=== PATIENT | female | born 1960 | race Caucasian/White ===

== ENCOUNTER → 2020-07-30 11:18 | Outpatient (CLI) | payer OTHER, SELFPAY ==
[2020-07-30 11:51] LABS: Add Manual Diff / Slide Review NO; Basophils Absolute Auto 0 /uL (0-100); Basophils Percent Auto 0.6 % (0-2); Eosinophils Absolute Auto 200 /uL (0-450); Eosinophils Percent Auto 2.7 % (2-4); Hematocrit 43.9 % (36-46); Hemoglobin 14.9 g/dL (12.0-16.0); Lymphocytes Absolute Auto 2000 /uL (1100-4500); Lymphocytes Percent Auto 32.3 % (25-40); Mean Corpuscular HGB Conc 34.1 % (30-36); Mean Corpuscular Hemoglobin 30.9 PG (26-34); Mean Corpuscular Volume 90.8 fL (80-100); Monocytes Absolute Auto 500 /uL (0-900); Monocytes Percent Auto 7.6 % (3-14); Neutrophils Absolute Auto 3600 /uL (1500-7000); Neutrophils Percent Auto 56.8 % (50-75); Platelet Count 201 X10^3/uL (150-400); Red Blood Cell Count 4.83 X10^6/uL (4.0-5.2); Red Cell Distribution Width 12.6 % (11.6-14.8); White Blood Cell Count 6.3 X10^3/uL (4.5-11.0)
[2020-07-30 12:04] LABS: Alanine Aminotransferase 28 IU/L (<35); Albumin 4.3 g/dL (3.5-5.0); Albumin Globulin Ratio 1.3 (1.0-2.8); Alkaline Phosphatase 72 U/L (38-126); Aspartate Aminotransferase 32 IU/L (14-36); BUN Creatinine Ratio 28.4 (6-22); Bilirubin Total 0.3 mg/dL (0.2-1.3); Blood Urea Nitrogen 19 mg/dL (7-17); Calcium 10.3 mg/dL (8.4-10.2); Carbon Dioxide 35 mmol/L (22-32); Chloride 104 mmol/L (98-107); Cholesterol 222 mg/dL (140-199); Estimated Glomerular Filt Rate > 60.0 mL/min (>60); Globulin 3.2 g/dL (1.7-4.1); Glucose 71 mg/dL (80-110); HDL Cholesterol 67 mg/dL (40-60); HEMOLYSIS < 15 (0-50); LDL Cholesterol Calculated 129 mg/dL (<100); Potassium 4.3 mmol/L (3.4-5.1); Sodium 142 mmol/L (137-145); Total Protein 7.5 g/dL (6.3-8.2); Triglycerides 129 mg/dL (35-150); Uric Acid 3.6 mg/dL (2.5-6.2)
== END ==
PROVIDERS: PCP Registered Nurse; Referring Provider Registered Nurse; Visit Provider Registered Nurse
DX: L90.0 Lichen sclerosus et atrophicus (principal); Z13.220 Encounter for screening for lipoid disorders; Z13.6 Encounter for screening for cardiovascular disorders; Z87.39 Personal history of other diseases of the musculoskeletal system and connective tissue
CPT/HCPCS: 36415; 80053; 80061; 84550; 85025

== ENCOUNTER → 2020-08-10 10:41 | Outpatient (CLI) | payer OTHER, SELFPAY ==
--- NOTE | 2020-08-10 10:42 | DI.RAD.S_ITS ---
PROCEDURE: XR RIBS LT MIN 3V W CXR1V INDICATIONS: left rib pain; hx of fractures TECHNIQUE: To views of the left ribs were acquired, along with a single view chest. COMPARISON: None. FINDINGS: Surgical changes and devices: None. Bones and chest wall: No acute fractures or dislocations. Old fracture/deformity of the left 7th, 8th and 9th ribs. No suspicious bony lesions. Overlying soft tissues appear unremarkable. Lungs and pleura: There is a 1.1 cm nodular density in the left lower lung zone. No pleural effusions or pneumothorax. Mediastinum: Mediastinal contours appear normal. Heart size is normal. IMPRESSION: 1. Old left 7th, 8th and 9th rib fractures. No acute fracture identified. 2. A 1.1 cm nodular density in the left lower lung zone. Chest CT is suggested for follow-up. Dictated by: Alice Cason M.D. on 08/10/2020 at 12:57 Approved by: Alice Cason M.D. on 08/10/2020 at 12:59
== END ==
LOC: LAB 10:41 → RAD 10:41
PROVIDERS: PCP Registered Nurse; Referring Provider Registered Nurse; Visit Provider Registered Nurse
DX: R07.81 Pleurodynia (principal); R91.1 Solitary pulmonary nodule
CPT/HCPCS: 71101

== ENCOUNTER → 2020-08-19 11:46 | Outpatient (CLI) | payer OTHER, SELFPAY ==
--- NOTE | 2020-08-19 11:49 | DI.CT.S_ITS ---
PROCEDURE: CT CHEST WO CON INDICATIONS: 1.1 cm nodular density in the left lower lung TECHNIQUE: Noncontrast 5 mm thick sections acquired from the pulmonary apices to the posterior costophrenic angles. 1 mm lung window, 5 mm thick coronal and sagittal and 7 mm axial MIP reformats were then acquired. For radiation dose reduction, the following was used: automated exposure control, adjustment of mA and/or kV according to patient size. COMPARISON: [facility], CR, XR RIBS LT MIN 3V W CXR1V, 08/10/2020, 10:48. FINDINGS: Image quality: Excellent. Lungs and pleura: No acute air space opacities. Minimal lung parenchymal and contiguous pleural scarring is seen at each apex. Note is also made of a small amount of chronic appearing alveolar stranding at the medial border of the far anterior lingular segment left upper lobe. This produces the vague radiodensity of recent plain film concern dated 08/10/20. A lung mass in that area is not present. No pleural effusions or pneumothorax. Central and peripheral airways are patent and normal in caliber. Mediastinum: Heart size is normal. No pericardial effusion. No mediastinal adenopathy by size criteria. Thoracic aorta and central pulmonary arteries are normal in size. Esophagus is normal in caliber. No hiatal hernia. Bones and chest wall: No suspicious bony lesions. No vertebral body compression fractures. No axillary or supraclavicular adenopathy by size criteria. Thyroid gland is not well seen by this noncontrast technique. . Abdomen: Visualized upper abdominal solid organs and bowel loops appear normal in the absence of contrast. IMPRESSION: Minimal bilateral apical lung and adjacent pleural scarring, requiring no follow-up. Minimal focal scarring at the medial border of the far anterior lingular segment left upper lobe producing the area of vague increased radiodensity superimposed on the left ventricular apex on recent chest plain film 08/11/19. This is a benign finding, no lung mass is present in this area, and no follow-up is recommended. Dictated by: Phuc Birmingham M.D. on 08/19/2020 at 12:19 Approved by: Phuc Birmingham M.D. on 08/19/2020 at 12:23
== END ==
PROVIDERS: PCP Registered Nurse; Referring Provider Registered Nurse; Visit Provider Registered Nurse
DX: R93.89 Abnormal findings on diagnostic imaging of other specified body structures (principal)
CPT/HCPCS: 71250

== ENCOUNTER → 2020-11-01 11:33 | Outpatient (CLI) | payer OTHER, SELFPAY ==
[2020-11-01 12:54] LABS: COVID19 -Nasal RAPID Negative (Negative)
== END ==
PROVIDERS: PCP Registered Nurse; Visit Provider Physician Assistant
DX: Z01.812 Encounter for preprocedural laboratory examination (principal); Z20.822 Contact with and (suspected) exposure to COVID-19
CPT/HCPCS: 87635

== ENCOUNTER 2020-11-02 09:15 | Outpatient (CLI) | payer OTHER, SELFPAY ==
[2020-11-02] VITALS (10 sets, daily range): BP systolic 77–136; BP diastolic 49–80; PULSE 62–78; RESP 12–20; TEMP 36.2; O2SAT 94–100
--- NOTE | 2020-11-02 09:19 | DI.RAD.S_ITS ---
PROCEDURE: PAIN C/T TRANFORAMINAL INJECT INDICATIONS: SPONDYLOSIS COMPARISON: None. FINDINGS: Fluoroscopic spot filming was performed to verify placement of spinal needles overlying the midthoracic spine level(s), as labeled on the films. Appropriate location(s) of the needle tip(s) was confirmed by injection of iodinated contrast. IMPRESSION: Needle placement as above. Dictated by: Belkis Luna M.D. on 11/02/2020 at 11:59 Approved by: Belkis Luna M.D. on 11/02/2020 at 12:00
[2020-11-02] MEDS: MIDAZOLAM 5 MG/5 ML VIAL IV (10:06)
[2020-11-02] MEDS: IOPAMIDOL 15 ML VIAL 3 ML INJ (10:06)
[2020-11-02] MEDS: fentaNYL 100 MCG/2 ML INJ 50 MCG IV (10:06)
[2020-11-02] MEDS: DEXAMETHASONE 10 MG/ML VIAL 30 MG INJ (10:09)
[2020-11-02] MEDS: BUPIVACAINE 0.25% (PF) VIAL 2 ML INJ (10:09)
--- NOTE | 2020-11-02 10:21 | P.PCN_ITS ---
Date/Time/Diagnoses Date of procedure: 11/02/20 Time of procedure: 10:21 Pre-procedure diagnosis: 1. FORAMINAL STENOSIS WITH THORACIC SYMPTOMS Post-procedure diagnosis: same Procedure Notes Procedure: 1. FLUOROSCOPICALLY GUIDED CONTRAST CONTROLLED TRANSFORAMINAL EPIDURAL STEROID INJECTION - LEFT T8/9 TFESI Indications: Minoo is referred by CHELLY Lopez for treatment of Foraminal Stenosis with left thoracic Symptoms Physician: Tenzin Abdalla Total Fluoroscopy time (seconds): 15 Total sedation minutes: 12 Complications: none Procedure in detail & Post-procedure care: FINDINGS Foraminal Nerve Root Compression secondary to disc disease and facet hypertrophy DESCRIPTION OF PROCEDURE Following review of allergy and review of potential side effects and complications, including, but not necessarily limited to, infection, allergic reaction, local tissue breakdown, stroke, temporary or permanent nerve injury, paralysis, and possible , the patient indicated that the patient understood and agreed to proceed. An informed consent document was signed by the patient, witnessed by a nurse, and placed in the patient's chart. Additionally, other treatment options including medications, modalities, and physical therapy were reviewed with the patient. After review of previous anaesthesic history and IV conscious sedation the patient was deemed safe to proceed with today?s procedure with IV conscious sedation as ASA class II designation. Safety time-out was performed to confirm patient ID, procedure to be performed and site of procedure. IV sedation was accomplished with a combination of 2mg of Versed and 50mcg of Fentanyl was administered by the RN after DO order, titrated to patient comfort during the course of the procedure while the patient remained responsive to all verbal commands In the prone position following sterile prep and drape of the lumbar region, the left T8-9 posterior neuroforamen was identified fluoroscopically. The skin was anesthetized via a 25-gauge 1.5-inch needle with 1% lidocaine solution. At this point, a 25-gauge 3.5-inch spinal needle was atraumatically introduced and advanced under fluoroscopic guidance through the posterior left T8-9 neuroforamen to approximately the anterior aspect of the canal. Depth was confirmed on lateral view. Following negative aspiration, injection of approximately 1.5cc of Isovue 200 under live fluoroscopy in the AP view confirmed excellent flow along the nerve root, into the epidural space without vascular or intrathecal uptake observed Radiological data, including multiple fluoroscopic views reveal the needle placement in the left T8/9 posterior neuroforamen. Subsequent views show flow of contrast material flowing superiorly and inferiorly along the nerve root confirming epidural flow. Subsequently, a test dose of 1.5cc of 1% lidocaine solution was administered and patient was observed for signs or symptoms of complications, including abdominal pain, shortness of breath, bilateral upper or lower extremity weakness, nausea and vomiting, prior to steroid injection. At this point, a total of 3cc or 30mg of dexamethasone was injected without incident. The procedure tolerated the procedure well without signs or symptoms of complications prior to transfer to the recovery area continued monitoring without incident. The patient was then transferred to the recovery area where they were observed for an appropriate time after the injection. The patient reported a VAS score of 7 prior to the procedure and a post- procedure VAS of 0. POST OP INSTRUCTIONS The patient was provided a Pain Log to continue to record their response to the target-specific procedure prior to follow-up visit with their referring physician. Additionally, specific post-injection care instructions and a contact number to our office were provided if concerns arise regarding possible complications associated with the procedure are suspected.
== END 2020-11-02 11:00 | disposition home or self-care (01) ==
LOC: RAD 09:18
PROVIDERS: PCP Registered Nurse; Referring Provider Physical Medicine & Rehabilitation; Visit Provider Physical Medicine & Rehabilitation
DX: M48.04 Spinal stenosis, thoracic region (principal); M51.14 Intervertebral disc disorders with radiculopathy, thoracic region
CPT/HCPCS: 64479; 99152; J1100; J2250; J3010

== ENCOUNTER → 2021-05-24 12:46 | Outpatient (CLI) | payer OTHER, SELFPAY ==
[2021-05-24 14:29] LABS: COVID19 -Nasal RAPID Negative (Negative)
== END ==
PROVIDERS: PCP Registered Nurse; Visit Provider Physical Medicine & Rehabilitation
DX: Z20.822 Contact with and (suspected) exposure to COVID-19 (principal)
CPT/HCPCS: 87635; C9803

== ENCOUNTER 2021-05-26 08:23 | Outpatient (CLI) | payer OTHER, SELFPAY ==
[2021-05-26] VITALS (9 sets, daily range): BP systolic 110–134; BP diastolic 63–86; PULSE 76–84; RESP 12–20; TEMP 35.9; O2SAT 96–100
--- NOTE | 2021-05-26 08:26 | DI.RAD.S_ITS ---
PROCEDURE: PAIN C/T TRANFORAMINAL INJECT INDICATIONS: spondylosis COMPARISON: [facility], , PAIN C/T TRANFORAMINAL INJECT, 11/02/2020, 10:10. FINDINGS: Fluoroscopic spot filming was performed to verify placement of spinal needles at the left T8-T9 level(s), as labeled on the films. Appropriate location(s) of the needle tip(s) was confirmed by injection of iodinated contrast. IMPRESSION: Intraprocedural examination within normal limits. Dictated by: Isaiah Patel M.D. on 05/26/2021 at 10:53 Approved by: Isaiah Patel M.D. on 05/26/2021 at 10:54
[2021-05-26] MEDS: fentaNYL 100 MCG/2 ML INJ 50 MCG IV (09:51)
[2021-05-26] MEDS: MIDAZOLAM 5 MG/5 ML VIAL IV (09:51)
[2021-05-26] MEDS: IOPAMIDOL 15 ML VIAL 3 ML INJ (09:57)
[2021-05-26] MEDS: BUPIVACAINE 0.25% (PF) VIAL 2 ML INJ (09:58)
[2021-05-26] MEDS: DEXAMETHASONE 10 MG/ML VIAL 30 MG INJ (09:58)
--- NOTE | 2021-05-26 10:11 | P.PCN_ITS ---
Date/Time/Diagnoses Date of procedure: 05/26/21 Time of procedure: 10:11 Pre-procedure diagnosis: 1. FORAMINAL STENOSIS WITH LE SYMPTOMS This procedure is found to meet the Governor's proclamation 20-24.2 regarding non urgent procedures. This patient meets multiple criteria for the procedure including continuing or worsening of significant or severe pain, combined with further deterioration of the patient's condition or overall health as well as delay in treatment would be expected to result in less positive ultimate medical outcome. Therefore the decision to perform the procedure in an outpatient hospital setting is found to be in accordance with guidelines of the proclamation. Post-procedure diagnosis: same Procedure Notes Procedure: 1. FLUOROSCOPICALLY GUIDED CONTRAST CONTROLLED TRANSFORAMINAL EPIDURAL STEROID INJECTION - LEFT T8/9 TFESI Indications: Minoo is referred by CHELLY Lozada for treatment of Foraminal Stenosis with Left thoracic Symptoms Physician: Tenzin Abdalla Total Fluoroscopy time (seconds): 14 Total sedation minutes: 16 Complications: none Procedure in detail & Post-procedure care: FINDINGS Foraminal Nerve Root Compression secondary to disc disease and facet hypertrophy DESCRIPTION OF PROCEDURE Following review of allergy and review of potential side effects and complications, including, but not necessarily limited to, infection, allergic reaction, local tissue breakdown, stroke, temporary or permanent nerve injury, paralysis, and possible , the patient indicated that the patient understood and agreed to proceed. An informed consent document was signed by the patient, witnessed by a nurse, and placed in the patient's chart. Additionally, other treatment options including medications, modalities, and physical therapy were r eviewed with the patient. After review of previous anaesthesic history and IV conscious sedation the patient was deemed safe to proceed with today?s procedure with IV conscious sedation as ASA class II designation. Safety time-out was performed to confirm patient ID, procedure to be performed and site of procedure. IV sedation was accomplished with a combination of 2mg of Versed and 50mcg of Fentanyl was administered by the RN after DO order, titrated to patient comfort during the course of the procedure while the patient remained responsive to all verbal commands In the prone position following sterile prep and drape of the lumbar region, the left T8-9 posterior neuroforamen was identified fluoroscopically. The skin was anesthetized via a 25-gauge 1.5-inch needle with 1% lidocaine solution. At this point, a 25-gauge 3.5-inch spinal needle was atraumatically introduced and advanced under fluoroscopic guidance through the posterior left T8-9 neuroforamen to approximately the anterior aspect of the canal. Depth was confirmed on lateral view. Following negative aspiration, injection of approximately 1.5cc of Isovue 200 under live fluoroscopy in the AP view confirmed excellent flow along the nerve root, into the epidural space without vascular or intrathecal uptake observed Radiological data, including multiple fluoroscopic views reveal the needle placement in the left T8/9 posterior neuroforamen. Subsequent views show flow of contrast material flowing superiorly and inferiorly along the nerve root confirming epidural flow. Subsequently, a test dose of 1.5cc of 1% lidocaine solution was administered and patient was observed for signs or symptoms of complications, including abdominal pain, shortness of breath, bilateral upper or lower extremity weakness, nausea and vomiting, prior to steroid injection. At this point, a total of 3cc or 30mg of dexamethasone was injected without incident. The procedure tolerated the procedure well without signs or symptoms of complications prior to transfer to the recovery area continued monitoring without incident. The patient was then transferred to the recovery area where they were observed for an appropriate time after the injection. The patient reported a VAS score of 7 prior to the procedure and a post- procedure VAS of 0. POST OP INSTRUCTIONS The patient was provided a Pain Log to continue to record their response to the target-specific procedure prior to follow-up visit with their referring physician. Additionally, specific post-injection care instructions and a contact number to our office were provided if concerns arise regarding possible complications associated with the procedure are suspected.
== END 2021-05-26 10:38 | disposition home or self-care (01) ==
PROVIDERS: PCP Registered Nurse; Referring Provider Physical Medicine & Rehabilitation; Visit Provider Physical Medicine & Rehabilitation
DX: M48.04 Spinal stenosis, thoracic region (principal); M51.14 Intervertebral disc disorders with radiculopathy, thoracic region
CPT/HCPCS: 64479; 99152; J0702; J1100; J2250; J3010

== ENCOUNTER → 2021-05-31 11:01 | Outpatient (CLI) | payer OTHER, SELFPAY ==
[2021-05-31 13:06] LABS: Alanine Aminotransferase 21 IU/L (<35); Albumin 3.8 g/dL (3.5-5.0); Albumin Globulin Ratio 1.3 (1.0-2.8); Alkaline Phosphatase 54 U/L (38-126); Aspartate Aminotransferase 25 IU/L (14-36); BUN Creatinine Ratio 20.5 (6-22); Bilirubin Total 0.7 mg/dL (0.2-1.3); Blood Urea Nitrogen 16 mg/dL (7-17); Calcium 8.8 mg/dL (8.4-10.2); Carbon Dioxide 33 mmol/L (22-32); Chloride 104 mmol/L (98-107); Cholesterol 197 mg/dL (140-199); Estimated Glomerular Filt Rate > 60.0 mL/min (>60); Glucose 100 mg/dL (80-110); HDL Cholesterol 69 mg/dL (40-60); HEMOLYSIS < 15 (0-50); LDL Cholesterol Calculated 100 mg/dL (<100); Potassium 4.1 mmol/L (3.4-5.1); Sodium 139 mmol/L (137-145); Total Protein 6.8 g/dL (6.3-8.2); Triglycerides 138 mg/dL (35-150)
[2021-05-31 13:36] LABS: TSH w/ Reflex to FT4 1.38 uIU/mL (0.47-4.68)
== END ==
PROVIDERS: PCP Registered Nurse; Referring Provider Registered Nurse; Visit Provider Registered Nurse
DX: E78.5 Hyperlipidemia, unspecified (principal); F41.8 Other specified anxiety disorders
CPT/HCPCS: 36415; 80053; 80061; 84443

== ENCOUNTER → 2021-09-15 08:18 | Outpatient (CLI) | payer OTHER, SELFPAY ==
--- NOTE | 2021-09-15 08:21 | DI.MRI.S_ITS ---
PROCEDURE: MR CERVICAL SPINE WO CON INDICATIONS: RIGHT C6 RADICULOPATHY TECHNIQUE: Noncontrast sagittal T1 spin echo and T2 fast spin echo, sagittal STIR, foraminal oblique sagittal T2 fast spin echo, and axial gradient echo or T2 fast spin echo through the cervical spine. COMPARISON: [facility], CR, XR CERVICAL SPINE WITH OBLIQUES, 11/09/2020, 16:23. FINDINGS: Image quality: Excellent. Alignment and Curvature: There is normal bony alignment. Bone Marrow: Mild Modic type 2 reactive endplate changes noted adjacent to the C7-T1 disc. Spinal Cord: Visualized spinal cord has normal size and signal. No cerebellar tonsillar herniation. Paraspinous Soft Tissues: No paravertebral masses. Prevertebral soft tissues are normal in thickness. C2-C3: Loss of disc signal. Mild left facet hypertrophy. No central stenosis. Mild left neural foraminal narrowing. No neural compression. C3-C4: Loss of disc signal and slight loss of disc height. Mild, diffuse disc bulge. Mild right and moderate left facet hypertrophy. Mild left uncovertebral joint hypertrophy. Mild narrowing of the central canal. Moderate left neural foraminal narrowing. No neural compression. C4-C5: Loss of disc signal and slight loss of disc height. Mild, diffuse disc bulge. Mild right moderate left facet hypertrophy. Mild left uncovertebral joint hypertrophy. Mild narrowing of the central canal. Mild right and moderate to severe left neural foraminal narrowing with slight compression of the exiting left C5 nerve root.. C5-C6: Loss of disc signal and height. Moderate, diffuse disc bulge. Mild bilateral facet hypertrophy. Moderate bilateral uncovertebral joint hypertrophy. Severe narrowing of the central canal with mild compression of the cervical spinal cord. Severe bilateral neural foraminal narrowing with compression of the exiting bilateral C6 nerve roots. C6-C7: Loss of disc signal and slight loss of disc height. Mild, diffuse disc bulge. Mild bilateral facet hypertrophy. Moderate narrowing of the central canal. No neural foraminal narrowing. No neural compression. C7-T1: Loss of disc signal and height. Moderate, diffuse disc bulge. Mild bilateral facet hypertrophy. Moderate narrowing of the central canal. Mild bilateral neural foraminal narrowing. No neural compression IMPRESSION: 1. Multilevel degenerative disc disease. 2. Multilevel facet and uncovertebral arthropathy. 3. Severe C5-C6 central canal narrowing with compression of the cervical spinal cord. 4. Severe bilateral C5-C6 neural foraminal narrowing with compression of the exiting bilateral C6 nerve roots. Moderate to severe left C4-C5 neural foraminal narrowing with slight compression of the exiting left C5 nerve root. Dictated by: Mildred Zepeda MD, PhD on 09/15/2021 at 10:27 Approved by: Mildred Zepeda MD, PhD on 09/15/2021 at 11:08
--- NOTE | 2021-09-15 08:21 | DI.MG.S_ITS ---
BILATERAL DIGITAL SCREENING MAMMOGRAM 3D/2D WITH CAD: 09/15/2021 CLINICAL: Routine screening. Family history of breast cancer. Comparison is made to exams dated: 04/02/2020 mammogram and 10/10/2018 mammogram - outside facility. There are scattered fibroglandular elements in both breasts. Current study was also evaluated with a Computer Aided Detection (CAD) system. No significant masses, calcifications, or other findings are seen in either breast. There has been no significant interval change. IMPRESSION: NEGATIVE There is no mammographic evidence of malignancy. A 1 year screening mammogram is recommended. This exam was interpreted at Station ID: [id number]. NOTE: For mammograms, a report in lay terms will be sent to the patient. Approximately 15% of breast malignancies will not be visualized mammographically. In the management of a palpable breast mass, a negative mammogram must not discourage biopsy of a clinically suspicious lesion. Electronically Signed By: Buddy valente/foreign:09/15/2021 10:55:08 letter sent: Normal Exam ACR BI-RADS Category 1: Negative [id number]
== END ==
PROVIDERS: PCP Family Medicine; Referring Provider Physical Medicine & Rehabilitation; Visit Provider Physical Medicine & Rehabilitation
DX: Z12.31 Encounter for screening mammogram for malignant neoplasm of breast (principal); Z80.3 Family history of malignant neoplasm of breast; M47.22 Other spondylosis with radiculopathy, cervical region; M50.11 Cervical disc disorder with radiculopathy, high cervical region; M48.02 Spinal stenosis, cervical region
CPT/HCPCS: 72141; 77063; 77067

== ENCOUNTER → 2021-10-03 10:23 | Outpatient (CLI) | payer OTHER, SELFPAY ==
[2021-10-03 12:35] LABS: COVID19 -Nasal RAPID Negative (Negative)
== END ==
PROVIDERS: PCP Family Medicine; Visit Provider Physical Medicine & Rehabilitation
DX: Z20.822 Contact with and (suspected) exposure to COVID-19 (principal)
CPT/HCPCS: 87635; C9803

== ENCOUNTER 2021-10-04 08:28 | Outpatient (CLI) | payer OTHER, SELFPAY ==
[2021-10-04] VITALS (10 sets, daily range): BP systolic 108–146; BP diastolic 68–85; PULSE 69–80; RESP 14–21; TEMP 36.4; O2SAT 96–100
--- NOTE | 2021-10-04 08:30 | DI.RAD.S_ITS ---
PROCEDURE: PAIN C/T INTERLAMINAR INJECT INDICATIONS: STENOSIS COMPARISON: [facility], MR, MR CERVICAL SPINE WO CON, 09/15/2021, 8:43. FINDINGS: Fluoroscopic spot filming was performed to verify placement of a spinal needle at the C6-C7 level, as labeled on the films. Appropriate location of the needle tip was confirmed by injection of iodinated contrast. IMPRESSION: No significant intraprocedural abnormality. Dictated by: Isaiah Patel M.D. on 10/04/2021 at 9:04 Approved by: Isaiah Patel M.D. on 10/04/2021 at 9:05
[2021-10-04] MEDS: MIDAZOLAM 2 MG/2 ML VIAL ×2 (09:17→09:24)
[2021-10-04] MEDS: BUPIVACAINE 0.25% (PF) VIAL 2 ML INJ (09:22)
[2021-10-04] MEDS: DEXAMETHASONE 10 MG/ML VIAL 30 MG INJ (09:22)
[2021-10-04] MEDS: IOPAMIDOL 15 ML VIAL 3 ML INJ (09:22)
--- NOTE | 2021-10-04 09:36 | P.PCN_ITS ---
Date/Time/Diagnoses Date of procedure: 10/04/21 Time of procedure: 09:36 Pre-procedure diagnosis: 1. CERVICAL STENOSIS, 2. CERVICAL HNP WITH UPPER EXTREMITY RADICULAR FEATURES Post-procedure diagnosis: same Procedure Notes Procedure: 1. FLUORSCOPICALLY GUIDED CONTRAST CONTROLLED INTERLAMINAR EPIDURAL STEROID INJECTION - C6/7 TL SAM Indications: Minoo is referred by Dr. Cisneros for treatment of Cervical HNP with Upper Extremity Paresthesias. Physician: Tenzin Abdalla Total Fluoroscopy time (seconds): 31 Total sedation minutes: 15 Complications: none Procedure in detail & Post-procedure care: FINDINGS Cervical Stenosis due to disc deterioration and nerve root irritation and nerve root irritation DESCRIPTION OF PROCEDURE Fluoroscopically guided, contrast-controlled C6/7 translaminar epidural steroid injection with conscious sedation. Following review of allergy and review of potential side effects and complications, including, but not necessarily limited to, infection, allergic reaction, local tissue breakdown, temporary as well as permanent nerve injury, stroke, paralysis, and possible , the patient indicated that patient understood and agreed to proceed. An informed consent document was signed by the patient, witnessed by a nurse, and placed in the patient's chart. Additionally, other treatment options including modalities, medications, and physical therapy were reviewed with the patient. After review of previous anaesthesic history and IV conscious sedation the patient was deemed safe to proceed with today?s procedure with IV conscious sedation as ASA class II designation. Safety time-out was performed to confirm patient ID, procedure to be performed and site of procedure. IV sedation was accomplished with a combination of 4mg of Versed administered by the RN after DO order, titrated to patient comfort during the course of the procedure while the patient remained responsive to all verbal commands. In the prone position, following sterile prep and drape of the cervical region, the C6/7 translaminar space was identified fluoroscopically. The skin was anesthetized via a 25-gauge 1.5-inch needle with 1% lidocaine solution. At this point, a 25-gauge, 2.5-inch short bevel spinal needle was atraumatically introduced and advanced under fluoroscopic guidance into epidural space at the C6/7 translaminar space. Depth was confirmed on lateral view. Radiological data, including multiple fluoroscopic views of the cervical spine, reveal a spinal needle at the C6/7 translaminar space. Lateral views then show placement of the needle in the epidural space. Subsequent views show contrast material flowing superiorly and inferiorly in the epidural space. DSA fluoroscopy with live contrast injection, once again, confirmed no vascular or intrathecal uptake. At this point, using loss of resistance technique with saline and air, the epidural space was entered. Following negative aspiration, injection of approximately 1.5 cc of Isovue-200 with live fluoroscopy in the AP view confirmed epidural flow in the epidural space without vascular or intrathecal uptake observed. Subsequently, a test dose of 1 cc of 1% lidocaine solution was injected and patient was observed for two minutes without signs or symptoms of complications, including abdominal pain, shortness of breath, bilateral upper or lower extremity weakness, nausea and vomiting, prior to steroid injection. At this point, 3cc or 30mg of dexamethasone was then injected without incident. The patient tolerated the procedure well without signs or symptoms of compl ications prior to being transferred to the recovery area for further monitoring, The patient was then transferred to the recovery area where they were observed for an appropriate period of time after the injection. The patient reported a VAS score of 6 prior to the procedure and a post-procedure VAS of 0. POST OP INSTRUCTIONS The patient was provided a Pain Log to continue to record their response to the target-specific procedure prior to follow-up visit with the referring provider. Additionally, specific post-injection care instructions and a contact number to our office were provided if concerns arise regarding possible complications associated with the procedure are suspected.
== END 2021-10-04 10:00 | disposition home or self-care (01) ==
LOC: RAD 08:29
PROVIDERS: PCP Family Medicine; Referring Provider Physical Medicine & Rehabilitation; Visit Provider Physical Medicine & Rehabilitation
DX: M48.02 Spinal stenosis, cervical region (principal); M50.123 Cervical disc disorder at C6-C7 level with radiculopathy
CPT/HCPCS: 62321; 99152; J1100; J2250

== ENCOUNTER → 2022-01-06 16:02 | Outpatient (CLI) | payer OTHER, SELFPAY ==
--- NOTE | 2022-01-06 16:02 | DI.RAD.S_ITS ---
PROCEDURE: XR ABDOMEN 1V INDICATIONS: assess stool burden, abd cramp and presumed overflow diarrhe TECHNIQUE: One view of the abdomen acquired. COMPARISON: None. FINDINGS: Surgical changes and devices: Epigastric surgical clips associated gastric suture line. Bowel: Moderate fecal debris present in the colon. No obstruction Soft tissues: No suspicious abdominal calcifications. Visualized solid organ contours appear normal in size. Bones: No suspicious bony lesions. IMPRESSION: Moderate fecal debris in the colon, no obstruction. Approved by: Harvey Moeller M.D. on 01/06/2022 at 17:47
== END ==
PROVIDERS: PCP Pediatrics; Referring Provider Pediatrics; Visit Provider Pediatrics
DX: K52.9 Noninfective gastroenteritis and colitis, unspecified (principal)
CPT/HCPCS: 36415; 74018; 80053; 85025; 85651; 86140

== ENCOUNTER → 2022-01-06 16:14 | Outpatient (CLI) | payer OTHER, SELFPAY ==
[2022-01-06 17:36] LABS: Add Manual Diff / Slide Review NO; Basophils Absolute Auto 0 /uL (0-100); Basophils Percent Auto 0.5 % (0-2); Eosinophils Absolute Auto 100 /uL (0-450); Eosinophils Percent Auto 2.8 % (2-4); Hematocrit 40.9 % (36-46); Hemoglobin 14.1 g/dL (12.0-16.0); Lymphocytes Absolute Auto 1000 /uL (1100-4500); Lymphocytes Percent Auto 20.1 % (25-40); Mean Corpuscular HGB Conc 34.5 % (30-36); Mean Corpuscular Hemoglobin 31.9 PG (26-34); Mean Corpuscular Volume 92.4 fL (80-100); Monocytes Absolute Auto 400 /uL (0-900); Monocytes Percent Auto 7.5 % (3-14); Neutrophils Absolute Auto 3300 /uL (1500-7000); Neutrophils Percent Auto 69.1 % (50-75); Platelet Count 160 X10^3/uL (150-400); Red Blood Cell Count 4.42 X10^6/uL (4.0-5.2); Red Cell Distribution Width 13.2 % (11.6-14.8); White Blood Cell Count 4.8 X10^3/uL (4.5-11.0)
[2022-01-06 17:57] LABS: Alanine Aminotransferase 40 IU/L (<35); Albumin 4.2 g/dL (3.5-5.0); Albumin Globulin Ratio 1.2 (1.0-2.8); Alkaline Phosphatase 71 U/L (38-126); Aspartate Aminotransferase 53 IU/L (14-36); BUN Creatinine Ratio 22.9 (6-22); Bilirubin Total 0.5 mg/dL (0.2-1.3); Blood Urea Nitrogen 16 mg/dL (7-17); C-Reactive Protein Quant < 0.5 mg/dL (<1.0); Calcium 9.3 mg/dL (8.4-10.2); Carbon Dioxide 31 mmol/L (22-32); Chloride 104 mmol/L (98-107); Estimated Glomerular Filt Rate > 60 mL/min (>60); Globulin 3.5 g/dL (1.7-4.1); Glucose 90 mg/dL (80-110); HEMOLYSIS < 15 (0-50); Potassium 4.2 mmol/L (3.4-5.1); Sodium 140 mmol/L (137-145); Total Protein 7.7 g/dL (6.3-8.2)
[2022-01-06 18:38] LABS: Erythrocyte Sedimentation Rate 8 MM/HR (0-20)
== END ==
PROVIDERS: PCP Pediatrics; Referring Provider Pediatrics; Visit Provider Pediatrics
DX: K52.9 Noninfective gastroenteritis and colitis, unspecified (principal)
CPT/HCPCS: 36415; 80053; 85025; 85651; 86140

== ENCOUNTER → 2022-01-12 16:32 | Outpatient (CLI) | payer OTHER, SELFPAY ==
[2022-01-12 20:09] LABS: Occult Blood 1 Negative (Negative); Occult Blood 2 Negative (Negative); Occult Blood 3 Negative (Negative)
== END ==
PROVIDERS: PCP Pediatrics; Referring Provider Pediatrics; Visit Provider Pediatrics
DX: K52.9 Noninfective gastroenteritis and colitis, unspecified (principal)
CPT/HCPCS: 82270; 87205

== ENCOUNTER → 2022-01-17 15:37 | Outpatient (CLI) | payer OTHER, SELFPAY ==
--- NOTE | 2022-01-17 15:39 | DI.RAD.S_ITS ---
PROCEDURE: XR WRIST LT MIN 3V INDICATIONS: Foosh TECHNIQUE: 4 views of the wrist were acquired. COMPARISON: [facility], CR, XR HAND LT MIN 3V, 01/17/2022, 15:43. [facility], CR, XR ELBOW LT MIN 3V, 01/17/2022, 15:43. [facility], CR, XR FOREARM LT 2V, 01/17/2022, 15:43. FINDINGS: Bones: No fractures or dislocations. No suspicious bony lesions. Degenerative changes are seen throughout, which are most prominent involving the 1st carpometacarpal joint. Milder degenerative changes are seen elsewhere. Scaphoid view: No navicular fractures are seen. Soft tissues: No suspicious soft tissue calcifications. IMPRESSION: No displaced fractures are seen. If there is snuffbox tenderness (or other clinical suspicion for a fracture not seen on these images) then a repeat examination would be recommended in 10 to 14 days, following splinting. Dictated by: Isaiah Patel M.D. on 01/17/2022 at 15:09 Approved by: Isaiah Patel M.D. on 01/17/2022 at 15:10
--- NOTE | 2022-01-17 15:39 | DI.RAD.S_ITS ---
PROCEDURE: XR ELBOW LT MIN 3V INDICATIONS: Foosh TECHNIQUE: 3 views of the elbow were acquired. COMPARISON: [facility], CR, XR HAND LT MIN 3V, 01/17/2022, 15:43. [facility], CR, XR WRIST LT MIN 3V, 01/17/2022, 15:43. [facility], CR, XR FOREARM LT 2V, 01/17/2022, 15:43. FINDINGS: Bones: No fractures or dislocations. No suspicious bony lesions. Soft tissues: No elbow joint effusion. No suspicious soft tissue calcifications. IMPRESSION: No significant plain film abnormality is seen. Dictated by: Isaiah Patel M.D. on 01/17/2022 at 15:07 Approved by: Isaiah Patel M.D. on 01/17/2022 at 15:07
--- NOTE | 2022-01-17 15:39 | DI.RAD.S_ITS ---
PROCEDURE: XR HAND LT MIN 3V INDICATIONS: Foosh TECHNIQUE: 3 views of the hand(s) acquired. COMPARISON: [facility], CR, XR WRIST LT MIN 3V, 01/17/2022, 15:43. [facility], CR, XR ELBOW LT MIN 3V, 01/17/2022, 15:43. [facility], CR, XR FOREARM LT 2V, 01/17/2022, 15:43. FINDINGS: Bones: No fractures or dislocations. Carpal bones are normally aligned. No suspicious bony lesions. Degenerative changes are seen throughout, which are most prominent involving the 1st carpometacarpal joint. Milder degenerative changes are seen elsewhere. Soft tissues: No suspicious soft tissue calcifications. IMPRESSION: No displaced fractures are identified on this plain film study. Dictated by: Isaiah Patel M.D. on 01/17/2022 at 15:08 Approved by: Isaiah Patel M.D. on 01/17/2022 at 15:09
--- NOTE | 2022-01-17 15:39 | DI.RAD.S_ITS ---
PROCEDURE: XR FOREARM LT 2V INDICATIONS: Foosh TECHNIQUE: 2 views of the forearm were acquired. COMPARISON: [facility], CR, XR WRIST LT MIN 3V, 01/17/2022, 15:43. [facility], CR, XR ELBOW LT MIN 3V, 01/17/2022, 15:43. [facility], CR, XR HAND LT MIN 3V, 01/17/2022, 15:43. FINDINGS: Bones: No fractures or dislocations. No suspicious bony lesions. There are degenerative changes seen, which are worst involving the radial aspect of the carpus. Soft tissues: No suspicious soft tissue calcifications or masses. IMPRESSION: Negative for displaced fracture. Dictated by: Isaiah Patel M.D. on 01/17/2022 at 15:08 Approved by: Isaiah Patel M.D. on 01/17/2022 at 15:08
== END ==
PROVIDERS: PCP Pediatrics; Referring Provider Student in an Organized Health Care Education/Training Program; Visit Provider Student in an Organized Health Care Education/Training Program
DX: M25.532 Pain in left wrist (principal); W19.XXXA Unspecified fall, initial encounter
CPT/HCPCS: 73080; 73090; 73110; 73130

== ENCOUNTER → 2022-06-14 13:42 | Outpatient (CLI) | payer OTHER, SELFPAY ==
[2022-06-14 14:32] LABS: Add Manual Diff / Slide Review NO; Basophils Absolute Auto 0 /uL (0-100); Basophils Percent Auto 0.9 % (0-2); Eosinophils Absolute Auto 200 /uL (0-450); Eosinophils Percent Auto 3.3 % (2-4); Hematocrit 41.6 % (36-46); Hemoglobin 14.2 g/dL (12.0-16.0); Lymphocytes Absolute Auto 1300 /uL (1100-4500); Lymphocytes Percent Auto 24.3 % (25-40); Mean Corpuscular HGB Conc 34.1 % (30-36); Mean Corpuscular Hemoglobin 31.1 PG (26-34); Mean Corpuscular Volume 91.1 fL (80-100); Monocytes Absolute Auto 600 /uL (0-900); Monocytes Percent Auto 11.2 % (3-14); Neutrophils Absolute Auto 3200 /uL (1500-7000); Neutrophils Percent Auto 60.3 % (50-75); Platelet Count 157 X10^3/uL (150-400); Red Blood Cell Count 4.57 X10^6/uL (4.0-5.2); Red Cell Distribution Width 14.2 % (11.6-14.8); White Blood Cell Count 5.3 X10^3/uL (4.5-11.0)
[2022-06-14 14:54] LABS: Erythrocyte Sedimentation Rate 8 MM/HR (0-20)
[2022-06-14 14:55] LABS: Alanine Aminotransferase 17 IU/L (<35); Albumin 4.1 g/dL (3.5-5.0); Albumin Globulin Ratio 1.2 (1.0-2.8); Alkaline Phosphatase 67 U/L (38-126); Aspartate Aminotransferase 23 IU/L (14-36); BUN Creatinine Ratio 16.2 (6-22); Bilirubin Total 0.6 mg/dL (0.2-1.3); Blood Urea Nitrogen 11 mg/dL (7-17); C-Reactive Protein Quant < 0.5 mg/dL (<1.0); Calcium 8.8 mg/dL (8.4-10.2); Carbon Dioxide 26 mmol/L (22-32); Chloride 107 mmol/L (98-107); Estimated Glomerular Filt Rate > 60 mL/min (>60); Globulin 3.5 g/dL (1.7-4.1); Glucose 95 mg/dL (80-110); HEMOLYSIS < 15 (0-50); Potassium 3.6 mmol/L (3.4-5.1); Sodium 138 mmol/L (137-145); Total Protein 7.6 g/dL (6.3-8.2)
== END ==
PROVIDERS: PCP Family Medicine; Referring Provider Specialist/Technologist Athletic Trainer; Visit Provider Specialist/Technologist Athletic Trainer
DX: M45.9 Ankylosing spondylitis of unspecified sites in spine (principal); M35.00 Sjogren syndrome, unspecified; Z51.81 Encounter for therapeutic drug level monitoring; D84.9 Immunodeficiency, unspecified
CPT/HCPCS: 36415; 80053; 85025; 85651; 86140

== ENCOUNTER 2022-07-04 08:17 | Outpatient (CLI) | payer OTHER, SELFPAY ==
[2022-07-04] VITALS (8 sets, daily range): BP systolic 110–141; BP diastolic 70–92; PULSE 82–89; RESP 13–22; TEMP 36.1; O2SAT 96–100
--- NOTE | 2022-07-04 | DI.RAD.S_ITS ---
PROCEDURE: PAIN C/T TRANFORAMINAL INJECT INDICATIONS: Radiculopathy, thoracic region COMPARISON: None. FINDINGS: Fluoroscopic spot filming was performed to verify placement of spinal needles at the T 9-T10 level(s), as labeled on the films. Appropriate location(s) of the needle tip(s) was confirmed by injection of iodinated contrast. IMPRESSION: Fluoroscopy for pain management. Dictated by: Alice Cason M.D. on 07/04/2022 at 11:50 Approved by: Alice Cason M.D. on 07/04/2022 at 11:50
[2022-07-04] MEDS: MIDAZOLAM 2 MG/2 ML VIAL 1 MG IV (09:04)
[2022-07-04] MEDS: DEXAMETHASONE 10 MG/ML VIAL 30 MG INJ (09:08)
[2022-07-04] MEDS: IOPAMIDOL 15 ML VIAL 3 ML INJ (09:09)
[2022-07-04] MEDS: BUPIVACAINE 0.25% (PF) VIAL 2 ML INJ (09:09)
--- NOTE | 2022-07-04 09:22 | P.PCN_ITS ---
Date/Time/Diagnoses Date of procedure: 07/04/22 Time of procedure: 09:23 Pre-procedure diagnosis: 1. FORAMINAL STENOSIS WITH LE SYMPTOMS Post-procedure diagnosis: same Procedure Notes Procedure: 1. FLUOROSCOPICALLY GUIDED CONTRAST CONTROLLED TRANSFORAMINAL EPIDURAL STEROID INJECTION - LEFT T8/9 TFESI Indications: Autumnis referred by Dr. López for treatment of Foraminal Stenosis with Left thoracic Symptoms Physician: Tenzin Abdalla Total Fluoroscopy time (seconds): 23 Total sedation minutes: 16 Complications: none Procedure in detail & Post-procedure care: FINDINGS Foraminal Nerve Root Compression secondary to disc disease and facet hypertrophy DESCRIPTION OF PROCEDURE Following review of allergy and review of potential side effects and complications, including, but not necessarily limited to, infection, allergic reaction, local tissue breakdown, stroke, temporary or permanent nerve injury, paralysis, and possible , the patient indicated that the patient understood and agreed to proceed. An informed consent document was signed by the patient, witnessed by a nurse, and placed in the patient's chart. Additionally, other treatment options including medications, modalities, and physical therapy were reviewed with the patient. After review of previous anaesthesic history and IV conscious sedation the patient was deemed safe to proceed with today?s procedure with IV conscious sedation as ASA class II designation. Safety time-out was performed to confirm patient ID, procedure to be performed and site of procedure. IV sedation was accomplished with a combination of 1mg of Versed was administered by the RN after DO order, titrated to patient comfort during the course of the procedure while the patient remained responsive to all verbal commands In the prone position following sterile prep and drape of the lumbar region, the left T8-9 posterior neuroforamen was identified fluoroscopically. The skin was anesthetized via a 25-gauge 1.5-inch needle with 1% lidocaine solution. At this point, a 25-gauge 3.5-inch spinal needle was atraumatically introduced and advanced under fluoroscopic guidance through the posterior left T8-9 neuroforamen to approximately the anterior aspect of the canal. Depth was confirmed on lateral view. Following negative aspiration, injection of approximately 1.5cc of Isovue 200 under live fluoroscopy in the AP view con firmed excellent flow along the nerve root, into the epidural space without vascular or intrathecal uptake observed Radiological data, including multiple fluoroscopic views reveal the needle placement in the left T8/9 posterior neuroforamen. Subsequent views show flow of contrast material flowing superiorly and inferiorly along the nerve root confirming epidural flow. Subsequently, a test dose of 1.5cc of 1% lidocaine solution was administered and patient was observed for signs or symptoms of complications, including abdominal pain, shortness of breath, bilateral upper or lower extremity weakness, nausea and vomiting, prior to steroid injection. At this point, a total of 3cc or 30mg of dexamethasone was injected without incident. The procedure tolerated the procedure well without signs or symptoms of complications prior to transfer to the recovery area continued monitoring without incident. The patient was then transferred to the recovery area where they were observed for an appropriate time after the injection. The patient reported a VAS score of 7 prior to the procedure and a post- procedure VAS of 0. POST OP INSTRUCTIONS The patient was provided a Pain Log to continue to record their response to the target-specific procedure prior to follow-up visit with their referring physician. Additionally, specific post-injection care instructions and a contact number to our office were provided if concerns arise regarding possible complications associated with the procedure are suspected.
== END 2022-07-04 09:40 | disposition home or self-care (01) ==
PROVIDERS: PCP Family Medicine; Referring Provider Physical Medicine & Rehabilitation; Visit Provider Physical Medicine & Rehabilitation
DX: M48.04 Spinal stenosis, thoracic region (principal); M51.14 Intervertebral disc disorders with radiculopathy, thoracic region
CPT/HCPCS: 64479; 99152; J1100; J2250; J3490

== ENCOUNTER 2022-10-27 15:01 | Emergency (ER) | payer OTHER, SELFPAY ==
[2022-10-27] VITALS (8 sets, daily range): BP systolic 118–195; BP diastolic 65–94; PULSE 73–86; RESP 16; TEMP 36.4; O2SAT 97–100; BMI 29.0
[2022-10-27] MEDS: ONDANSETRON 4 MG ODT SL (15:10)
--- NOTE | 2022-10-27 15:59 | PC.NURSE ---
pt states she started feeling nauseated on sunday and started vomiting on and has not been able to keep anything down since then. she called her PCP and was told to try ice chips and saltines, pt tolerated ice chips okay but threw up saltines. pt has also had some stomach cramping with small bouts of diarrhea. she did test positive with an at home test today for covid. is worried since pt has RA and is on methotrexate and yashira. last year when she had covid she developed pneumonia even with two rounds of paxlovid.
--- NOTE | 2022-10-27 17:51 | ED_ITS ---
HPI - Nausea/Vomiting/Diarrhea General Chief complaint: Nausea/Vomiting/Diarrhea Stated complaint: N/V/stuffy Time Seen by Provider: 10/27/22 17:15 Source: patient Mode of arrival: Ambulatory History of Present Illness HPI Narrative: Patient 62-year-old female history rheumatoid arthritis on Humira methotrexate presenting today with a positive COVID test 2 days ago. She reports she has been nauseous with some vomiting unable to keep anything down. She was previously given ODT Zofran but still is not feeling quite right. He denied any cough or shortness of breath. No significant abdominal pain. She is having a severe headache and sinus pain. She reports that she had COVID last year twice the 2nd time she got a COVID pneumonia Related Data Home Medications Medication Instructions Recorded Confirmed hydroxychloroquine 200 mg tablet 200 mg PO BID 07/26/20 09/13/22 lifitegrast 5 % eye drops in a 1 drp EYE-BOTH BID 07/26/20 09/13/22 dropperette folic acid 1 mg tablet 1 mg PO DAILY 12/20/20 09/13/22 insulin syringe-needle U-100 1 mL #10 ea 08/29/21 09/13/22 30 gauge x 1/2 (BD Insulin Syringe Ultra-Fine) leflunomide 20 mg tablet 20 mg PO DAILY 08/29/21 09/13/22 methotrexate sodium 25 mg/mL 25 mg IM QWEEK 08/29/21 09/13/22 injection solution naloxone 4 mg/actuation nasal spray intranasal 08/29/21 09/13/22 spray (Narcan) adalimumab 40 mg/0.4 mL 40 mg SUBCUT Q2W 06/19/22 09/13/22 subcutaneous pen kit (Humira(CF) Pen) nifedipine 10 mg capsule 10 mg PO BID PRN 09/13/22 09/13/22 Previous Rx's Medication Instructions Recorded conjugated estrogens 0.625 mg 0.625 mg PO DAILY Hormone 03/01/22 tablet (Premarin) replacement #90 tabs cyclobenzaprine 10 mg tablet 10 mg PO BEDTIME #30 tabs 03/29/22 clobetasol 0.05 % topical ointment 1 applic topical .twice weekly 05/19/22 Itching from lichen sclerosis #30 grams hyoscyamine sulfate 0.125 mg 0.125 mg PO DAILY PRN 05/31/22 sublingual tablet (Levsin/SL) cramping/diarrhea possibly related to IBS #60 tabs lidocaine 5 % topical patch 1 patch topical DAILY #30 ea 06/19/22 gabapentin 300 mg capsule See Rx Instructions .Route 07/24/22 .COMPLEX #810 caps meclizine 25 mg tablet 25 mg PO BID PRN vertigo #20 tabs 08/30/22 duloxetine 60 mg capsule,delayed 60 mg PO DAILY anxiety with 09/13/22 release depression #90 caps tramadol 50 mg tablet 50 mg PO BID PRN pain #180 tabs 09/13/22 meloxicam 15 mg tablet 15 mg PO DAILY #30 tabs 09/27/22 ondansetron 4 mg disintegrating 4 mg PO Q8H PRN nausea and 10/27/22 tablet vomiting #10 tabs Allergies Allergy/AdvReac Type Severity Reaction Status Date / Time No Known Drug Allergies Allergy Verified 10/27/22 15:03 Review of Systems Review of Systems ROS Unobtainable: All systems reviewed & are unremarkable except as noted in HPI and below Patient History Medical History Abnormal Pap smear of cervix (~2003) Acute bacterial sinusitis Cervical radiculopathy at C6 Chicken pox Chronic back pain Chronic diarrhea Conjunctivitis Fibroids Hemorrhoid Impingement syndrome of right shoulder Measles Mumps Osteoporosis Rheumatoid arthritis Thoracic radiculopathy due to trauma Surgical History S/P hysterectomy Family History Father Hypertension History of heart disease Lung disease Mother Diabetes mellitus Brother Hypertension Diverticulitis Sister Colon cancer Hyperlipidemia Hypertension COPD (chronic obstructive pulmonary disease) Social History Smoking Status: Never smoker alcohol intake: current substance use type: does not use Smoking Status: Never smoker alcohol intake frequency: a few times a week Substance Use Type: does not use Exam Initial Vital Signs Initial Vital Signs: Vital Signs Temperature 97.6 F 10/27/22 15:04 Pulse Rate 82 10/27/22 15:04 Respiratory Rate 16 10/27/22 15:04 Blood Pressure 195/89 H 10/27/22 15:04 Pulse Oximetry 99 10/27/22 15:04 Oxygen Delivery Method Room Air 10/27/22 15:04 GENERAL: Alert 62-year-old appears to not feel well HEENT: Head atraumatic,EOMI, pupils reactive, face symmetric, moist mucous membranes CARDIOVASCULAR: Regular rate and rhythm without murmurs, rubs or gallops. RESPIRATORY: Breath sounds equal bilaterally, no wheezes rales or rhonchi. ABDOMEN: Soft, nontender. Normoactive bowel sounds all 4 quadrants. No gua rding or rebound. EXTREMITIES: Normal range of motion, no clubbing or edema. Neurovascularly intact NEUROLOGICAL: Alert and oriented x4.Normal gait and speech. SKIN: Warm, dry, no laceration, no petechiae, no rashes or lesions. Course Orders Ordered: ED Orders 10/27/22 18:10 CBC Auto Diff [Complete Blood Count AUTO DIFF] Stat CMP [Comprehensive Metabolic Panel] Stat Sodium Chloride (Normal Saline 0.9%) 1,000 mls @ 1,000 mls/hr IV BOLUS ONE Stop: 10/27/22 18:57 Last Admin: 10/27/22 18:20 Dose: 1,000 mls/hr Documented By: PAGE Ondansetron HCl (Ondansetron 4 Mg Odt) 4 mg SL NOW PRN PRN Reason: Nausea And Vomiting Last Admin: 10/27/22 15:10 Dose: 4 mg Documented By: QUAN Ondansetron HCl (Ondansetron 4 Mg/2 Ml Inj) 4 mg IV NOW PRN PRN Reason: Nausea And Vomiting Discontinued Medications Ketorolac Tromethamine (Ketorolac 30 Mg/Ml Vial) 15 mg IV NOW ONE Stop: 10/27/22 17:59 Last Admin: 10/27/22 18:21 Dose: 15 mg Documented By: NR Ondansetron HCl (Ondansetron 4 Mg/2 Ml Inj) 4 mg IV NOW ONE Stop: 10/27/22 17:59 Last Admin: 10/27/22 18:21 Dose: 4 mg Documented By: NR Vital Signs Vital signs: Vital Signs - 8 hr 10/27/22 15:04 10/27/22 15:50 10/27/22 15:50 Temperature 97.6 F Pulse Rate 82 73 Respiratory Rate 16 Blood Pressure 195/89 H 152/89 H Pulse Oximetry 99 98 Oxygen Delivery Method Room Air 10/27/22 16:00 10/27/22 16:01 10/27/22 16:01 Temperature Pulse Rate 75 76 Respiratory Rate Blood Pressure 152/83 H Pulse Oximetry 99 99 Oxygen Delivery Method 10/27/22 16:30 10/27/22 16:30 10/27/22 17:00 Temperature Pulse Rate 82 Respiratory Rate Blood Pressure 153/88 H 156/88 H Pulse Oximetry 97 Oxygen Delivery Method 10/27/22 17:00 10/27/22 17:30 10/27/22 17:30 Temperature Pulse Rate 86 78 Respiratory Rate Blood Pressure 118/65 Pulse Oximetry 97 98 Oxygen Delivery Method 10/27/22 18:00 10/27/22 18:00 Temperature Pulse Rate 81 Respiratory Rate Blood Pressure 163/94 H Pulse Oximetry 100 Oxygen Delivery Method MDM - Nausea/Vomiting/Diarrhea Lab Data 10/27/22 18:10 10/27/22 18:10 Labs: Lab Results 10/27/22 10/27/22 Range/Units 18:10 18:10 WBC 5.2 (4.5-11.0) X10^3/uL RBC 4.63 (4.0-5.2) X10^6/uL Hgb 14.7 (12.0-16.0) g/dL Hct 41.8 (36-46) % MCV 90.3 (80-100) fL MCH 31.7 (26-34) PG MCHC 35.1 (30-36) % RDW 13.6 (11.6-14.8) % Plt Count 163 (150-400) X10^3/uL Neut % (Auto) 63.2 (50-75) % Lymph % (Auto) 28.4 (25-40) % [place] % (Auto) 5.9 (3-14) % Eos % (Auto) 1.6 L (2-4) % Baso % (Auto) 0.9 (0-2) % Neut # (Auto) 3300 (1133-1456) /uL Lymph # (Auto) 1500 (2527-3293) /uL [place] # (Auto) 300 (0-900) /uL Eos # (Auto) 100 (0-450) /uL Baso # (Auto) 0 (0-100) /uL Sodium 137 (137-145) mmol/L Potassium 3.8 (3.4-5.1) mmol/L Chloride 101 (98-107) mmol/L Carbon Dioxide 27 (22-32) mmol/L BUN 19 H (7-17) mg/dL Creatinine 0.75 (0.52-1.04) mg/dL Estimated GFR > 60 (>60) mL/min BUN/Creatinine Ratio 25.3 H (6-22) Glucose 89 (80-110) mg/dL Calcium 9.3 (8.4-10.2) mg/dL Total Bilirubin 1.2 (0.2-1.3) mg/dL AST 29 (14-36) IU/L ALT 29 (<35) IU/L Alkaline Phosphatase 70 (38-126) U/L Total Protein 8.2 (6.3-8.2) g/dL Albumin 4.4 (3.5-5.0) g/dL Globulin 3.8 (1.7-4.1) g/dL Albumin/Globulin Ratio 1.2 (1.0-2.8) MDM Narrative Medical decision making narrative: Patient is 59-year-old female history rheumatoid arthritis on immunosuppressant medication. She is feeling nauseous not able to keep fluids down. Vitals are actually stable. Blood work is overall reassuring without electrolyte abnormality ARCHIE leukocytosis. She is given IV fluids Toradol and Zofran. Overall feeling much better. At this time supportive treatment only. Discharge Plan Departure Patient Disposition: Home Clinical Impression: COVID-19 Instructions: DI for Vomiting -- Adult Activity Restrictions/Additional Instructions: *You have been diagnosed with COVID-19 *What to do: Increase fluid intake Pedialyte or Gatorade like product. Unfortunately no care for COVID. Supportive care only *Continue to take medications as directed Zofran 4 mg every 8 hours if needed for nausea vomiting --> [facility] [place] Tylenol 1000 mg every 6 hours if needed for [id number] pain or fever Motrin 600 mg every 6 hours if needed for [id number] pain or fever *Follow up with your primary care provider in 2-3 days or call [phone] *Return to ER if you should have persistent vomiting not tolerating fluids increased shortness of breath or any new, worsening or concerning symptoms Prescriptions: New ondansetron 4 mg tablet,disintegrating 4 mg PO Q8H PRN (Reason: nausea and vomiting) Qty: 10 0RF No Action Premarin 0.625 mg tablet 0.625 mg PO DAILY Qty: 90 3RF cyclobenzaprine 10 mg tablet 10 mg PO BEDTIME Qty: 30 4RF hyoscyamine sulfate [Levsin/SL] 0.125 mg tablet, sublingual 0.125 mg PO DAILY PRN (Reason: cramping/diarrhea possibly related to IBS) Qty: 60 0RF gabapentin 300 mg capsule See Rx Instructions .ROUTE .COMPLEX Qty: 810 0RF Dose Instruction: TAKE 1 TO 3 CAPSULES BY MOUTH THREE TIMES DAILY Rx Instructions: TAKE 1 TO 3 CAPSULES BY MOUTH THREE TIMES DAILY meclizine 25 mg tablet 25 mg PO BID PRN (Reason: vertigo) Qty: 20 0RF tramadol 50 mg tablet 50 mg PO BID PRN (Reason: pain) Qty: 180 0RF duloxetine 60 mg capsule,delayed release(DR/EC) 60 mg PO DAILY Qty: 90 3RF hydroxychloroquine 200 mg tablet 200 mg PO BID Xiidra 5 % dropperette 1 drp EYE-BOTH BID clobetasol 0.05 % ointment 1 applic topical .twice weekly Qty: 30 4RF leflunomide 20 mg tablet 20 mg PO DAILY methotrexate sodium 25 mg/mL solution 25 mg IM QWEEK (DME) insulin syringe-needle U-100 [BD Insulin Syringe Ultra-Fine] 1 mL 30 gauge x 1/2 syringe See Rx Instructions .ROUTE .MEDSUPPLY Qty: 10 Rx Instructions: As directed naloxone [Narcan] 4 mg/actuation spray,non-aerosol intranasal nifedipine 10 mg capsule 10 mg PO BID PRN meloxicam 15 mg tablet 15 mg PO DAILY Qty: 30 2RF folic acid 1 mg tablet 1 mg PO DAILY Humira(CF) Pen 40 mg/0.4 mL pen injector kit 40 mg SUBCUT Q2W lidocaine 5 % adhesive patch,medicated 1 patch topical DAILY Qty: 30 1RF Rx Instructions: leave on most painful area for 12 hrs Referrals: Oma López DO [Primary Care Provider] - Stand Alone Forms: Patient Portal/API
[2022-10-27 18:20] LABS: Add Manual Diff / Slide Review NO; Basophils Absolute Auto 0 /uL (0-100); Basophils Percent Auto 0.9 % (0-2); Eosinophils Absolute Auto 100 /uL (0-450); Eosinophils Percent Auto 1.6 % (2-4); Hematocrit 41.8 % (36-46); Hemoglobin 14.7 g/dL (12.0-16.0); Lymphocytes Absolute Auto 1500 /uL (1100-4500); Lymphocytes Percent Auto 28.4 % (25-40); Mean Corpuscular HGB Conc 35.1 % (30-36); Mean Corpuscular Hemoglobin 31.7 PG (26-34); Mean Corpuscular Volume 90.3 fL (80-100); Monocytes Absolute Auto 300 /uL (0-900); Monocytes Percent Auto 5.9 % (3-14); Neutrophils Absolute Auto 3300 /uL (1500-7000); Neutrophils Percent Auto 63.2 % (50-75); Platelet Count 163 X10^3/uL (150-400); Red Blood Cell Count 4.63 X10^6/uL (4.0-5.2); Red Cell Distribution Width 13.6 % (11.6-14.8); White Blood Cell Count 5.2 X10^3/uL (4.5-11.0)
[2022-10-27] MEDS: SODIUM CHLORIDE 0.9% 1,000 ML 1000 ML IV (18:20)
[2022-10-27] MEDS: ONDANSETRON 4 MG/2 ML INJ IV (18:21)
[2022-10-27] MEDS: KETOROLAC 30 MG/ML VIAL 15 MG IV (18:21)
[2022-10-27 18:29] LABS: Alanine Aminotransferase 29 IU/L (<35); Albumin 4.4 g/dL (3.5-5.0); Albumin Globulin Ratio 1.2 (1.0-2.8); Alkaline Phosphatase 70 U/L (38-126); Aspartate Aminotransferase 29 IU/L (14-36); BUN Creatinine Ratio 25.3 (6-22); Bilirubin Total 1.2 mg/dL (0.2-1.3); Blood Urea Nitrogen 19 mg/dL (7-17); Calcium 9.3 mg/dL (8.4-10.2); Carbon Dioxide 27 mmol/L (22-32); Chloride 101 mmol/L (98-107); Estimated Glomerular Filt Rate > 60 mL/min (>60); Globulin 3.8 g/dL (1.7-4.1); Glucose 89 mg/dL (80-110); HEMOLYSIS < 15 (0-50); Potassium 3.8 mmol/L (3.4-5.1); Sodium 137 mmol/L (137-145); Total Protein 8.2 g/dL (6.3-8.2)
[2022-10-27] MEDS: ONDANSETRON 4 MG ODT PREPACK 1 BOTTLE MISC (19:07)
== END 2022-10-27 19:09 | disposition home or self-care (01) ==
PROVIDERS: Emergency Provider Emergency Medicine; PCP Family Medicine
DX: U07.1 COVID-19 (principal); R11.2 Nausea with vomiting, unspecified
CPT/HCPCS: 36415; 80053; 85025; 96361; 96374; 96375; 99284; J1885; J2405

== ENCOUNTER → 2022-11-13 09:58 | Outpatient (CLI) | payer OTHER, SELFPAY ==
[2022-11-13 10:54] LABS: Add Manual Diff / Slide Review NO; Basophils Absolute Auto 0 /uL (0-100); Basophils Percent Auto 1.1 % (0-2); Eosinophils Absolute Auto 200 /uL (0-450); Eosinophils Percent Auto 4.7 % (2-4); Hematocrit 36.3 % (36-46); Hemoglobin 12.8 g/dL (12.0-16.0); Lymphocytes Absolute Auto 900 /uL (1100-4500); Lymphocytes Percent Auto 23.9 % (25-40); Mean Corpuscular HGB Conc 35.2 % (30-36); Mean Corpuscular Hemoglobin 31.9 PG (26-34); Mean Corpuscular Volume 90.6 fL (80-100); Monocytes Absolute Auto 400 /uL (0-900); Monocytes Percent Auto 9.6 % (3-14); Neutrophils Absolute Auto 2300 /uL (1500-7000); Neutrophils Percent Auto 60.7 % (50-75); Platelet Count 181 X10^3/uL (150-400); Red Cell Distribution Width 13.7 % (11.6-14.8); White Blood Cell Count 3.8 X10^3/uL (4.5-11.0)
[2022-11-13 11:10] LABS: Alanine Aminotransferase 21 IU/L (<35); Albumin Globulin Ratio 1.3 (1.0-2.8); Alkaline Phosphatase 53 U/L (38-126); Aspartate Aminotransferase 22 IU/L (14-36); BUN Creatinine Ratio 17.1 (6-22); Bilirubin Total 0.5 mg/dL (0.2-1.3); Blood Urea Nitrogen 13 mg/dL (7-17); C-Reactive Protein Quant 0.8 mg/dL (<1.0); Calcium 9.2 mg/dL (8.4-10.2); Carbon Dioxide 30 mmol/L (22-32); Chloride 102 mmol/L (98-107); Estimated Glomerular Filt Rate > 60 mL/min (>60); Globulin 3.2 g/dL (1.7-4.1); Glucose 94 mg/dL (80-110); HEMOLYSIS < 15 (0-50); Potassium 3.3 mmol/L (3.4-5.1); Sodium 139 mmol/L (137-145); Total Protein 7.2 g/dL (6.3-8.2)
[2022-11-13 11:22] LABS: Erythrocyte Sedimentation Rate 20 MM/HR (0-20)
== END ==
PROVIDERS: PCP Family Medicine; Referring Provider Specialist/Technologist Athletic Trainer; Visit Provider Specialist/Technologist Athletic Trainer
DX: M47.819 Spondylosis without myelopathy or radiculopathy, site unspecified (principal)
CPT/HCPCS: 36415; 80053; 85025; 85651; 86140

== ENCOUNTER → 2022-11-21 11:04 | Outpatient (CLI) | payer OTHER, SELFPAY ==
--- NOTE | 2022-11-21 11:05 | DI.MG.S_ITS ---
BILATERAL DIGITAL SCREENING MAMMOGRAM 3D/2D WITH CAD: 11/21/2022 CLINICAL: Routine screening. Family history of breast cancer. Comparison is made to exams dated: 09/15/2021 mammogram, 09/15/2021 mammogram - [facility], and 04/02/2020 mammogram - outside facility. There are scattered areas of fibroglandular density in both breasts (category b / 25%-50% glandular tissue). Current study was also evaluated with a Computer Aided Detection (CAD) system. There are benign vascular calcifications in the right breast. No significant masses, calcifications, or other findings are seen in either breast. There has been no significant interval change. IMPRESSION: BENIGN There is no mammographic evidence of malignancy. A 1 year screening mammogram is recommended. Based on the Tyrer Cuzick model (a risk assessment model) the patient's lifetime risk is 5.6% and her 10 year risk is 2.5%. According to the ACR, ACS, and NCCN guidelines, an annual breast MRI exam along with mammogram is recommended if the patient's lifetime risk is 20% or greater. This exam was interpreted at Station ID: [id number]. NOTE: For mammograms, a report in lay terms will be sent to the patient. Approximately 15% of breast malignancies will not be visualized mammographically. In the management of a palpable breast mass, a negative mammogram must not discourage biopsy of a clinically suspicious lesion. Electronically Signed By: Jared lawrence/foreign:11/21/2022 16:43:59 letter sent: Normal Exam ACR BI-RADS Category 2: Benign Finding(s) 3342F
== END ==
PROVIDERS: PCP Family Medicine; Referring Provider Family Medicine; Visit Provider Family Medicine
DX: Z12.31 Encounter for screening mammogram for malignant neoplasm of breast (principal); Z80.3 Family history of malignant neoplasm of breast
CPT/HCPCS: 77063; 77067

== ENCOUNTER → 2023-03-07 10:25 | Outpatient (CLI) | payer OTHER, SELFPAY ==
--- NOTE | 2023-03-07 10:28 | DI.RAD.S_ITS ---
PROCEDURE: XR LUMBAR SPINE 2-3V INDICATIONS: Left low back pain with radiculopathy TECHNIQUE: 3 views of the lumbar spine were acquired. COMPARISON: None. FINDINGS: Bones: 5 [id number] vertebrae are present. Minimal anterolisthesis of L4 on L5. There is multilevel facet arthropathy, worse at L4-5 and L5-S1. Mild multilevel disc height loss with degenerative endplate changes and spurring is present. Severe disc height loss at L5-S1. No vertebral body compression fractures. No suspicious bony lesions. Soft tissues: Overlying bowel gas pattern is normal. No suspicious soft tissue calcifications. Surgical clips projecting over the upper abdomen. IMPRESSION: Degenerative changes of the lumbar spine, most pronounced at L5-S1. Dictated by: Reynold Shaw M.D. on 03/07/2023 at 13:28 Approved by: Reynold Shaw M.D. on 03/07/2023 at 13:31
[2023-03-07 12:07] LABS: Add Manual Diff / Slide Review NO; Basophils Absolute Auto 0 /uL (0-100); Basophils Percent Auto 0.6 % (0-2); Eosinophils Absolute Auto 200 /uL (0-450); Eosinophils Percent Auto 3.6 % (2-4); Hematocrit 41.9 % (36-46); Hemoglobin 14.5 g/dL (12.0-16.0); Lymphocytes Absolute Auto 1200 /uL (1100-4500); Lymphocytes Percent Auto 28.1 % (25-40); Mean Corpuscular HGB Conc 34.6 % (30-36); Mean Corpuscular Hemoglobin 30.8 PG (26-34); Monocytes Absolute Auto 400 /uL (0-900); Monocytes Percent Auto 8.9 % (3-14); Neutrophils Absolute Auto 2500 /uL (1500-7000); Neutrophils Percent Auto 58.8 % (50-75); Platelet Count 183 X10^3/uL (150-400); Red Blood Cell Count 4.71 X10^6/uL (4.0-5.2); White Blood Cell Count 4.2 X10^3/uL (4.5-11.0)
[2023-03-07 12:09] LABS: Cholesterol 248 mg/dL (140-199); HDL Cholesterol 79 mg/dL (40-60); LDL Cholesterol Calculated 145 mg/dL (<100); Triglycerides 118 mg/dL (35-150)
[2023-03-07 12:13] LABS: Alanine Aminotransferase 19 IU/L (<35); Albumin 4.1 g/dL (3.5-5.0); Albumin Globulin Ratio 1.3 (1.0-2.8); Alkaline Phosphatase 60 U/L (38-126); Aspartate Aminotransferase 21 IU/L (14-36); BUN Creatinine Ratio 20.7 (6-22); Bilirubin Total 0.7 mg/dL (0.2-1.3); Blood Urea Nitrogen 17 mg/dL (7-17); C-Reactive Protein Quant 1.7 mg/dL (<1.0); Calcium 9.4 mg/dL (8.4-10.2); Carbon Dioxide 24 mmol/L (22-32); Chloride 106 mmol/L (98-107); Estimated Glomerular Filt Rate > 60 mL/min (>60); Globulin 3.1 g/dL (1.7-4.1); Glucose 100 mg/dL (80-110); HEMOLYSIS < 15 (0-50); Sodium 140 mmol/L (137-145); Total Protein 7.2 g/dL (6.3-8.2)
[2023-03-07 12:16] LABS: Erythrocyte Sedimentation Rate 15 MM/HR (0-20)
[2023-03-08 18:36] LABS: DNA (DS) Antibody <1 IU/mL (0-9)
[2023-03-13 22:07] LABS: ANA Screen, IFA Negative (.)
== END ==
PROVIDERS: PCP Family Medicine; Referring Provider Specialist/Technologist Athletic Trainer; Visit Provider Specialist/Technologist Athletic Trainer
DX: M47.817 Spondylosis without myelopathy or radiculopathy, lumbosacral region (principal); M47.816 Spondylosis without myelopathy or radiculopathy, lumbar region; M54.50 Low back pain, unspecified; M45.9 Ankylosing spondylitis of unspecified sites in spine; R21 Rash and other nonspecific skin eruption; M06.9 Rheumatoid arthritis, unspecified; E78.5 Hyperlipidemia, unspecified; D84.9 Immunodeficiency, unspecified; M79.606 Pain in leg, unspecified
CPT/HCPCS: 36415; 72100; 80053; 80061; 83516; 85025; 85651; 86038; 86140; 86225; 86235

== ENCOUNTER → 2023-03-13 12:47 | Outpatient (CLI) | payer OTHER, SELFPAY ==
--- NOTE | 2023-03-13 12:48 | DI.MRI.S_ITS ---
PROCEDURE: MR LUMBAR SPINE WO CON INDICATIONS: Low back pain radiating down leg TECHNIQUE: Noncontrast sagittal T1 spin echo and T2 fast echo, sagittal STIR, and T2 fast spin echo through the lumbar spine. In cases with scoliosis, additional coronal T2 fast spin echo may be performed. COMPARISON: Located Within [facility], CR, XR LUMBAR SPINE 2-3V, 03/07/2023, 10:29. FINDINGS: Image quality: Excellent. Alignment and Curvature: 5 lumbar type vertebral bodies are present by plain film. 3 mm of retrolisthesis of L1 on L2. 4 mm of retrolisthesis of L5 on S1. Bone Marrow: Marrow is of normal overall signal. No acute vertebral body compression fractures. Moderate reactive signal within the endplates adjacent to the L5-S1 intervertebral disc. Mild reactive signal within the remaining lumbar and lower thoracic endplates. Spinal Cord: Conus medullaris terminates at the upper L1 level. Visualized cord demonstrates normal signal and size. Paraspinous Soft Tissues: No paravertebral masses. T12-L1: Mild disc height loss and desiccation. No significant canal nor foraminal stenosis. L1-L2: Mild disc height loss and desiccation. Mild diffuse disc bulge. Mild canal stenosis. No foraminal stenosis. L2-L3: Mild disc desiccation and diffuse disc bulge. Mild bilateral facet hypertrophy. No significant canal nor foraminal stenosis. L3-L4: Mild disc desiccation and diffuse disc bulge. Mild facet and ligamentum flavum hypertrophy. Mild epidural lipomatosis. Mild canal stenosis. Mild bilateral foraminal stenosis. L4-L5: Mild disc desiccation and diffuse disc bulge. Moderate facet and ligamentum flavum hypertrophy. Mild epidural lipomatosis. Mild canal stenosis. Moderate bilateral foraminal stenosis. L5-S1: Moderate disc height loss and desiccation. Mild diffuse disc bulge. Mild bilateral facet hypertrophy. Mild canal stenosis. Moderate bilateral foraminal stenosis. Mild posterior deviation of the left S1 nerve root within the lateral recess. IMPRESSION: 1. Multilevel degenerative disc and facet disease, as well as ligamentum flavum hypertrophy and epidural lipomatosis. 2. Mild multilevel canal stenosis. 3. Multilevel foraminal stenoses, worst at L4-L5 and L5-S1 where there are moderate foraminal stenoses. 4. Mild posterior deviation of the left S1 nerve root within the lateral recess at L5-S1. Recommend correlation with clinical symptoms to ascertain relevance of this finding. Dictated by: Philippe Cm M.D. on 03/13/2023 at 14:30 Approved by: Philippe Cm M.D. on 03/13/2023 at 14:33
== END ==
PROVIDERS: PCP Family Medicine; Referring Provider Family Medicine; Visit Provider Family Medicine
DX: M47.816 Spondylosis without myelopathy or radiculopathy, lumbar region (principal); M47.817 Spondylosis without myelopathy or radiculopathy, lumbosacral region; M51.36 Other intervertebral disc degeneration, lumbar region; M51.37 Other intervertebral disc degeneration, lumbosacral region; M48.061 Spinal stenosis, lumbar region without neurogenic claudication; M48.07 Spinal stenosis, lumbosacral region; M54.50 Low back pain, unspecified; M79.606 Pain in leg, unspecified; G89.29 Other chronic pain
CPT/HCPCS: 72148

== ENCOUNTER 2023-04-08 18:32 | Observation (INO) | payer OTHER, SELFPAY ==
[2023-04-08] VITALS (22 sets, daily range): BP systolic 125–196; BP diastolic 67–100; PULSE 74–103; RESP 13–22; TEMP 35.8–35.9; O2SAT 91–100; BMI 31.3
--- NOTE | 2023-04-08 18:42 | DI.RAD.S_ITS ---
PROCEDURE: XR CHEST 1V INDICATIONS: chest pain TECHNIQUE: One view of the chest was acquired. COMPARISON: None. FINDINGS: Surgical changes and devices: Upper abdominal surgical clips.. Lungs and pleura: Lungs are clear. No pleural effusions or pneumothorax. Mediastinum: Mediastinal contours appear normal. Heart size is normal. Bones and chest wall: No suspicious bony lesions. Overlying soft tissues appear unremarkable. IMPRESSION: No acute cardiopulmonary abnormality is seen. Dictated by: Reynold Shaw M.D. on 04/08/2023 at 19:15 Approved by: Reynold Shaw M.D. on 04/08/2023 at 19:16
[2023-04-08] MEDS: ONDANSETRON 4 MG/2 ML INJ IV (18:48)
[2023-04-08 18:50] LABS: Add Manual Diff / Slide Review NO; Basophils Absolute Auto 100 /uL (0-100); Basophils Percent Auto 0.9 % (0-2); Eosinophils Absolute Auto 100 /uL (0-450); Eosinophils Percent Auto 2.1 % (2-4); Hematocrit 42.5 % (36-46); Hemoglobin 14.8 g/dL (12.0-16.0); Lymphocytes Absolute Auto 1400 /uL (1100-4500); Lymphocytes Percent Auto 20.8 % (25-40); Mean Corpuscular HGB Conc 34.8 % (30-36); Mean Corpuscular Hemoglobin 31.5 PG (26-34); Mean Corpuscular Volume 90.7 fL (80-100); Monocytes Absolute Auto 400 /uL (0-900); Monocytes Percent Auto 6.3 % (3-14); Neutrophils Absolute Auto 4800 /uL (1500-7000); Neutrophils Percent Auto 69.9 % (50-75); Platelet Count 202 X10^3/uL (150-400); Red Blood Cell Count 4.69 X10^6/uL (4.0-5.2); Red Cell Distribution Width 14.2 % (11.6-14.8); White Blood Cell Count 6.9 X10^3/uL (4.5-11.0)
--- NOTE | 2023-04-08 18:50 | PC.NURSE ---
1845: Aspirin pulled by other RN and given to patient. Patient immediately throws up. Provider made aware.
[2023-04-08] MEDS: ASPIRIN 81 MG CHEW TAB 324 MG PO (18:52)
[2023-04-08 18:53] LABS: Prothrombin Time 11.9 SECONDS (9.4-12.5)
[2023-04-08 18:56] LABS: PTT Partial Thromboplastin Tim 30 SECONDS (25.1-36.5)
[2023-04-08 19:02] LABS: Alanine Aminotransferase 15 IU/L (<35); Albumin 4.5 g/dL (3.5-5.0); Albumin Globulin Ratio 1.2 (1.0-2.8); Alkaline Phosphatase 57 U/L (38-126); Aspartate Aminotransferase 23 IU/L (14-36); BUN Creatinine Ratio 12.2 (6-22); Bilirubin Total 0.7 mg/dL (0.2-1.3); Blood Urea Nitrogen 9 mg/dL (7-17); Carbon Dioxide 28 mmol/L (22-32); Chloride 104 mmol/L (98-107); Creatine Kinase 39 U/L (30-135); Estimated Glomerular Filt Rate > 60 mL/min (>60); Globulin 3.7 g/dL (1.7-4.1); Glucose 108 mg/dL (80-110); HEMOLYSIS < 15 (0-50); Lipase 75 U/L (23-300); Magnesium 1.9 mg/dL (1.6-2.3); Potassium 3.4 mmol/L (3.4-5.1); Sodium 138 mmol/L (137-145); Total Protein 8.2 g/dL (6.3-8.2)
[2023-04-08 19:13] LABS: Troponin I < 0.012 ng/mL (0.01-0.034)
--- NOTE | 2023-04-08 19:23 | ED.CHESTPAIN ---
HPI - Chest Pain General Chief Complaint: Chest Pain Stated Complaint: N/Chest pain Time Seen by Provider: 04/08/23 19:18 Source: patient Mode of arrival: Ambulatory Limitations: no limitations History of Present Illness HPI narrative: 62-year-old female complaining of substernal chest pressure for approximately 2 hours. It is associated with shortness of breath and diaphoresis. She is not had similar symptoms in the past. She was up walking shopping for groceries when it began. She does not note any increase with exertion. She is not had nausea or vomiting she is not had fevers she is not had leg swelling. She reports that both parents had coronary artery disease. She has a history of elevated cholesterol. She is not a smoker no history of hypertension. She does have rheumatoid arthritis is on multiple medications for this. She is not had fevers or cough. Related Data Home Medications Medication Instructions Recorded Confirmed hydroxychloroquine 200 mg tablet 200 mg PO BID 07/26/20 04/09/23 lifitegrast 5 % eye drops in a 1 drp EYE-BOTH BID 07/26/20 04/09/23 dropperette folic acid 1 mg tablet 5 mg PO DAILY 12/20/20 04/09/23 insulin syringe-needle U-100 1 mL #10 ea 08/29/21 04/09/23 30 gauge x 1/2 (BD Insulin Syringe Ultra-Fine) leflunomide 20 mg tablet 20 mg PO DAILY 08/29/21 04/09/23 methotrexate sodium 25 mg/mL 60 mg IM QWEEK 08/29/21 04/09/23 injection solution adalimumab 40 mg/0.4 mL 40 mg SUBCUT Q2W 06/19/22 04/08/23 subcutaneous pen kit (Humira(CF) Pen) nifedipine 10 mg capsule 10 mg PO BID PRN Reynauds 09/13/22 04/09/23 cyclobenzaprine 10 mg tablet 10 mg PO BEDTIME Pain 04/08/23 04/08/23 gabapentin 300 mg capsule See Rx Instructions .Route 04/09/23 04/09/23 .COMPLEX PRN Pain, Moderate Previous Rx's Medication Instructions Recorded clobetasol 0.05 % topical ointment 1 applic topical .twice weekly 05/19/22 Itching from lichen sclerosis #30 grams lidocaine 5 % topical patch 1 patch topical DAILY #30 ea 06/19/22 duloxetine 60 mg capsule,delayed 60 mg PO DAILY anxiety with 09/13/22 release depression #90 caps tramadol 50 mg tablet 50 mg PO BEDTIME PRN pain #60 tabs 03/12/23 estradiol 0.05 mg/24 hr semiweekly 1 patch transdermal 2XW #8 ea 03/28/23 transdermal patch Allergies Allergy/AdvReac Type Severity Reaction Status Date / Time No Known Drug Allergies Allergy Verified 02/28/23 14:38 Patient History Medical History (Updated 04/08/23 @ 22:35 by Gilberto Freeman MD) COVID-19 (~09/2022) Conjunctivitis Acute bacterial sinusitis Chronic diarrhea Impingement syndrome of right shoulder Cervical radiculopathy at C6 Thoracic radiculopathy due to trauma Rheumatoid arthritis Osteoporosis Mumps Measles Chicken pox Fibroids Abnormal Pap smear of cervix (~2003) Hemorrhoid Chronic back pain Surgical History S/P hysterectomy Family History Father Hypertension History of heart disease Lung disease Mother Diabetes mellitus Brother Hypertension Diverticulitis Sister Colon cancer Hyperlipidemia Hypertension COPD (chronic obstructive pulmonary disease) Social History household members: spouse Smoking Status: Never smoker alcohol intake: current substance use type: does not use Smoking Status: Never smoker alcohol intake frequency: a few times a week Substance Use Type: does not use Exam Initial Vital Signs Initial Vital Signs: Vital Signs Blood Pressure 185/100 H 04/08/23 18:37 Const General: No acute distress HENMT Head: normocephalic and atraumatic Neck Neck: supple and No JVD Resp Effort & Inspection: normal respiratory effort and able to speak in complete sentences Auscultation: clear to auscultation bilaterally Cardio Rate: regular rate Rhythm: regular rhythm Heart Sounds: S1 normal, S2 normal and no murmurs GI Palpation: soft and No tender Skin General: no rashes or lesions noted Neuro General: patient awake and patient oriented x3 Extrem General: normal to inspection Scores HEART Score Heart Score history: Highly Suspicious Heart Score EKG: Normal Heart Score Age: 45-64 years old Heart Score risk factors: 1-2 risk factors Heart Score troponin: < or = to normal limit Heart Score Total: 4 Course Course Decision to Admit Date: 04/09/23 Decision to Admit time: 00:30 Orders Ordered: ED Orders 04/08/23 18:38 Complete Blood Count AUTO DIFF Stat Comprehensive Metabolic Panel Stat D Dimer Stat Lipase Stat Magnesium Stat PTT Partial Thromboplastin Kwadwo Stat Prothrombin Time INR Stat Troponin & CK Cardiac Panel Stat 04/08/23 18:42 XR chest 1V Stat EKG-12 Lead Stat 04/08/23 20:04 Trop I [Troponin I] Stat 04/08/23 21:16 EKG-12 Lead Stat 04/08/23 22:36 Education, smoking cessation ONGOING 04/08/23 22:45 Basic Metabolic Panel DAILY Complete Blood Count AUTO DIFF DAILY 04/09/23 05:00 EKG-12 Lead DAILY Acetaminophen (Acetaminophen 325 Mg Tablet) 650 mg PO Q6H PRN PRN Reason: Fever/Mild Pain (1-3) Hydrocodone Bitart/Acetaminophen (Hydrocodone/Acet 5/325 Tablet) 1 tab PO Q4H PRN PRN Reason: Pain, Moderate (4-6) Calcium Carbonate (Calcium Carbonate 500 Mg Tab) 1,000 mg PO Q4HR PRN PRN Reason: Dyspepsia Last Admin: 04/09/23 00:31 Dose: 1,000 mg Documented By: Ketorolac Tromethamine (Ketorolac 30 Mg/Ml Vial) 30 mg IV Q6H PRN PRN Reason: Pain, Moderate (4-6) Stop: 04/13/23 22:42 Magnesium Hydroxide (Magnesium Hydroxide 30 Ml Udc) 30 ml PO DAILY PRN PRN Reason: Constipation Morphine Sulfate (Morphine 4 Mg/Ml Inj) 2 mg IV Q2HR PRN PRN Reason: Chest Pain Naloxone HCl (Naloxone 0.4 Mg/Ml Vial) 0.2 mg IV Q2MIN PRN PRN Reason: Opiate Reversal Nitroglycerin (Nitroglycerin 0.4 Mg Sl Tab) 0.4 mg SL [id number] PRN PRN Reason: Chest Pain Ondansetron HCl (Ondansetron 4 Mg/2 Ml Inj) 4 mg IV Q6HR PRN PRN Reason: Nausea And Vomiting Last Admin: 04/09/23 00:31 Dose: 4 mg Documented By: Prochlorperazine (Prochlorperazine 10 Mg/2 Ml Vial) 5 mg IV Q6HR PRN PRN Reason: Nausea Sennosides (Sennosides 8.6 Mg Tablet) 17.2 mg PO BEDTIME CONOR Discontinued Medications Aspirin (Aspirin 81 Mg Chew Tab) 324 mg PO NOW ONE Stop: 04/08/23 18:43 Last Admin: 04/08/23 18:52 Dose: 324 mg Documented By: MITCH Nitroglycerin (Nitroglycerin 0.4 Mg Sl Tab) 0.4 mg SL [id number] PRN PRN Reason: Chest Pain Last Admin: 04/08/23 20:01 Dose: 0.4 mg Documented By: Admin: 04/08/23 19:55 Dose: 0.4 mg Documented By: Admin: 04/08/23 19:50 Dose: 0.4 mg Documented By: BRYAN Nitroglycerin (Nitroglycerin Oint 1 Inch/Gm Oint...G.) 0.5 inch TOP NOW ONE Stop: 04/08/23 22:36 Last Admin: 04/08/23 22:49 Dose: 0.5 inch Documented By: MITCH Ondansetron HCl (Ondansetron 4 Mg/2 Ml Inj) 4 mg IV NOW ONE Stop: 04/08/23 18:46 Last Admin: 04/08/23 18:48 Dose: 4 mg Documented By: MITCH Ondansetron HCl (Ondansetron 4 Mg/2 Ml Inj) 4 mg IV Q8HR PRN PRN Reason: Nausea And Vomiting Reevaluation(s) Reevaluation #1: Chest pain resolved after nitroglycerin Consultations Consultation #1: D/W hospitalist, Dr Nath, accepts Vital Signs Vital signs: Vital Signs - 8 hr 04/08/23 19:30 04/08/23 19:30 04/08/23 19:55 Pulse Rate 86 Respiratory Rate 21 Blood Pressure 176/86 H 136/73 Pulse Oximetry 97 Oxygen Delivery Method 04/08/23 19:57 04/08/23 19:57 04/08/23 19:58 Pulse Rate 93 H Respiratory Rate 19 Blood Pressure 139/73 139/73 Pulse Oximetry 93 Oxygen Delivery Method 04/08/23 20:00 04/08/23 20:00 04/08/23 20:01 Pulse Rate 95 H 94 H Respiratory Rate 13 Blood Pressure 132/72 127/77 Pulse Oximetry 94 Oxygen Delivery Method 04/08/23 20:02 04/08/23 20:02 04/08/23 20:08 Pulse Rate 94 H 92 H Respiratory Rate 19 Blood Pressure 127/67 134/69 Pulse Oximetry 91 Oxygen Delivery Method 04/08/23 20:08 04/08/23 20:08 04/08/23 20:30 Pulse Rate 92 H Respiratory Rate 13 Blood Pressure 134/69 125/75 Pulse Oximetry 95 Oxygen Delivery Method Room Air 04/08/23 20:30 04/08/23 21:00 04/08/23 21:01 Pulse Rate 84 78 79 Respiratory Rate 13 21 22 Blood Pressure Pulse Oximetry 95 99 99 Oxygen Delivery Method Room Air 04/08/23 21:01 04/08/23 21:30 04/08/23 21:30 Pulse Rate 79 Respiratory Rate 16 Blood Pressure 196/90 H 169/85 H Pulse Oximetry 100 Oxygen Delivery Method Room Air 04/08/23 22:00 04/08/23 22:00 04/08/23 22:37 Pulse Rate 74 75 Respiratory Rate 13 Blood Pressure 152/74 H Pulse Oximetry 96 99 Oxygen Delivery Method Room Air 04/08/23 22:38 04/08/23 22:38 Pulse Rate 75 Respiratory Rate 18 Blood Pressure 168/91 H Pulse Oximetry 99 Oxygen Delivery Method MDM - Chest Pain Medical Records Data Medical records narrative: Medical records reviewed, no previous cardiac testing Lab Data Lab results narrative: CBC with diff N/C normal x2, D-dimer is normal 04/09/23 02:20 04/09/23 02:20 Labs: Lab Results 04/08/23 04/08/23 Range/Units 18:38 20:04 WBC 6.9 (4.5-11.0) X10^3/uL RBC 4.69 (4.0-5.2) X10^6/uL Hgb 14.8 (12.0-16.0) g/dL Hct 42.5 (36-46) % MCV 90.7 (80-100) fL MCH 31.5 (26-34) PG MCHC 34.8 (30-36) % RDW 14.2 (11.6-14.8) % Plt Count 202 (150-400) X10^3/uL Neut % (Auto) 69.9 (50-75) % Lymph % (Auto) 20.8 L (25-40) % [place] % (Auto) 6.3 (3-14) % Eos % (Auto) 2.1 (2-4) % Baso % (Auto) 0.9 (0-2) % Neut # (Auto) 4800 (5299-7074) /uL Lymph # (Auto) 1400 (2649-4461) /uL [place] # (Auto) 400 (0-900) /uL Eos # (Auto) 100 (0-450) /uL Baso # (Auto) 100 (0-100) /uL PT 11.9 (9.4-12.5) SECONDS INR 1.0 (0.9-1.3) APTT 30 (25.1-36.5) SECONDS D-Dimer 267 (<500) ng/ml Sodium 138 (137-145) mmol/L Potassium 3.4 (3.4-5.1) mmol/L Chloride 104 (98-107) mmol/L Carbon Dioxide 28 (22-32) mmol/L BUN 9 (7-17) mg/dL Creatinine 0.74 (0.52-1.04) mg/dL Estimated GFR > 60 (>60) mL/min BUN/Creatinine Ratio 12.2 (6-22) Glucose 108 (80-110) mg/dL Calcium 10.0 (8.4-10.2) mg/dL Magnesium 1.9 (1.6-2.3) mg/dL Total Bilirubin 0.7 (0.2-1.3) mg/dL AST 23 (14-36) IU/L ALT 15 (<35) IU/L Alkaline Phosphatase 57 (38-126) U/L Total Creatine Kinase 39 (30-135) U/L Troponin I < 0.012 < 0.012 (0.01-0.034) ng/mL Total Protein 8.2 (6.3-8.2) g/dL Albumin 4.5 (3.5-5.0) g/dL Globulin 3.7 (1.7-4.1) g/dL Albumin/Globulin Ratio 1.2 (1.0-2.8) Lipase 75 (23-300) U/L Imaging Data Chest x-ray: My Impression: No acute disease Radiologist's Impression: No acute cardiopulmonary abnormality is seen. ECG Data Interpretation: Normal sinus rhythm at 83 noisy baseline, no acute ST segment changes Treatment and disposition Shared decision making:: Discussed recommendations for admission and further testing for possible cardiac cause of her chest pain, the patient is agreeable MDM Narrative Medical decision making narrative: 62-year-old female with risk factors of elevated cholesterol and family history presenting with acute chest pain described as pressure and nitrate responsive. Does not have EKG changes and troponins are normal x2. She received aspirin in the emergency department. Differential diagnosis includes pulmonary embolism musculoskeletal pain and aortic pathology. Chest x-ray does not suggest aortic pathology nor does she have pain that is typical of this. Pulmonary embolism was considered, she is not tachycardic or hypoxic I think it is less likely and D-dimer is normal. Heart score is 4, she was admitted to the hospitalist service further evaluation. Discharge Plan Departure Patient Disposition: Admitted As Inpatient Clinical Impression: Chest pain Qualifiers: Chest pain type: unspecified Qualified Code(s): R07.9 - Chest pain, unspecified Admit Date/Time: 04/08/23 22:38 Admit Provider: River Nath
[2023-04-08] MEDS: NITROGLYCERIN 0.4 MG SL TAB SL ×3 (19:50→20:01)
[2023-04-08 20:03] LABS: D Dimer 267 ng/ml (<500)
[2023-04-08 20:41] LABS: Troponin I < 0.012 ng/mL (0.01-0.034)
--- NOTE | 2023-04-08 21:22 | PC.NURSE ---
Pt reporting an increase in chest pain to 4/10 and a metallic taste in mouth. New orders for an EKG. RT called and at bedside for EKG.
--- NOTE | 2023-04-08 22:31 | PC.NURSE ---
Assisted patient up to bathroom. Pt reports lightheadedness upon standing. Wheelchair and assist provided.
[2023-04-08] MEDS: NITROGLYCERIN OINT 1 INCH/GM OINT...G. 0.5 INCH TOP (22:49)
--- NOTE | 2023-04-08 23:43 | DI.NM.S_ITS ---
PROCEDURE: NM DONTAE PERF SPECT R&S PHARM Rest and pharmacological stress myocardial perfusion SPECT with gated imaging and ejection fraction RADIOPHARMACEUTICAL: 10.4 mCi Tc-99m tetrafosmin IV at rest and 26.6 mCi Tc-99m tetrafosmin IV at peak effect of pharmacological stress. [id number] was performed. INDICATIONS: Chest pain TECHNIQUE: Radiopharmaceutical was injected at peak stress test, and also at rest. SPECT images were obtained. SPECT myocardial perfusion images were displayed in short axis, horizontal long axis, and vertical long axis views. Gated images were reviewed using Talkbits software. COMPARISON: None. CARDIAC STRESS: A pharmacologic stress test was performed under the supervision of an attending staff, using an infusion of regadenoson 0.4 mg IV. Hemodynamic data: There is normal blood pressure and heart rate response to pharmacologic stress. Symptoms: The patient denied anginal chest pain. EKG: No diagnostic changes of ischemia; no ectopy. FINDINGS: Raw data: There is good myocardial uptake of radiotracer. No significant motion artifacts. [id number] ratio is 0.29 (normal is less than 0.38 for tetrafosmin tracer). Left ventricle function: Gated images demonstrate normal left ventricular wall thickening. No segmental wall motion abnormalities. No transient ischemic dilation; TID and LVEF calculation are inaccurate due to small heart size. Grossly the left ventricle stress ejection fraction is hyperdynamic. Myocardial perfusion: There is normal distribution of activity in the right and left ventricular myocardium. No fixed or reversible perfusion defects. IMPRESSION: Low risk study. No evidence of pharmacologic induced ischemia or scar. Small LV cavity size with hyperdynamic function. Dictated by: Wendy Carrillo D.O. on 04/09/2023 at 16:23 Approved by: Wendy Carrillo D.O. on 04/09/2023 at 16:27
--- NOTE | 2023-04-08 23:45 | P.HP_ITS ---
History of Present Illness History of Present Illness Date Patient Seen: 04/08/23 Time Patient Seen: 23:45 Chief complaint: N/Chest pain Narrative: The pt was grocery shopping when she developed a sudden onset of substernal chest pain which she describes as pressure, radiating to the back, rated a 6 out of 1-10. She did experience nausea and 2 episodes of vomiting but no diaphoresis fevers, or chills. [place] states that both of her parents had HI's prior to age 55, she recently had her lipids checks, does not smoke, no stress in life. Her PMHx is significant for RA, gastric sleeve procedure which she has not had problems with before. [facility] Medical History (Updated 04/08/23 @ 22:35 by Gilebrto Freeman MD) COVID-19 (~09/2022) Conjunctivitis Acute bacterial sinusitis Chronic diarrhea Impingement syndrome of right shoulder Cervical radiculopathy at C6 Thoracic radiculopathy due to trauma Rheumatoid arthritis Osteoporosis Mumps Measles Chicken pox Fibroids Abnormal Pap smear of cervix (~2003) Hemorrhoid Chronic back pain Surgical History S/P hysterectomy Family History Father Hypertension History of heart disease Lung disease Mother Diabetes mellitus Brother Hypertension Diverticulitis Sister Colon cancer Hyperlipidemia Hypertension COPD (chronic obstructive pulmonary disease) Social History Smoking Status: Never smoker alcohol intake: current substance use type: does not use Meds Home Medications and Allergies Home Medications Medication Instructions Recorded Confirmed Type hydroxychloroquine 200 mg tablet 200 mg PO BID 07/26/20 02/12/23 History lifitegrast 5 % eye drops in a 1 drp EYE-BOTH BID 07/26/20 02/12/23 History dropperette folic acid 1 mg tablet 1 mg PO DAILY 12/20/20 02/12/23 History insulin syringe-needle U-100 1 mL #10 ea 08/29/21 02/12/23 History 30 gauge x 1/2 (BD Insulin Syringe Ultra-Fine) leflunomide 20 mg tablet 20 mg PO DAILY 08/29/21 02/12/23 History methotrexate sodium 25 mg/mL 25 mg IM QWEEK 08/29/21 02/12/23 History injection solution naloxone 4 mg/actuation nasal spray intranasal 08/29/21 02/12/23 History spray (Narcan) clobetasol 0.05 % topical ointment 1 applic topical .twice weekly 05/19/22 02/12/23 Rx Itching from lichen sclerosis #30 grams hyoscyamine sulfate 0.125 mg 0.125 mg PO DAILY PRN 05/31/22 02/12/23 Rx sublingual tablet (Levsin/SL) cramping/diarrhea possibly related to IBS #60 tabs adalimumab 40 mg/0.4 mL 40 mg SUBCUT Q2W 06/19/22 02/12/23 History subcutaneous pen kit (Humira(CF) Pen) lidocaine 5 % topical patch 1 patch topical DAILY #30 ea 06/19/22 02/12/23 Rx meclizine 25 mg tablet 25 mg PO BID PRN vertigo #20 tabs 08/30/22 02/12/23 Rx duloxetine 60 mg capsule,delayed 60 mg PO DAILY anxiety with 09/13/22 02/12/23 Rx release depression #90 caps nifedipine 10 mg capsule 10 mg PO BID PRN 09/13/22 02/12/23 History meloxicam 15 mg tablet 15 mg PO DAILY #30 tabs 09/27/22 02/12/23 Rx ondansetron 4 mg disintegrating 4 mg PO Q8H PRN nausea and 10/27/22 02/12/23 Rx tablet vomiting #10 tabs lidocaine 5 % topical patch 1 patch topical DAILY #15 ea 02/12/23 02/12/23 Rx gabapentin 300 mg capsule See Rx Instructions .Route 02/13/23 Rx .COMPLEX #810 caps tramadol 50 mg tablet 50 mg PO BEDTIME PRN pain #60 tabs 03/12/23 Rx cyclobenzaprine 10 mg tablet 10 mg PO BEDTIME #30 tabs 03/15/23 Rx estradiol 0.05 mg/24 hr semiweekly 1 patch transdermal 2XW #8 ea 03/28/23 03/28/23 Rx transdermal patch Allergies Allergy/AdvReac Type Severity Reaction Status Date / Time No Known Drug Allergies Allergy Verified 02/28/23 14:38 Exam Vital Signs (past 8 hours): - 04/08/23 18:37 04/08/23 18:40 04/08/23 19:00 Temperature 96.4 F L Pulse Rate 103 H 86 Respiratory Rate 22 22 Blood Pressure 185/100 H 185/100 H Pulse Oximetry 100 100 Oxygen Delivery Method Room Air Oxygen Flow Rate 04/08/23 19:00 04/08/23 19:30 04/08/23 19:30 Temperature Pulse Rate 86 Respiratory Rate 21 Blood Pressure 161/81 H 176/86 H Pulse Oximetry 97 Oxygen Delivery Method Oxygen Flow Rate 04/08/23 19:55 04/08/23 19:57 04/08/23 19:57 Temperature Pulse Rate 93 H Respiratory Rate 19 Blood Pressure 136/73 139/73 Pulse Oximetry 93 Oxygen Delivery Method Oxygen Flow Rate 04/08/23 19:58 04/08/23 20:00 04/08/23 20:00 Temperature Pulse Rate 95 H Respiratory Rate 13 Blood Pressure 139/73 132/72 Pulse Oximetry 94 Oxygen Delivery Method Oxygen Flow Rate 04/08/23 20:01 04/08/23 20:02 04/08/23 20:02 Temperature Pulse Rate 94 H 94 H Respiratory Rate 19 Blood Pressure 127/77 127/67 Pulse Oximetry 91 Oxygen Delivery Method Oxygen Flow Rate 04/08/23 20:08 04/08/23 20:08 04/08/23 20:08 Temperature Pulse Rate 92 H 92 H Respiratory Rate 13 Blood Pressure 134/69 134/69 Pulse Oximetry 95 Oxygen Delivery Method Room Air Oxygen Flow Rate 04/08/23 20:30 04/08/23 20:30 04/08/23 21:00 Temperature Pulse Rate 84 78 Respiratory Rate 13 21 Blood Pressure 125/75 Pulse Oximetry 95 99 Oxygen Delivery Method Oxygen Flow Rate 04/08/23 21:01 04/08/23 21:01 04/08/23 21:30 Temperature Pulse Rate 79 79 Respiratory Rate 22 16 Blood Pressure 196/90 H Pulse Oximetry 99 100 Oxygen Delivery Method Room Air Room Air Oxygen Flow Rate 04/08/23 21:30 04/08/23 22:00 04/08/23 22:00 Temperature Pulse Rate 74 Respiratory Rate 13 Blood Pressure 169/85 H 152/74 H Pulse Oximetry 96 Oxygen Delivery Method Room Air Oxygen Flow Rate 04/08/23 22:37 04/08/23 22:38 04/08/23 22:38 Temperature Pulse Rate 75 75 Respiratory Rate 18 Blood Pressure 168/91 H Pulse Oximetry 99 99 Oxygen Delivery Method Oxygen Flow Rate 04/08/23 22:49 04/08/23 23:00 04/08/23 23:00 Temperature Pulse Rate 74 75 Respiratory Rate Blood Pressure 168/91 H 156/83 H Pulse Oximetry 97 Oxygen Delivery Method Room Air Oxygen Flow Rate 04/08/23 23:37 Temperature 96.6 F L Pulse Rate 75 Respiratory Rate 18 Blood Pressure 153/94 H Pulse Oximetry 99 Oxygen Delivery Method Oxygen Flow Rate 0 Oxygen Delivery Method Room Air Oxygen Flow Rate 0 Const General: cooperative, healthy appearing and comfortable Resp Effort & Inspection: normal respiratory effort Auscultation: clear to auscultation bilaterally Cardio Rate: regular rate Rhythm: regular rhythm GI Inspection: normal to inspection Palpation: soft Extrem General: no clubbing, cyanosis or edema Objective Labs 04/08/23 18:38 04/08/23 18:38 Labs: Laboratory Results - last 24 hr 04/08/23 04/08/23 18:38 20:04 WBC 6.9 RBC 4.69 Hgb 14.8 Hct 42.5 MCV 90.7 MCH 31.5 MCHC 34.8 RDW 14.2 Plt Count 202 Neut % (Auto) 69.9 Lymph % (Auto) 20.8 L [place] % (Auto) 6.3 Eos % (Auto) 2.1 Baso % (Auto) 0.9 Neut # (Auto) 4800 Lymph # (Auto) 1400 [place] # (Auto) 400 Eos # (Auto) 100 Baso # (Auto) 100 PT 11.9 INR 1.0 APTT 30 D-Dimer 267 Sodium 138 Potassium 3.4 Chloride 104 Carbon Dioxide 28 BUN 9 Creatinine 0.74 Estimated GFR > 60 BUN/Creatinine Ratio 12.2 Glucose 108 Calcium 10.0 Magnesium 1.9 Total Bilirubin 0.7 AST 23 ALT 15 Alkaline Phosphatase 57 Total Creatine Kinase 39 Troponin I < 0.012 < 0.012 Total Protein 8.2 Albumin 4.5 Globulin 3.7 Albumin/Globulin Ratio 1.2 Lipase 75 Assessment & Plan Assessment and plan (1) Chest pain: Qualifiers: Chest pain type: unspecified Qualified Code(s): R07.9 - Chest pain, unspecified Status: Acute (2) S/P gastric surgery: Status: Acute (3) Hyperlipidemia: Qualifiers: Hyperlipidemia type: unspecified Qualified Code(s): E78.5 - Hyperlipidemia, unspecified Status: Chronic (4) Anxiety with depression: Status: Chronic Plan Will admit the pt on telemetry, serial troponin have been negative, monitoring closely, stress test ordered for the morning, labs reviewed and are normal. Discussed with the ER provider and agree with admission, SL NTG ordered for CP as well as pepcid, TUMS prn, toradol and morphine prn, Checking lipids in am.
[2023-04-09] MEDS: CALCIUM CARBONATE 500 MG TAB 1000 MG PO (00:31)
[2023-04-09] MEDS: ONDANSETRON 4 MG/2 ML INJ IV ×2 (00:31→13:35)
[2023-04-09 02:36] LABS: Add Manual Diff / Slide Review YES; Hematocrit 40.1 % (36-46); Hemoglobin 13.7 g/dL (12.0-16.0); Mean Corpuscular HGB Conc 34.3 % (30-36); Mean Corpuscular Volume 90.4 fL (80-100); Platelet Count 175 X10^3/uL (150-400); Red Blood Cell Count 4.43 X10^6/uL (4.0-5.2); Red Cell Distribution Width 14.2 % (11.6-14.8); White Blood Cell Count 6.3 X10^3/uL (4.5-11.0)
[2023-04-09 02:52] LABS: BUN Creatinine Ratio 16.7 (6-22); Blood Urea Nitrogen 10 mg/dL (7-17); Calcium 10.1 mg/dL (8.4-10.2); Carbon Dioxide 27 mmol/L (22-32); Chloride 107 mmol/L (98-107); Estimated Glomerular Filt Rate > 60 mL/min (>60); Glucose 118 mg/dL (80-110); HEMOLYSIS 15 (0-50); Potassium 3.7 mmol/L (3.4-5.1); Sodium 137 mmol/L (137-145)
[2023-04-09 03:03] LABS: Neutrophils Absolute Manual 3528 /uL (3000-5900); RBC Morphology Normal Morphology; Total Cells Counted 100
[2023-04-09 03:04] LABS: Troponin I < 0.012 ng/mL (0.01-0.034)
[2023-04-09] MEDS: ACETAMINOPHEN 325 MG TABLET 650 MG PO ×2 (04:00→12:45)
[2023-04-09 04:30] VITALS: BP 156/92; PULSE 79; RESP 18; TEMP 36.4; O2SAT 95
--- NOTE | 2023-04-09 06:20 | PC.NURSE ---
Patient denies any CP or SOB, reports mild dizziness. Tylenol given for c/o headache, patient fell asleep after med. Zofran IV given x 1 for c/o nausea, no emesis. Tele SR. Patient has been NPO for stress test.
--- NOTE | 2023-04-09 07:30 | DI.ECHO.S_ITS ---
[place] [facility]---------+ [facility] +---------+ : : [address] : : : : [id number] : : : : Phone: [phone]+ Echocardiogram Report + + :Name: EVARISTO CISNEROS Study Date: 04/09/2023 Height: 58 in : :[facility] ReadingLocation: Weight: 150 lb : : Gender: Female BSA: 1.6 m2 : :: 1960 Age: 62 yrs BP: 156/92 mmHg: :Reason For Study: CHEST PAIN : :Ordering Physician: MARIKA, : :DANIEL Matthews Performed By: Charline Mckenna : :Referring: DANIEL HAIRSTON : + + Interpretation Summary The ejection fraction is estimated to be 60-65%. There is no significant valvular heart disease. Procedure: A two-dimensional transthoracic echocardiogram with color flow and Doppler was performed. The study quality was technically adequate. There is no prior echocardiogram noted for this patient. The patient was in sinus rhythm with heart rates between 78-86 bpm during the exam. Left Ventricle: The left ventricle is normal in size. Proximal septal thickening is noted. The ejection fraction is estimated to be 60-65%. Left ventricular wall motion is normal. Right Ventricle: The right ventricle is normal in size and function. Atria: The left atrial size is normal. Right atrial size is normal. There is no Doppler evidence for an interatrial shunt. Mitral Valve: The mitral valve is normal in structure and function. There is trace mitral regurgitation. Aortic Valve: The aortic valve is trileaflet. The aortic valve opens well. There is no aortic valve stenosis. There is trace aortic regurgitation. Tricuspid Valve: The tricuspid valve is normal in structure and function. There is trace tricuspid regurgitation. Pulmonic Valve: The pulmonic valve is not well visualized. There is no pulmonic valvular regurgitation. Great Vessels: The aortic root is normal size. The ascending aorta could not be visualized. The IVC is of normal diameter and collapses greater than 50% with a sniff. This suggests a low right atrial pressure of 3 mm Hg. Pericardium/ Pleura There is no pericardial effusion. There is no pleural effusion. MMode/2D Measurements & Calculations LVIDd: 4.3 cm LVOT diam: 2.1 cm LVIDs: 2.8 cm Ao root diam: 2.5 cm FS: 35.7 % Ao Arch Diam (Prox Trans): 2.0 cm IVSd: 0.97 cm LVPWd: 0.70 cm LV thurston. diameter/BSA (cm/m^2): 2.7 LV sys. diameter/BSA (cm/m^2): 1.7 LA A2 area: 12.3 cm2 RA long axis: 4.2 cm LA A4 area: 8.7 cm2 RA area: 10.2 cm2 LA length (vol): 3.9 cm RA vol: 21.2 ml LA vol: 23.5 ml RA : 13.2 ml/m2 LA vol index: 14.6 ml/m2 IVC diam: 0.88 cm RVD1 (basal): 2.7 cm RVD2 (mid): 2.3 cm TAPSE: 1.8 cm Doppler Measurements & Calculations Ao V2 max: 133.8 cm/sec LVOT Max Dustin: 106.6 cm/sec Ao V2 mean: 102.8 cm/sec LV V1 max P.5 mmHg Ao max P.2 mmHg LV V1 VTI: 21.6 cm Ao mean P.5 mmHg JAMIE(I,D): 2.6 cm2 Ao V2 VTI: 28.5 cm JAMIE(V,D): 2.7 cm2 sev ratio: 0.76 JAMIE indexed to BSA (cm^2/m^2): 1.6 MV E max dustin: 60.8 cm/sec PA V2 max: 107.5 cm/sec MV A max dustin: 88.7 cm/sec PA V2 mean: 78.0 cm/sec MV E/A: 0.68 PA mean P.7 mmHg Med Peak E' Dustin: 5.0 cm/sec PA pr(Accel): 36.6 mmHg E/E' med: 12.2 Lat Peak E' Dustin: 6.9 cm/sec E/E' lat: 8.8 E/e' average: 10.5 MV dec time: 0.18 sec SV(LVOT): 73.8 ml Reading Physician:12:23 PM
[2023-04-09 08:00] VITALS: BP 148/94; PULSE 80; RESP 18; TEMP 35.9; O2SAT 97
[2023-04-09 12:00] VITALS: BP 156/96; PULSE 86; RESP 18; TEMP 36; O2SAT 97
--- NOTE | 2023-04-09 13:42 | PC.NURSE ---
Patient complained of nausea, given zofran. She also had a headache after echo and stress test. Given tylenol and helpful. Patient is resting now.
--- NOTE | 2023-04-09 15:13 | CM.DANOTE ---
Initial DCP Assessment Note Pt is a 62 yo female, resident of [place], admitted for chest pain r/o. According to Dr Vergara, patient is likely to discharge today pending echo and stress test. PCP: Oma López Payer: Cj Parks Reviewed chart, met w/patient and her spouse at bedside, introduced self and role. Patient suffering from a headache so kept visit brief. Patient lives w/spouse, independent in all aspects. Patient denies hx of HH and SNF, denies needs from this [employer]. No barriers identified at this time to patient's safe discharge home w/family to assist; close outpatient f/u recommended. CM team will plan to follow closely in case any DC needs or concerns arise. MUKUND Orellana Discharge Planning/Care Management Discharge Assessment Start: 04/09/23 15:09 Freq: Status: Active Protocol: Document 04/09/23 15:09 SANTO (Rec: 04/09/23 15:13 SANTO [id number]) Discharge Planning Assessment Assigned Sleeping Car Conductor MUKUND Painting DPOA/Assigned Designee Name Preston Omid, spouse Contact Information [phone] Advance Directives? No History Provided By Patient,Significant Other, Medical Record Prior Living Arrangements House Household Members spouse Type of transporation used prior to Drives own vehicle admit Independent with ADL's Yes Is patient alert and oriented? Yes Barriers to Discharge No Discharge Plan Home Transportation Arrangement spouse Referrals Initiated None needed
[2023-04-09 16:00] VITALS: BP 150/98; PULSE 85; RESP 18; TEMP 36.5; O2SAT 98
[2023-04-09] MEDS: GABAPENTIN 300 MG CAPSULE 600 MG PO (16:17)
[2023-04-09] MEDS: DULOXETINE 30 MG CAPSULE 60 MG PO (16:17)
--- NOTE | 2023-04-09 17:00 | PM.DS.1 ---
History of Present Illness History of Present Illness Date Patient Seen: 04/08/23 Time Patient Seen: 23:45 Chief complaint: N/Chest pain Narrative: The pt was grocery shopping when she developed a sudden onset of substernal chest pain which she describes as pressure, radiating to the back, rated a 6 out of 1-10. She did experience nausea and 2 episodes of vomiting but no diaphoresis fevers, or chills. Minoo states that both of her parents had MA's prior to age 55, she recently had her lipids checks, does not smoke, no stress in life. Her PMHx is significant for RA, gastric sleeve procedure which she has not had problems with before. Discharge Providers Provider Date of admission: 04/08/23 22:38 Discharge Date: 04/09/23 Primary care physician: Oma López DO Discharge provider: Josef Vergara DO Summary Hospital Course Discharge Diagnosis: (1) Chest pain: Qualifiers: Chest pain type: unspecified Qualified Code(s): R07.9 - Chest pain, unspecified Status: Acute (2) S/P gastric surgery: Status: Acute (3) Hyperlipidemia: Qualifiers: Hyperlipidemia type: unspecified Qualified Code(s): E78.5 - Hyperlipidemia, unspecified Status: Chronic (4) Anxiety with depression: Status: Chronic Hospital Course: Admitted for substernal chest pain. Echo, trops, EKG and NM stress test were all reassuring. Echo had EF 60-65%. Based on patient's history, she noted 30 years ago she had substernal CP and was diagnosed with esophageal spasms. She said she has been taking TUMS alot more lately too. Her pain is likely due to this. Recommended prilosec OTC PRN for this in the future. Exam Vital Signs (past 8 hours): - 04/09/23 11:00 04/09/23 12:00 Temperature 96.8 F L Pulse Rate 86 Respiratory Rate 18 Blood Pressure 156/96 H Pulse Oximetry 97 Oxygen Delivery Method Room Air Oxygen Flow Rate 0 Oxygen Delivery Method Room Air Oxygen Flow Rate 0 Const General: cooperative, healthy appearing and comfortable Resp Effort & Inspection: normal respiratory effort Auscultation: clear to auscultation bilaterally Cardio Rate: regular rate Rhythm: regular rhythm GI Inspection: normal to inspection Palpation: soft Extrem General: no clubbing, cyanosis or edema Objective Labs 12/11/23 02:20 04/09/23 02:20 Labs: Laboratory Results - last 24 hr 04/08/23 04/08/23 04/09/23 18:38 20:04 02:20 WBC 6.9 6.3 RBC 4.69 4.43 Hgb 14.8 13.7 Hct 42.5 40.1 MCV 90.7 90.4 MCH 31.5 31.0 MCHC 34.8 34.3 RDW 14.2 14.2 Plt Count 202 175 Neut % (Auto) 69.9 Not Reportable Lymph % (Auto) 20.8 L Not Reportable Elmore % (Auto) 6.3 Not Reportable Eos % (Auto) 2.1 Not Reportable Baso % (Auto) 0.9 Not Reportable Neut # (Auto) 4800 Lymph # (Auto) 1400 Not Reportable Elmore # (Auto) 400 Not Reportable Eos # (Auto) 100 Baso # (Auto) 100 Not Reportable Total Counted 100 Seg Neutrophils % 56.0 Lymphocytes % (Manual) 37.0 Monocytes % (Manual) 4.0 Eosinophils % (Manual) 3.0 Neutrophils # (Manual) 3528 RBC Morphology Normal morphology PT 11.9 INR 1.0 APTT 30 D-Dimer 267 Sodium 138 137 Potassium 3.4 3.7 Chloride 104 107 Carbon Dioxide 28 27 BUN 9 10 Creatinine 0.74 0.60 Estimated GFR > 60 > 60 BUN/Creatinine Ratio 12.2 16.7 Glucose 108 118 H Calcium 10.0 10.1 Magnesium 1.9 Total Bilirubin 0.7 AST 23 ALT 15 Alkaline Phosphatase 57 Total Creatine Kinase 39 Troponin I < 0.012 < 0.012 < 0.012 Total Protein 8.2 Albumin 4.5 Globulin 3.7 Albumin/Globulin Ratio 1.2 Lipase 75 [facility] Medical History (Updated 04/08/23 @ 22:35 by Gilberto Freeman MD) COVID-19 (~09/2022) Conjunctivitis Acute bacterial sinusitis Chronic diarrhea Impingement syndrome of right shoulder Cervical radiculopathy at C6 Thoracic radiculopathy due to trauma Rheumatoid arthritis Osteoporosis Mumps Measles Chicken pox Fibroids Abnormal Pap smear of cervix (~2003) Hemorrhoid Chronic back pain Surgical History S/P hysterectomy Family History Father Hypertension History of heart disease Lung disease Mother Diabetes mellitus Brother Hypertension Diverticulitis Sister Colon cancer Hyperlipidemia Hypertension COPD (chronic obstructive pulmonary disease) Social History household members: spouse Smoking Status: Never smoker alcohol intake: current substance use type: does not use Discharge Plan Discharge Plan Patient Disposition: Home Provider Discharge Comment: You were admitted for chest pain. All of your heart workup was reassuring. Based on your history, you likely had an esophageal spasm. Take prilosec for this in the future. Discharge orders & Medications Prescriptions: Continued tramadol 50 mg tablet 50 mg PO BEDTIME PRN (Reason: pain) Qty: 60 2RF duloxetine 60 mg capsule,delayed release(DR/EC) 60 mg PO DAILY Qty: 90 3RF estradiol 0.05 mg/24 hr patch semiweekly 1 patch transdermal 2XW Qty: 8 2RF Patient Comments: patient took patch off this am, due for next patch 04/15/2023 Rx Instructions: apply 1 patch for 3 days alternating with 1 patch for 4 days each week for 3 wks per 4-wk cycle hydroxychloroquine 200 mg tablet 200 mg PO BID lifitegrast 5 % dropperette 1 drp EYE-BOTH BID clobetasol 0.05 % ointment 1 applic topical .twice weekly Qty: 30 4RF cyclobenzaprine 10 mg tablet 10 mg PO BEDTIME gabapentin 300 mg capsule See Rx Instructions .ROUTE .COMPLEX PRN (Reason: Pain, Moderate) Rx Instructions: TAKE 1 TO 3 CAPSULES BY MOUTH THREE TIMES DAILY leflunomide 20 mg tablet 20 mg PO DAILY methotrexate sodium 25 mg/mL solution 60 mg IM QWEEK Rx Instructions: Every Sunday (DME) insulin syringe-needle U-100 [BD Insulin Syringe Ultra-Fine] 1 mL 30 gauge x 1/2 syringe See Rx Instructions .ROUTE .MEDSUPPLY Qty: 10 Rx Instructions: As directed nifedipine 10 mg capsule 10 mg PO BID PRN (Reason: Reynauds) folic acid 1 mg tablet 5 mg PO DAILY Humira(CF) Pen 40 mg/0.4 mL pen injector kit 40 mg SUBCUT Q2W lidocaine 5 % adhesive patch,medicated 1 patch topical DAILY Qty: 30 1RF Rx Instructions: leave on most painful area for 12 hrs Follow up/Referrals: Oma López DO [Primary Care Provider] - 2 Weeks Visit Report/Discharge Packet Stand Alone Forms: Patient Portal/API, Stroke Signs & Symptoms Discharge Data Primary Care Provider: Oma López Attending Provider: River Nath Admit Date/Time: 04/08/23 22:38
== END 2023-04-09 18:07 | disposition home or self-care (01) ==
LOC: ED 22:35 → AC 22:39
PROVIDERS: Admitting Provider Internal Medicine; Emergency Provider Emergency Medicine; PCP Family Medicine; Referring Provider Emergency Medicine; Visit Provider Internal Medicine
DX: R07.9 Chest pain, unspecified (principal); R06.02 Shortness of breath; R61 Generalized hyperhidrosis; Z98.84 Bariatric surgery status; E78.5 Hyperlipidemia, unspecified; F41.9 Anxiety disorder, unspecified; F32.A Depression, unspecified
CPT/HCPCS: 36415; 71045; 78452; 80048; 80053; 82550; 83690; 83735; 84484; 85007; 85025; 85379; 85610; 85730; 93005; 93010; 93017; 93306; 96374; 96376; 99284; G0378; A9502; J2405; J2785

== ENCOUNTER 2023-06-19 09:04 | Outpatient (CLI) | payer OTHER, SELFPAY ==
[2023-04-08 23:55] VITALS: BMI 31.3
[2023-06-19] VITALS (8 sets, daily range): BP systolic 123–138; BP diastolic 69–79; PULSE 65–84; RESP 14–21; TEMP 36.2; O2SAT 95–100
--- NOTE | 2023-06-19 10:15 | DI.RAD.S_ITS ---
PROCEDURE: PAIN L/S TRANSFORAMINAL INJECT INDICATIONS: SPONDYLOSIS COMPARISON: None. FINDINGS: 3 images. Fluoroscopic spot filming was performed to verify placement of spinal needles at the right L4/L5 level(s), as labeled on the films. Appropriate location(s) of the needle tip(s) was confirmed by injection of iodinated contrast. IMPRESSION: Intra of guidance provided. Dictated by: Jared Mcclelland M.D. on 06/19/2023 at 13:48 Approved by: Jared Mcclelland M.D. on 06/19/2023 at 13:48
[2023-06-19] MEDS: MIDAZOLAM 2 MG/2 ML VIAL 1 MG IV (10:35)
[2023-06-19] MEDS: BETAMETHASONE 30 MG/5 ML MDV 6 MG INJ (10:40)
[2023-06-19] MEDS: DEXAMETHASONE 10 MG/ML VIAL INJ (10:41)
[2023-06-19] MEDS: BUPIVACAINE 0.25% (PF) VIAL 2 ML INJ (10:41)
[2023-06-19] MEDS: iopamidoL 15 ML VIAL 3 ML INJ (10:41)
--- NOTE | 2023-06-19 10:53 | P.PCN_ITS ---
Date/Time/Diagnoses Date of procedure: 06/19/23 Time of procedure: 10:53 Pre-procedure diagnosis: 1. FORAMINAL STENOSIS WITH LE SYMPTOMS Post-procedure diagnosis: same Procedure Notes Procedure: 1. FLUOROSCOPICALLY GUIDED CONTRAST CONTROLLED TRANSFORAMINAL EPIDURAL STEROID INJECTION - RIGHT L4/5 TFESI Indications: Minoo is referred by Dr. López for treatment of Foraminal Stenosis with Right LE Symptoms Physician: Tenzin Abdalla Total Fluoroscopy time (seconds): 13 Total sedation minutes: 14 Complications: none Procedure in detail & Post-procedure care: FINDINGS Foraminal Nerve Root Compression secondary to disc disease and facet hypertrophy DESCRIPTION OF PROCEDURE Following review of allergy and review of potential side effects and complications, including, but not necessarily limited to, infection, allergic reaction, local tissue breakdown, stroke, temporary or permanent nerve injury, paralysis, and possible , the patient indicated that the patient understood and agreed to proceed. An informed consent document was signed by the patient, witnessed by a nurse, and placed in the patient's chart. Additionally, other treatment options including medications, modalities, and physical therapy were reviewed with the patient. After review of previous anaesthesic history and IV conscious sedation the patient was deemed safe to proceed with today?s procedure with IV conscious sedation as ASA class II designation. Safety time-out was performed to confirm patient ID, procedure to be performed and site of procedure. IV sedation was accomplished with a combination of 1mg of Versed was administered by the RN after DO order, titrated to patient comfort during the course of the procedure while the patient remained responsive to all verbal commands In the prone position following sterile prep and drape of the lumbar region, the right L4/5 posterior neuroforamen was identified fluoroscopically. The skin was anesthetized via a 25-gauge 1.5-inch needle with 1% lidocaine solution. At this point, a 25-gauge 3.5-inch spinal needle was atraumatically introduced and advanced under fluoroscopic guidance through the posterior right L4/5 neuroforamen to approximately the anterior aspect of the canal. Depth was confirmed on lateral view. Following negative aspiration, injection of approximately 1.5cc of Isovue 200 under live fluoroscopy in the AP view co nfirmed excellent flow along the nerve root, into the epidural space without vascular or intrathecal uptake observed Radiological data, including multiple fluoroscopic views of the lumbosacral spin e, reveal a spinal needle at the right L4/5 posterior neuroforamen. Subsequent views show flow of contrast material flowing superiorly and inferiorly along the nerve root confirming epidural flow. Subsequently, a test dose of 1.5 cc of 1% lidocaine solution was administered and patient was observed for two minutes for signs or symptoms of complications, including abdominal pain, shortness of breath, bilateral upper or lower extremity weakness, nausea and vomiting, prior to steroid injection. At this point, a total of 2cc or 10mg of dexamethasone and 6mg of betamethasone was injected without incident. The procedure tolerated the procedure well without signs or symptoms of complications prior to transfer to the recovery area continued monitoring without incident. The patient was then transferred to the recovery area where they were observed for an appropriate time after the injection. The patient reported a VAS score of 7 prior to the procedure and a post- procedure VAS of 0. POST OP INSTRUCTIONS The patient was provided a Pain Log to continue to record their response to the target-specific procedure prior to follow-up visit with their referring physician. Additionally, specific post-injection care instructions and a contact number to our office were provided if concerns arise regarding possible complications associated with the procedure are suspected.
== END 2023-06-19 11:09 | disposition home or self-care (01) ==
LOC: RAD 09:05
PROVIDERS: Family Provider Family Medicine; PCP Family Medicine; Referring Provider Physical Medicine & Rehabilitation; Visit Provider Physical Medicine & Rehabilitation
DX: M48.061 Spinal stenosis, lumbar region without neurogenic claudication (principal); M51.16 Intervertebral disc disorders with radiculopathy, lumbar region; M47.26 Other spondylosis with radiculopathy, lumbar region
CPT/HCPCS: 64483; 99152; J0702; J1100; J2250; J3490

== ENCOUNTER 2023-08-07 09:13 | Outpatient (CLI) | payer OTHER, SELFPAY ==
[2023-04-08 23:55] VITALS: BMI 31.3
[2023-08-07] VITALS (8 sets, daily range): BP systolic 109–134; BP diastolic 62–87; PULSE 69–76; RESP 12–20; TEMP 35.7; O2SAT 97–100
--- NOTE | 2023-08-07 09:45 | DI.RAD.S_ITS ---
PROCEDURE: PAIN C/T TRANFORAMINAL INJECT INDICATIONS: RADICULOPATHY COMPARISON: [facility], , PAIN C/T TRANFORAMINAL INJECT, 07/04/2022, 10:07. FINDINGS: Fluoroscopic spot filming was performed to verify placement of spinal needles at the left T8-9 level(s), as labeled on the films. Appropriate location(s) of the needle tip(s) was confirmed by injection of iodinated contrast. IMPRESSION: Fluoroscopically guided left T8-9 steroid injection. Dictated by: Camryn Hernandez M.D. on 08/07/2023 at 12:56 Approved by: Camryn Hernandez M.D. on 08/07/2023 at 12:57
[2023-08-07] MEDS: MIDAZOLAM 2 MG/2 ML VIAL IV (10:22)
[2023-08-07] MEDS: DEXAMETHASONE 10 MG/ML VIAL 20 MG INJ (10:26)
[2023-08-07] MEDS: iopamidoL 15 ML VIAL 3 ML INJ (10:26)
[2023-08-07] MEDS: BUPIVACAINE 0.25% (PF) VIAL 2 ML INJ (10:26)
--- NOTE | 2023-08-07 10:38 | P.PCN_ITS ---
Date/Time/Diagnoses Date of procedure: 08/07/23 Time of procedure: 10:38 Pre-procedure diagnosis: 1. FORAMINAL STENOSIS WITH THORACIC RADICULAR SYMPTOMS Post-procedure diagnosis: same Procedure Notes Procedure: 1. FLUOROSCOPICALLY GUIDED CONTRAST CONTROLLED TRANSFORAMINAL EPIDURAL STEROID INJECTION - LEFT T8/9 TFESI Indications: Minoo is referred by Dr. López for treatment of Foraminal Stenosis with Right thoracic Symptoms Physician: Tenzin Abdalla Total Fluoroscopy time (seconds): 15 Total sedation minutes: 13 Complications: none Procedure in detail & Post-procedure care: FINDINGS Foraminal Nerve Root Compression secondary to disc disease and facet hypertrophy DESCRIPTION OF PROCEDURE Following review of allergy and review of potential side effects and complications, including, but not necessarily limited to, infection, allergic reaction, local tissue breakdown, stroke, temporary or permanent nerve injury, paralysis, and possible , the patient indicated that the patient understood and agreed to proceed. An informed consent document was signed by the patient, witnessed by a nurse, and placed in the patient's chart. Additionally, other treatment options including medications, modalities, and physical therapy were reviewed with the patient. After review of previous anaesthesic history and IV conscious sedation the patient was deemed safe to proceed with today?s procedure with IV conscious sedation as ASA class II designation. Safety time-out was performed to confirm patient ID, procedure to be performed and site of procedure. IV sedation was accomplished with a combination of 2mg of Versed was administered by the RN after DO order, titrated to patient comfort during the course of the procedure while the patient remained responsive to all verbal commands In the prone position following sterile prep and drape of the lumbar region, the left T8-9 posterior neuroforamen was identified fluoroscopically. The skin was anesthetized via a 25-gauge 1.5-inch needle with 1% lidocaine solution. At this point, a 25-gauge 3.5-inch spinal needle was atraumatically introduced and advanced under fluoroscopic guidance through the posterior left T8-9 neur oforamen to approximately the anterior aspect of the canal. Depth was confirmed on lateral view. Following negative aspiration, injection of approximately 1.5cc of Isovue 200 under live fluoroscopy in the AP view confirmed excellent flow along the nerve root, into the epidural space without vascular or intrathecal uptake observed Radiological data, including multiple fluoroscopic views reveal the needle placement in the left T8/9 posterior neuroforamen. Subsequent views show flow of contrast material flowing superiorly and inferiorly along the nerve root confirming epidural flow. Subsequently, a test dose of 1.5cc of 1% lidocaine solution was administered and patient was observed for signs or symptoms of complications, including abdominal pain, shortness of breath, bilateral upper or lower extremity weakness, nausea and vomiting, prior to steroid injection. At this point, a total of 2cc or 20mg of dexamethasone was injected without incident. The procedure tolerated the procedure well without signs or symptoms of complications prior to transfer to the recovery area continued monitoring without incident. The patient was then transferred to the recovery area where they were observed for an appropriate time after the injection. The patient reported a VAS score of 7 prior to the procedure and a post- procedure VAS of 1. POST OP INSTRUCTIONS The patient was provided a Pain Log to continue to record their response to the target-specific procedure prior to follow-up visit with their referring physician. Additionally, specific post-injection care instructions and a contact number to our office were provided if concerns arise regarding possible complications associated with the procedure are suspected.
== END 2023-08-07 10:55 | disposition home or self-care (01) ==
LOC: RAD 09:13
PROVIDERS: Family Provider Family Medicine; PCP Family Medicine; Referring Provider Physical Medicine & Rehabilitation; Visit Provider Physical Medicine & Rehabilitation
DX: M48.04 Spinal stenosis, thoracic region (principal); M51.14 Intervertebral disc disorders with radiculopathy, thoracic region; M47.24 Other spondylosis with radiculopathy, thoracic region
CPT/HCPCS: 64479; 99152; J1100; J2250; J3490

== ENCOUNTER → 2023-09-10 13:25 | Outpatient (CLI) | payer OTHER, SELFPAY ==
[2023-04-08 23:55] VITALS: BMI 31.3
[2023-09-10 14:32] LABS: Add Manual Diff / Slide Review NO; Basophils Absolute Auto 100 /uL (0-100); Basophils Percent Auto 0.8 % (0-2); Eosinophils Absolute Auto 100 /uL (0-450); Eosinophils Percent Auto 2.3 % (2-4); Hematocrit 41.1 % (36-46); Hemoglobin 14.1 g/dL (12.0-16.0); Lymphocytes Absolute Auto 1800 /uL (1100-4500); Lymphocytes Percent Auto 27.8 % (25-40); Mean Corpuscular HGB Conc 34.2 % (30-36); Mean Corpuscular Volume 90.5 fL (80-100); Monocytes Absolute Auto 600 /uL (0-900); Monocytes Percent Auto 9.8 % (3-14); Neutrophils Absolute Auto 3900 /uL (1500-7000); Neutrophils Percent Auto 59.3 % (50-75); Platelet Count 182 X10^3/uL (150-400); Red Blood Cell Count 4.54 X10^6/uL (4.0-5.2); White Blood Cell Count 6.5 X10^3/uL (4.5-11.0)
[2023-09-10 14:58] LABS: Erythrocyte Sedimentation Rate 9 MM/HR (0-20)
[2023-09-10 15:01] LABS: Alanine Aminotransferase 13 IU/L (<35); Albumin 4.3 g/dL (3.5-5.0); Albumin Globulin Ratio 1.5 (1.0-2.8); Alkaline Phosphatase 51 U/L (38-126); Aspartate Aminotransferase 21 IU/L (14-36); BUN Creatinine Ratio 12.2 (6-22); Bilirubin Total 0.5 mg/dL (0.2-1.3); Blood Urea Nitrogen 9 mg/dL (7-17); C-Reactive Protein Quant < 0.5 mg/dL (<1.0); Calcium 8.9 mg/dL (8.4-10.2); Carbon Dioxide 27 mmol/L (22-32); Chloride 108 mmol/L (98-107); Estimated Glomerular Filt Rate > 60 mL/min (>60); Globulin 2.9 g/dL (1.7-4.1); Glucose 91 mg/dL (80-110); HEMOLYSIS < 15 (0-50); Sodium 140 mmol/L (137-145); Total Protein 7.2 g/dL (6.3-8.2)
== END ==
PROVIDERS: Family Provider Family Medicine; PCP Family Medicine; Referring Provider Specialist/Technologist Athletic Trainer; Visit Provider Specialist/Technologist Athletic Trainer
DX: M47.819 Spondylosis without myelopathy or radiculopathy, site unspecified (principal); M45.9 Ankylosing spondylitis of unspecified sites in spine
CPT/HCPCS: 36415; 80053; 85025; 85651; 86140

== ENCOUNTER 2023-09-12 13:45 | Outpatient (RCR) | payer OTHER, SELFPAY ==
[2023-04-08 23:55] VITALS: BMI 31.3
--- NOTE | 2023-05-22 12:58 | PT.OIE ---
Current Diagnoses Lumbago with sciatica, right side (05/22/23) Low back pain, unspecified (05/22/23) Dorsalgia, unspecified (05/22/23) Pain in leg, unspecified (05/22/23) Past Medical History (Last Reviewed 05/09/23 @ 13:07 by Tenzin Abdalla DO) Abnormal Pap smear of cervix (~2003) Acute bacterial sinusitis Cervical radiculopathy at C6 Chicken pox Chronic back pain Chronic diarrhea Conjunctivitis COVID-19 (~09/2022) Fibroids Hemorrhoid Herniated nucleus pulposus, lumbar Impingement syndrome of right shoulder Measles Mumps Osteoporosis Rheumatoid arthritis Thoracic radiculopathy due to trauma Past Surgical History (Last Reviewed 05/09/23 @ 13:07 by Tenzin Abdalla DO) S/P hysterectomy Visit Care Team Role Provider Type Oma López DO Attending Provider Physician Family Provider Primary Care Provider Referring Provider Specialty: Medical Address: [address] [place] [address], [address], [place], [facility] Email: [email or web address] Physical Therapy Initial Evaluation PT-OP-A Visit Information Start: 05/21/23 08:20 Freq: Status: Active Protocol: Document 05/22/23 09:47 MB (Rec: 05/22/23 10:05 MB [id number]) Out-Patient Physical Therapy Visit Information Visit Information Visit Type Initial Evaluation Visit Note 05/09 before progress note Visit Start Time 09:47 Visit Stop Time 10:30 Total Visit Minutes 42 Visit Number 1 Number of BACK END DEVELOPER Visits 0 Evaluation Information Evaluation Date 05/22/23 PT-OP-B Current Condition Start: 05/21/23 08:20 Freq: Status: Active Protocol: Document 05/22/23 09:47 MB (Rec: 05/22/23 10:05 MB [id number]) Current Condition History of Current Condition Onset Date Back injury 1993, intermittent since then Current Complaints Back pain and right leg pain occ History of Current Condition In 1993, pt bent over and injured her back picking up her new born son and she had a herniated disc. In January of 2023, she bent down to berry picker her suitcase and picked it up and she had excruciating right anterior right leg pain. The right leg pain is better and it gets flared up when she picks up a laundry basket. Pt had PT in 1993 for her back . Heat and muscle realaxors help. PMH: appendectomy, right knee scope, 3 c-sections, 3 left shoulder sxs, scar revision after abdominal surgeries, hysterectomy, breast reduction Pt had PT for vertigo in [facility] recently and the PT showed her how to pull on her legs and it helps a lot. Lying on her stomach and pushing up on her forearms helps. Pt is not sleeping very well. She is usually sleeping on her side without a pillow and it wakes her up at night. Pt has not been able to hike since January and she likes to do that. She has a bad habit of bending over. Her right leg feels weak. Prior Treatments and Tests Lumbar MRI 03/13: IMPRESSION: 1. Multilevel degenerative disc and facet disease, as well as ligamentum flavum hypertrophy and epidural lipomatosis. 2. Mild multilevel canal stenosis. 3. Multilevel foraminal stenoses, worst at L4-L5 and L5-S1 where there are moderate foraminal stenoses. 4. Mild posterior deviation of the left S1 nerve root within the lateral recess at L5-S1. Recommend correlation with clinical symptoms to ascertain relevance of this finding. Treatment Goals Patient/Caregiver Goals To decreased back and leg pain . She would like to get back to her normal routine including hiking. PT-OP-C Subjective Start: 05/21/23 08:20 Freq: Status: Active Protocol: Document 05/22/23 09:47 MB (Rec: 05/22/23 10:05 MB [id number]) OP-PT Subjective Patient Comments Patient Comments See above. PT-OP-J Posture/Palpation/Skin Start: 05/21/23 08:20 Freq: Status: Active Protocol: Document 05/22/23 09:47 MB (Rec: 05/22/23 12:58 MB [id number]) Posture Evaluation Comments Posture Comments Standing posture: increased body mass, left shoulder is higher than the right, left iliac crest is higher than the right, decreased thoracic kyphosis and increased lumbar lordosis, Dowager's hump, left thoracic convexity. Pt prefers extension. PT-OP-K Range of Motion Start: 05/21/23 08:20 Freq: Status: Active Protocol: Document 05/22/23 09:47 MB (Rec: 05/22/23 12:58 MB [id number]) Lumbar Spine Range of Motion Lumbar Spine Active Comments Forward flexion with fingers 10 from the floor, B SB with fingers to knee joint line, trace extension in standing Hip Goniometric Range of Motion Hip ROM Limitations Comments PROM B SLR to 75 deg and no change in symptoms PT-OP-M Strength Start: 05/21/23 08:20 Freq: Status: Active Protocol: Document 05/22/23 09:47 MB (Rec: 05/22/23 12:58 MB [id number]) Hip Strength Hip Manual Muscle Testing Left Flexion (L2) 4 Good Extension (S1) 4 Good Abduction 3+ Fair+ Right Flexion (L2) 3+ Fair+ Extension (S1) 3+ Fair+ Abduction 3+ Fair+ Knee Strength Knee Manual Muscle Testing Left Flexion (S2) 4+ Good+ Extension (L3) 4+ Good+ Right Flexion (S2) 4 Good Extension (L3) 4 Good Ankle/Foot Strength Ankle and Foot Manual Muscle Testing Left Dorsiflexion (L4) 5 Normal Right Dorsiflexion (L4) 4 Good Toe Strength Toe Manual Muscle Testing Left Great Toe Extension 5 Normal Right Great Toe Extension 3+ Fair+ PT-OP-Q Treatments Start: 05/21/23 08:20 Freq: Status: Active Protocol: Document 05/22/23 09:47 MB (Rec: 05/22/23 12:58 MB [id number]) Therapeutic Exercises Supine Exercises Pelvic realignment exercises Equipment Used Towel roll Reps/Minutes 5 reps, 3 sec hold Comments Feet together ball squeeze, knee to opp ankle isometric, thigh press Self-Care/Home Management Treatment Education Patient Education Body Mechanics,Home Exercise Program,Joint Protection,Pain Management,Posture Other Education Ed pt in benefits of log rolling, pillow support between legs for side lying sleeping, use of ice and heat, stop bending over but rather squat with UE support to berry picker objects off the ground PT-OP-T Assessment and Plan Start: 05/21/23 08:20 Freq: Status: Active Protocol: Document 05/22/23 09:47 MB (Rec: 05/22/23 12:58 MB [id number]) Physical Therapy Assessment Rehab Potential Rehabilitation Potential Fair Evaluation Complexity Number of Personal Factors/Comorbidities 1-2 Number of Body Systems Impaired 1-2 Clinical Presentation at Evaluation Evolving Impairments Impairments Activity Tolerance,Balance, Functional Activities, Functional Mobility,Pain, Posture,ROM,Soft Tissue Mobility,Strength Goals 4 Impairment Evidence of imbalance Tumbling Machine Operator Goal (LTG) Pt will perform WNLs on a standardized balance test to decrease fall risk. LTG Duration 8 weeks 3 Impairment Lack of HEP Tumbling Machine Operator Goal (LTG) Pt will perform progressive HEP with I including pelvic realignment, flexibility, postural, core and LE strengthening and balance exercises to improve pain and function. LTG Duration 8 weeks 2 Impairment Oswestry reflects 46% impairment Tumbling Machine Operator Goal (LTG) Pt will present with Oswestry score reflecting no more than 25% impairment to improve pain and function. LTG Duration 8 weeks 1 Impairment RLE weakness Penitentiary Goal (LTG) Pt will present with improved right hip flexion, abduction, extension and knee flexion and extension strength and great toe extension to at least 4/5 to improve functional strength with gait. LTG Duration 8 weeks Assessment Summary Assessment Pt is a 62 y/o female presenting with long history of back pain with exacerbation in January when performing flexion and lifting. Pt reports she is bad about bending over even though she knows she shouldn't do it. Pt presents with postural changes , decreased spinal movement and right LE weakness. Pt will benefit from PT to improve posture, pelvic alignment, flexibility, strength and balance. Barriers include repetitive flexion and body habitus. Pt reports underlying vestibular issues as well and so will work on balance as appropriate during this PT course. Physical Therapy Plan Frequency and Duration Frequency of Treatment 2x/Week Duration of treatment (weeks) 8 Plan of Care Start Date 05/22/23 Plan of Care End Date 07/23/23 Therapeutic Interventions Therapeutic Interventions Balance Training,Canalithic Repositioning,Gait Training, Home Exercise Program,Joint Mobilizations,Manual Therapy, Neuromuscular Re-education, Patient/Caregiver Education, Self-Care/Home Management,Soft Tissue Mobilization,Taping, Therapeutic Activities, Therapeutic Exercises, Vestibular Rehabilitation Modalities Cold Pack/Ice Massage,Electric Stimulation,Hot Packs, Ultrasound Next Visit Focus/Plan Next Note Type Treatment Note Next Visit Plan Review pelvic realignment exercises, manual work Consider ed in diaphragm breathing and gentle supine glute, hip rotator and hamstring stretches Progress hook lying abdominal drawing in and gentle core progression and strengthening in hook lying in future treatments Consider FGA and then balance exercise
--- NOTE | 2023-05-22 13:00 | PT.OPPOC ---
Physical, Occupational & Speech Therapy At [facility] Current Diagnoses Lumbago with sciatica, right side (05/22/23) Low back pain, unspecified (05/22/23) Dorsalgia, unspecified (05/22/23) Pain in leg, unspecified (05/22/23) Visit Care Team Role Provider Type Oma López, Attending Provider Physician Family Provider Primary Care Provider Referring Provider Specialty: Medical Address: [address] [place] [address], [address], [place], [address] Email: [email or web address] Plan Of Care PT-OP-T Assessment and Plan Start: 05/21/23 08:20 Freq: Status: Active Protocol: Document 05/22/23 09:47 MB (Rec: 05/22/23 12:58 MB [id number]) Physical Therapy Assessment Rehab Potential Rehabilitation Potential Fair Evaluation Complexity Number of Personal Factors/Comorbidities 1-2 Number of Body Systems Impaired 1-2 Clinical Presentation at Evaluation Evolving Impairments Impairments Activity Tolerance,Balance, Functional Activities, Functional Mobility,Pain, Posture,ROM,Soft Tissue Mobility,Strength Goals 4 Impairment Evidence of imbalance Shoe Laster Goal (LTG) Pt will perform WNLs on a standardized balance test to decrease fall risk. LTG Duration 8 weeks 3 Impairment Lack of HEP Shoe Laster Goal (LTG) Pt will perform progressive HEP with I including pelvic realignment, flexibility, postural, core and LE strengthening and balance exercises to improve pain and function. LTG Duration 8 weeks 2 Impairment Oswestry reflects 46% impairment Retirement Goal (LTG) Pt will present with Oswestry score reflecting no more than 25% impairment to improve pain and function. LTG Duration 8 weeks 1 Impairment RLE weakness Shoe Laster Goal (LTG) Pt will present with improved right hip flexion, abduction, extension and knee flexion and extension strength and great toe extension to at least 4/5 to improve functional strength with gait. LTG Duration 8 weeks Assessment Summary Assessment Pt is a 62 y/o female presenting with long history of back pain with exacerbation in January when performing flexion and lifting. Pt reports she is bad about bending over even though she knows she shouldn't do it. Pt presents with postural changes , decreased spinal movement and right LE weakness. Pt will benefit from PT to improve posture, pelvic alignment, flexibility, strength and balance. Barriers include repetitive flexion and body habitus. Pt reports underlying vestibular issues as well and so will work on balance as appropriate during this PT course. Physical Therapy Plan Frequency and Duration Frequency of Treatment 2x/Week Duration of treatment (weeks) 8 Plan of Care Start Date 05/22/23 Plan of Care End Date 07/23/23 Therapeutic Interventions Therapeutic Interventions Balance Training,Canalithic Repositioning,Gait Training, Home Exercise Program,Joint Mobilizations,Manual Therapy, Neuromuscular Re-education, Patient/Caregiver Education, Self-Care/Home Management,Soft Tissue Mobilization,Taping, Therapeutic Activities, Therapeutic Exercises, Vestibular Rehabilitation Modalities Cold Pack/Ice Massage,Electric Stimulation,Hot Packs, Ultrasound Next Visit Focus/Plan Next Note Type Treatment Note Next Visit Plan Review pelvic realignment exercises, manual work Consider ed in diaphragm breathing and gentle supine glute, hip rotator and hamstring stretches Progress hook lying abdominal drawing in and gentle core progression and strengthening in hook lying in future treatments Consider FGA and then balance exercise Plan of Care Dates Plan of Care Start Date 05/22/23 Plan of Care End Date 07/23/23 Electronically Signed by: Gabbi Ronquillo, PT 05/22/23 1300 If you are in agreement with this Plan of Care, please return a signed and dated copy. I have reviewed this Plan of Care and certify that the skilled therapy services above are required to meet the patient?s needs. Physician Signature Date Printed Name and Credentials Clinical Instructor Signature Printed Name and Credentials
--- NOTE | 2023-05-25 08:40 | PT-OP ANOTE ---
Pt cancelled appt, sick.
--- NOTE | 2023-05-30 15:07 | PT.OTN ---
Current Diagnoses Lumbago with sciatica, right side (05/30/23) Low back pain, unspecified (05/30/23) Dorsalgia, unspecified (05/30/23) Pain in leg, unspecified (05/30/23) Physical Therapy Treatment Note PT-OP-A Visit Information Start: 05/21/23 08:20 Freq: Status: Active Protocol: Document 05/30/23 13:46 SW (Rec: 05/30/23 15:07 SW [id number]) Out-Patient Physical Therapy Visit Information Visit Information Visit Type Treatment Note Visit Note 06/09 before progress note Visit Start Time 13:48 Visit Stop Time 14:26 Visit Number 2 Number of LADLE LINER Visits 1 PT-OP-B Current Condition Start: 05/21/23 08:20 Freq: Status: Active Protocol: Document 05/22/23 09:47 MB (Rec: 05/22/23 10:05 MB [id number]) Current Condition History of Current Condition Onset Date Back injury 1993, intermittent since then Current Complaints Back pain and right leg pain occ History of Current Condition In 1993, pt bent over and injured her back picking up her new born son and she had a herniated disc. 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 The right leg pain is better and it gets flared up when she picks up a laundry basket. Pt had PT in 1993 for her back . Heat and muscle realaxors help. PMH: appendectomy, right knee scope, 3 c-sections, 3 left shoulder sxs, scar revision after abdominal surgeries, hysterectomy, breast reduction Pt had PT for vertigo in [facility] recently and the PT showed her how to pull on her legs and it helps a lot. Lying on her stomach and pushing up on her forearms helps. Pt is not sleeping very well. She is usually sleeping on her side without a pillow and it wakes her up at night. Pt has not been able to hike since January and she likes to do that. She has a bad habit of bending over. Her right leg feels weak. Prior Treatments and Tests Lumbar MRI 03/13: IMPRESSION: 1. Multilevel degenerative disc and facet disease, as well as ligamentum flavum hypertrophy and epidural lipomatosis. 2. Mild multilevel canal stenosis. 3. Multilevel foraminal stenoses, worst at L4-L5 and L5-S1 where there are moderate foraminal stenoses. 4. Mild posterior deviation of the left S1 nerve root within the lateral recess at L5-S1. Recommend correlation with clinical symptoms to ascertain relevance of this finding. Treatment Goals Patient/Caregiver Goals To decreased back and leg pain . She would like to get back to her normal routine including hiking. PT-OP-C Subjective Start: 05/21/23 08:20 Freq: Status: Active Protocol: Document 05/30/23 13:46 SW (Rec: 05/30/23 15:07 SW [id number]) OP-PT Subjective Patient Comments Patient Comments Pt reports had to cancel d/t illness. Pt feels tired and weak today from being sick. 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 Pt has been sick and plans to try sleep positioning soon. PT-OP-J Posture/Palpation/Skin Start: 05/21/23 08:20 Freq: Status: Active Protocol: Document 05/22/23 09:47 MB (Rec: 05/22/23 12:58 MB [id number]) Posture Evaluation Comments Posture Comments Standing posture: increased body mass, left shoulder is higher than the right, left iliac crest is higher than the right, decreased thoracic kyphosis and increased lumbar lordosis, Dowager's hump, left thoracic convexity. Pt prefers extension. PT-OP-K Range of Motion Start: 05/21/23 08:20 Freq: Status: Active Protocol: Document 05/22/23 09:47 MB (Rec: 05/22/23 12:58 MB [id number]) Lumbar Spine Range of Motion Lumbar Spine Active Comments Forward flexion with fingers 10 from the floor, B SB with fingers to knee joint line, trace extension in standing Hip Goniometric Range of Motion Hip ROM Limitations Comments PROM B SLR to 75 deg and no change in symptoms PT-OP-M Strength Start: 05/21/23 08:20 Freq: Status: Active Protocol: Document 05/22/23 09:47 MB (Rec: 05/22/23 12:58 MB [id number]) Hip Strength Hip Manual Muscle Testing Left Flexion (L2) 4 Good Extension (S1) 4 Good Abduction 3+ Fair+ Right Flexion (L2) 3+ Fair+ Extension (S1) 3+ Fair+ Abduction 3+ Fair+ Knee Strength Knee Manual Muscle Testing Left Flexion (S2) 4+ Good+ Extension (L3) 4+ Good+ Right Flexion (S2) 4 Good Extension (L3) 4 Good Ankle/Foot Strength Ankle and Foot Manual Muscle Testing Left Dorsiflexion (L4) 5 Normal Right Dorsiflexion (L4) 4 Good Toe Strength Toe Manual Muscle Testing Left Great Toe Extension 5 Normal Right Great Toe Extension 3+ Fair+ PT-OP-Q Treatments Start: 05/21/23 08:20 Freq: Status: Active Protocol: Document 05/30/23 13:46 (Rec: 05/30/23 15:07 [id number]) Therapeutic Exercises Supine Exercises HS stretch Supine Exercise Name HS stretch Side bilateral Reps/Minutes 2x30 TA Supine Exercise Name TA activation w/PPT Reps/Minutes 2x15 Comments good feedback Figure 4 Stretch Supine Exercise Name trialed, pt getting zinging coming into position Comments dsct'd this session LTR Supine Exercise Name feet hip width apart to emphasize hip rotation Comments educated pt on not pushing into pain or peripheralization of symptoms SKTC Supine Exercise Name SKTC Side bilateral Resistance AROM Reps/Minutes 10x3 hold Pelvic realignment exercises Equipment Used Towel roll Reps/Minutes 5 reps, 3 sec hold Comments Feet together ball squeeze, knee to opp ankle isometric, thigh press Manual Therapy Treatment Soft Tissue Mobilization R Glute Body Location R glute Mobilization Type Sustained Pressure,Trigger Point Release,Other Intensity/Depth Moderate Body Position Sidelying Comments pillow between pt knees, palpable trigger points, educated pt on self applied STM w/tennis ball, educated pt on diaphragmatic breathing to help relieve tension and relax tissues Self-Care/Home Management Treatment Education Patient Education Home Exercise Program,Pain Management Other Education Educated the patient on progressions in therapy. PT-OP-T Assessment and Plan Start: 05/21/23 08:20 Freq: Status: Active Protocol: Document 05/30/23 13:46 (Rec: 05/30/23 15:07 [id number]) Physical Therapy Assessment Goals 4 Impairment Evidence of imbalance Snf Goal (LTG) Pt will perform WNLs on a standardized balance test to decrease fall risk. LTG Duration 8 weeks 3 Impairment Lack of HEP Snf Goal (LTG) Pt will perform progressive HEP with I including pelvic realignment, flexibility, postural, core and LE strengthening and balance exercises to improve pain and function. LTG Duration 8 weeks 2 Impairment Oswestry reflects 46% impairment Snf Goal (LTG) Pt will present with Oswestry score reflecting no more than 25% impairment to improve pain and function. LTG Duration 8 weeks 1 Impairment RLE weakness Tack Welder Goal (LTG) Pt will present with improved right hip flexion, abduction, extension and knee flexion and extension strength and great toe extension to at least 4/5 to improve functional strength with gait. LTG Duration 8 weeks Assessment Summary Assessment Initiated STM this session, palpable trigger points in glute near sacrum, decreased post trigger point release. Educated patient in self application of STM to help with trigger point release. Educated pt on diaphragmatic breathing, to assist with tissue relaxation during stretches and STM. Initiated gentle stretching. Pt reported symptoms peripheralizing with R hip internal rotation, dsct 'd. Educated patient on peripheralization vs centralization of symptoms, and monitoring not pushing into increased pain. Pt reported relief in posterior pelvic tilt in supine during TA activation. Physical Therapy Plan Frequency and Duration Frequency of Treatment 2x/Week Duration of treatment (weeks) 8 Plan of Care Start Date 05/22/23 Plan of Care End Date 07/23/23 Therapeutic Interventions Therapeutic Interventions Balance Training,Canalithic Repositioning,Gait Training, Home Exercise Program,Joint Mobilizations,Manual Therapy, Neuromuscular Re-education, Patient/Caregiver Education, Self-Care/Home Management,Soft Tissue Mobilization,Taping, Therapeutic Activities, Therapeutic Exercises, Vestibular Rehabilitation Modalities Cold Pack/Ice Massage,Electric Stimulation,Hot Packs, Ultrasound Next Visit Focus/Plan Next Note Type Treatment Note Next Visit Plan Review pelvic realignment exercises, manual work Consider ed in diaphragm breathing and gentle supine glute, hip rotator and hamstring stretches Progress hook lying abdominal drawing in and gentle core progression and strengthening in hook lying in future treatments Consider FGA and then balance exercise
--- NOTE | 2023-06-04 13:54 | PT.OTN ---
Current Diagnoses Lumbago with sciatica, right side (06/04/23) Low back pain, unspecified (06/04/23) Dorsalgia, unspecified (06/04/23) Pain in leg, unspecified (06/04/23) Physical Therapy Treatment Note PT-OP-A Visit Information Start: 05/21/23 08:20 Freq: Status: Active Protocol: Document 06/04/23 13:04 SP (Rec: 06/04/23 13:50 SP [id number]) Out-Patient Physical Therapy Visit Information Visit Information Visit Type Treatment Note Visit Note 07/07 before progress note Visit Start Time 13:04 Visit Stop Time 13:54 Visit Number 3 Number of PHOTOSTAT OPERATOR HELPER Visits 2 Evaluation Information Evaluation Date 05/22/23 PT-OP-B Current Condition Start: 05/21/23 08:20 Freq: Status: Active Protocol: Document 05/22/23 09:47 MB (Rec: 05/22/23 10:05 MB [id number]) Current Condition History of Current Condition Onset Date Back injury 1993, intermittent since then Current Complaints Back pain and right leg pain occ History of Current Condition In 1993, pt bent over and injured her back picking up her new born son and she had a herniated disc. 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 The right leg pain is better and it gets flared up when she picks up a laundry basket. Pt had PT in 1993 for her back . Heat and muscle realaxors help. PMH: appendectomy, right knee scope, 3 c-sections, 3 left shoulder sxs, scar revision after abdominal surgeries, hysterectomy, breast reduction Pt had PT for vertigo in [facility] recently and the PT showed her how to pull on her legs and it helps a lot. Lying on her stomach and pushing up on her forearms helps. Pt is not sleeping very well. She is usually sleeping on her side without a pillow and it wakes her up at night. Pt has not been able to hike since January and she likes to do that. She has a bad habit of bending over. Her right leg feels weak. Prior Treatments and Tests Lumbar MRI 03/13: IMPRESSION: 1. Multilevel degenerative disc and facet disease, as well as ligamentum flavum hypertrophy and epidural lipomatosis. 2. Mild multilevel canal stenosis. 3. Multilevel foraminal stenoses, worst at L4-L5 and L5-S1 where there are moderate foraminal stenoses. 4. Mild posterior deviation of the left S1 nerve root within the lateral recess at L5-S1. Recommend correlation with clinical symptoms to ascertain relevance of this finding. Treatment Goals Patient/Caregiver Goals To decreased back and leg pain . She would like to get back to her normal routine including hiking. PT-OP-C Subjective Start: 05/21/23 08:20 Freq: Status: Active Protocol: Document 06/04/23 13:04 SP (Rec: 06/04/23 13:50 SP [id number]) OP-PT Subjective Patient Comments Patient Comments Pt did well with stretches last tx. There was 1 ex caused tingling R leg, want to review. PT-OP-J Posture/Palpation/Skin Start: 05/21/23 08:20 Freq: Status: Active Protocol: Document 05/22/23 09:47 MB (Rec: 05/22/23 12:58 MB [id number]) Posture Evaluation Comments Posture Comments Standing posture: increased body mass, left shoulder is higher than the right, left iliac crest is higher than the right, decreased thoracic kyphosis and increased lumbar lordosis, Dowager's hump, left thoracic convexity. Pt prefers extension. PT-OP-K Range of Motion Start: 05/21/23 08:20 Freq: Status: Active Protocol: Document 05/22/23 09:47 MB (Rec: 05/22/23 12:58 MB [id number]) Lumbar Spine Range of Motion Lumbar Spine Active Comments Forward flexion with fingers 10 from the floor, B SB with fingers to knee joint line, trace extension in standing Hip Goniometric Range of Motion Hip ROM Limitations Comments PROM B SLR to 75 deg and no change in symptoms PT-OP-M Strength Start: 05/21/23 08:20 Freq: Status: Active Protocol: Document 05/22/23 09:47 MB (Rec: 05/22/23 12:58 MB [id number]) Hip Strength Hip Manual Muscle Testing Left Flexion (L2) 4 Good Extension (S1) 4 Good Abduction 3+ Fair+ Right Flexion (L2) 3+ Fair+ Extension (S1) 3+ Fair+ Abduction 3+ Fair+ Knee Strength Knee Manual Muscle Testing Left Flexion (S2) 4+ Good+ Extension (L3) 4+ Good+ Right Flexion (S2) 4 Good Extension (L3) 4 Good Ankle/Foot Strength Ankle and Foot Manual Muscle Testing Left Dorsiflexion (L4) 5 Normal Right Dorsiflexion (L4) 4 Good Toe Strength Toe Manual Muscle Testing Left Great Toe Extension 5 Normal Right Great Toe Extension 3+ Fair+ PT-OP-Q Treatments Start: 05/21/23 08:20 Freq: Status: Active Protocol: Document 06/04/23 13:04 SP (Rec: 06/04/23 13:50 SP [id number]) Therapeutic Exercises Supine Exercises HS stretch Supine Exercise Name HS stretch- HEP reviewed Side bilateral Equipment Used grasp behind thigh Reps/Minutes 2x30 Comments good feedback painfree HS stretch TA Supine Exercise Name TA: 1. activation 2. KFO 3. june single leg Side bilateral Resistance progressed HEP- alternate Reps/Minutes 1. 5SH x10 2. x10 alternate sides 3. x5 reps each Comments good feedback no pelvic tilting over effort Figure 4 Stretch Supine Exercise Name reviewed HEP Resistance R foot better inner L thigh ( pain R hip over knee), L ankle over R knee Reps/Minutes 2 reps 10 SH Comments good feedback anterolateral hip stretch pnfree LTR Supine Exercise Name feet hip width apart to emphasize hip rotation Side bilateral Resistance cued slow painfree range- HEP reviewed Reps/Minutes 10 SH x3 reps Comments reports tight stretch R QL, lessened as reps progressed SKTC Supine Exercise Name SKTC Side bilateral Resistance AROM Reps/Minutes 10x3 hold Comments reports doesn't really feel anything, doesn't do much Pelvic realignment exercises Supine Exercise Name 1. adduction isometric 2. pelvic lift 2. 90/90 leg ext isometric Resistance HEP reviewed Equipment Used small ball Reps/Minutes 5 reps, 3 sec hold Comments cued gentle pressure and ROM, lift knee toward opp ft not adduction- impr Sitting Exercises STS Sitting Exercise Name trial end tx Reps/Minutes 5 reps tap table Other Exercises self STMs Other Exercise Name racquetball on wall: glut med & piriformis Side right Comments good response, repeated gentle not over pressure Manual Therapy Treatment Soft Tissue Mobilization R Glute Body Location R glute & piriformis Mobilization Type Sustained Pressure,Trigger Point Release,Other Intensity/Depth Moderate Body Position Sidelying Comments pillow between pt knees, gentle sustained pressure with diaphragmatic breathing to help relieve tension and relax tissues, trialed MWM clamshell with adjustment in pressure good response. Ed and demo for self application ball on wall for carryover home if beneficial with repeated gentle not over pressure PT-OP-R Modalities Start: 06/04/23 13:48 Freq: Status: Active Protocol: Document 06/04/23 13:04 SP (Rec: 06/05/23 16:25 SP [id number]) Hot Pack/Cold Pack Treatment CP Location R thigh Patient Position Hooklying Patient Tolerance Good Comments reported felt alot better, less full feeling. MHP Location back Patient Position Hooklying Patient Tolerance Good Comments good response, less tension in LS/glut PT-OP-T Assessment and Plan Start: 05/21/23 08:20 Freq: Status: Active Protocol: Document 06/04/23 13:04 SP (Rec: 06/04/23 13:50 SP [id number]) Physical Therapy Assessment Goals 4 Impairment Evidence of imbalance Alf Goal (LTG) Pt will perform WNLs on a standardized balance test to decrease fall risk. LTG Duration 8 weeks 3 Impairment Lack of HEP Alf Goal (LTG) Pt will perform progressive HEP with I including pelvic realignment, flexibility, postural, core and LE strengthening and balance exercises to improve pain and function. LTG Duration 8 weeks 2 Impairment Oswestry reflects 46% impairment Rn Homecare Goal (LTG) Pt will present with Oswestry score reflecting no more than 25% impairment to improve pain and function. LTG Duration 8 weeks 1 Impairment RLE weakness Rn Homecare Goal (LTG) Pt will present with improved right hip flexion, abduction, extension and knee flexion and extension strength and great toe extension to at least 4/5 to improve functional strength with gait. LTG Duration 8 weeks Assessment Summary Assessment Pt responded well to modification of Fig 4 on R LE foot at inner thigh vs over L knee no pain and felt more muscle releasing stretch. Good response to progression in core gentle KFO and single leg march lift/lower for LS stabilization painfree. Pt good response to gentle pelvic realignment HEP, cued for more inferior knee driven pelvic unweight from table vs crossing knee over opp thigh with improved performance mantain pelvis neutral. Pt reports end tx today and last tx has a full feeling in R quad and unsure why. Was welcoming to suggestion of MHP to LB back lay on, CP R thigh for decrease swelling/ fullness feeling while providing calming response to MARINE OILER with good response reported before left today. Physical Therapy Plan Frequency and Duration Frequency of Treatment 2x/Week Duration of treatment (weeks) 8 Plan of Care Start Date 05/22/23 Plan of Care End Date 07/23/23 Therapeutic Interventions Therapeutic Interventions Balance Training,Canalithic Repositioning,Gait Training, Home Exercise Program,Joint Mobilizations,Manual Therapy, Neuromuscular Re-education, Patient/Caregiver Education, Self-Care/Home Management,Soft Tissue Mobilization,Taping, Therapeutic Activities, Therapeutic Exercises, Vestibular Rehabilitation Modalities Cold Pack/Ice Massage,Electric Stimulation,Hot Packs, Ultrasound Next Visit Focus/Plan Next Note Type Treatment Note Next Visit Plan Review pelvic realignment exercises, recheck stretches, more midline vs hip rot tolerance for R thigh fullness response end 2 tx. POC: manual work Consider ed in diaphragm breathing and gentle supine glute, hip rotator and hamstring stretches Progress hook lying abdominal drawing in and gentle core progression and strengthening in hook lying in future treatments Consider FGA and then balance exercise
--- NOTE | 2023-06-08 13:52 | PT.OTN ---
Current Diagnoses Lumbago with sciatica, right side (06/08/23) Low back pain, unspecified (06/08/23) Dorsalgia, unspecified (06/08/23) Pain in leg, unspecified (06/08/23) Physical Therapy Treatment Note PT-OP-A Visit Information Start: 05/21/23 08:20 Freq: Status: Active Protocol: Document 06/08/23 13:06 SP (Rec: 06/08/23 13:57 SP [id number]) Out-Patient Physical Therapy Visit Information Visit Information Visit Type Treatment Note Visit Note 08/07 before progress note Visit Start Time 13:06 Visit Stop Time 13:52 Visit Number 4 Number of HEDDLER TIER Visits 3 Evaluation Information Evaluation Date 05/22/23 PT-OP-B Current Condition Start: 05/21/23 08:20 Freq: Status: Active Protocol: Document 05/22/23 09:47 MB (Rec: 05/22/23 10:05 MB [id number]) Current Condition History of Current Condition Onset Date Back injury 1993, intermittent since then Current Complaints Back pain and right leg pain occ History of Current Condition In 1993, pt bent over and injured her back picking up her new born son and she had a herniated disc. In January of 2023, she bent down to product picker her suitcase and picked it up and she had excruciating right anterior right leg pain. The right leg pain is better and it gets flared up when she picks up a laundry basket. Pt had PT in 1993 for her back . Heat and muscle realaxors help. PMH: appendectomy, right knee scope, 3 c-sections, 3 left shoulder sxs, scar revision after abdominal surgeries, hysterectomy, breast reduction Pt had PT for vertigo in [facility] recently and the PT showed her how to pull on her legs and it helps a lot. Lying on her stomach and pushing up on her forearms helps. Pt is not sleeping very well. She is usually sleeping on her side without a pillow and it wakes her up at night. Pt has not been able to hike since January and she likes to do that. She has a bad habit of bending over. Her right leg feels weak. Prior Treatments and Tests Lumbar MRI 03/13: IMPRESSION: 1. Multilevel degenerative disc and facet disease, as well as ligamentum flavum hypertrophy and epidural lipomatosis. 2. Mild multilevel canal stenosis. 3. Multilevel foraminal stenoses, worst at L4-L5 and L5-S1 where there are moderate foraminal stenoses. 4. Mild posterior deviation of the left S1 nerve root within the lateral recess at L5-S1. Recommend correlation with clinical symptoms to ascertain relevance of this finding. Treatment Goals Patient/Caregiver Goals To decreased back and leg pain . She would like to get back to her normal routine including hiking. PT-OP-C Subjective Start: 05/21/23 08:20 Freq: Status: Active Protocol: Document 06/08/23 13:06 SP (Rec: 06/08/23 13:57 SP [id number]) OP-PT Subjective Patient Comments Patient Comments Pt reports walked from [place] [address] to [address] [place] [address] for less aggressive incline, did feel about 5/10 in LB by time got home. She reports her R leg felt pretty weak and tiring as distance progressed which then made her back started to hurt. She stated the cold pack on her R thigh felt pretty good after last tx. PT-OP-J Posture/Palpation/Skin Start: 05/21/23 08:20 Freq: Status: Active Protocol: Document 05/22/23 09:47 MB (Rec: 05/22/23 12:58 MB [id number]) Posture Evaluation Comments Posture Comments Standing posture: increased body mass, left shoulder is higher than the right, left iliac crest is higher than the right, decreased thoracic kyphosis and increased lumbar lordosis, Dowager's hump, left thoracic convexity. Pt prefers extension. PT-OP-K Range of Motion Start: 05/21/23 08:20 Freq: Status: Active Protocol: Document 05/22/23 09:47 MB (Rec: 05/22/23 12:58 MB [id number]) Lumbar Spine Range of Motion Lumbar Spine Active Comments Forward flexion with fingers 10 from the floor, B SB with fingers to knee joint line, trace extension in standing Hip Goniometric Range of Motion Hip ROM Limitations Comments PROM B SLR to 75 deg and no change in symptoms PT-OP-M Strength Start: 05/21/23 08:20 Freq: Status: Active Protocol: Document 05/22/23 09:47 MB (Rec: 05/22/23 12:58 MB [id number]) Hip Strength Hip Manual Muscle Testing Left Flexion (L2) 4 Good Extension (S1) 4 Good Abduction 3+ Fair+ Right Flexion (L2) 3+ Fair+ Extension (S1) 3+ Fair+ Abduction 3+ Fair+ Knee Strength Knee Manual Muscle Testing Left Flexion (S2) 4+ Good+ Extension (L3) 4+ Good+ Right Flexion (S2) 4 Good Extension (L3) 4 Good Ankle/Foot Strength Ankle and Foot Manual Muscle Testing Left Dorsiflexion (L4) 5 Normal Right Dorsiflexion (L4) 4 Good Toe Strength Toe Manual Muscle Testing Left Great Toe Extension 5 Normal Right Great Toe Extension 3+ Fair+ PT-OP-Q Treatments Start: 05/21/23 08:20 Freq: Status: Active Protocol: Document 06/08/23 13:06 SP (Rec: 06/08/23 13:57 SP [id number]) Cardio Equipment Recumbent Elliptical ([employer]) Duration (Minutes) 4 Resistance 3 Seat Position closest, see 1 Other BLEs mostly and light contact arm handles, 45-50 RPMs Therapeutic Exercises Supine Exercises HS stretch Supine Exercise Name HS stretch- HEP reviewed Side bilateral Equipment Used grasp behind thigh Reps/Minutes 2 reps 20 sec Comments good feedback painfree HS stretch TA Supine Exercise Name TA: 1. activation 2. KFO 3. june single leg Side bilateral Resistance progressed HEP- alternate Reps/Minutes 1. 5SH x10 2. x10 alternate sides 3. x5 reps each Comments good feedback feels fine, improved level pelvis Figure 4 Stretch Supine Exercise Name reviewed HEP Resistance R foot better inner L thigh ( pain R hip over knee), L ankle over R knee Reps/Minutes 2 reps 20 sec Comments good hip stretch bilaterally, pnfree LTR Supine Exercise Name feet hip width apart to emphasize hip rotation Side bilateral Resistance cued slow painfree range- HEP reviewed Reps/Minutes 5 breath hold x5 reps endfeel range Comments with reps able go further L and equal Bilaterally Pelvic realignment exercises Supine Exercise Name 1. adduction isometric 2. pelvic lift 2. 90/90 leg ext isometric Resistance HEP reviewed Equipment Used small ball Reps/Minutes 5 reps, 3 sec hold Comments cued gentle pressure and ROM, lift knee toward opp ft not adduction- impr Prone Exercises quad stretch Prone Exercise Name reviewed self stretch Side bilateral Comments reports R sore stretch, L just good stretch Sidelying Exercises hip abd Sidelying Exercise Name trialed in PT, good response tiring Comments R>L weakness Sitting Exercises STS Sitting Exercise Name trial post bike Resistance hands front Reps/Minutes 2x 10 reps mesh chair Comments good tiring effort, she noticed last 2 reps /set, wt shift L 2* RLE weaknes Manual Therapy Treatment Soft Tissue Mobilization R quad Comments rolling pin, self manual PT-OP-R Modalities Start: 06/04/23 13:48 Freq: Status: Active Protocol: Document 06/08/23 13:06 SP (Rec: 06/08/23 13:57 SP [id number]) Hot Pack/Cold Pack Treatment CP Location R thigh Patient Position Hooklying Patient Tolerance Good Comments reported felt alot better, less full feeling. MHP Location back Patient Position Hooklying Patient Tolerance Good Comments good response, less tension in LS/glut PT-OP-T Assessment and Plan Start: 05/21/23 08:20 Freq: Status: Active Protocol: Document 06/08/23 13:06 SP (Rec: 06/08/23 13:57 SP [id number]) Physical Therapy Assessment Goals 4 Impairment Evidence of imbalance Group Home Goal (LTG) Pt will perform WNLs on a standardized balance test to decrease fall risk. LTG Duration 8 weeks 3 Impairment Lack of HEP Hydro Excavation Operator Goal (LTG) Pt will perform progressive HEP with I including pelvic realignment, flexibility, postural, core and LE strengthening and balance exercises to improve pain and function. LTG Duration 8 weeks 2 Impairment Oswestry reflects 46% impairment Hydro Excavation Operator Goal (LTG) Pt will present with Oswestry score reflecting no more than 25% impairment to improve pain and function. LTG Duration 8 weeks 1 Impairment RLE weakness Hydro Excavation Operator Goal (LTG) Pt will present with improved right hip flexion, abduction, extension and knee flexion and extension strength and great toe extension to at least 4/5 to improve functional strength with gait. LTG Duration 8 weeks Assessment Summary Assessment Pt responds well to ther ex beginning of tx, and no adverse affects to stretching and review gentle core KFO and TA single leg marching this tx, provided hand outs for assist home form set up. Trialed sidelying abd for progressing core and LE strengthening to support balance and gait. Pt report just lateral leg muscle tiring , painfree. Pt's reports R quad soreness reviewed prone quad stretch and CP end tx with good continue response and will continue home. Physical Therapy Plan Frequency and Duration Frequency of Treatment 2x/Week Duration of treatment (weeks) 8 Plan of Care Start Date 05/22/23 Plan of Care End Date 07/23/23 Therapeutic Interventions Therapeutic Interventions Balance Training,Canalithic Repositioning,Gait Training, Home Exercise Program,Joint Mobilizations,Manual Therapy, Neuromuscular Re-education, Patient/Caregiver Education, Self-Care/Home Management,Soft Tissue Mobilization,Taping, Therapeutic Activities, Therapeutic Exercises, Vestibular Rehabilitation Modalities Cold Pack/Ice Massage,Electric Stimulation,Hot Packs, Ultrasound Next Visit Focus/Plan Next Note Type Treatment Note Next Visit Plan Review HEP including stretches , and added hip abd, with CP modality for R thigh soreness response. POC: manual work Consider ed in diaphragm breathing. Progress hook lying abdominal drawing in and gentle core progression and strengthening in hook lying in future treatments Consider FGA and then balance exercise
--- NOTE | 2023-06-11 17:27 | PT.OTN ---
Current Diagnoses Lumbago with sciatica, right side (06/11/23) Low back pain, unspecified (06/11/23) Dorsalgia, unspecified (06/11/23) Pain in leg, unspecified (06/11/23) Physical Therapy Treatment Note PT-OP-A Visit Information Start: 05/21/23 08:20 Freq: Status: Active Protocol: Document 06/11/23 14:41 NBM (Rec: 06/11/23 15:28 NBM [id number]) Out-Patient Physical Therapy Visit Information Visit Information Visit Type Treatment Note Visit Note 09/06 before progress note Visit Start Time 14:35 Visit Stop Time 15:18 Visit Number 5 Number of PLANT PRODUCTION MANAGER Visits 4 PT-OP-B Current Condition Start: 05/21/23 08:20 Freq: Status: Active Protocol: Document 05/22/23 09:47 MB (Rec: 05/22/23 10:05 MB [id number]) Current Condition History of Current Condition Onset Date Back injury 1993, intermittent since then Current Complaints Back pain and right leg pain occ History of Current Condition In 1993, pt bent over and injured her back picking up her new born son and she had a herniated disc. In January of 2023, she bent down to picker her suitcase and picked it up and she had excruciating right anterior right leg pain. The right leg pain is better and it gets flared up when she picks up a laundry basket. Pt had PT in 1993 for her back . Heat and muscle realaxors help. PMH: appendectomy, right knee scope, 3 c-sections, 3 left shoulder sxs, scar revision after abdominal surgeries, hysterectomy, breast reduction Pt had PT for vertigo in [facility] recently and the PT showed her how to pull on her legs and it helps a lot. Lying on her stomach and pushing up on her forearms helps. Pt is not sleeping very well. She is usually sleeping on her side without a pillow and it wakes her up at night. Pt has not been able to hike since January and she likes to do that. She has a bad habit of bending over. Her right leg feels weak. Prior Treatments and Tests Lumbar MRI 03/13: IMPRESSION: 1. Multilevel degenerative disc and facet disease, as well as ligamentum flavum hypertrophy and epidural lipomatosis. 2. Mild multilevel canal stenosis. 3. Multilevel foraminal stenoses, worst at L4-L5 and L5-S1 where there are moderate foraminal stenoses. 4. Mild posterior deviation of the left S1 nerve root within the lateral recess at L5-S1. Recommend correlation with clinical symptoms to ascertain relevance of this finding. Treatment Goals Patient/Caregiver Goals To decreased back and leg pain . She would like to get back to her normal routine including hiking. PT-OP-C Subjective Start: 05/21/23 08:20 Freq: Status: Active Protocol: Document 06/11/23 14:41 NBM (Rec: 06/11/23 15:28 NBM [id number]) OP-PT Subjective Patient Comments Patient Comments Pt reports she walked to [place] and then to PT - her back started to hurt on R low side and is now 5-6/10. PT-OP-J Posture/Palpation/Skin Start: 05/21/23 08:20 Freq: Status: Active Protocol: Document 05/22/23 09:47 MB (Rec: 05/22/23 12:58 MB [id number]) Posture Evaluation Comments Posture Comments Standing posture: increased body mass, left shoulder is higher than the right, left iliac crest is higher than the right, decreased thoracic kyphosis and increased lumbar lordosis, Dowager's hump, left thoracic convexity. Pt prefers extension. PT-OP-K Range of Motion Start: 05/21/23 08:20 Freq: Status: Active Protocol: Document 05/22/23 09:47 MB (Rec: 05/22/23 12:58 MB [id number]) Lumbar Spine Range of Motion Lumbar Spine Active Comments Forward flexion with fingers 10 from the floor, B SB with fingers to knee joint line, trace extension in standing Hip Goniometric Range of Motion Hip ROM Limitations Comments PROM B SLR to 75 deg and no change in symptoms PT-OP-M Strength Start: 05/21/23 08:20 Freq: Status: Active Protocol: Document 05/22/23 09:47 MB (Rec: 05/22/23 12:58 MB [id number]) Hip Strength Hip Manual Muscle Testing Left Flexion (L2) 4 Good Extension (S1) 4 Good Abduction 3+ Fair+ Right Flexion (L2) 3+ Fair+ Extension (S1) 3+ Fair+ Abduction 3+ Fair+ Knee Strength Knee Manual Muscle Testing Left Flexion (S2) 4+ Good+ Extension (L3) 4+ Good+ Right Flexion (S2) 4 Good Extension (L3) 4 Good Ankle/Foot Strength Ankle and Foot Manual Muscle Testing Left Dorsiflexion (L4) 5 Normal Right Dorsiflexion (L4) 4 Good Toe Strength Toe Manual Muscle Testing Left Great Toe Extension 5 Normal Right Great Toe Extension 3+ Fair+ PT-OP-Q Treatments Start: 05/21/23 08:20 Freq: Status: Active Protocol: Document 06/11/23 14:41 NBM (Rec: 06/11/23 15:28 [facility] [id number]) Therapeutic Exercises Sidelying Exercises hip abd Sidelying Exercise Name HEP review Side bilateral Reps/Minutes x5 ea Comments R>L weakness; vc for TrA and slower pacing for improved eccentric control Manual Therapy Treatment Soft Tissue Mobilization R hip Body Location R TFL, ITB Mobilization Type Cross-Friction,Instrument Assisted,Strumming Body Position Sidelying Comments superficial in TFL, moderate in ITB rolling pin lumbar Body Location R QL Mobilization Type Rolling,Sustained Pressure, Other Body Position Sidelying Comments pillow supports between LEs. Superficial to moderate intensity/depth Manual stretch to R QL 30s x3 (pt notes decompression feeling R quad Mobilization Type Instrument Assisted,Rolling Intensity/Depth Moderate Body Position Hooklying Comments rolling pin R Glute Body Location R glute & piriformis Mobilization Type Sustained Pressure,Trigger Point Release,Other Intensity/Depth Moderate Body Position Sidelying Comments pillow between pt knees, gentle sustained pressure with diaphragmatic breathing to help relieve tension and relax tissues, trialed MWM clamshell with adjustment in pressure good response. Ed and demo for self application ball on wall for carryover home if beneficial with repeated gentle not over pressure Self-Care/Home Management Treatment Education Patient Education Home Exercise Program,Pain Management Other Education -Backpack wearing both shoulders instead of just L. -Reviewed log roll method. -Edu pt re: support under side when sidelying for improved spinal alignment and decreased stress through right low back and hip. -I/s pt in self-STM w/ rolling pin to quds, ITB, TFL, Hamstrings, and calf in sitting. Added to HEP: kitchen sink stretch - HO given w/ notes for self-care education from this visit. PT-OP-R Modalities Start: 06/04/23 13:48 Freq: Status: Active Protocol: Document 06/11/23 14:41 NB (Rec: 06/11/23 17:08 [facility] [id number]) Hot Pack/Cold Pack Treatment CP Location R thigh Patient Position Hooklying Patient Tolerance Good MHP Location back Patient Position Hooklying Patient Tolerance Good PT-OP-T Assessment and Plan Start: 05/21/23 08:20 Freq: Status: Active Protocol: Document 06/11/23 14:41 NB (Rec: 06/11/23 15:28 [facility] [id number]) Physical Therapy Assessment Goals 4 Impairment Evidence of imbalance Dryland Farmer Goal (LTG) Pt will perform WNLs on a standardized balance test to decrease fall risk. LTG Duration 8 weeks 3 Impairment Lack of HEP Snf Goal (LTG) Pt will perform progressive HEP with I including pelvic realignment, flexibility, postural, core and LE strengthening and balance exercises to improve pain and function. LTG Duration 8 weeks 2 Impairment Oswestry reflects 46% impairment Dryland Farmer Goal (LTG) Pt will present with Oswestry score reflecting no more than 25% impairment to improve pain and function. LTG Duration 8 weeks 1 Impairment RLE weakness Dryland Farmer Goal (LTG) Pt will present with improved right hip flexion, abduction, extension and knee flexion and extension strength and great toe extension to at least 4/5 to improve functional strength with gait. LTG Duration 8 weeks Assessment Summary Assessment Treatment focus on manual therapy and education. [place] presents with R-sided low back pain after increased walking prior to PT, pain reported 5-6 /10 and 6/10 w/ each step. Pt requires cues for occasional core activation and breathwork throughout treatment. End of session pain decreases 2-3 levels to 3/10 and no increase in pain with each step. Added to HEP: Kitchen sink stretch - HO given. Noted on handout are reminders for education provided today re: rolling pin for self-STM, using log roll method consistenly for in/out of bed, support under side with sidesleeping, and proper backpack wear for even distribution and to avoid wearing on L shoulder only. Palpable decrease in tension with soft tissue mobilization to L UT and R piriformis. Physical Therapy Plan Frequency and Duration Frequency of Treatment 2x/Week Duration of treatment (weeks) 8 Plan of Care Start Date 05/22/23 Plan of Care End Date 07/23/23 Therapeutic Interventions Therapeutic Interventions Balance Training,Canalithic Repositioning,Gait Training, Home Exercise Program,Joint Mobilizations,Manual Therapy, Neuromuscular Re-education, Patient/Caregiver Education, Self-Care/Home Management,Soft Tissue Mobilization,Taping, Therapeutic Activities, Therapeutic Exercises, Vestibular Rehabilitation Modalities Cold Pack/Ice Massage,Electric Stimulation,Hot Packs, Ultrasound Next Visit Focus/Plan Next Note Type Treatment Note Next Visit Plan Review HEP including stretches , and added hip abd, with CP modality for R thigh soreness response. POC: manual work Consider ed in diaphragm breathing. Progress hook lying abdominal drawing in and gentle core progression and strengthening in hook lying in future treatments Consider FGA and then balance exercise
--- NOTE | 2023-06-19 08:58 | PT.OTN ---
Current Diagnoses Lumbago with sciatica, right side (06/19/23) Low back pain, unspecified (06/19/23) Dorsalgia, unspecified (06/19/23) Pain in leg, unspecified (06/19/23) Physical Therapy Treatment Note PT-OP-A Visit Information Start: 05/21/23 08:20 Freq: Status: Active Protocol: Document 06/19/23 08:16 MB (Rec: 06/19/23 08:56 MB [id number]) Out-Patient Physical Therapy Visit Information Visit Information Visit Type Treatment Note Visit Note 11/06 before progress note Visit Start Time 08:16 Visit Stop Time 08:56 Visit Number 6 Number of CROSSING GATEMAN Visits 0 PT-OP-B Current Condition Start: 05/21/23 08:20 Freq: Status: Active Protocol: Document 05/22/23 09:47 MB (Rec: 05/22/23 10:05 MB [id number]) Current Condition History of Current Condition Onset Date Back injury 1993, intermittent since then Current Complaints Back pain and right leg pain occ History of Current Condition In 1993, pt bent over and injured her back picking up her new born son and she had a herniated disc. In January of 2023, she bent down to poultry picker her suitcase and picked it up and she had excruciating right anterior right leg pain. The right leg pain is better and it gets flared up when she picks up a laundry basket. Pt had PT in 1993 for her back . Heat and muscle realaxors help. PMH: appendectomy, right knee scope, 3 c-sections, 3 left shoulder sxs, scar revision after abdominal surgeries, hysterectomy, breast reduction Pt had PT for vertigo in [facility] recently and the PT showed her how to pull on her legs and it helps a lot. Lying on her stomach and pushing up on her forearms helps. Pt is not sleeping very well. She is usually sleeping on her side without a pillow and it wakes her up at night. Pt has not been able to hike since January and she likes to do that. She has a bad habit of bending over. Her right leg feels weak. Prior Treatments and Tests Lumbar MRI 03/13: IMPRESSION: 1. Multilevel degenerative disc and facet disease, as well as ligamentum flavum hypertrophy and epidural lipomatosis. 2. Mild multilevel canal stenosis. 3. Multilevel foraminal stenoses, worst at L4-L5 and L5-S1 where there are moderate foraminal stenoses. 4. Mild posterior deviation of the left S1 nerve root within the lateral recess at L5-S1. Recommend correlation with clinical symptoms to ascertain relevance of this finding. Treatment Goals Patient/Caregiver Goals To decreased back and leg pain . She would like to get back to her normal routine including hiking. PT-OP-C Subjective Start: 05/21/23 08:20 Freq: Status: Active Protocol: Document 06/19/23 08:16 MB (Rec: 06/19/23 08:56 MB [id number]) OP-PT Subjective Patient Comments Patient Comments Pt states that the stretches are going well. She has been working with a personal property assessor since she is hurt. She walked to the clinic today. She is having shots by Dr. Abdalla around right ribs where she had broken ribs after PT today. PT-OP-J Posture/Palpation/Skin Start: 05/21/23 08:20 Freq: Status: Active Protocol: Document 05/22/23 09:47 MB (Rec: 05/22/23 12:58 MB [id number]) Posture Evaluation Comments Posture Comments Standing posture: increased body mass, left shoulder is higher than the right, left iliac crest is higher than the right, decreased thoracic kyphosis and increased lumbar lordosis, Dowager's hump, left thoracic convexity. Pt prefers extension. PT-OP-K Range of Motion Start: 05/21/23 08:20 Freq: Status: Active Protocol: Document 05/22/23 09:47 MB (Rec: 05/22/23 12:58 MB [id number]) Lumbar Spine Range of Motion Lumbar Spine Active Comments Forward flexion with fingers 10 from the floor, B SB with fingers to knee joint line, trace extension in standing Hip Goniometric Range of Motion Hip ROM Limitations Comments PROM B SLR to 75 deg and no change in symptoms PT-OP-M Strength Start: 05/21/23 08:20 Freq: Status: Active Protocol: Document 05/22/23 09:47 MB (Rec: 05/22/23 12:58 MB [id number]) Hip Strength Hip Manual Muscle Testing Left Flexion (L2) 4 Good Extension (S1) 4 Good Abduction 3+ Fair+ Right Flexion (L2) 3+ Fair+ Extension (S1) 3+ Fair+ Abduction 3+ Fair+ Knee Strength Knee Manual Muscle Testing Left Flexion (S2) 4+ Good+ Extension (L3) 4+ Good+ Right Flexion (S2) 4 Good Extension (L3) 4 Good Ankle/Foot Strength Ankle and Foot Manual Muscle Testing Left Dorsiflexion (L4) 5 Normal Right Dorsiflexion (L4) 4 Good Toe Strength Toe Manual Muscle Testing Left Great Toe Extension 5 Normal Right Great Toe Extension 3+ Fair+ PT-OP-Q Treatments Start: 05/21/23 08:20 Freq: Status: Active Protocol: Document 06/19/23 08:16 MB (Rec: 06/19/23 08:56 MB [id number]) Therapeutic Exercises Supine Exercises HS stretch Supine Exercise Name Reviewed HEP Side bilateral Equipment Used Towel behind thigh Reps/Minutes 2 reps, 20 sec Comments Pt reports better range TA Supine Exercise Name Reviewed HEP Reps/Minutes 5 reps each side with pelvic tilt and tummy tight Comments Activation, knee fall out and june Figure 4 Stretch Supine Exercise Name Reviewed HEP Side bilateral Reps/Minutes 2 reps 20 sec Comments One leg straight and opposite heel on thigh that is straight LTR Supine Exercise Name Reviewed HEP, feet wide apart Side bilateral Comments 5 reps each side and pt tends to move in far range Pelvic realignment exercises Side bilateral Equipment Used Blue ball for 1st ex, towel roll for third ex Reps/Minutes 5 reps, 3 sec hold all in order Comments Feet together ball squeeze iso , knee opp ankle iso, thigh press down iso Sidelying Exercises hip abd Sidelying Exercise Name HEP review, AROM clam for abd and then IR Comments 5 reps of each on each side, pt c/o back pain Standing Exercises Calf stretches Standing Exercise Name Pt demos was she is taught from previous treatments Comments Several seconds each heel and pt is performing on step at home Cat/cow stretch Standing Exercise Name Reviewed per pt demo of what pt was taught earlier Equipment Used Ballet bar in gym Comments Pt demonstrates what she learns from other treatments Neuro Re-Education Treatment Other Activities Diaphragmatic breathing with nasal breathing Comments Instructed pt in diaphragm breathing with nasal breathing to help with warming the air, engaging the diaphragm to gently move the ribs, use nitric oxide and CO2 exchange to engage parasympathetic nervous system PT-OP-R Modalities Start: 06/04/23 13:48 Freq: Status: Active Protocol: Document 06/11/23 14:41 NBM (Rec: 06/11/23 17:08 NBM [id number]) Hot Pack/Cold Pack Treatment CP Location R thigh Patient Position Hooklying Patient Tolerance Good MHP Location back Patient Position Hooklying Patient Tolerance Good PT-OP-T Assessment and Plan Start: 05/21/23 08:20 Freq: Status: Active Protocol: Document 06/19/23 08:16 MB (Rec: 06/19/23 08:56 MB [id number]) Physical Therapy Assessment Goals 4 Impairment Evidence of imbalance Bible Worker Goal (LTG) Pt will perform WNLs on a standardized balance test to decrease fall risk. LTG Duration 8 weeks 3 Impairment Lack of HEP Assisted Goal (LTG) Pt will perform progressive HEP with I including pelvic realignment, flexibility, postural, core and LE strengthening and balance exercises to improve pain and function. 06/19/23: HEP includes pelvic realignment exercises, hamstring stretch, knee rocking with feet hip width apart, gentle abdominal strengthening exercises, diaphragm breathing LTG Duration 8 weeks 2 Impairment Oswestry reflects 46% impairment Assisted Goal (LTG) Pt will present with Oswestry score reflecting no more than 25% impairment to improve pain and function. LTG Duration 8 weeks 1 Impairment RLE weakness Bible Worker Goal (LTG) Pt will present with improved right hip flexion, abduction, extension and knee flexion and extension strength and great toe extension to at least 4/5 to improve functional strength with gait. LTG Duration 8 weeks Assessment Summary Assessment Discontinued side lying abd and IR d/t poor form, back twisting and pain. Will teach hip abduction with core work in hook lying in the future. Instructed pt in diaphragm breathing today to engage parasympathetic nervous system . Physical Therapy Plan Frequency and Duration Frequency of Treatment 2x/Week Duration of treatment (weeks) 8 Plan of Care Start Date 05/22/23 Plan of Care End Date 07/23/23 Therapeutic Interventions Therapeutic Interventions Balance Training,Canalithic Repositioning,Gait Training, Home Exercise Program,Joint Mobilizations,Manual Therapy, Neuromuscular Re-education, Patient/Caregiver Education, Self-Care/Home Management,Soft Tissue Mobilization,Taping, Therapeutic Activities, Therapeutic Exercises, Vestibular Rehabilitation Modalities Cold Pack/Ice Massage,Electric Stimulation,Hot Packs, Ultrasound Next Visit Focus/Plan Next Note Type Treatment Note Next Visit Plan Progress gentle abdominal strengthening exercises to include bridge and hip abduction (clam) if able in Hooklying and not side lying. Consider open book for rib stretch if pt tolerates. Consider FGA and then balance exercise Con't manual work
--- NOTE | 2023-06-22 14:34 | PT.OTN ---
Current Diagnoses Lumbago with sciatica, right side (06/22/23) Low back pain, unspecified (06/22/23) Dorsalgia, unspecified (06/22/23) Pain in leg, unspecified (06/22/23) Physical Therapy Treatment Note PT-OP-A Visit Information Start: 05/21/23 08:20 Freq: Status: Active Protocol: Document 06/22/23 13:53 SP (Rec: 06/22/23 14:34 SP [id number]) Out-Patient Physical Therapy Visit Information Visit Information Visit Type Treatment Note Visit Note 11/06 before progress note Visit Start Time 13:53 Visit Stop Time 14:34 Visit Number 7 Number of GASKET NOTCHER Visits 1 Evaluation Information Evaluation Date 05/22/23 PT-OP-B Current Condition Start: 05/21/23 08:20 Freq: Status: Active Protocol: Document 05/22/23 09:47 MB (Rec: 05/22/23 10:05 MB [id number]) Current Condition History of Current Condition Onset Date Back injury 1993, intermittent since then Current Complaints Back pain and right leg pain occ History of Current Condition In 1993, pt bent over and injured her back picking up her new born son and she had a herniated disc. In January of 2023, she bent down to leaf size picker her suitcase and picked it up and she had excruciating right anterior right leg pain. The right leg pain is better and it gets flared up when she picks up a laundry basket. Pt had PT in 1993 for her back . Heat and muscle realaxors help. PMH: appendectomy, right knee scope, 3 c-sections, 3 left shoulder sxs, scar revision after abdominal surgeries, hysterectomy, breast reduction Pt had PT for vertigo in [facility] recently and the PT showed her how to pull on her legs and it helps a lot. Lying on her stomach and pushing up on her forearms helps. Pt is not sleeping very well. She is usually sleeping on her side without a pillow and it wakes her up at night. Pt has not been able to hike since January and she likes to do that. She has a bad habit of bending over. Her right leg feels weak. Prior Treatments and Tests Lumbar MRI 03/13: IMPRESSION: 1. Multilevel degenerative disc and facet disease, as well as ligamentum flavum hypertrophy and epidural lipomatosis. 2. Mild multilevel canal stenosis. 3. Multilevel foraminal stenoses, worst at L4-L5 and L5-S1 where there are moderate foraminal stenoses. 4. Mild posterior deviation of the left S1 nerve root within the lateral recess at L5-S1. Recommend correlation with clinical symptoms to ascertain relevance of this finding. Treatment Goals Patient/Caregiver Goals To decreased back and leg pain . She would like to get back to her normal routine including hiking. PT-OP-C Subjective Start: 05/21/23 08:20 Freq: Status: Active Protocol: Document 06/22/23 13:53 SP (Rec: 06/22/23 14:34 SP [id number]) OP-PT Subjective Patient Comments Patient Comments Pt reports hasn't done any exercises since last tx. She reports got a headache, flare up flushed and groggy and taking diasapan. Today was 1st day out of bed after. No LBP. PT-OP-J Posture/Palpation/Skin Start: 05/21/23 08:20 Freq: Status: Active Protocol: Document 05/22/23 09:47 MB (Rec: 05/22/23 12:58 MB [id number]) Posture Evaluation Comments Posture Comments Standing posture: increased body mass, left shoulder is higher than the right, left iliac crest is higher than the right, decreased thoracic kyphosis and increased lumbar lordosis, Dowager's hump, left thoracic convexity. Pt prefers extension. PT-OP-K Range of Motion Start: 05/21/23 08:20 Freq: Status: Active Protocol: Document 05/22/23 09:47 MB (Rec: 05/22/23 12:58 MB [id number]) Lumbar Spine Range of Motion Lumbar Spine Active Comments Forward flexion with fingers 10 from the floor, B SB with fingers to knee joint line, trace extension in standing Hip Goniometric Range of Motion Hip ROM Limitations Comments PROM B SLR to 75 deg and no change in symptoms PT-OP-M Strength Start: 05/21/23 08:20 Freq: Status: Active Protocol: Document 05/22/23 09:47 MB (Rec: 05/22/23 12:58 MB [id number]) Hip Strength Hip Manual Muscle Testing Left Flexion (L2) 4 Good Extension (S1) 4 Good Abduction 3+ Fair+ Right Flexion (L2) 3+ Fair+ Extension (S1) 3+ Fair+ Abduction 3+ Fair+ Knee Strength Knee Manual Muscle Testing Left Flexion (S2) 4+ Good+ Extension (L3) 4+ Good+ Right Flexion (S2) 4 Good Extension (L3) 4 Good Ankle/Foot Strength Ankle and Foot Manual Muscle Testing Left Dorsiflexion (L4) 5 Normal Right Dorsiflexion (L4) 4 Good Toe Strength Toe Manual Muscle Testing Left Great Toe Extension 5 Normal Right Great Toe Extension 3+ Fair+ PT-OP-Q Treatments Start: 05/21/23 08:20 Freq: Status: Active Protocol: Document 06/22/23 13:53 SP (Rec: 06/22/23 14:34 SP [id number]) Therapeutic Exercises Supine Exercises bridge Supine Exercise Name added to HEP Side bilateral Resistance AROM Reps/Minutes 5x2 Comments cued neutral pelvis, TA draw in, gentle/slow with low range lift- pnfree clamshell Supine Exercise Name added to HEP: single leg abd Side bilateral Resistance alternate AROM Reps/Minutes x10 Comments cued level pelvis, slow motion - good painfree HS stretch Supine Exercise Name Reviewed HEP Side bilateral Equipment Used grasp behind thigh Reps/Minutes 2 reps, 20 sec Comments Pt reports better range and just TA Supine Exercise Name Reviewed HEP Reps/Minutes 5 reps each side with pelvic tilt and tummy tight Comments Activation, knee fall out and mini june Figure 4 Stretch Supine Exercise Name Reviewed HEP Side bilateral Equipment Used RLE able to put ankle on L thigh today (used to put inner thigh) Reps/Minutes 2 reps 20 sec Comments One leg straight and opposite heel on thigh that is straight LTR Supine Exercise Name Reviewed HEP, feet wide apart Side bilateral Comments 5 reps each side and pt tends to move in far range Pelvic realignment exercises Side bilateral Equipment Used green small ball between B knees, feet together Reps/Minutes 5 reps, 3 sec hold all in order Comments Feet together ball squeeze iso , knee opp ankle iso, thigh press down iso Sitting Exercises STS Sitting Exercise Name end tx post cat camel- for coming to standing Resistance hands on thigh glide Reps/Minutes 5 reps mesh chair Comments good tiring effort, she noticed last 2 reps /set, wt shift L 2* RLE weaknes Standing Exercises Cat/cow stretch Standing Exercise Name reviewed Equipment Used Ballet bar in gym Reps/Minutes 5 reps x2 Comments tactil and mod cues for proper form, no UT recruitment Manual Therapy Treatment Soft Tissue Mobilization R hip Body Location R piriforms, ITB Mobilization Type Myofascial Release Intensity/Depth Superficial Body Position L Sidelying Comments superficial over Pirif, ITB and caudal direction PT-OP-R Modalities Start: 06/04/23 13:48 Freq: Status: Active Protocol: Document 06/22/23 13:53 SP (Rec: 06/22/23 14:34 SP [id number]) Hot Pack/Cold Pack Treatment MHP Location back Patient Position Hooklying Patient Tolerance Good Comments reports R glut and lateral thigh tension post ex. More mobility post MHP PT-OP-T Assessment and Plan Start: 05/21/23 08:20 Freq: Status: Active Protocol: Document 06/22/23 13:53 SP (Rec: 06/22/23 14:34 SP [id number]) Physical Therapy Assessment Goals 4 Impairment Evidence of imbalance Senior Care Goal (LTG) Pt will perform WNLs on a standardized balance test to decrease fall risk. LTG Duration 8 weeks 3 Impairment Lack of HEP Company Doctor Goal (LTG) Pt will perform progressive HEP with I including pelvic realignment, flexibility, postural, core and LE strengthening and balance exercises to improve pain and function. 06/19/23: HEP includes pelvic realignment exercises, hamstring stretch, knee rocking with feet hip width apart, gentle abdominal strengthening exercises, diaphragm breathing LTG Duration 8 weeks 2 Impairment Oswestry reflects 46% impairment Company Doctor Goal (LTG) Pt will present with Oswestry score reflecting no more than 25% impairment to improve pain and function. LTG Duration 8 weeks 1 Impairment RLE weakness Senior Care Goal (LTG) Pt will present with improved right hip flexion, abduction, extension and knee flexion and extension strength and great toe extension to at least 4/5 to improve functional strength with gait. LTG Duration 8 weeks Assessment Summary Assessment Pt painfree motion during HEP review. R glut soreness and tension end tx post STS low reps, educational review TA back alignment wt shift UE light support on thighs for mobililty support at this time but progress no UE support when tolerated/ready. She responded well to light manual and MHP end tx. GOod response to added bridge and hooklying clamshell with TA engagement painfree which reported helps repositioning on table. Physical Therapy Plan Frequency and Duration Frequency of Treatment 2x/Week Duration of treatment (weeks) 8 Plan of Care Start Date 05/22/23 Plan of Care End Date 07/23/23 Therapeutic Interventions Therapeutic Interventions Balance Training,Canalithic Repositioning,Gait Training, Home Exercise Program,Joint Mobilizations,Manual Therapy, Neuromuscular Re-education, Patient/Caregiver Education, Self-Care/Home Management,Soft Tissue Mobilization,Taping, Therapeutic Activities, Therapeutic Exercises, Vestibular Rehabilitation Modalities Cold Pack/Ice Massage,Electric Stimulation,Hot Packs, Ultrasound Next Visit Focus/Plan Next Note Type Treatment Note Next Visit Plan Ask response to added bridge/ clamshell for Progress gentle abdominal strengthening exercises. NExt tx: Consider open book for rib stretch if pt tolerates. Future appt: Consider FGA and then balance exercise Con't manual work
--- NOTE | 2023-06-26 09:39 | PT.OTN ---
Current Diagnoses Lumbago with sciatica, right side (06/26/23) Low back pain, unspecified (06/26/23) Dorsalgia, unspecified (06/26/23) Pain in leg, unspecified (06/26/23) Physical Therapy Treatment Note PT-OP-A Visit Information Start: 05/21/23 08:20 Freq: Status: Active Protocol: Document 06/26/23 08:13 MB (Rec: 06/26/23 08:55 MB [id number]) Out-Patient Physical Therapy Visit Information Visit Information Visit Type Progress Note Visit Note Visit Start Time 08:13 Visit Stop Time 08:53 Visit Number 8 Number of MANAGER SHAREPOINT Visits 0 PT-OP-B Current Condition Start: 05/21/23 08:20 Freq: Status: Active Protocol: Document 05/22/23 09:47 MB (Rec: 05/22/23 10:05 MB [id number]) Current Condition History of Current Condition Onset Date Back injury 1993, intermittent since then Current Complaints Back pain and right leg pain occ History of Current Condition In 1993, pt bent over and injured her back picking up her new born son and she had a herniated disc. 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 The right leg pain is better and it gets flared up when she picks up a laundry basket. Pt had PT in 1993 for her back . Heat and muscle realaxors help. PMH: appendectomy, right knee scope, 3 c-sections, 3 left shoulder sxs, scar revision after abdominal surgeries, hysterectomy, breast reduction Pt had PT for vertigo in [facility] recently and the PT showed her how to pull on her legs and it helps a lot. Lying on her stomach and pushing up on her forearms helps. Pt is not sleeping very well. She is usually sleeping on her side without a pillow and it wakes her up at night. Pt has not been able to hike since January and she likes to do that. She has a bad habit of bending over. Her right leg feels weak. Prior Treatments and Tests Lumbar MRI 03/13: IMPRESSION: 1. Multilevel degenerative disc and facet disease, as well as ligamentum flavum hypertrophy and epidural lipomatosis. 2. Mild multilevel canal stenosis. 3. Multilevel foraminal stenoses, worst at L4-L5 and L5-S1 where there are moderate foraminal stenoses. 4. Mild posterior deviation of the left S1 nerve root within the lateral recess at L5-S1. Recommend correlation with clinical symptoms to ascertain relevance of this finding. Treatment Goals Patient/Caregiver Goals To decreased back and leg pain . She would like to get back to her normal routine including hiking. PT-OP-C Subjective Start: 05/21/23 08:20 Freq: Status: Active Protocol: Document 06/26/23 08:13 MB (Rec: 06/26/23 08:55 MB [id number]) OP-PT Subjective Patient Comments Patient Comments Pt got her shots in her spine and that is really making the difference. She might have overdone it house cleaning. She went for a walk and did not have typical pain at the end of the walk. PT-OP-J Posture/Palpation/Skin Start: 05/21/23 08:20 Freq: Status: Active Protocol: Document 05/22/23 09:47 MB (Rec: 05/22/23 12:58 MB [id number]) Posture Evaluation Comments Posture Comments Standing posture: increased body mass, left shoulder is higher than the right, left iliac crest is higher than the right, decreased thoracic kyphosis and increased lumbar lordosis, Dowager's hump, left thoracic convexity. Pt prefers extension. PT-OP-K Range of Motion Start: 05/21/23 08:20 Freq: Status: Active Protocol: Document 05/22/23 09:47 MB (Rec: 05/22/23 12:58 MB [id number]) Lumbar Spine Range of Motion Lumbar Spine Active Comments Forward flexion with fingers 10 from the floor, B SB with fingers to knee joint line, trace extension in standing Hip Goniometric Range of Motion Hip ROM Limitations Comments PROM B SLR to 75 deg and no change in symptoms PT-OP-M Strength Start: 05/21/23 08:20 Freq: Status: Active Protocol: Document 05/22/23 09:47 MB (Rec: 05/22/23 12:58 MB [id number]) Hip Strength Hip Manual Muscle Testing Left Flexion (L2) 4 Good Extension (S1) 4 Good Abduction 3+ Fair+ Right Flexion (L2) 3+ Fair+ Extension (S1) 3+ Fair+ Abduction 3+ Fair+ Knee Strength Knee Manual Muscle Testing Left Flexion (S2) 4+ Good+ Extension (L3) 4+ Good+ Right Flexion (S2) 4 Good Extension (L3) 4 Good Ankle/Foot Strength Ankle and Foot Manual Muscle Testing Left Dorsiflexion (L4) 5 Normal Right Dorsiflexion (L4) 4 Good Toe Strength Toe Manual Muscle Testing Left Great Toe Extension 5 Normal Right Great Toe Extension 3+ Fair+ PT-OP-Q Treatments Start: 05/21/23 08:20 Freq: Status: Active Protocol: Document 06/26/23 08:13 MB (Rec: 06/26/23 08:55 MB [id number]) Therapeutic Exercises Supine Exercises HS stretch Comments Performed B today, several sec hold Figure 4 Stretch Comments Performed on right leg today Pelvic realignment exercises Side bilateral Equipment Used Blue ball for 1st ex Reps/Minutes 5 reps, 3 sec hold all in order Comments Feet together ball squeeze iso , knee opp ankle iso, thigh press down iso Other Exercises Reviewed all HEP during progress note Comments Pt verbalizes and demos each exercise Manual Therapy Treatment Other Other Manual Treatments Pt supine with head and legs supported: Positional release B thoracic spine/ribs, STM B quads, vastus lateralis, hip rotators and hip flexors with more tension in right hip flexor Neuro Re-Education Treatment Balance Activities FGA Comments Score is 18/30 and see comments under goals PT-OP-R Modalities Start: 06/04/23 13:48 Freq: Status: Active Protocol: Document 06/22/23 13:53 SP (Rec: 06/22/23 14:34 SP [id number]) Hot Pack/Cold Pack Treatment MHP Location back Patient Position Hooklying Patient Tolerance Good Comments reports R glut and lateral thigh tension post ex. More mobility post MHP PT-OP-T Assessment and Plan Start: 05/21/23 08:20 Freq: Status: Active Protocol: Document 06/26/23 08:13 MB (Rec: 06/26/23 08:55 MB [id number]) Physical Therapy Assessment Goals 4 Impairment Evidence of imbalance Half-Way Goal (LTG) Pt will perform WNLs on a standardized balance test to decrease fall risk. 06/26/23: FGA score is 18/30, indicating increased risk for falling. Pt has limited cervical motion with head turns with gait LTG Duration 8 weeks 3 Impairment Lack of HEP Tooth Cutter Pinion Goal (LTG) Pt will perform progressive HEP with I including pelvic realignment, flexibility, postural, core and LE strengthening and balance exercises to improve pain and function. 06/26/23: HEP includes pelvic realignment exercises, hamstring stretch, figure 4 stretch, knee rocking with feet hip width apart, gentle abdominal strengthening exercises, diaphragm breathing , low back stretch/cat/cow against the wall LTG Duration 8 weeks 2 Impairment Oswestry reflects 46% impairment Tooth Cutter Pinion Goal (LTG) Pt will present with Oswestry score reflecting no more than 25% impairment to improve pain and function. 06/26/23: Oswestry score reflects 14% impairment LTG Duration Met 1 Impairment RLE weakness Half-Way Goal (LTG) Pt will present with improved right hip flexion, abduction, extension and knee flexion and extension strength and great toe extension to at least 4/5 to improve functional strength with gait. 06/26/23: Right hip flexion 4-/ 5, right hip abduction and extension 4/5, knee flexion and extension 4-/5. LLE is about 4+/5 in all these movements LTG Duration 8 weeks Assessment Summary Assessment Pt states that the low back shots have really been the most helpful for her pain. She is performing progressive HEP including flexibility and gentle core strengthening. She will benefit from ongoing PT to improve strength, posture and balance. Her balance is pretty poor with FGA testing today and she reports a history of falling and vertigo . Balance is part of her goals and this will be a part of future PT treatments. She has cervical changes that likely contribute to imbalance. Con't manual work and right hip is tightest today. Physical Therapy Plan Frequency and Duration Frequency of Treatment 1-2x/Week Duration of treatment (weeks) 8 Plan of Care Start Date 06/26/23 Plan of Care End Date 08/28/23 Therapeutic Interventions Therapeutic Interventions Balance Training,Canalithic Repositioning,Gait Training, Home Exercise Program,Joint Mobilizations,Manual Therapy, Neuromuscular Re-education, Patient/Caregiver Education, Self-Care/Home Management,Soft Tissue Mobilization,Taping, Therapeutic Activities, Therapeutic Exercises, Vestibular Rehabilitation Modalities Cold Pack/Ice Massage,Electric Stimulation,Hot Packs, Ultrasound Next Visit Focus/Plan Next Note Type Treatment Note Next Visit Plan Consider open book for rib stretch if pt tolerates. Future appt: balance exercises and leg strengthenging exercises in standing, ongoing manual work
--- NOTE | 2023-06-26 09:39 | PT.OPPOC ---
Physical, Occupational & Speech Therapy At [facility] Current Diagnoses Lumbago with sciatica, right side (06/26/23) Low back pain, unspecified (06/26/23) Dorsalgia, unspecified (06/26/23) Pain in leg, unspecified (06/26/23) Visit Care Team Role Provider Type Oma López DO Attending Provider Physician Family Provider Primary Care Provider Referring Provider Specialty: Medical Address: [address] [place] [address], [address], [place], [address] Email: [email or web address] Plan Of Care PT-OP-T Assessment and Plan Start: 05/21/23 08:20 Freq: Status: Active Protocol: Document 06/26/23 08:13 MB (Rec: 06/26/23 08:55 MB [id number]) Physical Therapy Assessment Goals 4 Impairment Evidence of imbalance Snf Goal (LTG) Pt will perform WNLs on a standardized balance test to decrease fall risk. 06/26/23: FGA score is 18/30, indicating increased risk for falling. Pt has limited cervical motion with head turns with gait LTG Duration 8 weeks 3 Impairment Lack of HEP Service Observer Chief Goal (LTG) Pt will perform progressive HEP with I including pelvic realignment, flexibility, postural, core and LE strengthening and balance exercises to improve pain and function. 06/26/23: HEP includes pelvic realignment exercises, hamstring stretch, figure 4 stretch, knee rocking with feet hip width apart, gentle abdominal strengthening exercises, diaphragm breathing , low back stretch/cat/cow against the wall LTG Duration 8 weeks 2 Impairment Oswestry reflects 46% impairment Snf Goal (LTG) Pt will present with Oswestry score reflecting no more than 25% impairment to improve pain and function. 06/26/23: Oswestry score reflects 14% impairment LTG Duration Met 1 Impairment RLE weakness Service Observer Chief Goal (LTG) Pt will present with improved right hip flexion, abduction, extension and knee flexion and extension strength and great toe extension to at least 4/5 to improve functional strength with gait. 06/26/23: Right hip flexion 4-/ 5, right hip abduction and extension 4/5, knee flexion and extension 4-/5. LLE is about 4+/5 in all these movements LTG Duration 8 weeks Assessment Summary Assessment Pt states that the low back shots have really been the most helpful for her pain. She is performing progressive HEP including flexibility and gentle core strengthening. She will benefit from ongoing PT to improve strength, posture and balance. Her balance is pretty poor with FGA testing today and she reports a history of falling and vertigo . Balance is part of her goals and this will be a part of future PT treatments. She has cervical changes that likely contribute to imbalance. Con't manual work and right hip is tightest today. Physical Therapy Plan Frequency and Duration Frequency of Treatment 1-2x/Week Duration of treatment (weeks) 8 Plan of Care Start Date 06/26/23 Plan of Care End Date 08/28/23 Therapeutic Interventions Therapeutic Interventions Balance Training,Canalithic Repositioning,Gait Training, Home Exercise Program,Joint Mobilizations,Manual Therapy, Neuromuscular Re-education, Patient/Caregiver Education, Self-Care/Home Management,Soft Tissue Mobilization,Taping, Therapeutic Activities, Therapeutic Exercises, Vestibular Rehabilitation Modalities Cold Pack/Ice Massage,Electric Stimulation,Hot Packs, Ultrasound Next Visit Focus/Plan Next Note Type Treatment Note Next Visit Plan Consider open book for rib stretch if pt tolerates. Future appt: balance exercises and leg strengthenging exercises in standing, ongoing manual work Plan of Care Dates Plan of Care Start Date 06/26/23 Plan of Care End Date 08/28/23 Electronically Signed by: Gabbi Ronquillo, PT 06/26/23 0939 If you are in agreement with this Plan of Care, please return a signed and dated copy. I have reviewed this Plan of Care and certify that the skilled therapy services above are required to meet the patient?s needs. Physician Signature Date Printed Name and Credentials Clinical Instructor Signature Printed Name and Credentials
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
--- NOTE | 2023-07-02 14:30 | PT.OTN ---
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 The right leg pain is better and it gets flared up when she picks up a laundry basket. Pt had PT in 1993 for her back . Heat and muscle realaxors help. PMH: appendectomy, right knee scope, 3 c-sections, 3 left shoulder sxs, scar revision after abdominal surgeries, hysterectomy, breast reduction Pt had PT for vertigo in [facility] recently and the PT showed her how to pull on her legs and it helps a lot. Lying on her stomach and pushing up on her forearms helps. Pt is not sleeping very well. She is usually sleeping on her side without a pillow and it wakes her up at night. Pt has not been able to hike since January and she likes to do that. She has a bad habit of bending over. Her right leg feels weak. Prior Treatments and Tests Lumbar MRI 03/13: IMPRESSION: 1. Multilevel degenerative disc and facet disease, as well as ligamentum flavum hypertrophy and epidural lipomatosis. 2. Mild multilevel canal stenosis. 3. Multilevel foraminal stenoses, worst at L4-L5 and L5-S1 where there are moderate foraminal stenoses. 4. Mild posterior deviation of the left S1 nerve root within the lateral recess at L5-S1. Recommend correlation with clinical symptoms to ascertain relevance of this finding. Treatment Goals Patient/Caregiver Goals To decreased back and leg pain . She would like to get back to her normal routine including hiking. 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 She arrives in alot pain down in to R mid to distal HS upon arrival. Tried HEP but still irritated. Hope didn't undo what helped last /Sun. PT-OP-J Posture/Palpation/Skin Start: 05/21/23 08:20 Freq: Status: Active Protocol: Document 05/22/23 09:47 MB (Rec: 05/22/23 12:58 MB [id number]) Posture Evaluation Comments Posture Comments Standing posture: increased body mass, left shoulder is higher than the right, left iliac crest is higher than the right, decreased thoracic kyphosis and increased lumbar lordosis, Dowager's hump, left thoracic convexity. Pt prefers extension. PT-OP-K Range of Motion Start: 05/21/23 08:20 Freq: Status: Active Protocol: Document 05/22/23 09:47 MB (Rec: 05/22/23 12:58 MB [id number]) Lumbar Spine Range of Motion Lumbar Spine Active Comments Forward flexion with fingers 10 from the floor, B SB with fingers to knee joint line, trace extension in standing Hip Goniometric Range of Motion Hip ROM Limitations Comments PROM B SLR to 75 deg and no change in symptoms PT-OP-M Strength Start: 05/21/23 08:20 Freq: Status: Active Protocol: Document 05/22/23 09:47 MB (Rec: 05/22/23 12:58 MB [id number]) Hip Strength Hip Manual Muscle Testing Left Flexion (L2) 4 Good Extension (S1) 4 Good Abduction 3+ Fair+ Right Flexion (L2) 3+ Fair+ Extension (S1) 3+ Fair+ Abduction 3+ Fair+ Knee Strength Knee Manual Muscle Testing Left Flexion (S2) 4+ Good+ Extension (L3) 4+ Good+ Right Flexion (S2) 4 Good Extension (L3) 4 Good Ankle/Foot Strength Ankle and Foot Manual Muscle Testing Left Dorsiflexion (L4) 5 Normal Right Dorsiflexion (L4) 4 Good Toe Strength Toe Manual Muscle Testing Left Great Toe Extension 5 Normal Right Great Toe Extension 3+ Fair+ PT-OP-Q Treatments Start: 05/21/23 08:20 Freq: Status: Active Protocol: Document 07/02/23 13:52 SP (Rec: 07/02/23 14:34 SP [id number]) Therapeutic Exercises Supine Exercises bridge Side bilateral Resistance AROM Reps/Minutes 5x2 Comments cued neutral pelvis, TA draw in, gentle/slow with low range lift- pnfree HS stretch Supine Exercise Name Hold 07/02/23 Side bilateral Equipment Used Towel behind thigh Reps/Minutes 2 sec- tried but to painfree- stopped TA Supine Exercise Name TA activation with isometric hold- good painfree Reps/Minutes 5 reps each side with pelvic tilt and tummy tight Comments Activation, knee fall out and mini march LTR Supine Exercise Name Reviewed HEP, feet hip wide apart Side bilateral Reps/Minutes 5 reps each side Comments painfree range Manual Therapy Treatment Soft Tissue Mobilization R HS Mobilization Type Strumming,Sustained Pressure, Other Intensity/Depth Mod Body Position Prone Comments gentle pressure STMs /c breath , MWM knee flex/ext, tight and not alot release reports. R Glute Body Location R glute & piriformis, IT Mobilization Type Sustained Pressure,Trigger Point Release,Other Intensity/Depth Moderate Body Position Sidelying & prone Comments pillow between pt knees, gentle sustained pressure MWM with hip IR/ ER painfree Self-Care/Home Management Treatment Education Patient Education Body Mechanics,Home Exercise Program,Pain Management, Posture,Safety Other Education 3 min time spent discussion postural awareness of back and wt shift between BLEs chores for TA support, 1/2 kneel use laundry basket clothes from washer then put in dryer, get in tub squat wt shift between BLEs and alternate BUEs scrubbing. ALso don't do all same day next time, might have over tired self and sore now. Use CP, MHP or contrast can be helpful. Good understanding response. PT-OP-R Modalities Start: 06/04/23 13:48 Freq: Status: Active Protocol: Document 06/22/23 13:53 SP (Rec: 06/22/23 14:34 SP [id number]) Hot Pack/Cold Pack Treatment MHP Location back Patient Position Hooklying Patient Tolerance Good Comments reports R glut and lateral thigh tension post ex. More mobility post MHP PT-OP-T Assessment and Plan Start: 05/21/23 08:20 Freq: Status: Active Protocol: Document 07/02/23 13:52 SP (Rec: 07/02/23 14:34 SP [id number]) Physical Therapy Assessment Goals 4 Impairment Evidence of imbalance Halfway Goal (LTG) Pt will perform WNLs on a standardized balance test to decrease fall risk. 06/26/23: FGA score is 18/30, indicating increased risk for falling. Pt has limited cervical motion with head turns with gait LTG Duration 8 weeks 3 Impairment Lack of HEP Release Of Information Specialist Goal (LTG) Pt will perform progressive HEP with I including pelvic realignment, flexibility, postural, core and LE strengthening and balance exercises to improve pain and function. 06/26/23: HEP includes pelvic realignment exercises, hamstring stretch, figure 4 stretch, knee rocking with feet hip width apart, gentle abdominal strengthening exercises, diaphragm breathing , low back stretch/cat/cow against the wall LTG Duration 8 weeks 1 Impairment RLE weakness Halfway Goal (LTG) Pt will present with improved right hip flexion, abduction, extension and knee flexion and extension strength and great toe extension to at least 4/5 to improve functional strength with gait. 06/26/23: Right hip flexion 4-/ 5, right hip abduction and extension 4/5, knee flexion and extension 4-/5. 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 Time spent on proper body mechanics end tx to support back alignment and health with better understanding and performance review. Pt provided feedback to pressure during manual, reported decreased tension. Good response of no pain during TA activated ther ex review. Discussed continue abdominal ex to support LB and potential radiculopathy into R HS. Pt reported R leg felt better but pain not fully gone before left but better than when arrived. Physical Therapy Plan Frequency and Duration Frequency of Treatment 1-2x/Week Duration of treatment (weeks) 8 Plan of Care Start Date 06/26/23 Plan of Care End Date 08/28/23 Therapeutic Interventions Therapeutic Interventions Balance Training,Canalithic Repositioning,Gait Training, Home Exercise Program,Joint Mobilizations,Manual Therapy, Neuromuscular Re-education, Patient/Caregiver Education, Self-Care/Home Management,Soft Tissue Mobilization,Taping, Therapeutic Activities, Therapeutic Exercises, Vestibular Rehabilitation Modalities Cold Pack/Ice Massage,Electric Stimulation,Hot Packs, Ultrasound Next Visit Focus/Plan Next Note Type Treatment Note Next Visit Plan Review HEP: TA june//bridge , open book, LTR. stretching. Continue emphasize Mechanics for lifting/housework for back safety. Future appt: balance exercises and leg strengthenging exercises in standing, ongoing manual work
--- NOTE | 2023-07-05 11:16 | PT.OTN ---
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 The right leg pain is better and it gets flared up when she picks up a laundry basket. Pt had PT in 1993 for her back . Heat and muscle realaxors help. PMH: appendectomy, right knee scope, 3 c-sections, 3 left shoulder sxs, scar revision after abdominal surgeries, hysterectomy, breast reduction Pt had PT for vertigo in [facility] recently and the PT showed her how to pull on her legs and it helps a lot. Lying on her stomach and pushing up on her forearms helps. Pt is not sleeping very well. She is usually sleeping on her side without a pillow and it wakes her up at night. Pt has not been able to hike since January and she likes to do that. She has a bad habit of bending over. Her right leg feels weak. Prior Treatments and Tests Lumbar MRI 03/13: IMPRESSION: 1. Multilevel degenerative disc and facet disease, as well as ligamentum flavum hypertrophy and epidural lipomatosis. 2. Mild multilevel canal stenosis. 3. Multilevel foraminal stenoses, worst at L4-L5 and L5-S1 where there are moderate foraminal stenoses. 4. Mild posterior deviation of the left S1 nerve root within the lateral recess at L5-S1. Recommend correlation with clinical symptoms to ascertain relevance of this finding. Treatment Goals Patient/Caregiver Goals To decreased back and leg pain . She would like to get back to her normal routine including hiking. PT-OP-C Subjective Start: 05/21/23 08:20 Freq: Status: Active Protocol: Document 07/05/23 10:38 SP (Rec: 07/05/23 11:18 SP [id number]) OP-PT Subjective Patient Comments Patient Comments Her back alot better, no R HS irritation since last tx but hasn't done alot activity. Is using electric HP at night shuts self off after 15 min, with good response. Pt reports only did some laundry with practice better squat and 1/2 kneel mechanics as discussed last tx and is better on back/ legs. PT-OP-J Posture/Palpation/Skin Start: 05/21/23 08:20 Freq: Status: Active Protocol: Document 05/22/23 09:47 MB (Rec: 05/22/23 12:58 MB [id number]) Posture Evaluation Comments Posture Comments Standing posture: increased body mass, left shoulder is higher than the right, left iliac crest is higher than the right, decreased thoracic kyphosis and increased lumbar lordosis, Dowager's hump, left thoracic convexity. Pt prefers extension. PT-OP-K Range of Motion Start: 05/21/23 08:20 Freq: Status: Active Protocol: Document 05/22/23 09:47 MB (Rec: 05/22/23 12:58 MB [id number]) Lumbar Spine Range of Motion Lumbar Spine Active Comments Forward flexion with fingers 10 from the floor, B SB with fingers to knee joint line, trace extension in standing Hip Goniometric Range of Motion Hip ROM Limitations Comments PROM B SLR to 75 deg and no change in symptoms PT-OP-M Strength Start: 05/21/23 08:20 Freq: Status: Active Protocol: Document 05/22/23 09:47 MB (Rec: 05/22/23 12:58 MB [id number]) Hip Strength Hip Manual Muscle Testing Left Flexion (L2) 4 Good Extension (S1) 4 Good Abduction 3+ Fair+ Right Flexion (L2) 3+ Fair+ Extension (S1) 3+ Fair+ Abduction 3+ Fair+ Knee Strength Knee Manual Muscle Testing Left Flexion (S2) 4+ Good+ Extension (L3) 4+ Good+ Right Flexion (S2) 4 Good Extension (L3) 4 Good Ankle/Foot Strength Ankle and Foot Manual Muscle Testing Left Dorsiflexion (L4) 5 Normal Right Dorsiflexion (L4) 4 Good Toe Strength Toe Manual Muscle Testing Left Great Toe Extension 5 Normal Right Great Toe Extension 3+ Fair+ PT-OP-Q Treatments Start: 05/21/23 08:20 Freq: Status: Active Protocol: Document 07/05/23 10:38 SP (Rec: 07/05/23 11:18 SP [id number]) Therapeutic Exercises Supine Exercises bridge Side bilateral Resistance AROM Reps/Minutes x10 Comments 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, cued feet closer to buttocks/no R HS recruit & pnfree clamshell Supine Exercise Name Reviewed HEP: single leg abd Side bilateral Resistance AROM> TB #1 Reps/Minutes x10 each (alternating each LE) Comments good level pelvis, cued slower eccentri return, painfree HS stretch Supine Exercise Name stretched after manual Side right Equipment Used grasp behind thigh Reps/Minutes 10 SH lower leg lift pnfree range Comments good feedback short gentle stretch LTR Supine Exercise Name Reviewed HEP, feet hip wide apart Side bilateral Reps/Minutes 10 each side Comments Cued level pelvis (not lift off table), improved slower pacing TA& oblique Sidelying Exercises Open book Sidelying Exercise Name Open book reviewed HEP Side bilateral Equipment Used * did notice small pop release in upper lumbar, pnfree Reps/Minutes x 5 ea Comments reviewed opening up ribcage gntl stretch, no LS rotation mob, TA if need Sitting Exercises STS Sitting Exercise Name eccentric tap chair Resistance hand front Reps/Minutes 10 reps mesh chair Comments tiring tension R HS at 7th rep , went away when stopped Therapeutic Activity Therapeutic Activity body mechanics Name box then + 5# leg wt inside Reps/Minutes 8 min Comments -mechanics lifting off floor -squat place on 2nd step -1/2 kneel wt shift R<>L *assimulate 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 pnfree good form /c straight back wt shift btwn BLEs as instructed. Manual Therapy Treatment Soft Tissue Mobilization R HS Body Location R HS Mobilization Type Strumming,Sustained Pressure, Other Intensity/Depth Mod Body Position Prone over pillows Comments struming and MWM R mid/distal HS knee flex/ecc ext, reduction no tension releases reported R hip Body Location R piriformis Mobilization Type Sustained Pressure,Other Intensity/Depth Superficial Body Position L Sidelying Comments MWM hip IR/ER PT-OP-R Modalities Start: 06/04/23 13:48 Freq: Status: Active Protocol: Document 06/22/23 13:53 SP (Rec: 06/22/23 14:34 SP [id number]) Hot Pack/Cold Pack Treatment MHP Location back Patient Position Hooklying Patient Tolerance Good Comments reports R glut and lateral thigh tension post ex. 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 06/26/23: FGA score is 18/30, indicating increased risk for falling. Pt has limited cervical motion with head turns with gait LTG Duration 8 weeks 3 Impairment Lack of HEP Package Dyeing Machine Operator Goal (LTG) Pt will perform progressive HEP with I including pelvic realignment, flexibility, postural, core and LE strengthening and balance exercises to improve pain and function. 06/26/23: HEP includes pelvic realignment exercises, hamstring stretch, figure 4 stretch, knee rocking with feet hip width apart, gentle abdominal strengthening exercises, diaphragm breathing , low back stretch/cat/cow against the wall LTG Duration 8 weeks 1 Impairment RLE weakness Penitentiary Goal (LTG) Pt will present with improved right hip flexion, abduction, extension and knee flexion and extension strength and great toe extension to at least 4/5 to improve functional strength with gait. 06/26/23: Right hip flexion 4-/ 5, right hip abduction and extension 4/5, knee flexion and extension 4-/5. LLE is about 4+/5 in all these movements LTG Duration 8 weeks Assessment Summary Assessment Pt good response to manual R HS releasing and self stretching. Improved TA fac pnfree during LTR post increased resistance to SL clamshell and no rest AROM bridges (progressed for HEP) for core and LE strengthening with self pelvic tilt needed corrections. She reported little R HS tension increase during eccentric squat taps for TA and LE effort but went away when stopped. She demonstrated good understanding of proper body mechanics with lifting wt crate (like laundry basket) and 1/2 kneel back alignment wt shift between BLEs for back health carryover instruction last tx review. Pt felt good end tx, pnfree. Physical Therapy Plan Frequency and Duration Frequency of Treatment 1-2x/Week Duration of treatment (weeks) 8 Plan of Care Start Date 06/26/23 Plan of Care End Date 08/28/23 Therapeutic Interventions Therapeutic Interventions Balance Training,Canalithic Repositioning,Gait Training, Home Exercise Program,Joint Mobilizations,Manual Therapy, Neuromuscular Re-education, Patient/Caregiver Education, Self-Care/Home Management,Soft Tissue Mobilization,Taping, Therapeutic Activities, Therapeutic Exercises, Vestibular Rehabilitation Modalities Cold Pack/Ice Massage,Electric Stimulation,Hot Packs, Ultrasound Next Visit Focus/Plan Next Note Type Treatment Note Next Visit Plan Review HEP and body mechanics as needed. Next tx: balance exercises and leg strengthening exercises in standing, ongoing manual work
--- NOTE | 2023-07-10 13:52 | PT.OTN ---
Current Diagnoses Lumbago with sciatica, right side (07/10/23) Low back pain, unspecified (07/10/23) Dorsalgia, unspecified (07/10/23) Pain in leg, unspecified (07/10/23) Physical Therapy Treatment Note PT-OP-A Visit Information Start: 05/21/23 08:20 Freq: Status: Active Protocol: Document 07/10/23 13:04 SP (Rec: 07/10/23 13:54 SP [id number]) Out-Patient Physical Therapy Visit Information Visit Information Visit Type Treatment Note Visit Note 08/07 post PN Visit Start Time 13:04 Visit Stop Time 13:52 Visit Number 12 Number of SEED ANALYSIS LABORATORY ASSISTANT Visits 4 Evaluation Information Evaluation Date 05/22/23 PT-OP-B Current Condition Start: 05/21/23 08:20 Freq: Status: Active Protocol: Document 05/22/23 09:47 MB (Rec: 05/22/23 10:05 MB [id number]) Current Condition History of Current Condition Onset Date Back injury 1993, intermittent since then Current Complaints Back pain and right leg pain occ History of Current Condition In 1993, pt bent over and injured her back picking up her new born son and she had a herniated disc. In January of 2023, she bent down to shrimp picker her suitcase and picked it up and she had excruciating right anterior right leg pain. The right leg pain is better and it gets flared up when she picks up a laundry basket. Pt had PT in 1993 for her back . Heat and muscle realaxors help. PMH: appendectomy, right knee scope, 3 c-sections, 3 left shoulder sxs, scar revision after abdominal surgeries, hysterectomy, breast reduction Pt had PT for vertigo in [facility] recently and the PT showed her how to pull on her legs and it helps a lot. Lying on her stomach and pushing up on her forearms helps. Pt is not sleeping very well. She is usually sleeping on her side without a pillow and it wakes her up at night. Pt has not been able to hike since January and she likes to do that. She has a bad habit of bending over. Her right leg feels weak. Prior Treatments and Tests Lumbar MRI 03/13: IMPRESSION: 1. Multilevel degenerative disc and facet disease, as well as ligamentum flavum hypertrophy and epidural lipomatosis. 2. Mild multilevel canal stenosis. 3. Multilevel foraminal stenoses, worst at L4-L5 and L5-S1 where there are moderate foraminal stenoses. 4. Mild posterior deviation of the left S1 nerve root within the lateral recess at L5-S1. Recommend correlation with clinical symptoms to ascertain relevance of this finding. Treatment Goals Patient/Caregiver Goals To decreased back and leg pain . She would like to get back to her normal routine including hiking. PT-OP-C Subjective Start: 05/21/23 08:20 Freq: Status: Active Protocol: Document 07/10/23 13:04 SP (Rec: 07/10/23 13:54 SP [id number]) OP-PT Subjective Patient Comments Patient Comments Pt reports has been helping son packing (Sat-Mon)to move few blocks and then need help unpack. helping remind her he will be doing the lifting. She is trying to be mindful of back mechanics not bend over. 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 She is also incorporating stretch as she goes so back not over tight. She reported feel little tightness/discomfort at L5-S1 area thinks would like lessen 1st this tx before ex. PT-OP-J Posture/Palpation/Skin Start: 05/21/23 08:20 Freq: Status: Active Protocol: Document 05/22/23 09:47 MB (Rec: 05/22/23 12:58 MB [id number]) Posture Evaluation Comments Posture Comments Standing posture: increased body mass, left shoulder is higher than the right, left iliac crest is higher than the right, decreased thoracic kyphosis and increased lumbar lordosis, Dowager's hump, left thoracic convexity. Pt prefers extension. PT-OP-K Range of Motion Start: 05/21/23 08:20 Freq: Status: Active Protocol: Document 05/22/23 09:47 MB (Rec: 05/22/23 12:58 MB [id number]) Lumbar Spine Range of Motion Lumbar Spine Active Comments Forward flexion with fingers 10 from the floor, B SB with fingers to knee joint line, trace extension in standing Hip Goniometric Range of Motion Hip ROM Limitations Comments PROM B SLR to 75 deg and no change in symptoms PT-OP-M Strength Start: 05/21/23 08:20 Freq: Status: Active Protocol: Document 05/22/23 09:47 MB (Rec: 05/22/23 12:58 MB [id number]) Hip Strength Hip Manual Muscle Testing Left Flexion (L2) 4 Good Extension (S1) 4 Good Abduction 3+ Fair+ Right Flexion (L2) 3+ Fair+ Extension (S1) 3+ Fair+ Abduction 3+ Fair+ Knee Strength Knee Manual Muscle Testing Left Flexion (S2) 4+ Good+ Extension (L3) 4+ Good+ Right Flexion (S2) 4 Good Extension (L3) 4 Good Ankle/Foot Strength Ankle and Foot Manual Muscle Testing Left Dorsiflexion (L4) 5 Normal Right Dorsiflexion (L4) 4 Good Toe Strength Toe Manual Muscle Testing Left Great Toe Extension 5 Normal Right Great Toe Extension 3+ Fair+ PT-OP-Q Treatments Start: 05/21/23 08:20 Freq: Status: Active Protocol: Document 07/10/23 13:04 SP (Rec: 07/10/23 13:54 SP [id number]) Therapeutic Exercises Supine Exercises bridge Side bilateral Resistance added band at thighs maintain abd neutral Reps/Minutes x10 Comments good form/pacing, pnfree clamshell Supine Exercise Name Reviewed HEP: single leg abd Side bilateral Resistance TB #1 Reps/Minutes x10 each (alternating each LE) Comments good level pelvis and eccentric return, Less weakness shakiness painfree HS stretch Supine Exercise Name stretched after manual and core ex Side right Equipment Used front pant leg/mcclure Reps/Minutes 10 SH lower leg lift pnfree range Comments good feedback short gentle stretch TA Supine Exercise Name TA activation with isometric hold june Reps/Minutes 10 reps each side with pelvic tilt and tummy tight Comments TA activation june Figure 4 Stretch Side right Reps/Minutes 30 Comments post core ex Pelvic realignment exercises Supine Exercise Name reviewed for finishing L5 support Side bilateral Equipment Used Blue ball for 1st ex Reps/Minutes 5 reps, 3 sec hold all in order Comments Feet together ball squeeze iso , knee opp ankle iso, thigh press down iso Prone Exercises quad stretch Prone Exercise Name reviewed self stretch Side bilateral Reps/Minutes 10 SH x3 Comments good stretch leilani Standing Exercises TA SLS sliders Standing Exercise Name trialed, added TA SLS lateral slider Side bilateral Resistance AROM Equipment Used slider under moving LE, near rail contact Reps/Minutes 2x5 reps Comments cued straight back, hip hinge move LE slide lateral only range success,pnfr Manual Therapy Treatment Soft Tissue Mobilization R hip Body Location R piriformis Mobilization Type Sustained Pressure,Other Intensity/Depth Moderate Body Position L Sidelying Comments MWM hip IR/ER lumbar Body Location B ES, QL Mobilization Type Myofascial Release, Oscillations,Rolling,Strumming Body Position prone over pillows Comments manual STMs and caudal depression hold decompression Neuro Re-Education Treatment Balance Activities balance Details SLS, tandem, star lateral glides Comments 1. LLE 6 sec, RLE 30 2. R fwd 18, L fwd 30 3. Dyn: rail nearby support: sliders lateral AROM 2x5 each LE- good quad, HS, glut tiring Self-Care/Home Management Treatment Education Patient Education Body Mechanics,Joint Protection,Pain Management, Posture,Safety Other Education Time spent review hip hinge and wt shift between BLEs /c TA needed and back alignment during assist pack/unpacking son's house, mindful lifting items with good mechanics able /painfree. PT-OP-R Modalities Start: 06/04/23 13:48 Freq: Status: Active Protocol: Document 06/22/23 13:53 SP (Rec: 06/22/23 14:34 SP [id number]) Hot Pack/Cold Pack Treatment MHP Location back Patient Position Hooklying Patient Tolerance Good Comments reports R glut and lateral thigh tension post ex. More mobility post MHP PT-OP-T Assessment and Plan Start: 05/21/23 08:20 Freq: Status: Active Protocol: Document 07/10/23 13:04 SP (Rec: 07/10/23 13:54 SP [id number]) Physical Therapy Assessment Goals 4 Impairment Evidence of imbalance Stitchdown Toe Former Goal (LTG) Pt will perform WNLs on a standardized balance test to decrease fall risk. 06/26/23: FGA score is 18/30, indicating increased risk for falling. Pt has limited cervical motion with head turns with gait 07/10/23: progressing SLS LLE 6 sec, RLE 30 sec, added TA lateral sliders to progress core and increase SLS time. LTG Duration 8 weeks progressing 07/10/23 3 Impairment Lack of HEP Stitchdown Toe Former Goal (LTG) Pt will perform progressive HEP with I including pelvic realignment, flexibility, postural, core and LE strengthening and balance exercises to improve pain and function. 06/26/23: HEP includes pelvic realignment exercises, hamstring stretch, figure 4 stretch, knee rocking with feet hip width apart, gentle abdominal strengthening exercises, diaphragm breathing , low back stretch/cat/cow against the wall 07/10/23: added SLS lateral sliders progress core and LE strengthening for getting on/ off ground packing/laundry. LTG Duration 8 weeks 1 Impairment RLE weakness Alf Goal (LTG) Pt will present with improved right hip flexion, abduction, extension and knee flexion and extension strength and great toe extension to at least 4/5 to improve functional strength with gait. 06/26/23: Right hip flexion 4-/ 5, right hip abduction and extension 4/5, knee flexion and extension 4-/5. LLE is about 4+/5 in all these movements LTG Duration 8 weeks Assessment Summary Assessment Pt responded well to manual and stretching review. She improved understanding and review carryover cues form small amf mechanic LS positioning with wt shift and facing box vs reaching outside ADILENE and turning LS rotation rounded demonstrated was what without thinking. Good core fac reported with TB resistance bridge and SL fall out. She improved trunk alignment SLS on R better than L to allow increase WB progression stair mgt and progress return outdoor gait. Physical Therapy Plan Frequency and Duration Frequency of Treatment 1-2x/Week Duration of treatment (weeks) 8 Plan of Care Start Date 06/26/23 Plan of Care End Date 08/28/23 Therapeutic Interventions Therapeutic Interventions Balance Training,Canalithic Repositioning,Gait Training, Home Exercise Program,Joint Mobilizations,Manual Therapy, Neuromuscular Re-education, Patient/Caregiver Education, Self-Care/Home Management,Soft Tissue Mobilization,Taping, Therapeutic Activities, Therapeutic Exercises, Vestibular Rehabilitation Modalities Cold Pack/Ice Massage,Electric Stimulation,Hot Packs, Ultrasound Next Visit Focus/Plan Next Note Type Treatment Note Next Visit Plan Review HEP and newly added SLS slider. Continue emphasize Mechanics for lifting/ housework for back safety. Future appt: balance exercises and leg strengthenging exercises in standing, ongoing manual work
--- NOTE | 2023-07-17 10:02 | PT.OTN ---
Current Diagnoses Lumbago with sciatica, right side (07/17/23) Low back pain, unspecified (07/17/23) Dorsalgia, unspecified (07/17/23) Pain in leg, unspecified (07/17/23) Physical Therapy Treatment Note PT-OP-A Visit Information Start: 05/21/23 08:20 Freq: Status: Active Protocol: Document 07/17/23 09:05 MB (Rec: 07/17/23 10:02 MB [id number]) Out-Patient Physical Therapy Visit Information Visit Information Visit Type Treatment Note Visit Note 09/06 post PN Visit Start Time 09:05 Visit Stop Time 09:45 Visit Number 13 Number of OPERATIONS EXECUTIVE Visits 5 PT-OP-B Current Condition Start: 05/21/23 08:20 Freq: Status: Active Protocol: Document 05/22/23 09:47 MB (Rec: 05/22/23 10:05 MB [id number]) Current Condition History of Current Condition Onset Date Back injury 1993, intermittent since then Current Complaints Back pain and right leg pain occ History of Current Condition In 1993, pt bent over and injured her back picking up her new born son and she had a herniated disc. In January of 2023, she bent down to bean picker her suitcase and picked it up and she had excruciating right anterior right leg pain. The right leg pain is better and it gets flared up when she picks up a laundry basket. Pt had PT in 1993 for her back . Heat and muscle realaxors help. PMH: appendectomy, right knee scope, 3 c-sections, 3 left shoulder sxs, scar revision after abdominal surgeries, hysterectomy, breast reduction Pt had PT for vertigo in [facility] recently and the PT showed her how to pull on her legs and it helps a lot. Lying on her stomach and pushing up on her forearms helps. Pt is not sleeping very well. She is usually sleeping on her side without a pillow and it wakes her up at night. Pt has not been able to hike since January and she likes to do that. She has a bad habit of bending over. Her right leg feels weak. Prior Treatments and Tests Lumbar MRI 03/13: IMPRESSION: 1. Multilevel degenerative disc and facet disease, as well as ligamentum flavum hypertrophy and epidural lipomatosis. 2. Mild multilevel canal stenosis. 3. Multilevel foraminal stenoses, worst at L4-L5 and L5-S1 where there are moderate foraminal stenoses. 4. Mild posterior deviation of the left S1 nerve root within the lateral recess at L5-S1. Recommend correlation with clinical symptoms to ascertain relevance of this finding. Treatment Goals Patient/Caregiver Goals To decreased back and leg pain . She would like to get back to her normal routine including hiking. PT-OP-C Subjective Start: 05/21/23 08:20 Freq: Status: Active Protocol: Document 07/17/23 09:05 MB (Rec: 07/17/23 10:02 MB [id number]) OP-PT Subjective Patient Comments Patient Comments Pt states that she is doing better except when she overdoes it. She is moving en bloc and states that she has a history of vertigo and was seeing PT in [place] and stopped d/t back pain and PT started. She was checked for BPPV but was not treated. PT-OP-J Posture/Palpation/Skin Start: 05/21/23 08:20 Freq: Status: Active Protocol: Document 05/22/23 09:47 MB (Rec: 05/22/23 12:58 MB [id number]) Posture Evaluation Comments Posture Comments Standing posture: increased body mass, left shoulder is higher than the right, left iliac crest is higher than the right, decreased thoracic kyphosis and increased lumbar lordosis, Dowager's hump, left thoracic convexity. Pt prefers extension. PT-OP-K Range of Motion Start: 05/21/23 08:20 Freq: Status: Active Protocol: Document 05/22/23 09:47 MB (Rec: 05/22/23 12:58 MB [id number]) Lumbar Spine Range of Motion Lumbar Spine Active Comments Forward flexion with fingers 10 from the floor, B SB with fingers to knee joint line, trace extension in standing Hip Goniometric Range of Motion Hip ROM Limitations Comments PROM B SLR to 75 deg and no change in symptoms PT-OP-M Strength Start: 05/21/23 08:20 Freq: Status: Active Protocol: Document 05/22/23 09:47 MB (Rec: 05/22/23 12:58 MB [id number]) Hip Strength Hip Manual Muscle Testing Left Flexion (L2) 4 Good Extension (S1) 4 Good Abduction 3+ Fair+ Right Flexion (L2) 3+ Fair+ Extension (S1) 3+ Fair+ Abduction 3+ Fair+ Knee Strength Knee Manual Muscle Testing Left Flexion (S2) 4+ Good+ Extension (L3) 4+ Good+ Right Flexion (S2) 4 Good Extension (L3) 4 Good Ankle/Foot Strength Ankle and Foot Manual Muscle Testing Left Dorsiflexion (L4) 5 Normal Right Dorsiflexion (L4) 4 Good Toe Strength Toe Manual Muscle Testing Left Great Toe Extension 5 Normal Right Great Toe Extension 3+ Fair+ PT-OP-Q Treatments Start: 05/21/23 08:20 Freq: Status: Active Protocol: Document 07/17/23 09:05 MB (Rec: 07/17/23 10:02 MB [id number]) Therapeutic Exercises Sitting Exercises AROM flexion and extension and rotation right and left Comments Performed in sitting and standing today and ed to perform throughout the da Neuro Re-Education Treatment Other Activities BPPV testing, treatment and re-check after treatment Comments Roll Test left is negative, roll test right is positive for dizziness and quick beat rotary nystagmus; Right Applegate- Hallpike positive for downbeat torsional nystagmus consistent with posterior canalithiasis BPPV and treated with with modified Rafi. Re- checked and 95% better with one transient nystagmus beat and re-treated Self-Care/Home Management Treatment Education Other Education Ed pt in anatomy and risk and causes for BPPV and provided Ask Me 3 handout, ed pt in gentle movement of neck, proper sleeping position with enough pillow support at neck in side lying and non- caffeinated fluid intake. Ed pt in keep neck loose and mobilizing as often as possible on road trip. 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 PT provides APTA SIG patient handout for pt and ed pt that people can have more than one time of dizziness at time PT-OP-R Modalities Start: 06/04/23 13:48 Freq: Status: Active Protocol: Document 06/22/23 13:53 SP (Rec: 06/22/23 14:34 SP [id number]) Hot Pack/Cold Pack Treatment MHP Location back Patient Position Hooklying Patient Tolerance Good Comments reports R glut and lateral thigh tension post ex. More mobility post MHP PT-OP-T Assessment and Plan Start: 05/21/23 08:20 Freq: Status: Active Protocol: Document 07/17/23 09:05 MB (Rec: 07/17/23 10:02 MB [id number]) Physical Therapy Assessment Goals 4 Impairment Evidence of imbalance Stump Blower Goal (LTG) Pt will perform WNLs on a standardized balance test to decrease fall risk. 06/26/23: FGA score is 18/30, indicating increased risk for falling. Pt has limited cervical motion with head turns with gait 07/10/23: progressing SLS LLE 6 sec, RLE 30 sec, added TA lateral sliders to progress core and increase SLS time. LTG Duration 8 weeks progressing 07/10/23 3 Impairment Lack of HEP Halfway Goal (LTG) Pt will perform progressive HEP with I including pelvic realignment, flexibility, postural, core and LE strengthening and balance exercises to improve pain and function. 06/26/23: HEP includes pelvic realignment exercises, hamstring stretch, figure 4 stretch, knee rocking with feet hip width apart, gentle abdominal strengthening exercises, diaphragm breathing , low back stretch/cat/cow against the wall 07/10/23: added SLS lateral sliders progress core and LE strengthening for getting on/ off ground packing/laundry. LTG Duration 8 weeks 1 Impairment RLE weakness Halfway Goal (LTG) Pt will present with improved right hip flexion, abduction, extension and knee flexion and extension strength and great toe extension to at least 4/5 to improve functional strength with gait. 06/26/23: Right hip flexion 4-/ 5, right hip abduction and extension 4/5, knee flexion and extension 4-/5. LLE is about 4+/5 in all these movements LTG Duration 8 weeks Assessment Summary Assessment Pt with right posterior canalithiasis BPPV today and PT had put assessment in the POC and since pt is symptomatic and has trouble moving and tolerating supine for back treatment today, prioritized assessing and treating this issue today. BPPV is cleared after treatment. Con't to monitor. Physical Therapy Plan Frequency and Duration Frequency of Treatment 1-2x/Week Duration of treatment (weeks) 8 Plan of Care Start Date 06/26/23 Plan of Care End Date 08/28/23 Therapeutic Interventions Therapeutic Interventions Balance Training,Canalithic Repositioning,Gait Training, Home Exercise Program,Joint Mobilizations,Manual Therapy, Neuromuscular Re-education, Patient/Caregiver Education, Self-Care/Home Management,Soft Tissue Mobilization,Taping, Therapeutic Activities, Therapeutic Exercises, Vestibular Rehabilitation Modalities Cold Pack/Ice Massage,Electric Stimulation,Hot Packs, Ultrasound Next Visit Focus/Plan Next Note Type Treatment Note Next Visit Plan Review HEP and newly added SLS slider. Continue emphasize Mechanics for lifting/ housework for back safety. Future appt: balance exercises and leg strengthenging exercises in standing, ongoing manual work
--- NOTE | 2023-08-01 14:36 | PT.OTN ---
Current Diagnoses Lumbago with sciatica, right side (08/01/23) Low back pain, unspecified (08/01/23) Dorsalgia, unspecified (08/01/23) Pain in leg, unspecified (08/01/23) Physical Therapy Treatment Note PT-OP-A Visit Information Start: 05/21/23 08:20 Freq: Status: Active Protocol: Document 08/01/23 13:47 MB (Rec: 08/01/23 14:34 MB [id number]) Out-Patient Physical Therapy Visit Information Visit Information Visit Type Treatment Note Visit Note Progress note next treatment Visit Start Time 13:47 Visit Stop Time 14:27 Visit Number 14 Number of RAG GRADER Visits 0 PT-OP-B Current Condition Start: 05/21/23 08:20 Freq: Status: Active Protocol: Document 05/22/23 09:47 MB (Rec: 05/22/23 10:05 MB [id number]) Current Condition History of Current Condition Onset Date Back injury 1993, intermittent since then Current Complaints Back pain and right leg pain occ History of Current Condition In 1993, pt bent over and injured her back picking up her new born son and she had a herniated disc. In January of 2023, she bent down to roller picker her suitcase and picked it up and she had excruciating right anterior right leg pain. The right leg pain is better and it gets flared up when she picks up a laundry basket. Pt had PT in 1993 for her back . Heat and muscle realaxors help. PMH: appendectomy, right knee scope, 3 c-sections, 3 left shoulder sxs, scar revision after abdominal surgeries, hysterectomy, breast reduction Pt had PT for vertigo in [facility] recently and the PT showed her how to pull on her legs and it helps a lot. Lying on her stomach and pushing up on her forearms helps. Pt is not sleeping very well. She is usually sleeping on her side without a pillow and it wakes her up at night. Pt has not been able to hike since January and she likes to do that. She has a bad habit of bending over. Her right leg feels weak. Prior Treatments and Tests Lumbar MRI 03/13: IMPRESSION: 1. Multilevel degenerative disc and facet disease, as well as ligamentum flavum hypertrophy and epidural lipomatosis. 2. Mild multilevel canal stenosis. 3. Multilevel foraminal stenoses, worst at L4-L5 and L5-S1 where there are moderate foraminal stenoses. 4. Mild posterior deviation of the left S1 nerve root within the lateral recess at L5-S1. Recommend correlation with clinical symptoms to ascertain relevance of this finding. Treatment Goals Patient/Caregiver Goals To decreased back and leg pain . She would like to get back to her normal routine including hiking. PT-OP-C Subjective Start: 05/21/23 08:20 Freq: Status: Active Protocol: Document 08/01/23 13:47 MB (Rec: 08/01/23 14:34 MB [id number]) OP-PT Subjective Patient Comments Patient Comments Pt's positional dizziness did well with trip and when they stopped driving, she con't with Mal Debarqment symptoms. Her back has been bothering her with the grandkids and trip. PT-OP-J Posture/Palpation/Skin Start: 05/21/23 08:20 Freq: Status: Active Protocol: Document 05/22/23 09:47 MB (Rec: 05/22/23 12:58 MB [id number]) Posture Evaluation Comments Posture Comments Standing posture: increased body mass, left shoulder is higher than the right, left iliac crest is higher than the right, decreased thoracic kyphosis and increased lumbar lordosis, Dowager's hump, left thoracic convexity. Pt prefers extension. PT-OP-K Range of Motion Start: 05/21/23 08:20 Freq: Status: Active Protocol: Document 05/22/23 09:47 MB (Rec: 05/22/23 12:58 MB [id number]) Lumbar Spine Range of Motion Lumbar Spine Active Comments Forward flexion with fingers 10 from the floor, B SB with fingers to knee joint line, trace extension in standing Hip Goniometric Range of Motion Hip ROM Limitations Comments PROM B SLR to 75 deg and no change in symptoms PT-OP-M Strength Start: 05/21/23 08:20 Freq: Status: Active Protocol: Document 05/22/23 09:47 MB (Rec: 05/22/23 12:58 MB [id number]) Hip Strength Hip Manual Muscle Testing Left Flexion (L2) 4 Good Extension (S1) 4 Good Abduction 3+ Fair+ Right Flexion (L2) 3+ Fair+ Extension (S1) 3+ Fair+ Abduction 3+ Fair+ Knee Strength Knee Manual Muscle Testing Left Flexion (S2) 4+ Good+ Extension (L3) 4+ Good+ Right Flexion (S2) 4 Good Extension (L3) 4 Good Ankle/Foot Strength Ankle and Foot Manual Muscle Testing Left Dorsiflexion (L4) 5 Normal Right Dorsiflexion (L4) 4 Good Toe Strength Toe Manual Muscle Testing Left Great Toe Extension 5 Normal Right Great Toe Extension 3+ Fair+ PT-OP-Q Treatments Start: 05/21/23 08:20 Freq: Status: Active Protocol: Document 08/01/23 13:47 MB (Rec: 08/01/23 14:34 MB [id number]) Therapeutic Exercises Supine Exercises Knees to chest stretch Comments B KTC for LB and glute stretch and gentle mobility Pelvic realignment exercises Side bilateral Equipment Used Blue ball Reps/Minutes 5 reps and 3 sec hold in order Comments Feet together ball squeeze iso , knee to opp ankle, thigh press Manual Therapy Treatment Other Other Manual Treatments Pt supine with head and legs supported: STM and positional release B TFL, PFs, vastus lateralis, hamstrings, adductors, glutes, QL and thoracic spine/ribs. Most tension left adductors and right greater than left hamstrings PT-OP-R Modalities Start: 06/04/23 13:48 Freq: Status: Active Protocol: Document 06/22/23 13:53 SP (Rec: 06/22/23 14:34 SP [id number]) Hot Pack/Cold Pack Treatment MHP Location back Patient Position Hooklying Patient Tolerance Good Comments reports R glut and lateral thigh tension post ex. More mobility post MHP PT-OP-T Assessment and Plan Start: 05/21/23 08:20 Freq: Status: Active Protocol: Document 08/01/23 13:47 MB (Rec: 08/01/23 14:34 MB [id number]) Physical Therapy Assessment Goals 4 Impairment Evidence of imbalance Jail Goal (LTG) Pt will perform WNLs on a standardized balance test to decrease fall risk. 06/26/23: FGA score is 18/30, indicating increased risk for falling. Pt has limited cervical motion with head turns with gait 07/10/23: progressing SLS LLE 6 sec, RLE 30 sec, added TA lateral sliders to progress core and increase SLS time. LTG Duration 8 weeks progressing 07/10/23 3 Impairment Lack of HEP Lost And Found Clerk Goal (LTG) Pt will perform progressive HEP with I including pelvic realignment, flexibility, postural, core and LE strengthening and balance exercises to improve pain and function. 06/26/23: HEP includes pelvic realignment exercises, hamstring stretch, figure 4 stretch, knee rocking with feet hip width apart, gentle abdominal strengthening exercises, diaphragm breathing , low back stretch/cat/cow against the wall 07/10/23: added SLS lateral sliders progress core and LE strengthening for getting on/ off ground packing/laundry. LTG Duration 8 weeks 1 Impairment RLE weakness Jail Goal (LTG) Pt will present with improved right hip flexion, abduction, extension and knee flexion and extension strength and great toe extension to at least 4/5 to improve functional strength with gait. 06/26/23: Right hip flexion 4-/ 5, right hip abduction and extension 4/5, knee flexion and extension 4-/5. LLE is about 4+/5 in all these movements LTG Duration 8 weeks Assessment Summary Assessment No more BPPV symptoms. Reviewed pelvic realignment exercises and pt states she understands other exercises and so manual work today after trip and increased pain. DKTC strech for LBP and glutes. Con't per POC below. Physical Therapy Plan Frequency and Duration Frequency of Treatment 1-2x/Week Duration of treatment (weeks) 8 Plan of Care Start Date 06/26/23 Plan of Care End Date 08/28/23 Therapeutic Interventions Therapeutic Interventions Balance Training,Canalithic Repositioning,Gait Training, Home Exercise Program,Joint Mobilizations,Manual Therapy, Neuromuscular Re-education, Patient/Caregiver Education, Self-Care/Home Management,Soft Tissue Mobilization,Taping, Therapeutic Activities, Therapeutic Exercises, Vestibular Rehabilitation Modalities Cold Pack/Ice Massage,Electric Stimulation,Hot Packs, Ultrasound Next Visit Focus/Plan Next Note Type Treatment Note Next Visit Plan Consider hip adductor stretch. Review HEP and newly added SLS slider. Continue emphasize mechanics for lifting/ housework for back safety. Progress hip strengthening Future appt: balance exercises and leg strengthenging exercises in standing, ongoing manual work
--- NOTE | 2023-08-06 14:26 | PT.OTN ---
Current Diagnoses Lumbago with sciatica, right side (08/06/23) Low back pain, unspecified (08/06/23) Dorsalgia, unspecified (08/06/23) Pain in leg, unspecified (08/06/23) Physical Therapy Treatment Note PT-OP-A Visit Information Start: 05/21/23 08:20 Freq: Status: Active Protocol: Document 08/06/23 13:43 MB (Rec: 08/06/23 14:18 MB [id number]) Out-Patient Physical Therapy Visit Information Visit Information Visit Type Progress Note Visit Start Time 13:43 Visit Stop Time 14:23 Visit Number 15 Number of LIFE SCIENCE TECHNICAL OFFICER Visits 0 PT-OP-B Current Condition Start: 05/21/23 08:20 Freq: Status: Active Protocol: Document 05/22/23 09:47 MB (Rec: 05/22/23 10:05 MB [id number]) Current Condition History of Current Condition Onset Date Back injury 1993, intermittent since then Current Complaints Back pain and right leg pain occ History of Current Condition In 1993, pt bent over and injured her back picking up her new born son and she had a herniated disc. In January of 2023, she bent down to cigar packer and picker her suitcase and picked it up and she had excruciating right anterior right leg pain. The right leg pain is better and it gets flared up when she picks up a laundry basket. Pt had PT in 1993 for her back . Heat and muscle realaxors help. PMH: appendectomy, right knee scope, 3 c-sections, 3 left shoulder sxs, scar revision after abdominal surgeries, hysterectomy, breast reduction Pt had PT for vertigo in [facility] recently and the PT showed her how to pull on her legs and it helps a lot. Lying on her stomach and pushing up on her forearms helps. Pt is not sleeping very well. She is usually sleeping on her side without a pillow and it wakes her up at night. Pt has not been able to hike since January and she likes to do that. She has a bad habit of bending over. Her right leg feels weak. Prior Treatments and Tests Lumbar MRI 03/13: IMPRESSION: 1. Multilevel degenerative disc and facet disease, as well as ligamentum flavum hypertrophy and epidural lipomatosis. 2. Mild multilevel canal stenosis. 3. Multilevel foraminal stenoses, worst at L4-L5 and L5-S1 where there are moderate foraminal stenoses. 4. Mild posterior deviation of the left S1 nerve root within the lateral recess at L5-S1. Recommend correlation with clinical symptoms to ascertain relevance of this finding. Treatment Goals Patient/Caregiver Goals To decreased back and leg pain . She would like to get back to her normal routine including hiking. PT-OP-C Subjective Start: 05/21/23 08:20 Freq: Status: Active Protocol: Document 08/06/23 13:43 MB (Rec: 08/06/23 14:18 MB [id number]) OP-PT Subjective Patient Comments Patient Comments Pt has no dizziness complaints and her back tweaks with different movements. She has not been performing core exercises given by PT. She mentions sit-up and PT ed pt that PT can provide more gentle ones including her standing one she was given. PT-OP-J Posture/Palpation/Skin Start: 05/21/23 08:20 Freq: Status: Active Protocol: Document 05/22/23 09:47 MB (Rec: 05/22/23 12:58 MB [id number]) Posture Evaluation Comments Posture Comments Standing posture: increased body mass, left shoulder is higher than the right, left iliac crest is higher than the right, decreased thoracic kyphosis and increased lumbar lordosis, Dowager's hump, left thoracic convexity. Pt prefers extension. PT-OP-K Range of Motion Start: 05/21/23 08:20 Freq: Status: Active Protocol: Document 05/22/23 09:47 MB (Rec: 05/22/23 12:58 MB [id number]) Lumbar Spine Range of Motion Lumbar Spine Active Comments Forward flexion with fingers 10 from the floor, B SB with fingers to knee joint line, trace extension in standing Hip Goniometric Range of Motion Hip ROM Limitations Comments PROM B SLR to 75 deg and no change in symptoms PT-OP-M Strength Start: 05/21/23 08:20 Freq: Status: Active Protocol: Document 05/22/23 09:47 MB (Rec: 05/22/23 12:58 MB [id number]) Hip Strength Hip Manual Muscle Testing Left Flexion (L2) 4 Good Extension (S1) 4 Good Abduction 3+ Fair+ Right Flexion (L2) 3+ Fair+ Extension (S1) 3+ Fair+ Abduction 3+ Fair+ Knee Strength Knee Manual Muscle Testing Left Flexion (S2) 4+ Good+ Extension (L3) 4+ Good+ Right Flexion (S2) 4 Good Extension (L3) 4 Good Ankle/Foot Strength Ankle and Foot Manual Muscle Testing Left Dorsiflexion (L4) 5 Normal Right Dorsiflexion (L4) 4 Good Toe Strength Toe Manual Muscle Testing Left Great Toe Extension 5 Normal Right Great Toe Extension 3+ Fair+ PT-OP-Q Treatments Start: 05/21/23 08:20 Freq: Status: Active Protocol: Document 08/06/23 13:43 MB (Rec: 08/06/23 14:18 MB [id number]) Therapeutic Exercises Supine Exercises bridge Equipment Used Light blue TB Comments Several reps with 5 sec hold clamshell Side bilateral Resistance Light blue TB Comments 5 reps Standing Exercises TA SLS sliders Equipment Used Counter and slider Reps/Minutes 5 to each side Comments Cues to slow down and not hold on Other Exercises Reviewed all HEP during progress note Comments Pt demonstrates many exercises , has not been performing standing core Neuro Re-Education Treatment Balance Activities Dynamic gait exercises to perform at home Comments Wall at side and slide index finger along the wall: One rep EC, one rep horizontal head turns, one rep backwards walking and one rep tandem for full set and perform 4-5 times, once a day FGA Comments today PT-OP-R Modalities Start: 06/04/23 13:48 Freq: Status: Active Protocol: Document 06/22/23 13:53 SP (Rec: 06/22/23 14:34 SP [id number]) Hot Pack/Cold Pack Treatment MHP Location back Patient Position Hooklying Patient Tolerance Good Comments reports R glut and lateral thigh tension post ex. More mobility post MHP PT-OP-T Assessment and Plan Start: 05/21/23 08:20 Freq: Status: Active Protocol: Document 08/06/23 13:43 MB (Rec: 08/06/23 14:18 MB [id number]) Physical Therapy Assessment Goals 4 Impairment Evidence of imbalance Prompt Care Rn Goal (LTG) Pt will perform WNLs on a standardized balance test to decrease fall risk. 06/26/23: FGA score is 18/30, indicating increased risk for falling. Pt has limited cervical motion with head turns with gait 07/10/23: progressing SLS LLE 6 sec, RLE 30 sec, added TA lateral sliders to progress core and increase SLS time. 08/06/23 FGA score is slightly improved at 21/30 and provided dynamic gait exercises for home LTG Duration 6 weeks 3 Impairment Lack of HEP Prompt Care Rn Goal (LTG) Pt will perform progressive HEP with I including pelvic realignment, flexibility, postural, core and LE strengthening and balance exercises to improve pain and function. 08/06/23: HEP includes pelvic realignment exercises, hamstring stretch, figure 4 stretch, knee rocking with feet hip width apart, gentle abdominal strengthening, cat/ cow against the wall LTG Duration 6 weeks 1 Impairment RLE weakness Group Home Goal (LTG) Pt will present with improved right hip flexion, abduction, extension and knee flexion and extension strength and great toe extension to at least 4/5 to improve functional strength with gait. 06/26/23: Right hip flexion 4-/ 5, right hip abduction and extension 4/5, knee flexion and extension 4-/5. LLE is about 4+/5 in all these movements 08/06/23: Right hip flexion 4/5, right hip abduction and extension 4+/5, knee flexion and extension 4+/5. LLE is about 4+/5 in all these movements LTG Duration Met Assessment Summary Assessment Pt is progressing towards PT goals. Going forward, manual work as needed and con't to focus on core and hip strengthening and balance training, body mechanics training with core engaged. Physical Therapy Plan Frequency and Duration Frequency of Treatment 1-2x/Week Duration of treatment (weeks) 6 Plan of Care Start Date 08/06/23 Plan of Care End Date 09/19/23 Therapeutic Interventions Therapeutic Interventions Balance Training,Canalithic Repositioning,Gait Training, Home Exercise Program,Joint Mobilizations,Manual Therapy, Neuromuscular Re-education, Patient/Caregiver Education, Self-Care/Home Management,Soft Tissue Mobilization,Taping, Therapeutic Activities, Therapeutic Exercises, Vestibular Rehabilitation Modalities Cold Pack/Ice Massage,Electric Stimulation,Hot Packs, Ultrasound Next Visit Focus/Plan Next Note Type Treatment Note Next Visit Plan Continue emphasize mechanics for lifting/housework for back safety. Progress hip strengthening and core strengthening consider golfer' s lift exercise with leg back for core and balance strengthening, consider body blade, and gentle core progression with abdominal drawing in and knee fall out, HS, gentle rocking, mini march
--- NOTE | 2023-08-06 14:26 | PT.OPPOC ---
Physical, Occupational & Speech Therapy At [facility] Current Diagnoses Lumbago with sciatica, right side (08/06/23) Low back pain, unspecified (08/06/23) Dorsalgia, unspecified (08/06/23) Pain in leg, unspecified (08/06/23) Visit Care Team Role Provider Type Oma López DO Attending Provider Physician Family Provider Primary Care Provider Referring Provider Specialty: Medical Address: [address] [place] [address], [address], [place], [address] Email: [email or web address] Plan Of Care PT-OP-T Assessment and Plan Start: 05/21/23 08:20 Freq: Status: Active Protocol: Document 08/06/23 13:43 MB (Rec: 08/06/23 14:18 MB [id number]) Physical Therapy Assessment Goals 4 Impairment Evidence of imbalance Halfway Goal (LTG) Pt will perform WNLs on a standardized balance test to decrease fall risk. 06/26/23: FGA score is 18/30, indicating increased risk for falling. Pt has limited cervical motion with head turns with gait 07/10/23: progressing SLS LLE 6 sec, RLE 30 sec, added TA lateral sliders to progress core and increase SLS time. 08/06/23 FGA score is slightly improved at 21/30 and provided dynamic gait exercises for home LTG Duration 6 weeks 3 Impairment Lack of HEP Opto Mechanical Technician Goal (LTG) Pt will perform progressive HEP with I including pelvic realignment, flexibility, postural, core and LE strengthening and balance exercises to improve pain and function. 08/06/23: HEP includes pelvic realignment exercises, hamstring stretch, figure 4 stretch, knee rocking with feet hip width apart, gentle abdominal strengthening, cat/ cow against the wall LTG Duration 6 weeks 1 Impairment RLE weakness Halfway Goal (LTG) Pt will present with improved right hip flexion, abduction, extension and knee flexion and extension strength and great toe extension to at least 4/5 to improve functional strength with gait. 06/26/23: Right hip flexion 4-/ 5, right hip abduction and extension 4/5, knee flexion and extension 4-/5. LLE is about 4+/5 in all these movements 08/06/23: Right hip flexion 4/5, right hip abduction and extension 4+/5, knee flexion and extension 4+/5. LLE is about 4+/5 in all these movements LTG Duration Met Assessment Summary Assessment Pt is progressing towards PT goals. Going forward, manual work as needed and con't to focus on core and hip strengthening and balance training, body mechanics training with core engaged. Physical Therapy Plan Frequency and Duration Frequency of Treatment 1-2x/Week Duration of treatment (weeks) 6 Plan of Care Start Date 08/06/23 Plan of Care End Date 09/19/23 Therapeutic Interventions Therapeutic Interventions Balance Training,Canalithic Repositioning,Gait Training, Home Exercise Program,Joint Mobilizations,Manual Therapy, Neuromuscular Re-education, Patient/Caregiver Education, Self-Care/Home Management,Soft Tissue Mobilization,Taping, Therapeutic Activities, Therapeutic Exercises, Vestibular Rehabilitation Modalities Cold Pack/Ice Massage,Electric Stimulation,Hot Packs, Ultrasound Next Visit Focus/Plan Next Note Type Treatment Note Next Visit Plan Continue emphasize mechanics for lifting/housework for back safety. Progress hip strengthening and core strengthening consider golfer' s lift exercise with leg back for core and balance strengthening, consider body blade, and gentle core progression with abdominal drawing in and knee fall out, HS, gentle rocking, mini june Plan of Care Dates Plan of Care Start Date 08/06/23 Plan of Care End Date 09/19/23 Electronically Signed by: Gabbi Ronquillo PT 08/06/23 1419 If you are in agreement with this Plan of Care, please return a signed and dated copy. I have reviewed this Plan of Care and certify that the skilled therapy services above are required to meet the patient?s needs. Physician Signature Date Printed Name and Credentials Clinical Instructor Signature Printed Name and Credentials
--- NOTE | 2023-08-15 10:31 | PT.OTN ---
Current Diagnoses Lumbago with sciatica, right side (08/15/23) Low back pain, unspecified (08/15/23) Dorsalgia, unspecified (08/15/23) Pain in leg, unspecified (08/15/23) Physical Therapy Treatment Note PT-OP-A Visit Information Start: 05/21/23 08:20 Freq: Status: Active Protocol: Document 08/15/23 09:47 MB (Rec: 08/15/23 10:30 MB [id number]) Out-Patient Physical Therapy Visit Information Visit Information Visit Type Treatment Note Visit Start Time 09:47 Visit Stop Time 10:27 Visit Number 17 Number of PAUNCH TRIMMER Visits 0 PT-OP-B Current Condition Start: 05/21/23 08:20 Freq: Status: Active Protocol: Document 05/22/23 09:47 MB (Rec: 05/22/23 10:05 MB [id number]) Current Condition History of Current Condition Onset Date Back injury 1993, intermittent since then Current Complaints Back pain and right leg pain occ History of Current Condition In 1993, pt bent over and injured her back picking up her new born son and she had a herniated disc. In January of 2023, she bent down to meat pickler her suitcase and picked it up and she had excruciating right anterior right leg pain. The right leg pain is better and it gets flared up when she picks up a laundry basket. Pt had PT in 1993 for her back . Heat and muscle realaxors help. PMH: appendectomy, right knee scope, 3 c-sections, 3 left shoulder sxs, scar revision after abdominal surgeries, hysterectomy, breast reduction Pt had PT for vertigo in [facility] recently and the PT showed her how to pull on her legs and it helps a lot. Lying on her stomach and pushing up on her forearms helps. Pt is not sleeping very well. She is usually sleeping on her side without a pillow and it wakes her up at night. Pt has not been able to hike since January and she likes to do that. She has a bad habit of bending over. Her right leg feels weak. Prior Treatments and Tests Lumbar MRI 03/13: IMPRESSION: 1. Multilevel degenerative disc and facet disease, as well as ligamentum flavum hypertrophy and epidural lipomatosis. 2. Mild multilevel canal stenosis. 3. Multilevel foraminal stenoses, worst at L4-L5 and L5-S1 where there are moderate foraminal stenoses. 4. Mild posterior deviation of the left S1 nerve root within the lateral recess at L5-S1. Recommend correlation with clinical symptoms to ascertain relevance of this finding. Treatment Goals Patient/Caregiver Goals To decreased back and leg pain . She would like to get back to her normal routine including hiking. PT-OP-C Subjective Start: 05/21/23 08:20 Freq: Status: Active Protocol: Document 08/15/23 09:47 MB (Rec: 08/15/23 10:30 MB [id number]) OP-PT Subjective Patient Comments Patient Comments Pt fills PT in with the same info she told PAUNCH TRIMMER last treatment about the steroid shot and the Diazepam and she felt bad all the way through the following Sunday (after the previous Sunday). Her legs are sore from ergonomic work with PAUNCH TRIMMER on Sunday. Pt's good friend from childhood yesterday. She had a neck massage yesterday. Her dizziness is better and she could turn around in the shower without holding on. Pt will have a vulvar bx on PT-OP-J Posture/Palpation/Skin Start: 05/21/23 08:20 Freq: Status: Active Protocol: Document 05/22/23 09:47 MB (Rec: 05/22/23 12:58 MB [id number]) Posture Evaluation Comments Posture Comments Standing posture: increased body mass, left shoulder is higher than the right, left iliac crest is higher than the right, decreased thoracic kyphosis and increased lumbar lordosis, Dowager's hump, left thoracic convexity. Pt prefers extension. PT-OP-K Range of Motion Start: 05/21/23 08:20 Freq: Status: Active Protocol: Document 05/22/23 09:47 MB (Rec: 05/22/23 12:58 MB [id number]) Lumbar Spine Range of Motion Lumbar Spine Active Comments Forward flexion with fingers 10 from the floor, B SB with fingers to knee joint line, trace extension in standing Hip Goniometric Range of Motion Hip ROM Limitations Comments PROM B SLR to 75 deg and no change in symptoms PT-OP-M Strength Start: 05/21/23 08:20 Freq: Status: Active Protocol: Document 05/22/23 09:47 MB (Rec: 05/22/23 12:58 MB [id number]) Hip Strength Hip Manual Muscle Testing Left Flexion (L2) 4 Good Extension (S1) 4 Good Abduction 3+ Fair+ Right Flexion (L2) 3+ Fair+ Extension (S1) 3+ Fair+ Abduction 3+ Fair+ Knee Strength Knee Manual Muscle Testing Left Flexion (S2) 4+ Good+ Extension (L3) 4+ Good+ Right Flexion (S2) 4 Good Extension (L3) 4 Good Ankle/Foot Strength Ankle and Foot Manual Muscle Testing Left Dorsiflexion (L4) 5 Normal Right Dorsiflexion (L4) 4 Good Toe Strength Toe Manual Muscle Testing Left Great Toe Extension 5 Normal Right Great Toe Extension 3+ Fair+ PT-OP-Q Treatments Start: 05/21/23 08:20 Freq: Status: Active Protocol: Document 08/15/23 09:47 MB (Rec: 08/15/23 10:30 MB [id number]) Neuro Re-Education Treatment Balance Activities Static balance testing in corner Comments In corner, pt has occ posterior lean into wall with Romberg today; Romberg EC: 3 sec and then posterior LOB and then cues to open eyes before LOB if she can to improve balance and proprioception; tandem left foot behind, one tap after 5 sec, ongoing tap throughout exercise; right foot behind much steadier and tap after 10 sec Dynamic gait exercises to perform at home Comments Performed in hallway today and performed two reps of each exercise today and she is pretty unsteady and tends to move into tandem mis-stepping with EC gait and she requires CGA Other Activities Diaphragmatic breathing with nasal breathing Comments Practiced again today to improve stress and pain during challenging and stressful times Self-Care/Home Management Treatment Education Other Education Self-care ed today about care before and after her vulvar bx : cancel PT the day after, also ed and discussion about balance exercises and when to perform, benefits of [place] program and working into activities here PT-OP-R Modalities Start: 06/04/23 13:48 Freq: Status: Active Protocol: Document 06/22/23 13:53 SP (Rec: 06/22/23 14:34 SP [id number]) Hot Pack/Cold Pack Treatment MHP Location back Patient Position Hooklying Patient Tolerance Good Comments reports R glut and lateral thigh tension post ex. More mobility post MHP PT-OP-T Assessment and Plan Start: 05/21/23 08:20 Freq: Status: Active Protocol: Document 08/15/23 09:47 MB (Rec: 08/15/23 10:30 MB [id number]) Physical Therapy Assessment Goals 4 Impairment Evidence of imbalance Snf Goal (LTG) Pt will perform WNLs on a standardized balance test to decrease fall risk. 06/26/23: FGA score is 18/30, indicating increased risk for falling. Pt has limited cervical motion with head turns with gait 07/10/23: progressing SLS LLE 6 sec, RLE 30 sec, added TA lateral sliders to progress core and increase SLS time. 08/06/23 FGA score is slightly improved at 21/30 and provided dynamic gait exercises for home LTG Duration 6 weeks 3 Impairment Lack of HEP Accountant Bookkeeper Goal (LTG) Pt will perform progressive HEP with I including pelvic realignment, flexibility, postural, core and LE strengthening and balance exercises to improve pain and function. 08/06/23: HEP includes pelvic realignment exercises, hamstring stretch, figure 4 stretch, knee rocking with feet hip width apart, gentle abdominal strengthening, cat/ cow against the wall LTG Duration 6 weeks 1 Impairment RLE weakness Accountant Bookkeeper Goal (LTG) Pt will present with improved right hip flexion, abduction, extension and knee flexion and extension strength and great toe extension to at least 4/5 to improve functional strength with gait. 06/26/23: Right hip flexion 4-/ 5, right hip abduction and extension 4/5, knee flexion and extension 4-/5. LLE is about 4+/5 in all these movements 08/06/23: Right hip flexion 4/5, right hip abduction and extension 4+/5, knee flexion and extension 4+/5. LLE is about 4+/5 in all these movements LTG Duration Met Assessment Summary Assessment Good progression with PAUNCH TRIMMER with ergonomic treating. PT did more balance work today. Pt expresses interest in [employer] and already performing tandem standing and checked static balance today as well and pt with impairment with Romberg even today. Pt still appears groggy today after last week's events. Physical Therapy Plan Frequency and Duration Frequency of Treatment 1-2x/Week Duration of treatment (weeks) 6 Plan of Care Start Date 08/06/23 Plan of Care End Date 09/19/23 Therapeutic Interventions Therapeutic Interventions Balance Training,Canalithic Repositioning,Gait Training, Home Exercise Program,Joint Mobilizations,Manual Therapy, Neuromuscular Re-education, Patient/Caregiver Education, Self-Care/Home Management,Soft Tissue Mobilization,Taping, Therapeutic Activities, Therapeutic Exercises, Vestibular Rehabilitation Modalities Cold Pack/Ice Massage,Electric Stimulation,Hot Packs, Ultrasound Next Visit Focus/Plan Next Note Type Treatment Note Next Visit Plan Consider talking about/working through [facility] program with pt Continue emphasize mechanics for lifting/housework for back safety. Progress hip strengthening and core strengthening consider golfer' s lift exercise with leg back for core and balance strengthening, consider body blade, and gentle core progression with abdominal drawing in and knee fall out, HS, gentle rocking, mini march
--- NOTE | 2023-08-21 16:11 | PT.OTN ---
Current Diagnoses Lumbago with sciatica, right side (08/21/23) Low back pain, unspecified (08/21/23) Dorsalgia, unspecified (08/21/23) Pain in leg, unspecified (08/21/23) Physical Therapy Treatment Note PT-OP-A Visit Information Start: 05/21/23 08:20 Freq: Status: Active Protocol: Document 08/21/23 15:01 AB (Rec: 08/21/23 16:11 AB [id number]) Out-Patient Physical Therapy Visit Information Visit Information Visit Type Treatment Note Visit Start Time 15:17 Visit Stop Time 16:06 Visit Number 18 Number of HELP DESK ANALYST Visits 1 Evaluation Information Evaluation Date 05/22/23 PT-OP-B Current Condition Start: 05/21/23 08:20 Freq: Status: Active Protocol: Document 05/22/23 09:47 MB (Rec: 05/22/23 10:05 MB [id number]) Current Condition History of Current Condition Onset Date Back injury 1993, intermittent since then Current Complaints Back pain and right leg pain occ History of Current Condition In 1993, pt bent over and injured her back picking up her new born son and she had a herniated disc. In January of 2023, she bent down to chicken picker her suitcase and picked it up and she had excruciating right anterior right leg pain. The right leg pain is better and it gets flared up when she picks up a laundry basket. Pt had PT in 1993 for her back . Heat and muscle realaxors help. PMH: appendectomy, right knee scope, 3 c-sections, 3 left shoulder sxs, scar revision after abdominal surgeries, hysterectomy, breast reduction Pt had PT for vertigo in [facility] recently and the PT showed her how to pull on her legs and it helps a lot. Lying on her stomach and pushing up on her forearms helps. Pt is not sleeping very well. She is usually sleeping on her side without a pillow and it wakes her up at night. Pt has not been able to hike since January and she likes to do that. She has a bad habit of bending over. Her right leg feels weak. Prior Treatments and Tests Lumbar MRI 03/13: IMPRESSION: 1. Multilevel degenerative disc and facet disease, as well as ligamentum flavum hypertrophy and epidural lipomatosis. 2. Mild multilevel canal stenosis. 3. Multilevel foraminal stenoses, worst at L4-L5 and L5-S1 where there are moderate foraminal stenoses. 4. Mild posterior deviation of the left S1 nerve root within the lateral recess at L5-S1. Recommend correlation with clinical symptoms to ascertain relevance of this finding. Treatment Goals Patient/Caregiver Goals To decreased back and leg pain . She would like to get back to her normal routine including hiking. PT-OP-C Subjective Start: 05/21/23 08:20 Freq: Status: Active Protocol: Document 08/21/23 15:01 AB (Rec: 08/21/23 16:11 AB [id number]) OP-PT Subjective Patient Comments Patient Comments Patient reports having increased back and radiating pain since yesterday after moving a potted plant that was on wheels. Patient reports she did her exercises and took pain medication and muscle relaxers yesterday and today. Patient reports having back/ glute right side pain 3/10 now , no longer has radiaiting pain. PT-OP-J Posture/Palpation/Skin Start: 05/21/23 08:20 Freq: Status: Active Protocol: Document 05/22/23 09:47 MB (Rec: 05/22/23 12:58 MB [id number]) Posture Evaluation Comments Posture Comments Standing posture: increased body mass, left shoulder is higher than the right, left iliac crest is higher than the right, decreased thoracic kyphosis and increased lumbar lordosis, Dowager's hump, left thoracic convexity. Pt prefers extension. PT-OP-K Range of Motion Start: 05/21/23 08:20 Freq: Status: Active Protocol: Document 05/22/23 09:47 MB (Rec: 05/22/23 12:58 MB [id number]) Lumbar Spine Range of Motion Lumbar Spine Active Comments Forward flexion with fingers 10 from the floor, B SB with fingers to knee joint line, trace extension in standing Hip Goniometric Range of Motion Hip ROM Limitations Comments PROM B SLR to 75 deg and no change in symptoms PT-OP-M Strength Start: 05/21/23 08:20 Freq: Status: Active Protocol: Document 05/22/23 09:47 MB (Rec: 05/22/23 12:58 MB [id number]) Hip Strength Hip Manual Muscle Testing Left Flexion (L2) 4 Good Extension (S1) 4 Good Abduction 3+ Fair+ Right Flexion (L2) 3+ Fair+ Extension (S1) 3+ Fair+ Abduction 3+ Fair+ Knee Strength Knee Manual Muscle Testing Left Flexion (S2) 4+ Good+ Extension (L3) 4+ Good+ Right Flexion (S2) 4 Good Extension (L3) 4 Good Ankle/Foot Strength Ankle and Foot Manual Muscle Testing Left Dorsiflexion (L4) 5 Normal Right Dorsiflexion (L4) 4 Good Toe Strength Toe Manual Muscle Testing Left Great Toe Extension 5 Normal Right Great Toe Extension 3+ Fair+ PT-OP-Q Treatments Start: 05/21/23 08:20 Freq: Status: Active Protocol: Document 08/21/23 15:01 AB (Rec: 08/21/23 16:11 AB [id number]) Therapeutic Exercises Supine Exercises abdominal bracing/drawing in with heel slide Reps/Minutes X10 Comments verbal cues to brace as LE moves away from core abdominal drawing in Supine Exercise Name with Posterior pelvic tilt Reps/Minutes X10 Comments verbal cues for breathing HS stretch Side right Reps/Minutes 60 seconds X1 Comments verbal cues for 60 seconds LTR Supine Exercise Name with abdominal bracing Side bilateral Reps/Minutes X10 Comments Verbal cues to brace asl knees move laterally and relax with return to neut Pelvic realignment exercises Side bilateral Equipment Used Blue ball Reps/Minutes 5 reps and 3 sec hold in order Comments Feet together ball squeeze iso , hip lift knee to opp ankle, thigh press ext Manual Therapy Treatment Soft Tissue Mobilization lumbar Body Location right lumbar paraspinals Mobilization Type Sustained Pressure Intensity/Depth Moderate Body Position Sidelying Comments monitored for pain R Glute Body Location R glute & piriformis, Mobilization Type Cross-Friction,Rolling Intensity/Depth Moderate Body Position Prone Comments pillow between pt knees, monitored for pain Self-Care/Home Management Treatment Activities Self-Care/Home Management Activities abdominal drawing in, abdominal drawing in with knee rocking, abdominal drawing in with heel slide PT-OP-R Modalities Start: 06/04/23 13:48 Freq: Status: Active Protocol: Document 06/22/23 13:53 SP (Rec: 06/22/23 14:34 SP [id number]) Hot Pack/Cold Pack Treatment MHP Location back Patient Position Hooklying Patient Tolerance Good Comments reports R glut and lateral thigh tension post ex. More mobility post MHP PT-OP-T Assessment and Plan Start: 05/21/23 08:20 Freq: Status: Active Protocol: Document 08/21/23 15:01 AB (Rec: 08/21/23 16:11 AB [id number]) Physical Therapy Assessment Goals 4 Impairment Evidence of imbalance Mcc Goal (LTG) Pt will perform WNLs on a standardized balance test to decrease fall risk. 06/26/23: FGA score is 18/30, indicating increased risk for falling. Pt has limited cervical motion with head turns with gait 07/10/23: progressing SLS LLE 6 sec, RLE 30 sec, added TA lateral sliders to progress core and increase SLS time. 08/06/23 FGA score is slightly improved at 21/30 and provided dynamic gait exercises for home LTG Duration 6 weeks 3 Impairment Lack of HEP Photoengraving Machine Operator/Tender Goal (LTG) Pt will perform progressive HEP with I including pelvic realignment, flexibility, postural, core and LE strengthening and balance exercises to improve pain and function. 08/06/23: HEP includes pelvic realignment exercises, hamstring stretch, figure 4 stretch, knee rocking with feet hip width apart, gentle abdominal strengthening, cat/ cow against the wall LTG Duration 6 weeks 1 Impairment RLE weakness Photoengraving Machine Operator/Tender Goal (LTG) Pt will present with improved right hip flexion, abduction, extension and knee flexion and extension strength and great toe extension to at least 4/5 to improve functional strength with gait. 06/26/23: Right hip flexion 4-/ 5, right hip abduction and extension 4/5, knee flexion and extension 4-/5. LLE is about 4+/5 in all these movements 08/06/23: Right hip flexion 4/5, right hip abduction and extension 4+/5, knee flexion and extension 4+/5. LLE is about 4+/5 in all these movements LTG Duration Met Assessment Summary Assessment Minoo reports pain right back and glute 4/10 ambulating out of session, commenting it felt worse when lying supine for exercises. Good return demonstration for abdominal drawing in exercises. Physical Therapy Plan Frequency and Duration Frequency of Treatment 1-2x/Week Duration of treatment (weeks) 6 Plan of Care Start Date 08/06/23 Plan of Care End Date 09/19/23 Next Visit Focus/Plan Next Note Type Treatment Note Next Visit Plan Consider talking about/working through [facility] program with pt Continue emphasize mechanics for lifting/housework for back safety. Progress hip strengthening and core strengthening consider golfer' s lift exercise with leg back for core and balance strengthening, consider body blade, and assess bennett to gentle core progression with abdominal drawing in and knee fall out, HS, gentle rocking, and heel slide, add mini march
--- NOTE | 2023-08-27 11:20 | PT.OTN ---
Current Diagnoses Lumbago with sciatica, right side (08/27/23) Low back pain, unspecified (08/27/23) Dorsalgia, unspecified (08/27/23) Pain in leg, unspecified (08/27/23) Physical Therapy Treatment Note PT-OP-A Visit Information Start: 05/21/23 08:20 Freq: Status: Active Protocol: Document 08/27/23 10:39 SP (Rec: 08/27/23 11:31 SP [id number]) Out-Patient Physical Therapy Visit Information Visit Information Visit Type Treatment Note Visit Start Time 10:38 Visit Stop Time 11:20 Visit Number 19 Number of CONSUMER LOAN PROCESSOR Visits 2 Evaluation Information Evaluation Date 05/22/23 PT-OP-B Current Condition Start: 05/21/23 08:20 Freq: Status: Active Protocol: Document 05/22/23 09:47 MB (Rec: 05/22/23 10:05 MB [id number]) Current Condition History of Current Condition Onset Date Back injury 1993, intermittent since then Current Complaints Back pain and right leg pain occ History of Current Condition In 1993, pt bent over and injured her back picking up her new born son and she had a herniated disc. In January of 2023, she bent down to worm picker her suitcase and picked it up and she had excruciating right anterior right leg pain. The right leg pain is better and it gets flared up when she picks up a laundry basket. Pt had PT in 1993 for her back . Heat and muscle realaxors help. PMH: appendectomy, right knee scope, 3 c-sections, 3 left shoulder sxs, scar revision after abdominal surgeries, hysterectomy, breast reduction Pt had PT for vertigo in [facility] recently and the PT showed her how to pull on her legs and it helps a lot. Lying on her stomach and pushing up on her forearms helps. Pt is not sleeping very well. She is usually sleeping on her side without a pillow and it wakes her up at night. Pt has not been able to hike since January and she likes to do that. She has a bad habit of bending over. Her right leg feels weak. Prior Treatments and Tests Lumbar MRI 03/13: IMPRESSION: 1. Multilevel degenerative disc and facet disease, as well as ligamentum flavum hypertrophy and epidural lipomatosis. 2. Mild multilevel canal stenosis. 3. Multilevel foraminal stenoses, worst at L4-L5 and L5-S1 where there are moderate foraminal stenoses. 4. Mild posterior deviation of the left S1 nerve root within the lateral recess at L5-S1. Recommend correlation with clinical symptoms to ascertain relevance of this finding. Treatment Goals Patient/Caregiver Goals To decreased back and leg pain . She would like to get back to her normal routine including hiking. PT-OP-C Subjective Start: 05/21/23 08:20 Freq: Status: Active Protocol: Document 08/27/23 10:39 SP (Rec: 08/27/23 11:31 SP [id number]) OP-PT Subjective Patient Comments Patient Comments Pt reports had massage yesterday mainly on neck and able to turn head full to R, still little limted L. Is leaving to trip on for friend driving 12 hrs to [place] then back on Sun afternoon. She reports not having pain down R leg anymore and bending better. Back tight arrival today. PT-OP-J Posture/Palpation/Skin Start: 05/21/23 08:20 Freq: Status: Active Protocol: Document 05/22/23 09:47 MB (Rec: 05/22/23 12:58 MB [id number]) Posture Evaluation Comments Posture Comments Standing posture: increased body mass, left shoulder is higher than the right, left iliac crest is higher than the right, decreased thoracic kyphosis and increased lumbar lordosis, Dowager's hump, left thoracic convexity. Pt prefers extension. PT-OP-K Range of Motion Start: 05/21/23 08:20 Freq: Status: Active Protocol: Document 05/22/23 09:47 MB (Rec: 05/22/23 12:58 MB [id number]) Lumbar Spine Range of Motion Lumbar Spine Active Comments Forward flexion with fingers 10 from the floor, B SB with fingers to knee joint line, trace extension in standing Hip Goniometric Range of Motion Hip ROM Limitations Comments PROM B SLR to 75 deg and no change in symptoms PT-OP-M Strength Start: 05/21/23 08:20 Freq: Status: Active Protocol: Document 05/22/23 09:47 MB (Rec: 05/22/23 12:58 MB [id number]) Hip Strength Hip Manual Muscle Testing Left Flexion (L2) 4 Good Extension (S1) 4 Good Abduction 3+ Fair+ Right Flexion (L2) 3+ Fair+ Extension (S1) 3+ Fair+ Abduction 3+ Fair+ Knee Strength Knee Manual Muscle Testing Left Flexion (S2) 4+ Good+ Extension (L3) 4+ Good+ Right Flexion (S2) 4 Good Extension (L3) 4 Good Ankle/Foot Strength Ankle and Foot Manual Muscle Testing Left Dorsiflexion (L4) 5 Normal Right Dorsiflexion (L4) 4 Good Toe Strength Toe Manual Muscle Testing Left Great Toe Extension 5 Normal Right Great Toe Extension 3+ Fair+ PT-OP-Q Treatments Start: 05/21/23 08:20 Freq: Status: Active Protocol: Document 08/27/23 10:39 SP (Rec: 08/27/23 11:31 SP [id number]) Therapeutic Exercises Supine Exercises LTR Supine Exercise Name with abdominal bracing Side bilateral Reps/Minutes X10, pause 3 sec each side good stretch Comments Verbal cues to brace asl knees good form, pnfree Other Exercises OTAGO practice Other Exercise Name Warm up AROM, LAQ, stand Hip abd, HS curl, HR, mini squat, STS, tandem, SLS Resistance 2# leg wt sit/stand stationary ex, AROM Equipment Used wall walk 10 ft laps: side/ back stepping/tandem 2 laps each - finger wall Reps/Minutes 10 reps each per program day 1 Comments tandem 15 sec contact chair at 7-8sec, SLS 15 sec but contact PRN R 8/L 3SH Manual Therapy Treatment Soft Tissue Mobilization lumbar Body Location right>L lumbar paraspinals and lateral sacrum Mobilization Type Rolling,Sustained Pressure Intensity/Depth Moderate Body Position Sidelying Comments monitored for pain- good releases reported PT-OP-R Modalities Start: 06/04/23 13:48 Freq: Status: Active Protocol: Document 06/22/23 13:53 SP (Rec: 06/22/23 14:34 SP [id number]) Hot Pack/Cold Pack Treatment MHP Location back Patient Position Hooklying Patient Tolerance Good Comments reports R glut and lateral thigh tension post ex. More mobility post MHP PT-OP-T Assessment and Plan Start: 05/21/23 08:20 Freq: Status: Active Protocol: Document 08/27/23 10:39 SP (Rec: 08/27/23 11:31 SP [id number]) Physical Therapy Assessment Goals 4 Impairment Evidence of imbalance Black Leather Trimmer Goal (LTG) Pt will perform WNLs on a standardized balance test to decrease fall risk. 06/26/23: FGA score is 18/30, indicating increased risk for falling. Pt has limited cervical motion with head turns with gait 07/10/23: progressing SLS LLE 6 sec, RLE 30 sec, added TA lateral sliders to progress core and increase SLS time. 08/06/23 FGA score is slightly improved at 21/30 and provided dynamic gait exercises for home LTG Duration 6 weeks 3 Impairment Lack of HEP Correction Goal (LTG) Pt will perform progressive HEP with I including pelvic realignment, flexibility, postural, core and LE strengthening and balance exercises to improve pain and function. 08/06/23: HEP includes pelvic realignment exercises, hamstring stretch, figure 4 stretch, knee rocking with feet hip width apart, gentle abdominal strengthening, cat/ cow against the wall LTG Duration 6 weeks 1 Impairment RLE weakness Correction Goal (LTG) Pt will present with improved right hip flexion, abduction, extension and knee flexion and extension strength and great toe extension to at least 4/5 to improve functional strength with gait. 06/26/23: Right hip flexion 4-/ 5, right hip abduction and extension 4/5, knee flexion and extension 4-/5. LLE is about 4+/5 in all these movements 08/06/23: Right hip flexion 4/5, right hip abduction and extension 4+/5, knee flexion and extension 4+/5. LLE is about 4+/5 in all these movements LTG Duration Met Assessment Summary Assessment Pt responded well to manual with reports decreased tension in LS. Pt good response to trialed [place]ago exercises with 2 # leg wt and balance activities for trial with ed on joining class. Further discussion on on travels out of town stop every 1-2 hrs longest, perform stretching/ ROM/walking/STS for back health mobility and use towel roll LS if needed alignment support and head turns for decreaed stiffness in driving, verbalized understanding. Pt reported felt good end tx. States does walkign balance at home and challenged with Tandem but still works on. Pt would benefit from Otago to improved standing balance and overal strength progression. No pain throughout tx. Pt states challenged progress no finger wall balance stepping patterns, no LOB. Physical Therapy Plan Frequency and Duration Frequency of Treatment 1-2x/Week Duration of treatment (weeks) 6 Plan of Care Start Date 08/06/23 Plan of Care End Date 09/19/23 Therapeutic Interventions Therapeutic Interventions Balance Training,Canalithic Repositioning,Gait Training, Home Exercise Program,Joint Mobilizations,Manual Therapy, Neuromuscular Re-education, Patient/Caregiver Education, Self-Care/Home Management,Soft Tissue Mobilization,Taping, Therapeutic Activities, Therapeutic Exercises, Vestibular Rehabilitation Modalities Cold Pack/Ice Massage,Electric Stimulation,Hot Packs, Ultrasound Next Visit Focus/Plan Next Note Type Treatment Note Next Visit Plan Ask response Otago trial in PT last tx. How did driving trip . POC: Continue emphasize mechanics for lifting/ housework for back safety. Progress hip strengthening and core strengthening consider golfer's lift exercise with leg back for core and balance strengthening, consider body blade, and assess bennett to gentle core progression with abdominal drawing in and knee fall out, HS, gentle rocking, and heel slide, add mini march
--- NOTE | 2023-09-05 11:18 | PT.OTN ---
Current Diagnoses Lumbago with sciatica, right side (09/05/23) Low back pain, unspecified (09/05/23) Dorsalgia, unspecified (09/05/23) Pain in leg, unspecified (09/05/23) Physical Therapy Treatment Note PT-OP-A Visit Information Start: 05/21/23 08:20 Freq: Status: Active Protocol: Document 09/05/23 10:32 MB (Rec: 09/05/23 11:15 MB [id number]) Out-Patient Physical Therapy Visit Information Visit Information Visit Type Treatment Note Visit Start Time 10:32 Visit Stop Time 11:12 Visit Number 20 Number of FULFILLMENT ASSOCIATE Visits 0 PT-OP-B Current Condition Start: 05/21/23 08:20 Freq: Status: Active Protocol: Document 05/22/23 09:47 MB (Rec: 05/22/23 10:05 MB [id number]) Current Condition History of Current Condition Onset Date Back injury 1993, intermittent since then Current Complaints Back pain and right leg pain occ History of Current Condition In 1993, pt bent over and injured her back picking up her new born son and she had a herniated disc. In January of 2023, she bent down to fish bait picker her suitcase and picked it up and she had excruciating right anterior right leg pain. The right leg pain is better and it gets flared up when she picks up a laundry basket. Pt had PT in 1993 for her back . Heat and muscle realaxors help. PMH: appendectomy, right knee scope, 3 c-sections, 3 left shoulder sxs, scar revision after abdominal surgeries, hysterectomy, breast reduction Pt had PT for vertigo in [facility] recently and the PT showed her how to pull on her legs and it helps a lot. Lying on her stomach and pushing up on her forearms helps. Pt is not sleeping very well. She is usually sleeping on her side without a pillow and it wakes her up at night. Pt has not been able to hike since January and she likes to do that. She has a bad habit of bending over. Her right leg feels weak. Prior Treatments and Tests Lumbar MRI 03/13: IMPRESSION: 1. Multilevel degenerative disc and facet disease, as well as ligamentum flavum hypertrophy and epidural lipomatosis. 2. Mild multilevel canal stenosis. 3. Multilevel foraminal stenoses, worst at L4-L5 and L5-S1 where there are moderate foraminal stenoses. 4. Mild posterior deviation of the left S1 nerve root within the lateral recess at L5-S1. Recommend correlation with clinical symptoms to ascertain relevance of this finding. Treatment Goals Patient/Caregiver Goals To decreased back and leg pain . She would like to get back to her normal routine including hiking. PT-OP-C Subjective Start: 05/21/23 08:20 Freq: Status: Active Protocol: Document 09/05/23 10:32 MB (Rec: 09/05/23 11:15 MB [id number]) OP-PT Subjective Patient Comments Patient Comments Pt had a good trip to [place]. PT-OP-J Posture/Palpation/Skin Start: 05/21/23 08:20 Freq: Status: Active Protocol: Document 05/22/23 09:47 MB (Rec: 05/22/23 12:58 MB [id number]) Posture Evaluation Comments Posture Comments Standing posture: increased body mass, left shoulder is higher than the right, left iliac crest is higher than the right, decreased thoracic kyphosis and increased lumbar lordosis, Dowager's hump, left thoracic convexity. Pt prefers extension. PT-OP-K Range of Motion Start: 05/21/23 08:20 Freq: Status: Active Protocol: Document 05/22/23 09:47 MB (Rec: 05/22/23 12:58 MB [id number]) Lumbar Spine Range of Motion Lumbar Spine Active Comments Forward flexion with fingers 10 from the floor, B SB with fingers to knee joint line, trace extension in standing Hip Goniometric Range of Motion Hip ROM Limitations Comments PROM B SLR to 75 deg and no change in symptoms PT-OP-M Strength Start: 05/21/23 08:20 Freq: Status: Active Protocol: Document 05/22/23 09:47 MB (Rec: 05/22/23 12:58 MB [id number]) Hip Strength Hip Manual Muscle Testing Left Flexion (L2) 4 Good Extension (S1) 4 Good Abduction 3+ Fair+ Right Flexion (L2) 3+ Fair+ Extension (S1) 3+ Fair+ Abduction 3+ Fair+ Knee Strength Knee Manual Muscle Testing Left Flexion (S2) 4+ Good+ Extension (L3) 4+ Good+ Right Flexion (S2) 4 Good Extension (L3) 4 Good Ankle/Foot Strength Ankle and Foot Manual Muscle Testing Left Dorsiflexion (L4) 5 Normal Right Dorsiflexion (L4) 4 Good Toe Strength Toe Manual Muscle Testing Left Great Toe Extension 5 Normal Right Great Toe Extension 3+ Fair+ PT-OP-Q Treatments Start: 05/21/23 08:20 Freq: Status: Active Protocol: Document 09/05/23 10:32 MB (Rec: 09/05/23 11:15 MB [id number]) Therapeutic Exercises Supine Exercises abdominal bracing/drawing in with heel slide Comments Reviewed today abdominal drawing in Comments Reviewed today Sitting Exercises Knee extension Resistance 2 lb ankle weight Comments 2 sets alternating 30 reps STS Comments 30 reps without UE support Standing Exercises Squats Equipment Used Chair in front Comments 20, arms resting on chair Heel raises Equipment Used 2lb ankle weights, chair for balance Comments 30 reps Hamstring curls Resistance 2 lb ankle weights Equipment Used Chair in front for balance Comments 30 alternating reps, 2 sets Hip abduction Resistance 2 lb ankle weights Equipment Used Chair in front for balance Comments 30 alternating reps, 2 sets Neuro Re-Education Treatment Balance Activities SLS Comments Often uses hand support on chair, B Tandem walking Comments Verbally reviewed and pt performing next to wall at home Tandem standing Equipment Chair at side Comments B feet PT-OP-R Modalities Start: 06/04/23 13:48 Freq: Status: Active Protocol: Document 06/22/23 13:53 SP (Rec: 06/22/23 14:34 SP [id number]) Hot Pack/Cold Pack Treatment MHP Location back Patient Position Hooklying Patient Tolerance Good Comments reports R glut and lateral thigh tension post ex. More mobility post MHP PT-OP-T Assessment and Plan Start: 05/21/23 08:20 Freq: Status: Active Protocol: Document 09/05/23 10:32 MB (Rec: 09/05/23 11:15 MB [id number]) Physical Therapy Assessment Goals 4 Impairment Evidence of imbalance Instructional Support Specialist Goal (LTG) Pt will perform WNLs on a standardized balance test to decrease fall risk. 06/26/23: FGA score is 18/30, indicating increased risk for falling. Pt has limited cervical motion with head turns with gait 07/10/23: progressing SLS LLE 6 sec, RLE 30 sec, added TA lateral sliders to progress core and increase SLS time. 08/06/23 FGA score is slightly improved at 21/30 and provided dynamic gait exercises for home LTG Duration 6 weeks 3 Impairment Lack of HEP Half-Way Goal (LTG) Pt will perform progressive HEP with I including pelvic realignment, flexibility, postural, core and LE strengthening and balance exercises to improve pain and function. 08/06/23: HEP includes pelvic realignment exercises, hamstring stretch, figure 4 stretch, knee rocking with feet hip width apart, gentle abdominal strengthening, cat/ cow against the wall LTG Duration 6 weeks 1 Impairment RLE weakness Half-Way Goal (LTG) Pt will present with improved right hip flexion, abduction, extension and knee flexion and extension strength and great toe extension to at least 4/5 to improve functional strength with gait. 06/26/23: Right hip flexion 4-/ 5, right hip abduction and extension 4/5, knee flexion and extension 4-/5. LLE is about 4+/5 in all these movements 08/06/23: Right hip flexion 4/5, right hip abduction and extension 4+/5, knee flexion and extension 4+/5. LLE is about 4+/5 in all these movements LTG Duration Met Assessment Summary Assessment Progressing with balance and LE strengthening with Otago program. Three more treatments to complete training and reassess. Physical Therapy Plan Frequency and Duration Frequency of Treatment 1-2x/Week Duration of treatment (weeks) 6 Plan of Care Start Date 08/06/23 Plan of Care End Date 09/19/23 Therapeutic Interventions Therapeutic Interventions Balance Training,Canalithic Repositioning,Gait Training, Home Exercise Program,Joint Mobilizations,Manual Therapy, Neuromuscular Re-education, Patient/Caregiver Education, Self-Care/Home Management,Soft Tissue Mobilization,Taping, Therapeutic Activities, Therapeutic Exercises, Vestibular Rehabilitation Modalities Cold Pack/Ice Massage,Electric Stimulation,Hot Packs, Ultrasound Next Visit Focus/Plan Next Note Type Treatment Note Next Visit Plan For Otago, need to go over backward tandem gait to see if appropriate and heel and toe walking, consider golfer's lift and hip extension, gardening tasks
--- NOTE | 2023-09-10 14:27 | PT.OTN ---
Addendum entered and electronically signed by Bobbi Cheng, JEWELRY JOBBER 09/10/23 15:37: OTAGO: TUG 8 sec, NBOS 10 sec, 1/2 tandem 10 sec, tandem 3sec, SLS 4 sec, 30 sec STS 14 reps. Falls Efficacy Scale 41, Check Risk Assessment for falls: 9 (>4 score great risk for falls). Original Note: Current Diagnoses Lumbago with sciatica, right side (09/10/23) Low back pain, unspecified (09/10/23) Dorsalgia, unspecified (09/10/23) Pain in leg, unspecified (09/10/23) Physical Therapy Treatment Note PT-OP-A Visit Information Start: 05/21/23 08:20 Freq: Status: Active Protocol: Document 09/10/23 13:47 SP (Rec: 09/10/23 14:34 SP [id number]) Out-Patient Physical Therapy Visit Information Visit Information Visit Type Treatment Note Visit Start Time 13:47 Visit Stop Time 14:27 Visit Number 21 Number of JEWELRY JOBBER Visits 1 Evaluation Information Evaluation Date 05/22/23 PT-OP-B Current Condition Start: 05/21/23 08:20 Freq: Status: Active Protocol: Document 05/22/23 09:47 MB (Rec: 05/22/23 10:05 MB [id number]) Current Condition History of Current Condition Onset Date Back injury 1993, intermittent since then Current Complaints Back pain and right leg pain occ History of Current Condition In 1993, pt bent over and injured her back picking up her new born son and she had a herniated disc. In January of 2023, she bent down to sampler pickup her suitcase and picked it up and she had excruciating right anterior right leg pain. The right leg pain is better and it gets flared up when she picks up a laundry basket. Pt had PT in 1993 for her back . Heat and muscle realaxors help. PMH: appendectomy, right knee scope, 3 c-sections, 3 left shoulder sxs, scar revision after abdominal surgeries, hysterectomy, breast reduction Pt had PT for vertigo in [facility] recently and the PT showed her how to pull on her legs and it helps a lot. Lying on her stomach and pushing up on her forearms helps. Pt is not sleeping very well. She is usually sleeping on her side without a pillow and it wakes her up at night. Pt has not been able to hike since January and she likes to do that. She has a bad habit of bending over. Her right leg feels weak. Prior Treatments and Tests Lumbar MRI 03/13: IMPRESSION: 1. Multilevel degenerative disc and facet disease, as well as ligamentum flavum hypertrophy and epidural lipomatosis. 2. Mild multilevel canal stenosis. 3. Multilevel foraminal stenoses, worst at L4-L5 and L5-S1 where there are moderate foraminal stenoses. 4. Mild posterior deviation of the left S1 nerve root within the lateral recess at L5-S1. Recommend correlation with clinical symptoms to ascertain relevance of this finding. Treatment Goals Patient/Caregiver Goals To decreased back and leg pain . She would like to get back to her normal routine including hiking. PT-OP-C Subjective Start: 05/21/23 08:20 Freq: Status: Active Protocol: Document 09/10/23 13:47 SP (Rec: 09/10/23 14:34 SP [id number]) OP-PT Subjective Patient Comments Patient Comments Pt reports only muscle soreness after Otago ex but no pain. Is pleased with balance progressing. Gardened over the weekend, kneeling PT-OP-J Posture/Palpation/Skin Start: 05/21/23 08:20 Freq: Status: Active Protocol: Document 05/22/23 09:47 MB (Rec: 05/22/23 12:58 MB [id number]) Posture Evaluation Comments Posture Comments Standing posture: increased body mass, left shoulder is higher than the right, left iliac crest is higher than the right, decreased thoracic kyphosis and increased lumbar lordosis, Dowager's hump, left thoracic convexity. Pt prefers extension. PT-OP-K Range of Motion Start: 05/21/23 08:20 Freq: Status: Active Protocol: Document 05/22/23 09:47 MB (Rec: 05/22/23 12:58 MB [id number]) Lumbar Spine Range of Motion Lumbar Spine Active Comments Forward flexion with fingers 10 from the floor, B SB with fingers to knee joint line, trace extension in standing Hip Goniometric Range of Motion Hip ROM Limitations Comments PROM B SLR to 75 deg and no change in symptoms PT-OP-M Strength Start: 05/21/23 08:20 Freq: Status: Active Protocol: Document 05/22/23 09:47 MB (Rec: 05/22/23 12:58 MB [id number]) Hip Strength Hip Manual Muscle Testing Left Flexion (L2) 4 Good Extension (S1) 4 Good Abduction 3+ Fair+ Right Flexion (L2) 3+ Fair+ Extension (S1) 3+ Fair+ Abduction 3+ Fair+ Knee Strength Knee Manual Muscle Testing Left Flexion (S2) 4+ Good+ Extension (L3) 4+ Good+ Right Flexion (S2) 4 Good Extension (L3) 4 Good Ankle/Foot Strength Ankle and Foot Manual Muscle Testing Left Dorsiflexion (L4) 5 Normal Right Dorsiflexion (L4) 4 Good Toe Strength Toe Manual Muscle Testing Left Great Toe Extension 5 Normal Right Great Toe Extension 3+ Fair+ PT-OP-Q Treatments Start: 05/21/23 08:20 Freq: Status: Active Protocol: Document 09/10/23 13:47 SP (Rec: 09/10/23 14:34 SP [id number]) Therapeutic Exercises Other Exercises OTAGO practice Other Exercise Name Warm up AROM, LAQ, stand Hip abd, HS curl, HR, mini squat, STS, tandem, SLS Resistance 2# leg wt sit/stand stationary ex, AROM Equipment Used wall walk 10 ft laps: side/ back stepping/tandem 2 laps each - finger wall Reps/Minutes 2x 10 reps seated and standing exercises Comments balance assessments done for Otago and FGA instead Neuro Re-Education Treatment Balance Activities backward walking Reps/Duration 20 ft x2 lengths Comments near wall SLS Comments SLS L 3-4 sec, RLE 3-7 sec Tandem walking Reps/Duration 2 lengths Comments Verbally reviewed and pt performing next to wall FGA Details 09/10/23 Comments PT-OP-R Modalities Start: 06/04/23 13:48 Freq: Status: Active Protocol: Document 06/22/23 13:53 SP (Rec: 06/22/23 14:34 SP [id number]) Hot Pack/Cold Pack Treatment MHP Location back Patient Position Hooklying Patient Tolerance Good Comments reports R glut and lateral thigh tension post ex. More mobility post MHP PT-OP-T Assessment and Plan Start: 05/21/23 08:20 Freq: Status: Active Protocol: Document 09/10/23 13:47 SP (Rec: 09/10/23 14:34 SP [id number]) Physical Therapy Assessment Goals 4 Impairment Evidence of imbalance Technical Solutions Engineer Goal (LTG) Pt will perform WNLs on a standardized balance test to decrease fall risk. 06/26/23: FGA score is 18/30, indicating increased risk for falling. Pt has limited cervical motion with head turns with gait 07/10/23: progressing SLS LLE 6 sec, RLE 30 sec, added TA lateral sliders to progress core and increase SLS time. 08/06/23 FGA score is slightly improved at 21/30 and provided dynamic gait exercises for home 09/10/23: FGA LTG Duration 6 weeks progressed 8 point since Jun 23 3 Impairment Lack of HEP Long-Term Goal (LTG) Pt will perform progressive HEP with I including pelvic realignment, flexibility, postural, core and LE strengthening and balance exercises to improve pain and function. 08/06/23: HEP includes pelvic realignment exercises, hamstring stretch, figure 4 stretch, knee rocking with feet hip width apart, gentle abdominal strengthening, cat/ cow against the wall LTG Duration 6 weeks 1 Impairment RLE weakness Technical Solutions Engineer Goal (LTG) Pt will present with improved right hip flexion, abduction, extension and knee flexion and extension strength and great toe extension to at least 4/5 to improve functional strength with gait. 06/26/23: Right hip flexion 4-/ 5, right hip abduction and extension 4/5, knee flexion and extension 4-/5. LLE is about 4+/5 in all these movements 08/06/23: Right hip flexion 4/5, right hip abduction and extension 4+/5, knee flexion and extension 4+/5. LLE is about 4+/5 in all these movements LTG Duration Met Assessment Summary Assessment Pt making gains in FGA improvement of 3 points in past month. She if feeling good muscle tiring with no pain during Otago exercises. Physical Therapy Plan Frequency and Duration Frequency of Treatment 1-2x/Week Duration of treatment (weeks) 6 Plan of Care Start Date 08/06/23 Plan of Care End Date 09/19/23 Therapeutic Interventions Therapeutic Interventions Balance Training,Canalithic Repositioning,Gait Training, Home Exercise Program,Joint Mobilizations,Manual Therapy, Neuromuscular Re-education, Patient/Caregiver Education, Self-Care/Home Management,Soft Tissue Mobilization,Taping, Therapeutic Activities, Therapeutic Exercises, Vestibular Rehabilitation Modalities Cold Pack/Ice Massage,Electric Stimulation,Hot Packs, Ultrasound Next Visit Focus/Plan Next Note Type Treatment Note Next Visit Plan Completed Otag. o testing and FGA 09/09. Next tx: go over backward tandem gait to see if appropriate and heel and toe walking, consider golfer's lift and hip extension, gardening tasks
--- NOTE | 2023-09-12 14:33 | PT.OTN ---
Current Diagnoses Lumbago with sciatica, right side (09/12/23) Low back pain, unspecified (09/12/23) Dorsalgia, unspecified (09/12/23) Pain in leg, unspecified (09/12/23) Physical Therapy Treatment Note PT-OP-A Visit Information Start: 05/21/23 08:20 Freq: Status: Active Protocol: Document 09/12/23 13:48 MB (Rec: 09/12/23 14:30 MB [id number]) Out-Patient Physical Therapy Visit Information Visit Information Visit Type Discharge Summary Visit Start Time 13:48 Visit Stop Time 14:28 Visit Number 22 Number of COLLISION TECHNICIAN Visits 0 PT-OP-B Current Condition Start: 05/21/23 08:20 Freq: Status: Active Protocol: Document 05/22/23 09:47 MB (Rec: 05/22/23 10:05 MB [id number]) Current Condition History of Current Condition Onset Date Back injury 1993, intermittent since then Current Complaints Back pain and right leg pain occ History of Current Condition In 1993, pt bent over and injured her back picking up her new born son and she had a herniated disc. In January of 2023, she bent down to picker tender helper her suitcase and picked it up and she had excruciating right anterior right leg pain. The right leg pain is better and it gets flared up when she picks up a laundry basket. Pt had PT in 1993 for her back . Heat and muscle realaxors help. PMH: appendectomy, right knee scope, 3 c-sections, 3 left shoulder sxs, scar revision after abdominal surgeries, hysterectomy, breast reduction Pt had PT for vertigo in [facility] recently and the PT showed her how to pull on her legs and it helps a lot. Lying on her stomach and pushing up on her forearms helps. Pt is not sleeping very well. She is usually sleeping on her side without a pillow and it wakes her up at night. Pt has not been able to hike since January and she likes to do that. She has a bad habit of bending over. Her right leg feels weak. Prior Treatments and Tests Lumbar MRI 03/13: IMPRESSION: 1. Multilevel degenerative disc and facet disease, as well as ligamentum flavum hypertrophy and epidural lipomatosis. 2. Mild multilevel canal stenosis. 3. Multilevel foraminal stenoses, worst at L4-L5 and L5-S1 where there are moderate foraminal stenoses. 4. Mild posterior deviation of the left S1 nerve root within the lateral recess at L5-S1. Recommend correlation with clinical symptoms to ascertain relevance of this finding. Treatment Goals Patient/Caregiver Goals To decreased back and leg pain . She would like to get back to her normal routine including hiking. PT-OP-C Subjective Start: 05/21/23 08:20 Freq: Status: Active Protocol: Document 09/12/23 13:48 MB (Rec: 09/12/23 14:30 MB [id number]) OP-PT Subjective Patient Comments Patient Comments Pt did some gardening over the weekend and she recognized when she needed to stop. Pt walked to PT today. PT-OP-J Posture/Palpation/Skin Start: 05/21/23 08:20 Freq: Status: Active Protocol: Document 05/22/23 09:47 MB (Rec: 05/22/23 12:58 MB [id number]) Posture Evaluation Comments Posture Comments Standing posture: increased body mass, left shoulder is higher than the right, left iliac crest is higher than the right, decreased thoracic kyphosis and increased lumbar lordosis, Dowager's hump, left thoracic convexity. Pt prefers extension. PT-OP-K Range of Motion Start: 05/21/23 08:20 Freq: Status: Active Protocol: Document 05/22/23 09:47 MB (Rec: 05/22/23 12:58 MB [id number]) Lumbar Spine Range of Motion Lumbar Spine Active Comments Forward flexion with fingers 10 from the floor, B SB with fingers to knee joint line, trace extension in standing Hip Goniometric Range of Motion Hip ROM Limitations Comments PROM B SLR to 75 deg and no change in symptoms PT-OP-M Strength Start: 05/21/23 08:20 Freq: Status: Active Protocol: Document 05/22/23 09:47 MB (Rec: 05/22/23 12:58 MB [id number]) Hip Strength Hip Manual Muscle Testing Left Flexion (L2) 4 Good Extension (S1) 4 Good Abduction 3+ Fair+ Right Flexion (L2) 3+ Fair+ Extension (S1) 3+ Fair+ Abduction 3+ Fair+ Knee Strength Knee Manual Muscle Testing Left Flexion (S2) 4+ Good+ Extension (L3) 4+ Good+ Right Flexion (S2) 4 Good Extension (L3) 4 Good Ankle/Foot Strength Ankle and Foot Manual Muscle Testing Left Dorsiflexion (L4) 5 Normal Right Dorsiflexion (L4) 4 Good Toe Strength Toe Manual Muscle Testing Left Great Toe Extension 5 Normal Right Great Toe Extension 3+ Fair+ PT-OP-Q Treatments Start: 05/21/23 08:20 Freq: Status: Active Protocol: Document 09/12/23 13:48 MB (Rec: 09/12/23 14:30 MB [id number]) Therapeutic Exercises Standing Exercises Hip extension Resistance 2lb ankle weights Equipment Used Chair Reps/Minutes Alternating reps as below Comments 30 reps x2 Golfer's lift Comments Tried many reps and pt still twisting, so will not add for HEP Manual Therapy Treatment Other Other Manual Treatments Pt hook lying with head and legs supported: STM and positional release B PFs, quads, vastus lateralis, hip flexor, ribs, upper traps Neuro Re-Education Treatment Balance Activities Heel and toe walking Comments Finger slide along the wall and heel walking is challenging for pt Backward tandem gait Comments Performed today with finger slide Tandem walking Comments Performed several reps with finger slide PT-OP-R Modalities Start: 06/04/23 13:48 Freq: Status: Active Protocol: Document 06/22/23 13:53 SP (Rec: 06/22/23 14:34 SP [id number]) Hot Pack/Cold Pack Treatment MHP Location back Patient Position Hooklying Patient Tolerance Good Comments reports R glut and lateral thigh tension post ex. More mobility post MHP PT-OP-T Assessment and Plan Start: 05/21/23 08:20 Freq: Status: Active Protocol: Document 09/12/23 13:48 MB (Rec: 09/12/23 14:30 MB [id number]) Physical Therapy Assessment Goals 4 Impairment Evidence of imbalance Firebrick Layer Goal (LTG) Pt will perform WNLs on a standardized balance test to decrease fall risk. 06/26/23: FGA score is 18/30, indicating increased risk for falling. Pt has limited cervical motion with head turns with gait 07/10/23: progressing SLS LLE 6 sec, RLE 30 sec, added TA lateral sliders to progress core and increase SLS time. 08/06/23 FGA score is slightly improved at 21/30 and provided dynamic gait exercises for home 09/10/23: FGA LTG Duration Met 3 Impairment Lack of HEP Residential Goal (LTG) Pt will perform progressive HEP with I including pelvic realignment, flexibility, postural, core and LE strengthening and balance exercises to improve pain and function. 08/06/23: HEP includes pelvic realignment exercises, hamstring stretch, figure 4 stretch, knee rocking with feet hip width apart, gentle abdominal strengthening, cat/ cow against the wall LTG Duration Met 1 Impairment RLE weakness Residential Goal (LTG) Pt will present with improved right hip flexion, abduction, extension and knee flexion and extension strength and great toe extension to at least 4/5 to improve functional strength with gait. 06/26/23: Right hip flexion 4-/ 5, right hip abduction and extension 4/5, knee flexion and extension 4-/5. LLE is about 4+/5 in all these movements 08/06/23: Right hip flexion 4/5, right hip abduction and extension 4+/5, knee flexion and extension 4+/5. LLE is about 4+/5 in all these movements LTG Duration Met Assessment Summary Assessment Pt has met all PT goals since starting PT and these include exercise goal, LE strength and HEP goals. Reviewed final Otago balance exercises. Will d/c PT.
== END 2023-09-18 10:41 | disposition home or self-care (01) ==
LOC: PHYS 13:45
PROVIDERS: Family Provider Family Medicine; PCP Family Medicine; Referring Provider Family Medicine; Visit Provider Family Medicine
DX: M54.41 Lumbago with sciatica, right side (principal); M79.606 Pain in leg, unspecified; M54.9 Dorsalgia, unspecified
CPT/HCPCS: 95992; 97010; 97110; 97112; 97140; 97161; 97530; 97535

== ENCOUNTER → 2024-01-03 11:27 | Outpatient (CLI) | payer OTHER, SELFPAY ==
[2023-04-08 23:55] VITALS: BMI 31.3
--- NOTE | 2024-01-03 11:28 | DI.MG.S_ITS ---
BILATERAL DIGITAL SCREENING MAMMOGRAM 3D/2D WITH CAD: 01/03/2024 CLINICAL: Routine screening. Family history of breast cancer. Comparison is made to exams dated: 11/21/2022 mammogram, 09/15/2021 mammogram - [facility], and 04/02/2020 mammogram - outside facility. There are scattered areas of fibroglandular density in both breasts (category b / 25%-50% glandular tissue). Current study was also evaluated with a Computer Aided Detection (CAD) system. There are benign vascular calcifications in the right breast. No significant masses, calcifications, or other findings are seen in either breast. There has been no significant interval change. IMPRESSION: BENIGN There is no mammographic evidence of malignancy. A 1 year screening mammogram is recommended. Based on the Tyrer Cuzick model (a risk assessment model) the patient's lifetime risk is 10.9% and her 10 year risk is 5.1%. According to the ACR, ACS, and NCCN guidelines, an annual breast MRI exam along with mammogram is recommended if the patient's lifetime risk is 20% or greater. This exam was interpreted at Station ID: [id number]. NOTE: For mammograms, a report in lay terms will be sent to the patient. Approximately 15% of breast malignancies will not be visualized mammographically. In the management of a palpable breast mass, a negative mammogram must not discourage biopsy of a clinically suspicious lesion. Electronically Signed By: Jared lawrence/foreign:01/04/2024 09:08:44 letter sent: Normal Exam ACR BI-RADS Category 2: Benign Finding(s) 3342F
== END ==
PROVIDERS: Family Provider Family Medicine; PCP Family Medicine; Referring Provider Family Medicine; Visit Provider Family Medicine
DX: Z12.31 Encounter for screening mammogram for malignant neoplasm of breast (principal); R92.1 Mammographic calcification found on diagnostic imaging of breast; R92.323 Mammographic fibroglandular density, bilateral breasts; Z80.3 Family history of malignant neoplasm of breast
CPT/HCPCS: 77063; 77067

== ENCOUNTER 2024-01-03 11:30 | Outpatient (CLI) | payer OTHER, SELFPAY ==
[2023-04-08 23:55] VITALS: BMI 31.3
[2024-01-03 13:00] VITALS: BP 131/76; PULSE 80; RESP 16; TEMP 36.6; O2SAT 96
--- NOTE | 2024-01-03 13:15 | PC.NURSE ---
Patient unable to balance standing up. patient brought in to the pre-procedure room via WC. patient noted to have the hiccups while being brought to the pre-procedure room in the WC. patient also stated to Dr. Abdalla that she ate some of her 's chicken sandwich about 30 mins ago. Patient's told the nurse when the nurse went to get the patient from the waiting room that she had just eaten a full lunch. patient was also seen eating a twix candy bar in the waiting room when the nurse went to get her to bring her in to the pre-procedure room. Dr. Abdalla notified pre-procedure.
--- NOTE | 2024-01-03 13:20 | DI.RAD.S_ITS ---
PROCEDURE: PAIN L/S TRANSFORAMINAL INJECT INDICATIONS: Right L4/5 TF SAM COMPARISON: [facility], , PAIN L/S TRANSFORAMINAL INJECT, 06/19/2023, 11:39. FINDINGS: Fluoroscopic spot filming was performed to verify placement of spinal needles at the L4-5 level(s), as labeled on the films. Appropriate location(s) of the needle tip(s) was confirmed by injection of iodinated contrast. IMPRESSION: Contrast a needle placement overlying L4-5. Dictated by: Belkis Luna M.D. on 01/04/2024 at 13:42 Approved by: Belkis Luna M.D. on 01/04/2024 at 13:42
[2024-01-03 13:25] VITALS: BP 154/81; PULSE 78; RESP 14; O2SAT 99
[2024-01-03 13:30] VITALS: BP 141/86; PULSE 78; RESP 14; O2SAT 99
[2024-01-03] MEDS: iopamidoL 15 ML VIAL 3 ML INJ (13:31)
[2024-01-03] MEDS: BETAMETHASONE 30 MG/5 ML MDV 6 MG INJ ×2 (13:32→13:33)
[2024-01-03] MEDS: DEXAMETHASONE 10 MG/ML VIAL INJ (13:32)
[2024-01-03] MEDS: BUPIVACAINE 0.25% (PF) VIAL 2 ML INJ (13:32)
[2024-01-03 13:35] VITALS: BP 157/97; PULSE 78; RESP 15; O2SAT 99
[2024-01-03 13:42] VITALS: BP 167/81; PULSE 79; RESP 15; O2SAT 97
--- NOTE | 2024-01-03 13:43 | P.PCN_ITS ---
Date/Time/Diagnoses Date of procedure: 01/03/24 Time of procedure: 13:43 Pre-procedure diagnosis: 1. FORAMINAL STENOSIS WITH LE SYMPTOMS Post-procedure diagnosis: same Procedure Notes Procedure: 1. FLUOROSCOPICALLY GUIDED CONTRAST CONTROLLED TRANSFORAMINAL EPIDURAL STEROID INJECTION - RIGHT L4/5 TFESI Indications: Minoo is referred by Dr. López for treatment of Foraminal Stenosis with Right LE Symptoms Physician: Tenzin Abdalla Total Fluoroscopy time (seconds): 12 Total sedation minutes: 0 Complications: none Procedure in detail & Post-procedure care: FINDINGS Foraminal Nerve Root Compression secondary to disc disease and facet hypertrophy DESCRIPTION OF PROCEDURE Following review of allergy and review of potential side effects and complications, including, but not necessarily limited to, infection, allergic reaction, local tissue breakdown, stroke, temporary or permanent nerve injury, paralysis, and possible , the patient indicated that the patient understood and agreed to proceed. An informed consent document was signed by the patient, witnessed by a nurse, and placed in the patient's chart. Additionally, other treatment options including medications, modalities, and physical therapy were reviewed with the patient. After review of previous anaesthesic history and IV conscious sedation the patient was deemed safe to proceed with today?s procedure with IV conscious sedation as ASA class II designation. Safety time-out was performed to confirm patient ID, procedure to be performed and site of procedure. IV sedation was not administered by the RN after DO order, titrated to patient comfort during the course of the procedure while the patient remained responsive to all verbal commands In the prone position following sterile prep and drape of the lumbar region, the right L4/5 posterior neuroforamen was identified fluoroscopically. The skin was anesthetized via a 25-gauge 1.5-inch needle with 1% lidocaine solution. At this point, a 25-gauge 3.5-inch spinal needle was atraumatically introduced and advanced under fluoroscopic guidance through the posterior right L4/5 neuroforamen to approximately the anterior aspect of the canal. Depth was confirmed on lateral view. Following negative aspiration, injection of approximately 1.5cc of Isovue 200 under live fluoroscopy in the AP view confirmed excellent flow along the nerve root, into the epidural space without vascular or intrathecal uptake observed Radiological data, including multiple fluoroscopic views of the lumbosacral spine, reveal a spinal needle at the right L4/5 posterior neuroforamen. Subsequent views show flow of contrast material flowing superiorly and inferiorly along the nerve root confirming epidural flow. Subsequently, a test dose of 1.5 cc of 1% lidocaine solution was administered and patient was observed for two minutes for signs or symptoms of complications, including abdominal pain, shortness of breath, bilateral upper or lower extremity weakness, nausea and vomiting, prior to steroid injection. At this point, a total of 2cc or 10mg of dexamethasone and 6mg of betamethasone was injected without incident. The procedure tolerated the procedure well without signs or symptoms of complications prior to transfer to the recovery area continued monitoring without incident. The patient was then transferred to the recovery area where they were observed for an appropriate time after the injection. The patient reported a VAS score of 7 prior to the procedure and a post- procedure VAS of 0. POST OP INSTRUCTIONS The patient was provided a Pain Log to continue to record their response to the target-specific procedure prior to follow-up visit with their referring physician. Additionally, specific post-injection care instructions and a contact number to our office were provided if concerns arise regarding possible complications associated with the procedure are suspected.
[2024-01-03 13:47] VITALS: BP 157/72; PULSE 77; RESP 14; O2SAT 98
== END 2024-01-03 13:57 | disposition home or self-care (01) ==
LOC: RAD 11:30
PROVIDERS: Family Provider Family Medicine; PCP Family Medicine; Referring Provider Physical Medicine & Rehabilitation; Visit Provider Physical Medicine & Rehabilitation
DX: M51.16 Intervertebral disc disorders with radiculopathy, lumbar region (principal)
CPT/HCPCS: 64483; J0702; J1100; J3490

== ENCOUNTER → 2024-01-29 08:27 | Outpatient (CLI) | payer OTHER, SELFPAY ==
[2023-04-08 23:55] VITALS: BMI 31.3
--- NOTE | 2024-01-29 08:27 | DI.US.S_ITS ---
PROCEDURE: US ABDOMEN LIMITED INDICATIONS: INTERMITTENT RIGHT UPPER QUADRANT PAIN/GALLSTONES ON XRAY TECHNIQUE: Real-time scanning was performed of the abdominal and retroperitoneal organs, with image documentation. COMPARISON: [facility], CT, CT CHEST WO [facility], 08/19/2020, 11:52. FINDINGS: Liver: Liver is normal in size and homogeneous in echotexture. Simple cysts are present in the right hepatic lobe, largest which measures 12 x 7 x 6 mm. Gallbladder: Multiple shadowing gallstones throughout the body and neck, the largest of which measures 8 mm in size. The gallbladder wall is borderline thickened at 2.5 mm. No pericholecystic edema. Biliary ducts: Intrahepatic bile ducts are non-dilated. Extrahepatic bile duct caliber measures 6 mm. Normal is 6-7 mm or less in diameter, or 10 mm or less post-cholecystectomy. Pancreas: Not well identified due to overlying bowel gas. Miscellaneous: No free abdominal fluid. IMPRESSION: Cholelithiasis and borderline wall thickening, which are indeterminate for cholecystitis. If there is persistent concern for acute or chronic cholecystitis, a HIDA scan would be recommended for further evaluation. Dictated by: Gold Saleh M.D. on 01/29/2024 at 13:25 Approved by: Gold Saleh M.D. on 01/29/2024 at 13:29
== END ==
PROVIDERS: Family Provider Family Medicine; PCP Family Medicine; Referring Provider Physician Assistant; Visit Provider Physician Assistant
DX: K80.20 Calculus of gallbladder without cholecystitis without obstruction (principal)
CPT/HCPCS: 76705

== ENCOUNTER 2024-02-26 06:15 | Day surgery (SDC) | payer OTHER, SELFPAY ==
[2023-04-08 23:55] VITALS: BMI 31.3
[2024-02-25 11:59] VITALS: BMI 32.3
[2024-02-26] VITALS (9 sets, daily range): BP systolic 112–158; BP diastolic 71–93; PULSE 62–75; RESP 12–16; TEMP 36.1–36.4; O2SAT 94–99; BMI 33.7
--- NOTE | 2024-02-26 | PATH_ITS ---
[facility] Accession Number: [id number] No. of containers..01 Tissue . 01 Material submitted: . gallbladder - GALLBLADDER . 01 Diagnosis: GALLBLADDER, CHOLECYSTECTOMY: Chronic cholecystitis with cholelithiasis. Negative for dysplasia and malignancy. MRV 02/28/2024 1157 Local . 01 Electronically signed: . Awilda Alvares MD, Pathologist NPI- [id number] . 01 Gross description: . Received in formalin with two patient identifiers and gallbladder, is an intact gallbladder, 9.1 x 2.5 x 2.4 cm, with an unremarkable external surface. The cystic duct margin is inked blue, and no pericystic lymph node is identified. Multiple green faceted calculi are within the lumen measuring up to 1.8 cm in greatest dimension, admixed with dark green viscous bile. The mucosa is green and velvety with no yellow discolorations, polyps, or lesions identified. The contreras average 0.1 cm thick. Broth Setter sections to include the cystic duct margin and full thickness sections are submitted in A1. ([id number]) /MRV 02/27/2024 1645 Local . 01 Pathologist provided ICD-10: K80.60 . 01 CPT . 471930 Specimen Comment: A courtesy copy of this report has been sent to [phone] Performed at: [address] [id number] MD Rey Jones MD Phone: [phone]
--- NOTE | 2024-02-26 | DI.RAD.S_ITS ---
PROCEDURE: XR CHEST 1V INDICATIONS: chest pain TECHNIQUE: One view of the chest was acquired. COMPARISON: [facility], CR, XR CHEST 1V, 04/08/2023, 19:08. FINDINGS: Surgical changes and devices: None. Lungs and pleura: Lungs are clear. No pleural effusions or pneumothorax. Mediastinum: Mediastinal contours appear normal. Heart size is normal. Bones and chest wall: No suspicious bony lesions. Overlying soft tissues appear unremarkable. IMPRESSION: No acute cardiopulmonary abnormality is seen. Dictated by: Phuc Birmingham M.D. on 02/26/2024 at 10:20 Approved by: Phuc Birmingham M.D. on 02/26/2024 at 10:22
[2024-02-26] MEDS: LACTATED RINGERS 1,000 ML 42 ML IV (07:05)
--- NOTE | 2024-02-26 07:36 | PM.PREOP ---
Pre-operative Note COVID-19 COVID-19 status: Not tested Interval Note History & Physical reviewed/Exam performed by Physician: Yes Changes to H&P: No ASA Class (for procedural sedation): II
[2024-02-26] MEDS: CEFAZOLIN 2 GM/100 ML PREMIX 100 ML IV (08:11)
[2024-02-26] MEDS: BUPIVACAINE 0.5% W/ EPI (PF) 30 ML VIAL INJ (08:22)
--- NOTE | 2024-02-26 08:27 | SUR.OPER ---
Supine on padded OR bed, head on pillow, safety belt at thigh. Arms secured on padded arm board <90 degrees abduction. Legs uncrossed. Padded footboard in place. [place] over lower legs. Maryann Hugger for upper body.
--- NOTE | 2024-02-26 08:30 | SUR.OPER ---
Family History Malignant Hyperthermia Patient stated that her son may have had an MH crisis reaction in the past. Due to this the case was delayed to follow hospital guidelines on MH surgical patients and use of Anesthesia machines. No note in prior H&P shown this family history of MH
--- NOTE | 2024-02-26 09:27 | PM.OP.1 ---
Operative Date/Time/Diagnoses Date of procedure: 02/26/24 Time of procedure: 09:28 Pre-op diagnosis: Symptomatic cholelithiasis Post-op diagnosis: same Procedure & Clinicians Procedure: Laparoscopic cholecystectomy Same procedure as scheduled: Yes Surgeon: Harley Benavidez Click Yes if Unassisted: Yes Anesthesia Type: General Operative Notes Procedure in detail: The patient was given preoperative antibiotics. The patient was brought to the operating room and placed on the table in the supine position. General endotracheal anesthesia was induced. The abdomen was prepped and draped. A time-out was performed. We made a 1 cm infraumbilical incision. We dissected down to the base of the umbilical stalk using cautery. We grasped the umbilical stalk with a Viviana clamp to elevate the abdominal wall. We scored the fascia in the midline with cautery. We pierced the peritoneum with a Peon clamp. The Yadira port was placed and the abdomen was insufflated to 15 mmHg. A 5 mm 30 degree laparoscopic was inserted. There was no evidence of any injury from the entry. Next, we placed 5 mm ports in the subxiphoid position and right upper quadrant at the midclavicular line and anterior axillary line. The patient was then positioned in reverse Trendelenburg and the table was tilted to the left. The gallbladder was grasped at the dome and retracted cephalad. We then dissected the cystic structures with a combination of hook cautery and blunt dissection. We obtained a critical view. We placed clips on the cystic duct and artery and divided the cystic duct and artery sharply between the clips. The gallbladder was then dissected off the liver and placed in a specimen retrieval bag. We irrigated the right upper quadrant and all the aspirate returned clear. We then removed the 5 mm ports under direct vision we removed the Yadira port. We then injected some local into the fascia and closed the fascia with 2 interrupted 0 Vicryl sutures. The skin incisions were closed with 4-0 Monocryl and Steri-Strips were applied. Band-Aids were applied over the Steri-Strips. EBL: 40 mL Specimen: Gallbladder and contents Post-operative Condition: stable Disposition: PACU
--- NOTE | 2024-02-26 10:04 | EKG_ITS ---
[address] [address] Test Date: 2024-02-26 Pat Name: Minoo Anne Department: [facility] Room: Gender: Female [employer]: GEOVANI : 1960 Requested By: Order Number: [id number] Reading MD: Donavon Cifuentes Measurements Intervals [place] Rate: 62 P: 37 MN: 164 QRS: 0 QRSD: 80 T: 26 QT: 460 QTc: 466 Interpretive Statements Normal sinus rhythm Electronically Signed On 02-26-2024 14:44:37 PDT by Donavon Cifuentes
[2024-02-26] MEDS: FAMOTIDINE 20 MG/2 ML VIAL IV (10:09)
== END 2024-02-26 10:45 | disposition home or self-care (01) ==
PROVIDERS: Family Provider Family Medicine; PCP Family Medicine; Referring Provider Surgery; Visit Provider Surgery
PROC: 0FT44ZZ Resection of Gallbladder, Percutaneous Endoscopic Approach (ICD-10-PCS; CPT 47562; principal; 2024-02-26 07:45)
DX: K80.10 Calculus of gallbladder with chronic cholecystitis without obstruction (principal)
CPT/HCPCS: 47562; 71045; 93005; J0690; J1100; J1171; J2405; J2704; J3010; J3490

== ENCOUNTER → 2024-04-06 10:36 | Outpatient (CLI) | payer OTHER, SELFPAY ==
[2023-04-08 23:55] VITALS: BMI 31.3
--- NOTE | 2024-04-06 10:38 | DI.RAD.S_ITS ---
PROCEDURE: XR WRIST RT MIN 3V INDICATIONS: Right wrist injury TECHNIQUE: 4 views of the wrist were acquired. COMPARISON: [facility], CR, XR WRIST LT MIN 3V, 01/17/2022, 15:43. FINDINGS: Bones: No fractures or dislocations. No suspicious bony lesions. Mild triscaphe degenerative changes Soft tissues: No suspicious soft tissue calcifications. IMPRESSION: Mild degenerative changes. No fracture. Approved by: Harvey Moeller M.D. on 04/06/2024 at 10:16
== END ==
LOC: RAD 10:37
PROVIDERS: Family Provider Family Medicine; PCP Family Medicine; Referring Provider Registered Nurse; Visit Provider Registered Nurse
DX: M25.531 Pain in right wrist (principal)
CPT/HCPCS: 73110

== ENCOUNTER 2024-05-22 08:43 | Outpatient (CLI) | payer OTHER, SELFPAY ==
[2023-04-08 23:55] VITALS: BMI 31.3
[2024-05-22] VITALS (9 sets, daily range): BP systolic 123–142; BP diastolic 74–91; PULSE 85–98; RESP 14–18; TEMP 35.9; O2SAT 97–99
--- NOTE | 2024-05-22 08:44 | DI.RAD.S_ITS ---
PROCEDURE: PAIN C/T TRANFORAMINAL INJECT INDICATIONS: Left T8/9 TFESI COMPARISON: [facility], , PAIN C/T TRANFORAMINAL INJECT, 08/07/2023, 10:23. FINDINGS/IMPRESSION: Fluoroscopic spot filming was performed to verify placement of spinal needles at the left T8-9 level(s), as labeled on the films. Appropriate location(s) of the needle tip(s) was confirmed by injection of iodinated contrast. Dictated by: Kay Smith M.D. on 05/23/2024 at 8:54 Approved by: Kay Smith M.D. on 05/23/2024 at 8:55
[2024-05-22] MEDS: MIDAZOLAM 2 MG/2 ML VIAL IV (10:09)
[2024-05-22] MEDS: DEXAMETHASONE 10 MG/ML VIAL 20 MG INJ (10:12)
[2024-05-22] MEDS: iopamidoL 15 ML VIAL 3 ML INJ (10:12)
[2024-05-22] MEDS: BUPIVACAINE 0.25% (PF) VIAL 2 ML INJ (10:12)
--- NOTE | 2024-05-22 10:30 | P.PCN_ITS ---
Date/Time/Diagnoses Date of procedure: 05/22/24 Time of procedure: 10:30 Pre-procedure diagnosis: 1. FORAMINAL STENOSIS WITH LE SYMPTOMS Post-procedure diagnosis: same Procedure Notes Procedure: 1. FLUOROSCOPICALLY GUIDED CONTRAST CONTROLLED TRANSFORAMINAL EPIDURAL STEROID INJECTION - RIGHT T8/9 TFESI Indications: Minoo is referred by for treatment of Foraminal Stenosis with left thoracic Symptoms Physician: Tenzin Abdalla Total Fluoroscopy time (seconds): 12 Total sedation minutes: 17 Complications: none Procedure in detail & Post-procedure care: FINDINGS Foraminal Nerve Root Compression secondary to disc disease and facet hypertrophy DESCRIPTION OF PROCEDURE Following review of allergy and review of potential side effects and complications, including, but not necessarily limited to, infection, allergic reaction, local tissue breakdown, stroke, temporary or permanent nerve injury, paralysis, and possible , the patient indicated that the patient understood and agreed to proceed. An informed consent document was signed by the patient, witnessed by a nurse, and placed in the patient's chart. Additionally, other treatment options including medications, modalities, and physical therapy were reviewed with the patient. After review of previous anaesthesic history and IV conscious sedation the patient was deemed safe to proceed with today?s procedure with IV conscious sedation as ASA class II designation. Safety time-out was performed to confirm patient ID, procedure to be performed and site of procedure. IV sedation was accomplished with a combination of 2mg of Versed was administered by the RN after DO order, titrated to patient comfort during the course of the procedure while the patient remained responsive to all verbal commands In the prone position following sterile prep and drape of the lumbar region, the left T8-9 posterior neuroforamen was identified fluoroscopically. The skin was anesthetized via a 25-gauge 1.5-inch needle with 1% lidocaine solution. At this point, a 25-gauge 3.5-inch spinal needle was atraumatically introduced and advanced under fluoroscopic guidance through the posterior left T8-9 neuroforamen to approximately the anterior aspect of the canal. Depth was confirmed on lateral view. Following negative aspiration, injection of approximately 1.5cc of Isovue 200 under live fluoroscopy in the AP view confirm ed excellent flow along the nerve root, into the epidural space without vascular or intrathecal uptake observed Radiological data, including multiple fluoroscopic views reveal the needle placement in the left T8/9 posterior neuroforamen. Subsequent views show flow of contrast material flowing superiorly and inferiorly along the nerve root confirming epidural flow. Subsequently, a test dose of 1.5cc of 1% lidocaine solution was administered and patient was observed for signs or symptoms of complications, including abdominal pain, shortness of breath, bilateral upper or lower extremity weakness, nausea and vomiting, prior to steroid injection. At this point, a total of 2cc or 20mg of dexamethasone was injected without incident. The procedure tolerated the procedure well without signs or symptoms of complications prior to transfer to the recovery area continued monitoring without incident. The patient was then transferred to the recovery area where they were observed for an appropriate time after the injection. The patient reported a VAS score of 7 prior to the procedure and a post- procedure VAS of 1. POST OP INSTRUCTIONS The patient was provided a Pain Log to continue to record their response to the target-specific procedure prior to follow-up visit with their referring physician. Additionally, specific post-injection care instructions and a contact number to our office were provided if concerns arise regarding possible complications associated with the procedure are suspected.
== END 2024-05-22 10:40 | disposition home or self-care (01) ==
LOC: RAD 08:43
PROVIDERS: Family Provider Family Medicine; PCP Family Medicine; Referring Provider Physical Medicine & Rehabilitation; Visit Provider Physical Medicine & Rehabilitation
DX: M48.04 Spinal stenosis, thoracic region (principal); M51.14 Intervertebral disc disorders with radiculopathy, thoracic region; M47.24 Other spondylosis with radiculopathy, thoracic region
CPT/HCPCS: 64479; 99152; J1100; J2250; J3490

== ENCOUNTER 2024-05-29 07:15 | Day surgery (SDC) | payer OTHER, SELFPAY ==
[2023-04-08 23:55] VITALS: BMI 31.3
[2024-05-29 07:49] VITALS: BP 142/94; PULSE 87; RESP 16; TEMP 35.9; O2SAT 99
[2024-05-29] MEDS: SODIUM CHLORIDE 0.9% 1,000 ML 150 ML IV (08:00)
--- NOTE | 2024-05-29 09:26 | P.HP_ITS ---
History of Present Illness History of Present Illness Date Patient Seen: 05/29/24 Time Patient Seen: 09:26 Chief complaint: EGD w/poss bx Narrative: Minoo is a 63-year-old woman with dysphagia. See the office note for more details. She has her barium swallow scheduled. [facility] Medical History Normal cardiac ejection fraction (04/09/23) Herniated nucleus pulposus, lumbar COVID-19 (~09/2022) Conjunctivitis Acute bacterial sinusitis Chronic diarrhea Impingement syndrome of right shoulder Cervical radiculopathy at C6 Thoracic radiculopathy due to trauma Rheumatoid arthritis Osteoporosis Mumps Measles Chicken pox Fibroids Abnormal Pap smear of cervix (~2003) Hemorrhoid Chronic back pain Surgical History History of ventral hernia repair Hx of gastric bypass History of appendectomy S/P hysterectomy Family History Father Hypertension History of heart disease Lung disease Mother Diabetes mellitus Brother Hypertension Diverticulitis Sister Colon cancer Hyperlipidemia Hypertension COPD (chronic obstructive pulmonary disease) Social History household members: spouse Smoking Status: Never smoker alcohol intake: current substance use type: does not use Meds Home Medications and Allergies Home Medications Medication Instructions Recorded Confirmed Type hydroxychloroquine 200 mg tablet 200 mg PO BID 07/26/20 05/29/24 History lifitegrast 5 % eye drops in a 1 drp EYE-BOTH BID 07/26/20 04/28/24 History dropperette leflunomide 20 mg tablet 20 mg PO DAILY 08/29/21 05/29/24 History adalimumab 40 mg/0.4 mL 40 mg SUBCUT Q2W 06/19/22 05/29/24 History subcutaneous pen kit (Humira(CF) Pen) nifedipine 10 mg capsule 10 mg PO BID PRN Reynauds 09/13/22 05/29/24 History meclizine 25 mg tablet 25 mg PO BID PRN vertigo #20 tabs 07/17/23 05/29/24 Rx baclofen 10 mg tablet 10 mg PO BID 09/12/23 05/29/24 History duloxetine 60 mg capsule,delayed 60 mg PO DAILY anxiety with 10/08/23 05/29/24 Rx release depression #90 caps cyclobenzaprine 10 mg tablet 10 mg PO BEDTIME Pain #30 tabs 12/13/23 05/29/24 Rx lidocaine 5 % topical patch 1 patch topical DAILY #30 ea 12/13/23 04/28/24 Rx desoximetasone 0.05 % topical cream applic topical Lichen Sclerosus 01/17/24 04/28/24 History tacrolimus 0.1 % topical ointment topical BID 01/17/24 04/28/24 History hydroxyzine HCl 25 mg tablet 50 mg PO BEDTIME derm itching 03/17/24 05/29/24 History semaglutide (weight loss) 0.25 0.25 mg (0.5 mL) SUBCUT QWEEK #2 mL 03/17/24 05/29/24 Rx mg/0.5 mL subcutaneous pen injector (Wegovy) semaglutide (weight loss) 0.5 0.5 mg (0.5 mL) SUBCUT QWEEK #2 mL 03/17/24 04/28/24 Rx mg/0.5 mL subcutaneous pen injector (Wegovy) tramadol 50 mg tablet 50 mg PO BEDTIME PRN pain #30 tabs 03/17/24 05/29/24 Rx estradiol 0.05 mg/24 hr semiweekly 1 patch transdermal 2XW #8 ea 03/21/24 05/29/24 Rx transdermal patch alprazolam 0.5 mg tablet (Xanax) 0.5 mg PO .COMPLEX PRN Pre MRI or 04/09/24 05/29/24 Rx Procedure #5 tabs gabapentin 300 mg capsule 600 mg (2 x 300 mg) PO TID #180 04/09/24 05/29/24 Rx caps Allergies Allergy/AdvReac Type Severity Reaction Status Date / Time No Known Drug Allergies Allergy Verified 05/29/24 07:47 Exam Vital Signs (past 8 hours): - 05/29/24 07:49 Temperature 96.6 F L Pulse Rate 87 Respiratory Rate 16 Blood Pressure 142/94 H Pulse Oximetry 99 Oxygen Delivery Method Room Air Oxygen Delivery Method Room Air Const General: No acute distress Resp Effort & Inspection: normal respiratory effort Assessment & Plan Assessment and plan (1) Dysphagia: Qualifiers: Dysphagia type: esophageal phase Qualified Code(s): R13.19 - Other dysphagia Status: Acute Plan Proceed with EGD Time-Based Coding :: [TOTAL MINUTES] spent with patient and on the chart (including review of chart, obtaining history, exam, reviewing outside data, placing orders, documenting exam and treatment plan, and counseling patient) on [DATE]. [employer] Assistant Document charge(s): No
--- NOTE | 2024-05-29 09:40 | PM.OP.EGD ---
Operative Date/Time/Diagnoses Date of procedure: 05/29/24 Time of procedure: 09:40 Pre-op diagnosis: Dysphagia Post-op diagnosis: same Procedure & Clinicians Study performed: Esophagogastroduodenoscopy Same procedure as scheduled: Yes Surgeon: Harley Benavidez Procedure Notes Procedure in detail: Surgeon: Harley Benavidez MD Anesthesia: Sujata Matthews timeout was performed. A bite blocked was placed. The patient was positioned in the left lateral decubitus position. Anesthesia was administered. The endoscope was inserted through the bite block and passed through the esophagus and stomach and into the duodenum. The duodenal mucosa appeared normal. The scope was withdrawn into the duodenal bulb and no abnormalities were seen. The scope was withdrawn into the stomach. Abnormalities were seen. The scope was retroflexed and a small hiatal hernia was noted. The diaphragmatic impression was at 35 cm and the GE junction was at 32 cm for a 3 cm hiatal hernia. The scope was withdrawn into the esophagus and no abnormalities were seen. No stricture was seen.. The remainder of the esophagus was normal. The scope was withdrawn. The patient was awakened and brought to recovery. Sedation time: 2 minutes Findings: 3 cm hiatal hernia, no esophageal stricture Post-procedure Disposition: PACU
[2024-05-29 09:44] VITALS: BP 100/69; PULSE 79; RESP 16; TEMP 35.9; O2SAT 94
[2024-05-29 09:49] VITALS: BP 117/71; PULSE 75; PULSE 81; RESP 14; RESP 20; O2SAT 97; O2SAT 98
[2024-05-29 09:54] VITALS: BP 118/87; PULSE 80; RESP 12; TEMP 36.1; O2SAT 97
[2024-05-29 10:00] VITALS: BP 134/84; PULSE 80; RESP 14; O2SAT 98
== END 2024-05-29 10:17 | disposition home or self-care (01) ==
PROVIDERS: Family Provider Family Medicine; PCP Family Medicine; Referring Provider Surgery; Visit Provider Surgery
PROC: 0DJ08ZZ Inspection of Upper Intestinal Tract, Via Natural or Artificial Opening Endoscopic (ICD-10-PCS; CPT 43235; principal; 2024-05-29 08:45)
DX: K44.9 Diaphragmatic hernia without obstruction or gangrene (principal); R13.19 Other dysphagia; Z98.84 Bariatric surgery status; Z90.710 Acquired absence of both cervix and uterus
CPT/HCPCS: 43235; J2704

== ENCOUNTER → 2024-05-30 12:13 | Outpatient (CLI) | payer OTHER, SELFPAY ==
[2023-04-08 23:55] VITALS: BMI 31.3
--- NOTE | 2024-05-30 12:15 | DI.RAD.S_ITS ---
PROCEDURE: FL BARIUM SWALLOW INDICATIONS: Dysphagia COMPARISON: None. FINDINGS: Function: There is normal esophageal peristalsis. There was a distal esophageal hiatus hernia which incorporated approximately 10-20% of the proximal stomach. The patient has had previous surgical intervention with multiple clips at the mid gastric level. There was significant reflux in the Trendelenburg position without water siphonage. There was normal transit of a calibrated barium tablet through the esophagus into the stomach. Morphology: Air-contrast images demonstrate normal mucosal morphology. Single contrast views show no esophageal strictures, extrinsic mass effects, or diverticula. Limited images of the stomach demonstrate normal appearance with numerous upper body surgical clips.. IMPRESSION: Hiatus hernia with significant reflux. Evidence for previous abdominal surgery. Dictated by: Hank Parekh M.D. on 05/30/2024 at 15:20 Approved by: Hank Parekh M.D. on 05/30/2024 at 15:33
== END ==
PROVIDERS: Family Provider Family Medicine; PCP Family Medicine; Referring Provider Family Medicine; Visit Provider Family Medicine
DX: R13.19 Other dysphagia (principal); K46.9 Unspecified abdominal hernia without obstruction or gangrene; K21.9 Gastro-esophageal reflux disease without esophagitis
CPT/HCPCS: 74220

== ENCOUNTER → 2024-07-01 10:51 | Outpatient (ROUT) | payer OTHER, SELFPAY ==
[2024-10-21 12:04] VITALS: BMI 31.3
== END ==
PROVIDERS: Family Provider Family Medicine; PCP Family Medicine; Visit Provider Physician Assistant
DX: J01.10 Acute frontal sinusitis, unspecified (principal)
CPT/HCPCS: 80053; 85025; 86140

== ENCOUNTER → 2024-07-01 11:43 | Outpatient (CLI) | payer OTHER, SELFPAY ==
[2023-04-08 23:55] VITALS: BMI 31.3
[2024-07-01 13:32] LABS: Influenza A - CEPHEID Flu A NEGATIVE (NEGATIVE); Influenza B - CEPHEID Flu B NEGATIVE (NEGATIVE); Respiratory Syncytial Virus Negative (Negative)
[2024-07-01 13:33] LABS: COVID-19 CEPHEID 4-PLEX PCR Negative (Negative)
== END ==
PROVIDERS: Family Provider Family Medicine; PCP Family Medicine; Visit Provider Physician Assistant
DX: J02.9 Acute pharyngitis, unspecified (principal)
CPT/HCPCS: 0241U; 87070

== ENCOUNTER 2024-08-24 12:09 | Emergency (ER) | payer OTHER, SELFPAY ==
[2023-04-08 23:55] VITALS: BMI 31.3
[2024-08-24] VITALS (22 sets, daily range): BP systolic 97–186; BP diastolic 57–93; PULSE 70–88; RESP 10–35; TEMP 36.6; O2SAT 95–100; BMI 29.2
--- NOTE | 2024-08-24 12:19 | DI.RAD.S_ITS ---
PROCEDURE: XR ANKLE RT MIN 3V INDICATIONS: fall down 3 stairs with obvious ankle deformity TECHNIQUE: 3 views of the ankle were acquired. COMPARISON: None. FINDINGS: Bones: Distal tibia and fibular comminuted fracture dislocation posterior displacement talus in complete ankle mortise disruption Soft tissues: No tibiotalar joint effusion. Achilles tendon appears normal. IMPRESSION: Distal tibial fibular fracture dislocation Approved by: Harvey Moeller M.D. on 08/24/2024 at 12:40
--- NOTE | 2024-08-24 12:19 | DI.RAD.S_ITS ---
PROCEDURE: XR TIBIA FUBULA RT 2V INDICATIONS: fall down 3 stairs with obvious ankle deformity TECHNIQUE: 2 views of the tibia and fibula were acquired. COMPARISON: None. FINDINGS: Bones: Comminuted fracture dislocation of the distal tibia fibula with posterior displacement of the talus relative to the distal tibia. Soft tissues: No suspicious soft tissue calcifications or masses. IMPRESSION: Comminuted distal tibial and fibular fracture dislocation with complete disruption of the ankle mortise Approved by: Harvey Moeller M.D. on 08/24/2024 at 12:27
--- NOTE | 2024-08-24 12:19 | DI.RAD.S_ITS ---
PROCEDURE: XR FOOT RT 2V INDICATIONS: fall down 3 stairs with obvious ankle deformity TECHNIQUE: 3 views of the foot were acquired. COMPARISON: None. FINDINGS: Bones: Comminuted distal tibial and fibular fracture dislocation Soft tissues: No tibiotalar joint effusion. Achilles tendon appears normal. IMPRESSION: Comminuted distal tibial fibular fracture dislocation with posterior displacement of the talus incomplete ankle mortise disruption Approved by: Harvey Moeller M.D. on 08/24/2024 at 12:38
[2024-08-24] MEDS: ONDANSETRON 4 MG/2 ML INJ IV (12:33)
[2024-08-24] MEDS: MORPHINE 4 MG/ML INJ IV (12:33)
[2024-08-24] MEDS: HYDROMORPHONE 1 MG INJ IV (13:41)
--- NOTE | 2024-08-24 13:51 | ED.LOWEXIN ---
HPI - Extremity Injury (Lower) General Chief Complaint: Extremity Injury, Lower Stated Complaint: R ankle deformity Time Seen by Provider: 08/24/24 13:51 Source: patient, family and EMS Mode of arrival: EMS Limitations: no limitations History of Present Illness HPI Narrative: 63-year-old female history of rheumatoid arthritis, Raynaud's, prior gastric sleeve, esophageal hernia who presents with complaint of fall and right ankle pain. Patient was walking down about 3 stone steps in their yard. She states she tripped and fell and has pain in the right ankle. She denies any other injuries. Denies hitting her head. No LOC. Denies any neck or back pain, no chest pain or shortness of breath. No nausea or vomiting. No other GI or urinary symptoms. No numbness tingling in her foot but is quite painful for any kind of movement. Patient states no aspirin or anticoagulants. No reported allergies to medications. States she is usually pretty sensitive to anesthesia meds. Has a child who had malignant hyperthermia. No tobacco, occasional alcohol, none today, no recreational drugs. She was accompanied by her . Related Data Home Medications Medication Instructions Recorded Confirmed hydroxychloroquine 200 mg tablet 200 mg PO BID 07/26/20 07/23/24 lifitegrast 5 % eye drops in a 1 drp EYE-BOTH BID 07/26/20 07/23/24 dropperette leflunomide 20 mg tablet 20 mg PO DAILY 08/29/21 07/23/24 adalimumab 40 mg/0.4 mL 40 mg SUBCUT Q2W 06/19/22 07/23/24 subcutaneous pen kit (Sergio(CF) Pen) nifedipine 10 mg capsule 10 mg PO BID PRN Reynauds 09/13/22 07/23/24 baclofen 10 mg tablet 10 mg PO BID 09/12/23 07/23/24 desoximetasone 0.05 % topical cream applic topical Lichen Sclerosus 01/17/24 07/23/24 tacrolimus 0.1 % topical ointment topical BID 01/17/24 07/23/24 hydroxyzine pamoate 25 mg capsule 25 mg PO BID 07/23/24 07/23/24 Previous Rx's Medication Instructions Recorded meclizine 25 mg tablet 25 mg PO BID PRN vertigo #20 tabs 07/17/23 duloxetine 60 mg capsule,delayed 60 mg PO DAILY anxiety with 10/08/23 release depression #90 caps lidocaine 5 % topical patch 1 patch topical DAILY #30 ea 12/13/23 tramadol 50 mg tablet 50 mg PO BEDTIME PRN pain #30 tabs 03/17/24 semaglutide (weight loss) 0.5 0.5 mg (0.5 mL) SUBCUT QWEEK #2 mL 07/17/24 mg/0.5 mL subcutaneous pen injector (Wegovy) estradiol 0.05 mg/24 hr semiweekly 1 patch transdermal 2XW #8 ea 07/18/24 transdermal patch gabapentin 600 mg tablet 600 mg PO TID PRN pain (scale 07/23/24 score 4-6) #180 tabs cyclobenzaprine 10 mg tablet 10 mg PO BEDTIME Pain #30 tabs 07/29/24 oxycodone 5 mg tablet 5 mg PO QID PRN pain #14 tabs 08/24/24 Allergies Allergy/AdvReac Type Severity Reaction Status Date / Time No Known Drug Allergies Allergy Verified 07/23/24 10:59 Review of Systems Review of Systems ROS Unobtainable: All systems reviewed & are unremarkable except as noted in HPI and below Patient History Medical History Gallstones Normal cardiac ejection fraction (04/09/23) Herniated nucleus pulposus, lumbar COVID-19 (~09/2022) Conjunctivitis Acute bacterial sinusitis Chronic diarrhea Impingement syndrome of right shoulder Cervical radiculopathy at C6 Thoracic radiculopathy due to trauma Rheumatoid arthritis Osteoporosis Mumps Measles Chicken pox Fibroids Abnormal Pap smear of cervix (~2003) Hemorrhoid Chronic back pain Surgical History History of ventral hernia repair Hx of gastric bypass History of appendectomy S/P hysterectomy Family History Father Hypertension History of heart disease Lung disease Mother Diabetes mellitus Brother Hypertension Diverticulitis Sister Colon cancer Hyperlipidemia Hypertension COPD (chronic obstructive pulmonary disease) Social History household members: spouse Smoking Status: Never smoker alcohol intake: current substance use type: does not use Smoking Status: Never smoker alcohol intake frequency: a few times a week Exam Narrative Exam Narrative: GENERAL: Alert and oriented x three, female in moderate distress HEENT: Head normocephalic, atraumatic, EOMI, pupils reactive, face symmetric, moist mucous membranes NECK: Supple, full range of motion, no cervical tenderness, normal range of motion. CARDIOVASCULAR: Regular rate and rhythm without murmurs, rubs or gallops. RESPIRATORY: Breath sounds equal bilaterally, no wheezes rales or rhonchi. ABDOMEN: Soft, nontender. Normoactive bowel sounds all 4 quadrants. No guarding or rebound, rigidity, no mass : No CVA tenderness EXTREMITIES: Patient was obvious deformity and ecchymosis of the right ankle, she can flex extend her toes but can not move with the ankle. She was no other bony tenderness of the knee or upper leg. No other tenderness throughout her extremities. Patient has 2+ dorsalis pedis bilaterally. Cap refills less than 2 seconds bilateral feet and all 10 toes. Normal sensation throughout. No lacerations or open wounds, no clubbing or edema. Neurovascularly intact. NEUROLOGICAL: Cranial nerves II through XII grossly intact. Moving all extremities SKIN: Warm, dry, no petechiae, no rashes or lesions. Initial Vital Signs Initial Vital Signs: Vital Signs Temperature 97.8 F 08/24/24 12:18 Pulse Rate 88 08/24/24 12:18 Respiratory Rate 18 08/24/24 12:18 Blood Pressure 144/93 H 08/24/24 12:18 Pulse Oximetry 96 08/24/24 12:18 Oxygen Delivery Method Room Air 08/24/24 12:18 Procedures Orthopedic Fracture Reduction Fracture #1: Time Out Performed: Yes Side: right Fracture Reduction Location: tibia and fibula Analgesia: procedural sedation Technique: direct manipulation and traction/counter-traction Post-reduction neuro exam: intact and no change Post-reduction vascular exam: intact and no change Splint Applied: Yes Patient Tolerated Procedure: Well Orthopedic Splinting/Casting Injury #1: Side: right Lower Extremity Injury Location: ankle Lower Extremity Immobilizer: posterior splint and stirrup splint Other Orthopedic Equipment: crutches and walker Post splinting neuro exam: intact and no change Post splinting vascular exam: no change Placed by: Provider Procedural Sedation Consent signed: Yes Indication: fracture/dislocation reduction ASA Class: II Mallampati Airway Classification: Class II Time of Last PO Intake: 21:30 (08/23/24) IV Propofol dose (mg): 50 ED Sedation Level: Moderate (Concious) Patient Tolerated Procedure: Well and No complications Complications: none Course Orders Ordered: ED Orders 08/24/24 12:19 XR ankle RT min 3V Stat XR foot RT 2V Stat XR tibia fibula RT 2V Stat 08/24/24 14:30 XR ankle RT min 3V Stat Discontinued Medications Hydromorphone HCl (Hydromorphone 1 Mg Inj) 1 mg IV NOW ONE Stop: 08/24/24 13:39 Last Admin: 08/24/24 13:41 Dose: 1 mg Documented By: ES Morphine Sulfate (Morphine 4 Mg/Ml Inj) 4 mg IV NOW ONE Stop: 08/24/24 12:31 Last Admin: 08/24/24 12:33 Dose: 4 mg Documented By: ES Ondansetron HCl (Ondansetron 4 Mg/2 Ml Inj) 4 mg IV NOW ONE Stop: 08/24/24 12:31 Last Admin: 08/24/24 12:33 Dose: 4 mg Documented By: SERENA Oxycodone/Acetaminophen (Oxycodone/Acetaminophen 5/325 Tablet) 2 tab PO NOW ONE Stop: 08/24/24 14:32 Last Admin: 08/24/24 14:34 Dose: 2 tab Documented By: SERENA Propofol (Propofol 200 Mg/20 Ml Vial) 65 mg 1 mg/kg (65 mg) IV NOW ONE Stop: 08/24/24 14:00 Last Admin: 08/24/24 14:32 Dose: 50 mg Documented By: SERENA Vital Signs Vital signs: Vital Signs - 8 hr 08/24/24 12:18 08/24/24 12:19 08/24/24 12:22 Temperature 97.8 F Pulse Rate 88 85 Respiratory Rate 18 Blood Pressure 144/93 H 119/86 Pulse Oximetry 96 97 Oxygen Delivery Method Room Air Oxygen Flow Rate 08/24/24 12:22 08/24/24 12:30 08/24/24 12:30 Temperature Pulse Rate 85 79 Respiratory Rate 16 18 Blood Pressure 136/89 Pulse Oximetry 97 98 Oxygen Delivery Method Oxygen Flow Rate 08/24/24 13:00 08/24/24 13:00 08/24/24 13:30 Temperature Pulse Rate 77 79 Respiratory Rate 29 H 14 Blood Pressure 115/75 Pulse Oximetry 98 99 Oxygen Delivery Method Oxygen Flow Rate 08/24/24 13:31 08/24/24 13:31 08/24/24 14:00 Temperature Pulse Rate 79 74 Respiratory Rate 22 18 Blood Pressure 175/90 H 139/80 Pulse Oximetry 100 100 Oxygen Delivery Method Oxygen Flow Rate 0 08/24/24 14:00 08/24/24 14:00 08/24/24 14:18 Temperature Pulse Rate 77 77 Respiratory Rate 27 H 21 Blood Pressure 186/85 H Pulse Oximetry 100 99 Oxygen Delivery Method Oxygen Flow Rate 08/24/24 14:18 08/24/24 14:20 08/24/24 14:20 Temperature Pulse Rate 81 Respiratory Rate 19 Blood Pressure 167/68 H 151/75 H Pulse Oximetry 100 Oxygen Delivery Method Oxygen Flow Rate 08/24/24 14:25 08/24/24 14:25 08/24/24 14:30 Temperature Pulse Rate 75 74 Respiratory Rate 25 H 22 Blood Pressure 139/80 Pulse Oximetry 100 100 Oxygen Delivery Method Oxygen Flow Rate 08/24/24 14:30 08/24/24 14:35 08/24/24 14:35 Temperature Pulse Rate 70 Respiratory Rate 35 H Blood Pressure 140/81 137/82 Pulse Oximetry 100 Oxygen Delivery Method Oxygen Flow Rate 08/24/24 14:40 08/24/24 14:40 08/24/24 14:48 Temperature Pulse Rate 72 78 Respiratory Rate 13 16 Blood Pressure 150/86 H Pulse Oximetry 98 Oxygen Delivery Method Oxygen Flow Rate 08/24/24 15:00 08/24/24 15:00 08/24/24 15:30 Temperature Pulse Rate 71 75 Respiratory Rate 10 L 23 Blood Pressure 129/76 Pulse Oximetry 95 100 Oxygen Delivery Method Oxygen Flow Rate 08/24/24 15:30 08/24/24 15:54 08/24/24 15:54 Temperature Pulse Rate 80 Respiratory Rate 23 Blood Pressure 99/63 100/61 Pulse Oximetry 97 Oxygen Delivery Method Oxygen Flow Rate 08/24/24 16:00 08/24/24 16:00 08/24/24 16:30 Temperature Pulse Rate 77 Respiratory Rate 21 Blood Pressure 104/62 97/57 L Pulse Oximetry 97 Oxygen Delivery Method Oxygen Flow Rate 08/24/24 16:31 08/24/24 16:31 08/24/24 17:00 Temperature Pulse Rate 82 82 Respiratory Rate 20 25 H Blood Pressure 107/69 Pulse Oximetry 99 Oxygen Delivery Method Oxygen Flow Rate 08/24/24 17:00 Temperature Pulse Rate Respiratory Rate Blood Pressure 117/75 Pulse Oximetry Oxygen Delivery Method Oxygen Flow Rate MDM - Extremity Injury (Lower) Lab Data Labs: Point of Care Testing Test Results Negative MDM Narrative Medical decision making narrative: Right tib-fib shows comminuted distal tibia and fibular fracture dislocation with the acute please disruption of the ankle mortise. Right ankle x-ray shows distal tibia fibular fracture or dislocation comminuted with posterior displacement talus incomplete ankle mortise disruption. Foot x-ray shows comminuted distal tibiofibular fracture dislocation posterior placement talus incomplete ankle mortise disruption. Repeat x-ray post reduction shows comminuted distal tibia and fibular intra-articular fracture with reduced tibial talar jointnow in anatomic alignment Patient had fentanyl EN route, has had morphine and Dilaudid still quite uncomfortable. Also had Zofran. Patient had oral pain medication after reduction. Discussed with the patient and family attempted very gentle reduction with IV pain medications on board but patient was not tolerating well. Discussed procedural sedation and reduction which he was agreeable to. Has been fine for patient with the patient's verbal consent. They note she can be sensitive to anesthesia and there is a family history of malignant hyperthermia. Did review patient's old records has had propofol in the past. Patient was placed in stirrup splint along with posterior by myself and nursing drink procedural sedation and reduction. Patient is neurovascularly intact pre and post. Patient is much more comfortable after reduction. Did have a dose of oral pain medication. Few episodes where she desatted while sleepy but has not been persistent. With a few deep breaths she would improve. Patient does not she was little bit of discomfort over the lateral left foot. No bony tenderness on examination she was good range of motion little bit discomfort particularly plantar flexion. Discussed obtaining x-ray but patient states she does not think it is broken and defers. Spoke with Dr. Peterson, orthopedic surgery at 1621. Recommends follow up, discussed as is distal tib-fib with intra-articular involvement possibly some involvement with the talus patient can follow up outpatient but there is possibility might ultimately have to follow up with [facility] but does not need transfer today. Can follow up locally in the short term and then they can make a final decision at that evaluation. Plan for posterior and stirrup splint. Nonweightbearing with crutches. Discussed this with the patient and family they are aware feel comfortable with this plan. Express understanding patient may be referred to other group. Discussed return precautions. Patient's pain continues to be significantly improved after her reduction. Discharge Plan Departure Patient Disposition: Home Clinical Impression: Fracture of tibia and fibula Instructions: DI for Ankle Fracture Activity Restrictions/Additional Instructions: Call tomorrow to set up follow up appointment with Orthopedic surgery. Follow up within the next week. Call to follow up with Dr. Arzate. There is a chance they may refer you to more subspecialty orthopedic surgery after they see you. You can take acetaminophen up to a 1000 mg every 6 hours as needed for pain. Can take 1-2 tablets of oxycodone every 6 hours as needed. This medication can make you sleepy do not drive, perform hazardous activities or make any major decisions while taking it. This medication will make you constipated please take a stool softener once to twice daily until stools are soft and regular. You can also take Vistaril 1 tablet every 8 hours as needed for muscle spasm. Prescription sent to [facility] in [place]. Nonweightbearing until cleared by Orthopedic surgery. Splint Care: Keep splint clean and dry. Elevated affected body part to decrease swelling. OK to use ice pack on the affected body part. Use for 15-20 minutes each time, for 5-6x per day. If you develop worsening pain, numbness, tingling, discoloration of the affected body part, loosen the splint by loosening the MIRACLE wrap, and either see your doctor for an urgent re-assessment, or return to the Emergency Department. Return to the Emergency Department for any new or worsening symptoms. Prescriptions: New oxycodone 5 mg tablet 5 mg PO QID PRN (Reason: pain) Qty: 14 0RF No Action meclizine 25 mg tablet 25 mg PO BID PRN (Reason: vertigo) Qty: 20 0RF Wegovy 0.5 mg/0.5 mL pen injector 0.5 mg SUBCUT QWEEK Qty: 2 2RF estradiol 0.05 mg/24 hr patch semiweekly 1 patch transdermal 2XW Qty: 8 2RF Patient Comments: patient took patch off this am, due for next patch 04/15/2023 Rx Instructions: apply 1 patch for 3 days alternating with 1 patch for 4 days each week for 3 wks per 4-wk cycle gabapentin 600 mg tablet 600 mg PO TID PRN (Reason: pain (scale score 4-6)) Qty: 180 3RF cyclobenzaprine 10 mg tablet 10 mg PO BEDTIME Qty: 30 1RF tacrolimus 0.1 % ointment topical BID desoximetasone 0.05 % cream topical Patient Comments: Use twice a day on weekends tramadol 50 mg tablet 50 mg PO BEDTIME PRN (Reason: pain) Qty: 30 2RF hydroxychloroquine 200 mg tablet 200 mg PO BID lifitegrast 5 % dropperette 1 drp EYE-BOTH BID duloxetine 60 mg capsule,delayed release(DR/EC) 60 mg PO DAILY Qty: 90 3RF leflunomide 20 mg tablet 20 mg PO DAILY nifedipine 10 mg capsule 10 mg PO BID PRN (Reason: Reynauds) baclofen 10 mg tablet 10 mg PO BID lidocaine 5 % adhesive patch,medicated 1 patch topical DAILY Qty: 30 1RF Rx Instructions: leave on most painful area for 12 hrs Humira(CF) Pen 40 mg/0.4 mL pen injector kit 40 mg SUBCUT Q2W hydroxyzine pamoate 25 mg capsule 25 mg PO BID Referrals: Amparo Arzate MD [Physician] - Robert Peterson MD [Physician] - Oma López DO [Primary Care Provider] - Stand Alone Forms: Patient Portal/API/Survey
--- NOTE | 2024-08-24 14:30 | DI.RAD.S_ITS ---
PROCEDURE: XR ANKLE RT MIN 3V INDICATIONS: post reduction TECHNIQUE: 3 views of the ankle were acquired. COMPARISON: [facility], CR, XR ANKLE RT MIN 3V, 08/24/2024, 12:19. FINDINGS: Bones: Comminuted distal tibial and fibular intra-articular fracture. The talus has been reduced, and now articulates appropriately with the talus. Oblique fibular fracture with minimal medial displacement of the distal fracture fragment Soft tissues: No tibiotalar joint effusion. Achilles tendon appears normal. IMPRESSION: Comminuted distal tibial and fibular intra-articular fracture with reduced tibial talar joint now in anatomic alignment Approved by: Harvey Moeller M.D. on 08/24/2024 at 14:39
[2024-08-24] MEDS: propofoL 200 MG/20 ML VIAL 65 MG IV (14:32)
[2024-08-24] MEDS: OXYCODONE/ACETAMINOPHEN 5/325 TABLET 2 TAB PO (14:34)
== END 2024-08-24 17:18 | disposition home or self-care (01) ==
PROVIDERS: Emergency Provider Emergency Medicine; Family Provider Family Medicine; PCP Family Medicine
DX: S82.451A Displaced comminuted fracture of shaft of right fibula, initial encounter for closed fracture (principal); S82.251A Displaced comminuted fracture of shaft of right tibia, initial encounter for closed fracture; W01.0XXA Fall on same level from slipping, tripping and stumbling without subsequent striking against object, initial encounter; Z98.84 Bariatric surgery status
CPT/HCPCS: 27752; 73590; 73610; 73620; 96374; 96375; 99152; 99284; J1171; J2270; J2405; J2704

== ENCOUNTER → 2024-08-25 12:04 | Outpatient (CLI) | payer OTHER, SELFPAY ==
[2023-04-08 23:55] VITALS: BMI 31.3
--- NOTE | 2024-08-25 12:05 | DI.CT.S_ITS ---
PROCEDURE: CT LE RT WO CON INDICATIONS: Displaced pilon fracture of rt tibia TECHNIQUE: Noncontrast 1-1.5 mm axial sections acquired from above the tibiotalar joint to the bottom of the calcaneus, with coronal and sagittal reformats. COMPARISON: [facility], CR, XR ANKLE RT MIN 3V, 08/24/2024, 14:26. FINDINGS: Image quality: Excellent. Bones: Comminuted, nondisplaced fracture of the medial malleolus, extending posteriorly to the posterior malleolus, involving approximately 30% of the articular surface. Comminuted, mildly displaced fracture of the distal fibula metadiaphysis. No tibiotalar dislocation. Patient is imaged in a cast. A small sclerotic lesion in the 1st metatarsal head, nonspecific and may represent a bone island. Soft tissues: Diffuse subcutaneous edema of the ankle, extending to the dorsal foot. The flexors, extensors, and the peroneal tendons unremarkable. Mild tendinosis distal Achilles tendon without full-thickness rupture. IMPRESSION: 1. Comminuted nondisplaced fracture of the medial malleolus, extending into the posterior malleolus. 2. Comminuted mildly displaced fracture of the distal fibula metadiaphysis. 3. Diffuse subcutaneous edema of the ankle. Dictated by: Rebecca Charlton M.D. on 08/25/2024 at 15:37 Approved by: Rebecca Charlton M.D. on 08/25/2024 at 15:42
== END ==
PROVIDERS: Family Provider Family Medicine; PCP Family Medicine; Referring Provider Orthopaedic Surgery; Visit Provider Orthopaedic Surgery
DX: S82.871A Displaced pilon fracture of right tibia, initial encounter for closed fracture (principal); S82.54XA Nondisplaced fracture of medial malleolus of right tibia, initial encounter for closed fracture; S82.831A Other fracture of upper and lower end of right fibula, initial encounter for closed fracture; M25.471 Effusion, right ankle; M89.9 Disorder of bone, unspecified; X58.XXXA Exposure to other specified factors, initial encounter
CPT/HCPCS: 73700

== ENCOUNTER 2024-08-29 11:22 | Emergency (ER) | payer MEDICARE, OTHER, SELFPAY ==
[2023-04-08 23:55] VITALS: BMI 31.3
[2024-08-29 11:23] VITALS: BP 167/102; PULSE 107; RESP 18; TEMP 37; O2SAT 99; BMI 29.2
[2024-08-29 11:30] VITALS: PULSE 101; O2SAT 100
--- NOTE | 2024-08-29 11:30 | DI.RAD.S_ITS ---
PROCEDURE: XR ANKLE RT MIN 3V INDICATIONS: known fracture, plan for OR, fall and reinjured, splinted. TECHNIQUE: 3 views of the ankle were acquired. COMPARISON: , CT, CT LE RT WO CON, 08/25/2024, 12:32. , CR, XR ANKLE RT MIN 3V, 08/24/2024, 14:26. , CR, XR ANKLE RT MIN 3V, 08/24/2024, 12:19. FINDINGS: Bones: Cast material obscures fine bony detail. Trimalleolar fracture again seen at the distal tibia and fibula and osseous alignment does not appear significantly changed. Soft tissues: Soft tissue edema is present. IMPRESSION: Trimalleolar fracture redemonstrated without significant change in alignment. Approved by: Buddy Ghotra M.D. on 08/29/2024 at 12:01
[2024-08-29] MEDS: MORPHINE 4 MG/ML INJ IV ×2 (11:35→12:45)
--- NOTE | 2024-08-29 11:46 | PC.NURSE ---
Pt is in obvious pain distress. MD notified. Verbal order received for 4 mg Morphine IV. Pain medication administered. Right leg elevated
--- NOTE | 2024-08-29 12:29 | ED.LOWEXIN ---
HPI - Extremity Injury (Lower) General Chief Complaint: Extremity Injury, Lower Stated Complaint: Broken R Leg Time Seen by Provider: 08/29/24 11:29 Source: patient, RN notes reviewed and old records reviewed Mode of arrival: EMS Limitations: no limitations History of Present Illness HPI Narrative: 63-year-old female history of rheumatoid arthritis, Raynaud's, prior gastric sleeve, esophageal hernia who represents with known right ankle fracture. Patient was going into her walk-in shower when she slipped with her crutch and fell. Patient states she did not really fall so much as her crutch slipped out and her leg struck the ground pretty hard on her heel. Had significant pain afterwards has been somewhat persistent it is a little bit improved. She had Tylenol and her oxycodone which she was close to do for immediately afterwards. Was still quite painful so EMS was contacted. Patient states has been a little bit unstable with the crutches at home. She overall had pain fairly well controlled with the oxycodone and Tylenol her primary care did add an antiemetic has not narcotics seemed to making her vomit which has been very helpful. She saw Orthopedic surgery yesterday had her splint redone yesterday with Orthopedic surgery. Is scheduled this Sunday for surgery. She denies hitting her head or injuring anything else when she fell. Related Data Home Medications Medication Instructions Recorded Confirmed hydroxychloroquine 200 mg tablet 200 mg PO BID 07/26/20 07/23/24 lifitegrast 5 % eye drops in a 1 drp EYE-BOTH BID 07/26/20 07/23/24 dropperette leflunomide 20 mg tablet 20 mg PO DAILY 08/29/21 07/23/24 adalimumab 40 mg/0.4 mL 40 mg SUBCUT Q2W 06/19/22 07/23/24 subcutaneous pen kit (Humira(CF) Pen) nifedipine 10 mg capsule 10 mg PO BID PRN Reynauds 09/13/22 07/23/24 baclofen 10 mg tablet 10 mg PO BID 09/12/23 07/23/24 desoximetasone 0.05 % topical cream applic topical Lichen Sclerosus 01/17/24 07/23/24 tacrolimus 0.1 % topical ointment topical BID 01/17/24 07/23/24 hydroxyzine pamoate 25 mg capsule 25 mg PO BID 07/23/24 07/23/24 Previous Rx's Medication Instructions Recorded meclizine 25 mg tablet 25 mg PO BID PRN vertigo #20 tabs 07/17/23 duloxetine 60 mg capsule,delayed 60 mg PO DAILY anxiety with 10/08/23 release depression #90 caps lidocaine 5 % topical patch 1 patch topical DAILY #30 ea 12/13/23 semaglutide (weight loss) 0.5 0.5 mg (0.5 mL) SUBCUT QWEEK #2 mL 07/17/24 mg/0.5 mL subcutaneous pen injector (Wegovy) estradiol 0.05 mg/24 hr semiweekly 1 patch transdermal 2XW #8 ea 07/18/24 transdermal patch gabapentin 600 mg tablet 600 mg PO TID PRN pain (scale 07/23/24 score 4-6) #180 tabs cyclobenzaprine 10 mg tablet 10 mg PO BEDTIME Pain #30 tabs 07/29/24 oxycodone 5 mg tablet 5 mg PO QID PRN pain #14 tabs 08/24/24 tramadol 50 mg tablet 50 mg PO BEDTIME PRN pain #30 tabs 08/25/24 ondansetron 4 mg disintegrating See Rx Instructions PO Q8H #30 tabs 08/28/24 tablet Allergies Allergy/AdvReac Type Severity Reaction Status Date / Time No Known Drug Allergies Allergy Verified 07/23/24 10:59 Review of Systems Review of Systems ROS Unobtainable: All systems reviewed & are unremarkable except as noted in HPI and below Patient History Medical History Family history of malignant hyperthermia Normal cardiac ejection fraction (04/09/23) Gallstones Herniated nucleus pulposus, lumbar COVID-19 (~09/2022) Conjunctivitis Acute bacterial sinusitis Chronic diarrhea Impingement syndrome of right shoulder Cervical radiculopathy at C6 Thoracic radiculopathy due to trauma Rheumatoid arthritis Osteoporosis Mumps Measles Chicken pox Fibroids Abnormal Pap smear of cervix (~2003) Hemorrhoid Chronic back pain Surgical History Hx laparoscopic cholecystectomy (02/26/24) History of ventral hernia repair Hx of gastric bypass History of appendectomy S/P hysterectomy Family History Father History of heart disease Lung disease Hypertension Mother Diabetes mellitus Brother Diverticulitis Hypertension Sister Colon cancer Hyperlipidemia COPD (chronic obstructive pulmonary disease) Hypertension Son Malignant hyperthermia Social History household members: spouse alcohol intake: current substance use type: does not use alcohol intake frequency: a few times a week Exam Narrative Exam Narrative: GENERAL: Alert and oriented x three, female in [id number] distress. HEENT: Head normocephalic, atraumatic, EOMI, pupils reactive, face symmetric, moist mucous membranes NECK: Supple, full range of motion CARDIOVASCULAR: Regular rate and rhythm without murmurs, rubs or gallops. RESPIRATORY: Breath sounds equal bilaterally, no wheezes rales or rhonchi. ABDOMEN: Soft, nontender. Normoactive bowel sounds all 4 quadrants. No guarding or rebound, rigidity, no mass : No CVA tenderness EXTREMITIES: Normal range of motion except for right lower extremity which he was on a splint patient's neurovascularly intact touch. Can wiggle her toes. Noticed a sensation has a little bit different right compared to left. Neurovascularly intact otherwise. No other bony tenderness throughout her right knee, thigh or hip. NEUROLOGICAL: Cranial nerves II through XII grossly intact. Moving all extremities SKIN: Warm, dry, no petechiae, no rashes or lesions. Initial Vital Signs Initial Vital Signs: Vital Signs Temperature 98.6 F 08/29/24 11:23 Pulse Rate 107 H 08/29/24 11:23 Respiratory Rate 18 08/29/24 11:23 Blood Pressure 167/102 H 08/29/24 11:23 Pulse Oximetry 99 08/29/24 11:23 Oxygen Delivery Method Room Air 08/29/24 11:23 Course Orders Ordered: ED Orders 08/29/24 11:30 XR ankle RT min 3V Stat Discontinued Medications Morphine Sulfate (Morphine 4 Mg/Ml Inj) 4 mg IV NOW ONE Stop: 08/29/24 11:32 Last Admin: 08/29/24 11:35 Dose: 4 mg Documented By: Morphine Sulfate (Morphine 4 Mg/Ml Inj) 4 mg IV NOW ONE Stop: 08/29/24 12:41 Last Admin: 08/29/24 12:45 Dose: 4 mg Documented By: Vital Signs Vital signs: Vital Signs - 8 hr 08/29/24 11:23 08/29/24 11:30 08/29/24 13:33 Temperature 98.6 F Pulse Rate 107 H 101 H 65 Respiratory Rate 18 16 Blood Pressure 167/102 H 140/92 H Pulse Oximetry 99 100 98 Oxygen Delivery Method Room Air Room Air MDM - Extremity Injury (Lower) MDM Narrative Medical decision making narrative: Right ankle x-ray shows trimalleolar fracture redemonstrated without significant change in alignment. Soft tissue edema is present. Patient had pain medications with EMS, received 4 mg morphine here in the department. Patient had ground level fall her crutch slipped out and she struck her heal pretty hard on the ground. Did not really fall or hit her head otherwise. Patient's pain has not returned to its normal baseline. She feels like her ankle feels a little bit tighter and a little bit more tingling than typical as well. Discussed with the patient we will give an additional dose of pain medication we will unwrap is her x-ray does not show any acute changes to the bony alignment had her splint read on yesterday but make sure she was not having increased swelling causing any neurovascular changes. Patient's Nathaniel wrap was removed, her splint was open up a little bit which did improve her symptoms. Was rewrapped and patient is overall tolerating well. Also discussed with the patient family she has been having little bit trouble with crutches discussed using a walker instead. Patient has follow up in place with Dr. Stroud had outpatient CT in his scheduled this Sunday for surgical repair. Patient states she had a refill of her pain medications and feels that she was doing well with those. Discharge Plan Departure Patient Disposition: Home Clinical Impression: Ankle fracture, right Qualifiers: Encounter type: subsequent encounter Fracture type: closed Activity Restrictions/Additional Instructions: Follow up as needed, I hope you are surgery on Sunday goes well. You can continue your current pain medication if needed you can take 1-2 tablets of oxycodone if necessary. Splint Care: Keep splint clean and dry. Elevated affected body part to decrease swelling. OK to use ice pack on the affected body part. Use for 15-20 minutes each time, for 5-6x per day. If you develop worsening pain, numbness, tingling, discoloration of the affected body part, loosen the splint by loosening the NATHANIEL wrap, and either see your doctor for an urgent re-assessment, or return to the Emergency Department. Return to the Emergency Department for any new or worsening symptoms. Please return for rapidly worsening pain, increasing numbness, pallor or blue discoloration of your toes or other new or concerning changes. Prescriptions: No Action meclizine 25 mg tablet 25 mg PO BID PRN (Reason: vertigo) Qty: 20 0RF Wegovy 0.5 mg/0.5 mL pen injector 0.5 mg SUBCUT QWEEK Qty: 2 2RF estradiol 0.05 mg/24 hr patch semiweekly 1 patch transdermal 2XW Qty: 8 2RF Patient Comments: patient took patch off this am, due for next patch 04/15/2023 Rx Instructions: apply 1 patch for 3 days alternating with 1 patch for 4 days each week for 3 wks per 4-wk cycle gabapentin 600 mg tablet 600 mg PO TID PRN (Reason: pain (scale score 4-6)) Qty: 180 3RF cyclobenzaprine 10 mg tablet 10 mg PO BEDTIME Qty: 30 1RF tramadol 50 mg tablet 50 mg PO BEDTIME PRN (Reason: pain) Qty: 30 2RF ondansetron 4 mg tablet,disintegrating See Rx Instructions PO Q8H Qty: 30 0RF Rx Instructions: 4-8 mg orally every 8 hours as needed for nausea and vomiting. tacrolimus 0.1 % ointment topical BID desoximetasone 0.05 % cream topical Patient Comments: Use twice a day on weekends hydroxychloroquine 200 mg tablet 200 mg PO BID lifitegrast 5 % dropperette 1 drp EYE-BOTH BID duloxetine 60 mg capsule,delayed release(DR/EC) 60 mg PO DAILY Qty: 90 3RF oxycodone 5 mg tablet 5 mg PO QID PRN (Reason: pain) Qty: 14 0RF leflunomide 20 mg tablet 20 mg PO DAILY nifedipine 10 mg capsule 10 mg PO BID PRN (Reason: Reynauds) baclofen 10 mg tablet 10 mg PO BID lidocaine 5 % adhesive patch,medicated 1 patch topical DAILY Qty: 30 1RF Rx Instructions: leave on most painful area for 12 hrs Humira(CF) Pen 40 mg/0.4 mL pen injector kit 40 mg SUBCUT Q2W hydroxyzine pamoate 25 mg capsule 25 mg PO BID Referrals: Amparo Arzate MD [Physician] - Oma López DO [Primary Care Provider] - Stand Alone Forms: Patient Portal/API/Survey
[2024-08-29 13:33] VITALS: BP 140/92; PULSE 65; RESP 16; O2SAT 98
== END 2024-08-29 13:52 | disposition home or self-care (01) ==
PROVIDERS: Emergency Provider Emergency Medicine; Family Provider Family Medicine; PCP Family Medicine
DX: S82.851A Displaced trimalleolar fracture of right lower leg, initial encounter for closed fracture (principal); W01.0XXA Fall on same level from slipping, tripping and stumbling without subsequent striking against object, initial encounter
CPT/HCPCS: 36415; 73610; 96374; 96376; 99284; J2270

== ENCOUNTER 2024-09-03 07:19 | Day surgery (SDC) | payer MEDICARE, OTHER, SELFPAY ==
[2023-04-08 23:55] VITALS: BMI 31.3
[2024-09-03] VITALS (12 sets, daily range): BP systolic 111–155; BP diastolic 73–97; PULSE 75–88; RESP 12–20; TEMP 36.1–37; O2SAT 95–100; BMI 28.3
--- NOTE | 2024-09-03 | DI.RAD.S_ITS ---
PROCEDURE: XR ANKLE RT MIN 3V INDICATIONS: RT ANKLE ORIF TECHNIQUE: Multiple intraoperative digital images of the right ankle were acquired. COMPARISON: [facility], CR, XR ANKLE RT MIN 3V, 08/29/2024, 11:27. FINDINGS: Bones: Spiral fracture of the distal fibular diaphysis, with lateral malleolar extension, has been reduced to anatomic alignment and is now transfixed by lateral plate and screws. Comminuted oblique fracture of the posterior and medial malleolus has also been reduced to anatomic alignment transfixed by plate and screws. Tibiotalar and talocalcaneal joints: Normal in width and alignment without arthritic change. Soft tissues: No soft tissue swelling, calcification or mass. IMPRESSION: ORIF distal fibular/lateral malleolar and posterior/medial malleolar fractures. Both are now anatomically aligned Dictated by: Fernandez Samaniego M.D. on 09/04/2024 at 6:05 Approved by: Fernandez Samaniego M.D. on 09/04/2024 at 6:08
[2024-09-03] MEDS: ACETAMINOPHEN 325 MG TABLET 975 MG PO (07:56)
[2024-09-03] MEDS: LACTATED RINGERS 1,000 ML 42 ML IV ×2 (07:56→10:19)
--- NOTE | 2024-09-03 08:26 | PM.PREOP ---
Pre-operative Note Interval Note History & Physical reviewed/Exam performed by Physician: Yes Changes to H&P: No
[2024-09-03] MEDS: CEFAZOLIN 2 GM/100 ML PREMIX 100 ML IV (09:02)
--- NOTE | 2024-09-03 09:23 | SUR.OPER ---
Supine on padded OR bed, head on pillow, arms secured on padded arm boards at <90 degrees abduction, legs uncrossed, safety belt at thigh, tape over blanket over lower left leg, right leg prepped into field
[2024-09-03] MEDS: BUPIVACAINE 0.25% W/ EPI 30 ML VIAL 60 ML INJ (09:29)
[2024-09-03] MEDS: OXYCODONE IR 5 MG TABLET PO ×2 (11:20→11:53)
[2024-09-03] MEDS: fentaNYL 100 MCG/2 ML INJ IV ×2 (11:21→11:35)
--- NOTE | 2024-09-03 11:24 | P.OP_ITS ---
Operative Date/Time/Diagnoses Date of procedure: 09/03/24 Time of procedure: 08:50 Pre-op diagnosis: Distal tibial intra-articular fracture, pilon fracture right tibia S82.871A, distal right fibula fracture S82.831a Post-op diagnosis: same Procedure & Clinicians Procedure: Open reduction internal fixation distal tibia and fibula fractures for pilon fracture CPT code 95766 right Same procedure as scheduled: Yes Indications: The patient was a 64-year-old female that sustained a intra-articular distal fibula and fractures, pilon fracture dislocation injury. She had a reduction in the emergency room and was scheduled for orthopedic surgery for open reduction internal fixation of her displaced intra-articular distal tibia and fibula frac adama. She was appropriately holding her biologic medications for her rheumatoid arthritis. The risks and benefits of the procedure have been discussed with the patient and given the opportunity to ask questions. The risks of surgery include but are not limited to infection, malunion, nonunion, persistence of pain, damage to nerves and blood vessels, posttraumatic arthritis, DVT, PE, cardiopulmonary complications and . The patient expressed a thorough understanding of the risks and benefits of surgery and has elected to proceed. Consent was signed Surgeon: Amparo Arzate Click Yes if Unassisted: Yes Anesthesia Type: General, Peripheral nerve block and Local Operative Notes Findings: Displaced distal tibia and fibula pilon fractures with intra-articular involvement. Posterior and medial variant pilon fracture with separate medial malleolar fragment anteriorly fixed with a 4.0 cannulated screw. Posterior pilon, posterior malleolus fragments buttressed with a 5 hole 1/3 tubular plate and separate anterior to posterior lag screw. Distal fibula exposed and open reduced. Separate rotated incarcerated fragment removed from the fracture site to allow reduction. Fracture secured with 10 hole 1/3 tubular plate with locking and nonlocking screws. Additional fibula pro tibia syndesmotic screw placed, tricortical. Closure Type: primary Specimen(s): none sent Prosthetic devices, grafts, tissues, transplants, or devices: Arthrex 5 hole 1/3 tubular plate and nonlocking screws 3.5 Arthrex 4.0 cannulated short thread screws x2 Arthrex 10 hole 1/3 tubular plate with locking and nonlocking screws 3.5 Arthrex 3.5 cortical screw 42 mm for syndesmotic fixation Estimated Blood Loss (mL): 30 Blood products transfused: none Tourniquet time (min): 60 Procedure in detail: Patient was seen in the preoperative area the site of surgery was marked informed consent confirmed. This was the right ankle. The patient then underwent a peripheral nerve block by the anesthesia team for postoperative pain control. The patient was then brought to the operating room positioned supine on operative table. Bony prominences were well padded. A well-padded thigh tourniquet was applied an ipsilateral thigh bump. The right lower extremity was prepped and draped in standard sterile fashion a formal time-out procedure was performed confirming the patient's side and site of surgery administration of appropriate preoperative antibiotics and presence of implants in the room and accounted for. All were in agreement. Attention turned to the right ankle the Esmarch was used for exsanguination the tourniquet raised on the thigh to 250 mm of mercury. A medial incision was marked out on the skin and taken down through the skin subcutaneous tissue with protection of the saphenous neurovascular bundle. The separate anterior medial nail fragment was exposed periosteum was removed from the fracture site and then it was cleaned out and reduced and pinned with a K-wire. Next the posterior pilon fracture lines were identified posteromedially and reduced and pinned with a K-wire. The posterior tibialis tendon was visualized and protected in its groove. Next the medial malleolus fracture K-wire was overdrilled after m easuring and a 4.0 cannulated screw was placed from the Arthrex set. Then a separate K-wire was used for anterior to posterior to secure the posterior pilon fragment this was directed under fluoroscopic guidance overdrilled and a another short thread cannulated 4.0 screw from the Arthrex set was applied. This provided good compression of the posterior component. Then a 5 hole 1/3 tubular plate from the Arthrex set was fashioned for the posterior pilon component in a buttress fashion this was positioned and secured with BB tacks and then proximally with bicortical screws and distal with a locking screw. Once this was completed attention was turned laterally a separate long lateral incision was made along the posterior border of the fibula this was taken down through the skin and subcutaneous tissues to expose the fracture. Peroneal tendons were retracted posteriorly. Superficial peroneal nerve was identified protected and retracted anteriorly. The distal fibula fracture was identified. Bone distally was quite osteoporotic. There was a flipped and incarcerated separate fragment of the level of the distal fracture and syndesmosis. This was extracted with a pituitary and removed. The fracture was then reduced and clamped. There was a separate very thin small posterior proximally extending butterfly fragment that was too small for fixation. Length and alignment were checked on visual inspection and intraoperative fluoroscopy. And a K-wire was applied to hold reduction. Next a 10 hole 1/3 tubular plate from the Arthrex set was positioned along the fracture and secured proximally and distally with BB tacks. Then nonlocking screws were applied to place the plate down to bone proximally and then locking screws distally. An additional tricortical 3.5 screw was added through the plate fibula and tibia for additional syndesmotic fixation given the osteoporotic bone and posterior pilon variant. There were some partial disruption of the most inferior anterior parts of the syndesmosis with the bulk of the ATFL was intact. At this point final fluoroscopic x-rays were obtained AP, mortise, lateral and stress external rotation demonstrated stable appropriate alignment of the tibia and fibula pilon fracture open reduction internal fixation. Tourniquet was released hemostasis was achieved. The wounds were closed with 2-0 Vicryl 4-0 Monocryl and 3-0 nylon suture. 24 cc of 0.25% Marcaine with epinephrine were used for local anesthetic. The patient was placed into a sterile dressing with Xeroform gauze Webril a bulky Hanna splint with posterior and U slabs. Patient was awoken from anesthetic and taken to the recovery unit in good condition there were no immediate complications from this procedure. Counts were correct. Complications: none Post-operative Condition: stable Disposition: PACU Plan for aftercare: Touchdown for balance or nonweightbearing for 6 weeks. Follow up in Orthopedic Clinic in 3 weeks for suture removal. Elevate extremity as much as possible in the 1st 2-3 weeks after surgery to help with wound healing. Keep splint clean dry and intact. Aspirin 325 mg daily for DVT prophylaxis x6 weeks
[2024-09-03] MEDS: HYDROMORPHONE 1 MG INJ IV ×2 (11:27→11:54)
[2024-09-03] MEDS: hydrOXYzine 50 MG/ML INJ 25 MG IM (11:36)
[2024-09-03] MEDS: ONDANSETRON 4 MG/2 ML INJ IV (11:57)
== END 2024-09-03 14:03 | disposition home or self-care (01) ==
PROVIDERS: Family Provider Family Medicine; PCP Family Medicine; Referring Provider Orthopaedic Surgery Foot and Ankle Surgery; Visit Provider Orthopaedic Surgery Foot and Ankle Surgery
PROC: 0SSF04Z Reposition Right Ankle Joint with Internal Fixation Device, Open Approach (ICD-10-PCS; CPT 27828; principal; 2024-09-03 08:45)
DX: S82.871A Displaced pilon fracture of right tibia, initial encounter for closed fracture (principal); S82.831A Other fracture of upper and lower end of right fibula, initial encounter for closed fracture; W10.8XXA Fall (on) (from) other stairs and steps, initial encounter; G89.18 Other acute postprocedural pain
CPT/HCPCS: 27828; 64450; 73610; 76000; C1713; J0690; J1100; J1171; J1885; J2405; J2704; J2795; J3010; J3410; J3490

== ENCOUNTER 2024-10-01 07:14 | Day surgery (SDC) | payer MEDICARE, OTHER, SELFPAY ==
[2023-04-08 23:55] VITALS: BMI 31.3
[2024-09-29 14:37] VITALS: BMI 28.3
[2024-10-01] VITALS (12 sets, daily range): BP systolic 118–167; BP diastolic 63–103; PULSE 80–105; RESP 10–98; TEMP 36.1–36.6; O2SAT 10–99; BMI 30.3
[2024-10-01] MEDS: LACTATED RINGERS 1,000 ML 42 ML IV (07:48)
[2024-10-01] MEDS: ACETAMINOPHEN 325 MG TABLET 650 MG PO (07:50)
--- NOTE | 2024-10-01 08:26 | PM.PREOP ---
Pre-operative Note Interval Note History & Physical reviewed/Exam performed by Physician: Yes Changes to H&P: No
--- NOTE | 2024-10-01 08:31 | P.OP_ITS ---
Operative Date/Time/Diagnoses Date of procedure: 10/01/24 Time of procedure: 08:33 Pre-op diagnosis: wound dehiscence right ankle, right tibial pilon and fibula fractures Post-op diagnosis: same Procedure & Clinicians Procedure: Irrigation debridement right ankle skin subcutaneous tissue fascia to level of bone CPT code 47892, lateral wound Irrigation debridement right ankle skin, subcutaneous tissue CPT code 08535, medial wound modifier 59 Modifier 78 Same procedure as scheduled: Yes Indications: The patient is a 64-year-old female that sustained a right ankle pilon fracture on August 24, 2024 she has a complex medical history including Raynaud's syndrome and rheumatoid arthritis on biologic medications and a family history of jae gnant hyperthermia and von Willebrand's. She underwent open reduction internal fixation of the pilon fracture on September 03, 2024. On postop she was found to have surgical wound dehiscence of the distal part of her lateral incision. Her medial incision is healed well. She was placed on oral antibiotics and Betadine paint. This did dry up but due to persistent dehiscence and immunocompromise she was indicated for formal irrigation debridement and re-closure. Her biologics were being held. The risks and benefits of the procedure have been discussed with the patient and given the opportunity to ask questions. The risks of surgery include but are not limited to infection, malunion, nonunion, persistence of pain, damage to nerves and blood vessels, posttraumatic arthritis, DVT, PE, cardiopulmonary complications and . The patient expressed a thorough understanding of the risks and benefits of surgery and has elected to proceed. Consent was signed. Surgeon: Amparo Arzate Click Yes if Unassisted: Yes Anesthesia Type: General Operative Notes Findings: Distal 2/3 lateral incision surgical wound dehiscence dry no purulence or drainage. No erythema today. Wound edges and wound excised thoroughly irrigated, vancomycin powder placed and closed On scrubbing and prepping ankle was noted that proximal aspect of medial wound with dry scab peeled back revealing proximally 2 cm of superficial dehiscence medially this was debrided with a sharply with a scalpel through the skin subcutaneous tissue curetted washed vancomycin powder was placed and this was reclosed with sutures. Closure Type: primary Specimen(s): other (Deep culture sent) Estimated Blood Loss (mL): 20 Blood products transfused: none Tourniquet time (min): 6 Procedure in detail: Patient was seen in the preoperative area the site of surgery marked informed consent confirmed this was the right ankle. Patient was then brought to the operating room by the anesthesia team placed supine on operative table. Bony prominences were well padded. A well-padded thigh tourniquet was applied. The right lower extremity was prepped and draped in the standard sterile fashion. A formal time-out procedure was performed confirming the patient's side and site of surgery administration of the appropriate preoperative antibiotic. All were in agreement. Attention turned to the right lower extremity the Esmarch was used for exsanguination the tourniquet raised in the site of 250 mm Hg. Attention was tu rned to the lateral ankle area of lateral dehiscence was marked out and ellipsed sized sharply with a scalpel through the skin subcutaneous tissue the wound edges were excised the deeper tissue was then dissected sharply to the level of the bone and sharply excised in the wound to the level of the bone and plate distally. Once this was completed the wound was thoroughly irrigated with 3 L of saline using the cysto tubing. Once this was completed clean drape was applied gloves were changed and then cultures were obtained and sent. Vancomycin powder was placed. After this the wound was closed in a layered fashion with 2-0 PDS 4-0 Monocryl and 3-0 nylon suture. A vinay wound dressing was applied for an incisional wound VAC to aid in healing in this patient. On preparation as it was noted that the proximal eschar at the medial incision dehisced revealing dehiscence of the proximal 2 cm of the medial incision. Edges were sharply debrided with a scalpel and the subcutaneous tissue further debrided with a curette and rongeur 1 prominent old Vicryl suture was removed. The area was irrigated. Vancomycin powder was placed and then this was primarily closed with 3-0 nylon suture and an Aquacel dressing placed medially. Dressing was placed with Kerlix and an Nathaniel wrap. The patient was awoken from anesthesia and taken to the recovery room. Complications: none Post-operative Condition: stable Disposition: PACU Plan for aftercare: Touchdown or nonweightbearing right lower extremity. Follow up as scheduled in Orthopedic Clinic in 2 weeks for wound check. In 7 days the vinay dressing the batteries we will stop functioning at this point the battery pack can be discontinued--disconnected from the dressing but leave the dressing in place which will act as a waterproof bandage. The Aquacel dressing is also a shower compatible bandage. May shower with a vinay dressing in place.
[2024-10-01] MEDS: CEFAZOLIN 2 GM/100 ML PREMIX 100 ML IV (08:50)
--- NOTE | 2024-10-01 09:12 | SUR.OPER ---
Supine on padded OR bed, head on pillow, arms secured on padded arm boards at <90 degrees abduction, legs uncrossed, safety belt at thigh, tape over blanket over left lower leg. RIght leg on blankets and under control of surgeon. [place] bump under right hip.
[2024-10-01] MEDS: BUPIVACAINE 0.25% W/ EPI 30 ML VIAL 60 ML INJ (09:20)
[2024-10-01] MEDS: VANCOMYCIN 1,000 MG VIAL 1000 MG TOP (09:22)
[2024-10-01] MEDS: HYDROMORPHONE 1 MG INJ IV ×8 (10:23→10:58)
[2024-10-01] MEDS: OXYCODONE IR 5 MG TABLET PO (10:24)
[2024-10-01] MEDS: MEPERIDINE 50 MG/ML INJ 12.5 MG IV (10:45)
== END 2024-10-01 12:03 | disposition home or self-care (01) ==
PROVIDERS: PCP Family Medicine; Referring Provider Orthopaedic Surgery Foot and Ankle Surgery; Visit Provider Orthopaedic Surgery Foot and Ankle Surgery
PROC: (CPT 11043; principal; 2024-10-01 08:45)
DX: T81.31XA Disruption of external operation (surgical) wound, not elsewhere classified, initial encounter (principal); M06.9 Rheumatoid arthritis, unspecified; I73.00 Raynaud's syndrome without gangrene
CPT/HCPCS: 11043; 11042; 87070; 87075; 87205; J0690; J1100; J1171; J2175; J2405; J2704; J3010

== ENCOUNTER → 2024-10-28 10:05 | Outpatient (CLI) | payer MEDICARE, OTHER, SELFPAY ==
[2024-10-21 12:04] VITALS: BMI 31.3
[2024-10-28 10:39] LABS: Add Manual Diff / Slide Review NO; Hematocrit 39.6 % (36-46); Hemoglobin 13.0 g/dL (12.0-16.0); Lymphocytes Absolute Auto 1300 /uL (1100-4500); Mean Corpuscular HGB Conc 32.8 % (30-36); Mean Corpuscular Hemoglobin 30.3 PG (26-34); Mean Corpuscular Volume 92.6 fL (80-100); Platelet Count 242 X10^3/uL (150-400)
[2024-10-28 11:06] LABS: Alanine Aminotransferase 12 IU/L (<35); Albumin 3.6 g/dL (3.5-5.0); Albumin Globulin Ratio 1.3 (1.0-2.8); Alkaline Phosphatase 79 U/L (38-126); Blood Urea Nitrogen 8 mg/dL (7-17); Calcium 8.6 mg/dL (8.4-10.2); Carbon Dioxide 25 mmol/L (22-32); Chloride 105 mmol/L (98-107); Estimated Glomerular Filt Rate > 60 mL/min (>60); Globulin 2.8 g/dL (1.7-4.1); Glucose 115 mg/dL (70-99); HEMOLYSIS < 15 (0-50); Potassium 3.7 mmol/L (3.4-5.1); Sodium 137 mmol/L (137-145); Total Protein 6.4 g/dL (6.3-8.2)
== END ==
PROVIDERS: Family Provider Family Medicine; PCP Family Medicine; Referring Provider Internal Medicine Infectious Disease; Visit Provider Internal Medicine Infectious Disease
DX: T84.7XXA Infection and inflammatory reaction due to other internal orthopedic prosthetic devices, implants and grafts, initial encounter (principal)
CPT/HCPCS: 36415; 80053; 85025; 86140

== ENCOUNTER → 2024-11-03 10:08 | Outpatient (CLI) | payer MEDICARE, OTHER, SELFPAY ==
[2024-10-21 12:04] VITALS: BMI 31.3
[2024-11-03 11:17] LABS: Add Manual Diff / Slide Review NO; Hematocrit 39.2 % (36-46); Hemoglobin 13.0 g/dL (12.0-16.0); Lymphocytes Absolute Auto 1600 /uL (1100-4500); Mean Corpuscular HGB Conc 33.1 % (30-36); Mean Corpuscular Hemoglobin 30.5 PG (26-34); Mean Corpuscular Volume 92.2 fL (80-100); Platelet Count 243 X10^3/uL (150-400)
[2024-11-03 11:45] LABS: Alanine Aminotransferase 12 IU/L (<35); Albumin 3.6 g/dL (3.5-5.0); Albumin Globulin Ratio 1.2 (1.0-2.8); Alkaline Phosphatase 70 U/L (38-126); Blood Urea Nitrogen 7 mg/dL (7-17); Calcium 9.1 mg/dL (8.4-10.2); Carbon Dioxide 33 mmol/L (22-32); Chloride 104 mmol/L (98-107); Estimated Glomerular Filt Rate > 60 mL/min (>60); Globulin 3.0 g/dL (1.7-4.1); Glucose 90 mg/dL (70-99); HEMOLYSIS < 15 (0-50); Potassium 4.3 mmol/L (3.4-5.1); Sodium 138 mmol/L (137-145); Total Protein 6.6 g/dL (6.3-8.2)
[2024-11-04 03:39] LABS: Hepatitis A Antibody IgM Negative (Negative); Hepatitis B Core Antibody IgM Negative (Negative); Hepatitis C Antibody Non Reactive (Non Reactive)
== END ==
PROVIDERS: Family Provider Family Medicine; PCP Family Medicine; Referring Provider Internal Medicine Infectious Disease; Visit Provider Internal Medicine Infectious Disease
DX: T84.7XXA Infection and inflammatory reaction due to other internal orthopedic prosthetic devices, implants and grafts, initial encounter (principal)
CPT/HCPCS: 36415; 80053; 80074; 85025; 85651; 86140

== ENCOUNTER → 2024-11-07 13:10 | Outpatient (CLI) | payer MEDICARE, OTHER, SELFPAY ==
[2024-10-21 12:04] VITALS: BMI 31.3
--- NOTE | 2024-11-07 13:12 | DI.CT.S_ITS ---
PROCEDURE: CT LE RT WO CON INDICATIONS: CLOSED DISPLACED PILON FRACTURE TECHNIQUE: Noncontrast 3-mm axial sections acquired from the distal tibial shaft to the talar dome, with coronal and sagittal reformats. For radiation dose reduction, the following was used: automated exposure control, adjustment of mA and/or kV according to patient size. COMPARISON: [facility], CT, CT LE RT WO CON, 08/25/2024, 12:32. FINDINGS: Image quality: Excellent. Bones: Postsurgical changes are seen from internal fixation of previously seen comminuted distal tibial and fibular fractures. Medial and lateral plate and screw construct are seen with additional interfragmentary screws at the distal tibial metaphysis and medial malleolus and a transsyndesmotic screw. Alignment is nearly anatomic. No signs of hardware fracture or loosening. No definite osseous bridging is seen along the fracture sites. Joint space narrowing is seen at the lateral mortise joint. No definite osseous erosion is seen. Soft tissues: Small tibiotalar effusion. Small osseous fragments are seen in the joint that may represent intra-articular loose bodies. Mild subcutaneous edema surrounding the ankle. The articular cartilages, ligaments, tendons are not well evaluated with CT. Visualized musculature is normal in bulk. IMPRESSION: Postsurgical changes from internal fixation of previously seen comminuted distal tibial and fibular fractures. No significant osseous bridging is seen across the fracture lines. Approved by: Buddy Ghotra M.D. on 11/08/2024 at 8:14
== END ==
PROVIDERS: PCP Family Medicine; Referring Provider Orthopaedic Surgery Foot and Ankle Surgery; Visit Provider Orthopaedic Surgery Foot and Ankle Surgery
DX: S82.871D Displaced pilon fracture of right tibia, subsequent encounter for closed fracture with routine healing (principal); S82.831D Other fracture of upper and lower end of right fibula, subsequent encounter for closed fracture with routine healing; X58.XXXD Exposure to other specified factors, subsequent encounter
CPT/HCPCS: 73700

== ENCOUNTER → 2024-11-17 14:39 | Outpatient (CLI) | payer MEDICARE, OTHER, SELFPAY ==
[2024-10-21 12:04] VITALS: BMI 31.3
--- NOTE | 2024-11-17 14:42 | DI.RAD.S_ITS ---
PROCEDURE: XR LUMBAR SPINE MIN 4V INDICATIONS: BACK PAIN TECHNIQUE: 5 views of the lumbar spine were acquired, including bilateral oblique views. COMPARISON: [facility], , XR LUMBAR SPINE 2-3V, 03/07/2023, 10:29. FINDINGS: Bones: 5 nonrib-bearing vertebrae are present. There is normal bony alignment. No vertebral body compression fractures. No suspicious bony lesions. Mild to moderate, multilevel degenerative disc disease and lower lumbar facet arthrosis. Soft tissues: Overlying bowel gas pattern is normal. No suspicious soft tissue calcifications. Surgical clips project over the epigastric region. Oblique images: No pars defects. IMPRESSION: Mild to moderate, multilevel degenerative disc disease and lower lumbar facet arthrosis. Dictated by: Primitivo Castaneda M.D. on 11/17/2024 at 15:47 Approved by: Primitivo Castaneda M.D. on 11/17/2024 at 15:51
--- NOTE | 2024-11-17 14:42 | DI.RAD.S_ITS ---
PROCEDURE: XR THORACIC SPINE 2V INDICATIONS: RIB PAIN TECHNIQUE: 2 views of the thoracic spine were acquired. COMPARISON: None. FINDINGS: Bones: No fractures or dislocations. No suspicious bony lesions. 12 pairs of ribs are noted, and appear intact where visualized. Healed left posterior 11th, 10th, 9th and 7th rib fractures. Soft tissues: No paravertebral stripe thickening. IMPRESSION: No acute bony abnormality. Healed left posterior rib fractures. Dictated by: Primitivo Castaneda M.D. on 11/17/2024 at 15:46 Approved by: Primitivo Castaneda M.D. on 11/17/2024 at 15:46
== END ==
PROVIDERS: PCP Family Medicine; Referring Provider Physical Medicine & Rehabilitation; Visit Provider Physical Medicine & Rehabilitation
DX: M54.14 Radiculopathy, thoracic region (principal); R07.81 Pleurodynia; M51.362 Other intervertebral disc degeneration, lumbar region with discogenic back pain and lower extremity pain; M47.816 Spondylosis without myelopathy or radiculopathy, lumbar region; G89.29 Other chronic pain; Z87.81 Personal history of (healed) traumatic fracture
CPT/HCPCS: 72072; 72110

== ENCOUNTER 2024-12-03 07:14 | Day surgery (SDC) | payer MEDICARE, OTHER, SELFPAY ==
[2024-10-21 12:04] VITALS: BMI 31.3
[2024-11-27 10:57] VITALS: BMI 21.8
[2024-12-03] VITALS (7 sets, daily range): BP systolic 87–155; BP diastolic 53–90; PULSE 60–72; RESP 16; TEMP 36.2; O2SAT 98–100; BMI 21.8
--- NOTE | 2024-12-03 | DI.RAD.S_ITS ---
PROCEDURE: XR ANKLE RT MIN 3V INDICATIONS: HARDWARE REMOVAL RT ANKLE TECHNIQUE: 5 views of the ankle were acquired. COMPARISON: [facility], CR, XR ANKLE RT MIN 3V, 09/03/2024, 10:13. FINDINGS: Intraoperative fluoroscopic images demonstrate interval hardware removal from previous surgical fixation of medial tibia and lateral fibula. Alignment is unchanged. IMPRESSION: Intraoperative fluoroscopic support for surgical fixation hardware removal. Please see separate procedure note for further details. Dictated by: Wisam Teresa M.D. on 12/03/2024 at 15:43 Approved by: Wisam Teresa M.D. on 12/03/2024 at 15:44
--- NOTE | 2024-12-03 | PATH_ITS ---
[facility] Accession Number: [id number] No. of containers..01 Tissue . 01 Material submitted: . ankle - RIGHT ANKLE BONE AND TISSUE . 01 Diagnosis: RIGHT ANKLE BONE AND SOFT TISSUE, BIOPSY: Predominantly synovium and fibroconnective tissue with marked acute and chronic inflammation and necro-inflammatory debris. Interspersed small shards of mineralized bone with features most consistent acute osteomyelitis. KRUNAL 12/10/2024 1140 Local . 01 Electronically signed: . Halie Starr MD, Pathologist NPI- [id number] . 01 Gross description: . Received in formalin with two identifiers and right ankle bone and tissue are multiple irregular haas to brown soft tissue fragments with no bone identified aggregating to 2.7 x 1.3 x 0.4 cm. Filtered and submitted entirely in A1. ([id number]) /MRV 12/04/2024 1926 Local . 01 Pathologist provided ICD-10: M86.9 . 01 CPT . 109132 Specimen Comment: A courtesy copy of this report has been sent to [facility] Pathology Performed at: [address] [address], [place], [place] [id number] MD Rey Jones MD Phone: [phone]
[2024-12-03] MEDS: LACTATED RINGERS 1,000 ML 42 ML IV (08:03)
--- NOTE | 2024-12-03 08:17 | PM.PREOP ---
Pre-operative Note Interval Note History & Physical reviewed/Exam performed by Physician: Yes Changes to H&P: No
[2024-12-03] MEDS: ACETAMINOPHEN 325 MG TABLET 650 MG PO (08:22)
[2024-12-03] MEDS: GABAPENTIN 600 MG TABLET PO (08:38)
[2024-12-03] MEDS: CEFAZOLIN 2 GM/100 ML PREMIX 100 ML IV (08:50)
--- NOTE | 2024-12-03 09:26 | SUR.OPER ---
Supine on padded OR bed, head on pillow, arms secured on padded arm boards at <90 degrees abduction, legs uncrossed, safety belt at torso, tape over blanket over non operative lower leg, operative side hip bumped and leg bumped by Dr. Arzate. All pressure points padded and protected. Final position approved by surgeon.
[2024-12-03] MEDS: BUPIVACAINE 0.25% W/ EPI 30 ML VIAL INJ (09:50)
--- NOTE | 2024-12-03 11:14 | P.OP_ITS ---
Operative Date/Time/Diagnoses Date of procedure: 12/03/24 Time of procedure: 08:50 Pre-op diagnosis: Right ankle fracture, pilon fracture, wound dehiscence, retained orthopedic hardware Post-op diagnosis: same Procedure & Clinicians Procedure: Implants removal multiple sites right ankle 3 separate incisions for anterior to posterior tibial hardware, lateral fibular hardware and, medial tibial hardware 78925 Irrigation and debridement skin subcutaneous tissue and bone right ankle 46220 Deep bone biopsy Exam under anesthesia right ankle for stability and splint placement. Same procedure(s) as scheduled: Yes Indications: The patient is a 64-year-old female with a complex medical history including rheumatoid arthritis and Raynaud's syndrome that sustained a pilon fracture in July 2024. She underwent open reduction internal fixation September 03, 2024. She had wound dehiscence concerning for infection had a washout but cultures were negative. She has had recurrent slow healing and wound dehiscence of the incisions these improved somewhat with antibiotics but no organisms returned on culture. She has been managed with Infectious Disease and has had some difficulty tolerating antibiotics. She was indicated for staged hardware removal and irrigation and debridement now that her fracture has reached stability. The risks and benefits of the procedure have been discussed with the patient and given the opportunity to ask questions. The risks of surgery include but are not limited to infection, malunion, nonunion, persistence of pain, damage to nerves and blood vessels, posttraumatic arthritis, DVT, PE, cardiopulmonary complications and . The patient expressed a thorough understanding of the risks and benefits of surgery and has elected to proceed. Consent was signed Surgeon: Amparo Arzate Click Yes if Unassisted: Yes Anesthesia Type: General and Local Operative Notes Findings: Right ankle fracture pilon fracture hardware intact fibula anterior to posterior tibia and medial tibia plates and screws. 3 separate incision sites were made in the hardware removed. No purulence was noted. Tissue and bone were sent for culture and PCR. After hardware removal and examination under anesthesia with live fluoroscopy was performed and mortise was stable. And all hardware had been removed. Wounds were then closed with suture. Closure Type: primary Specimen(s): other (Tissue and bone were sent for PCR, culture, Gram stain and pathology) Prosthetic devices, grafts, tissues, transplants, or devices: Implants were removed from 3 separate surgical incision sites at the right ankle including the fibula and anterior and medial incisions on the tibia to remove plate and screws. Complete hardware removal was confirmed on fluoroscopy. Applied: none Estimated Blood Loss (mL): 50 Blood products transfused: none Tourniquet time (min): 2 Procedure in detail: Patient was seen in the preoperative area the site of surgery was marked informed consent confirmed this was the right ankle. The patient was brought back to the operation room by the anesthesia team general anesthetic was administered. A well-padded thigh tourniquet was applied. An ipsilateral thigh bump. The right lower extremity was prepped and draped in the standard sterile fashion a formal time-out procedure was performed confirming the patient's side and site of surgery administration of appropriate preoperative antibiotic. All were in agreement. Additionally the patient has been on oral Keflex and doxycycline prescribed by the infectious disease physician. Attention turned to the right ankle the Esmarch was used for exsanguination and the tourniquet raised on the thigh to 250 mmHg. This was only elevated for 2 minutes as it became apparent was a venous tourniquet was released. Attention was 1st turned laterally the previous incision scar from the lateral incision was reopened this was dissected down through the skin subcutaneous tissue down to the level of the plate and fibula bone. A small area where there had been previous wound dehiscence was ellipsed to size excising the skin and subcutaneous tissue and this area and removed. The plate and screws were exposed with the Bovie cautery and then removed using the screwdriver from the Arthrex set. Once the plate and screws were removed rongeur and curette were used to take deep tissue and bone samples to be sent for pathology culture and PCR. Once this was completed attention was turned to the medial ankle of the right tibia separate medial incision was reopened and again dissected through the skin subcutaneous tissue down to the level of the plate and the bone. Separate medial malleolar cannulated screw was removed follow up by the medial tibia plate and screws. Once this was completed again tissue and bone were taken for culture and pathology. Next the C-arm was brought in to help isolate the anterior to posterior tibial screw this was marked in the small incision made anteriorly and carefully dissected down to the level of the bone protecting the anterior neurovascular bundle and tibialis anterior tendon. Cannulated screw was identified wire was placed and then the cannulated screwdriver was used to remove the anterior to posterior screw once this was complete fluoroscopy was brought into confirm complete screw and plate removal from all areas. Then under live fluoroscopy a stress examination of the ankle was performed in the AP and lateral planes and the mortise and fractures were stable without shift. Next 3 L of saline were used for irrigation and debridement of the incision sites and completed with a cysto tubing. Once this was completed the hardware removal was complete as well as the debridement of the skin subcutaneous tissue and bone. At this point new clean drape was applied and gloves were changed to clean gloves and clean instruments. The wounds were closed sequentially with 2-0 PDS 4-0 Monocryl and 3-0 nylon suture. 20 cc of 0.25% Marcaine with epinephrine was injected for local anesthetic. Once this was completed Xeroform gauze was applied as well as vinay negative pressure dressings followed by Webril a posterior and U splint in neutral position. The patient was then awoken from anesthesia and taken to the recovery unit in good condition there were no immediate complications from this procedure. Counts wer e correct. Complications: none Post-operative Condition: stable Disposition: PACU Plan for aftercare: Nonweightbearing or touchdown or up to 25% body weight for the 1st 2 weeks. Keep splint clean dry and intact. Follow up in 2-3 weeks for wound check and suture removal. At that time would plan to placed into a walking boot and start advancing weight-bearing again. The vinay VAC dressings we will function for 1 week at which time the battery pack we will stop and can be removed but the rest of the dressing would remain in place like a regular bandage.
[2024-12-03] MEDS: KETOROLAC 30 MG/ML VIAL IV (12:14)
[2024-12-03] MEDS: ONDANSETRON 4 MG/2 ML INJ IV (12:16)
[2024-12-03] MEDS: OXYCODONE IR 5 MG TABLET PO (12:16)
== END 2024-12-03 14:59 | disposition home or self-care (01) ==
PROVIDERS: PCP Family Medicine; Referring Provider Orthopaedic Surgery Foot and Ankle Surgery; Visit Provider Orthopaedic Surgery Foot and Ankle Surgery
PROC: (CPT 20680; principal; 2024-12-03 08:45)
DX: Z47.2 Encounter for removal of internal fixation device (principal); T81.31XA Disruption of external operation (surgical) wound, not elsewhere classified, initial encounter; G89.18 Other acute postprocedural pain; M06.9 Rheumatoid arthritis, unspecified; I73.00 Raynaud's syndrome without gangrene
CPT/HCPCS: 20680 ×2; 20670; 64450; 73610; 76000; 87070; 87075; 87077; 87186; 87205; 87801; J0690; J1100; J1885; J2405; J2704; J3010; J3490

== ENCOUNTER → 2024-12-10 13:40 | Outpatient (CLI) | payer MEDICARE, OTHER, SELFPAY ==
[2024-10-21 12:04] VITALS: BMI 31.3
[2024-12-10 16:48] LABS: Clostridium Difficile Tox PCR Negative for C. diff (Negative)
== END ==
PROVIDERS: PCP Family Medicine; Referring Provider Internal Medicine Infectious Disease; Visit Provider Internal Medicine Infectious Disease
DX: T84.7XXA Infection and inflammatory reaction due to other internal orthopedic prosthetic devices, implants and grafts, initial encounter (principal)
CPT/HCPCS: 87493

== ENCOUNTER → 2025-01-30 12:53 | Outpatient (CLI) | payer MEDICARE, OTHER, SELFPAY ==
[2024-10-21 12:04] VITALS: BMI 31.3
[2025-01-30 13:25] LABS: Add Manual Diff / Slide Review NO; Hematocrit 37.4 % (36-46); Hemoglobin 12.4 g/dL (12.0-16.0); Lymphocytes Absolute Auto 1700 /uL (1100-4500); Mean Corpuscular HGB Conc 33.3 % (30-36); Mean Corpuscular Hemoglobin 27.6 PG (26-34); Mean Corpuscular Volume 82.9 fL (80-100); Platelet Count 207 X10^3/uL (150-400)
[2025-01-30 13:44] LABS: Alanine Aminotransferase 13 IU/L (<35); Albumin 4.4 g/dL (3.5-5.0); Albumin Globulin Ratio 1.4 (1.0-2.8); Alkaline Phosphatase 66 U/L (38-126); Blood Urea Nitrogen 11 mg/dL (7-17); Calcium 9.0 mg/dL (8.4-10.2); Carbon Dioxide 24 mmol/L (22-32); Chloride 107 mmol/L (98-107); Estimated Glomerular Filt Rate > 60 mL/min (>60); Globulin 3.1 g/dL (1.7-4.1); Glucose 104 mg/dL (70-99); HEMOLYSIS < 15 (0-50); Potassium 3.7 mmol/L (3.4-5.1); Sodium 140 mmol/L (137-145); Total Protein 7.5 g/dL (6.3-8.2)
[2025-01-30 13:58] LABS: Procalcitonin < 0.030 ng/mL (<0.5)
[2025-01-30 14:06] LABS: Follicle Stimulating Hormone 74.9 mIU/mL
== END ==
PROVIDERS: PCP Family Medicine; Referring Provider Internal Medicine Infectious Disease; Visit Provider Internal Medicine Infectious Disease
DX: T84.7XXD Infection and inflammatory reaction due to other internal orthopedic prosthetic devices, implants and grafts, subsequent encounter (principal); N95.1 Menopausal and female climacteric states
CPT/HCPCS: 36415; 80053; 82670; 83001; 84145; 85025; 86140